=== PATIENT | male | born 1935 | race Caucasian/White ===

== ENCOUNTER 2018-08-05 03:09 | Inpatient (IN) | payer OTHER ==
--- OUTSIDE RECORDS SUMMARY | 2018-08-05 03:12 | XMS REPORT | Clinical Summary ---
:1935 Author Organization [facility] Address [address] [place] [address] Care Team Providers Name Role Phone Asked, No Pcp Primary Care Provider Unavailable Allergies Active Allergy Reactions Severity Noted Date Comments Codeine Other (See Comments) Medium 08/05/2016 Unknown reaction Iodine And Iodide Other (See Comments) Medium 08/05/2016 Unknown reaction Containing Products Hydrocodone-Acetaminophen Other (See Comments) High 08/05/2016 Unknown reaction Tramadol-Acetaminophen Other (See Comments) Medium 08/05/2016 Unknown reaction Medications Medication Sig Dispensed Refills Start Date End Date Status clopidogrel (PLAVIX) Take 75 mg by mouth 0 07/18/2015 Active 75 mg tablet daily. furosemide (LASIX) 40 Take 40 mg by mouth 0 07/18/2015 Active mg tablet 2 (two) times a day. glipiZIDE (GLUCOTROL) Take 5 mg by mouth 0 07/18/2015 Active 5 MG tablet 2 (two) times a day before meals. levothyroxine Take 50 mcg by 0 07/18/2015 Active (SYNTHROID, LEVOXYL) mouth every 50 mcg tablet morning. donepezil (ARICEPT) 5 Take 5 mg by mouth 0 10/03/2015 Active MG tablet nightly. ipratropium Take 500 mcg by 0 10/03/2015 Active (ATROVENT) 0.02 % nebulization every nebulizer solution 6 (six) hours as needed for wheezing or shortness of breath. atorvastatin Take 20 mg by mouth 0 08/01/2016 Active (LIPITOR) 20 MG nightly. tablet ergocalciferol Take 50,000 Units 0 08/01/2016 Active (VITAMIN D2) 50,000 by mouth daily. unit capsule escitalopram Take 20 mg by mouth 0 08/01/2016 Active (LEXAPRO) 20 MG daily. tablet Active Problems Problem Noted Date Carotid disease, bilateral 09/18/2016 Chest pain 09/18/2016 Stroke 08/06/2016 Social History Tobacco Use Types Packs/Day Years Used Date Former Smoker Tobacco Cessation: Counseling Given: Yes Alcohol Use Drinks/Week oz/Week Comments No Sex Assigned at Date Recorded Not on file Job Start Date Occupation Industry Not on file Not on file Not on file Travel History Travel Start Travel End No recent travel history available. 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 For more information, please contact:[place] [address]
[2018-08-05] MEDS ORDERED: NA CHLORIDE 0.9% 1,000 ML ONE (03:48)
[2018-08-05 04:09] LABS: Absolute Lymphocytes (CBC) 0.7 K/uL (0.7-4.9); Absolute Monocytes 0.6 K/uL (0.1-1.3); Absolute Neutrophil 5.9 K/uL (1.8-8.0); Basophils % 0.4 % (0-1.3); Eosinophils % 0.4 % (0-4.4); Hematocrit 40.2 % (39.6-49.0); Lymphocytes % 9.5 % (15.3-44.8); MPV 8.1 fL (7.6-11.3); Monocytes % 7.7 % (3.3-12.3); RBC Red Blood Cell Count 4.18 M/uL (4.33-5.43)
[2018-08-05 04:11] LABS: Protime INR 1.08
[2018-08-05 04:36] LABS: ALT/SGPT 31 U/L (12-78); AST/SGOT 19 U/L (15-37); Albumin 3.5 g/dL (3.4-5.0); Alkaline Phosphatase 54 U/L (45-117); BUN Blood Urea Nitrogen 61 mg/dL (7-18); Bicarbonate 28 mmol/L (21-32); Bilirubin Direct < 0.1 mg/dL (0-0.2); Bilirubin Total 0.4 mg/dL (0.2-1.0); Glucose Level 169 mg/dL (74-106); Lipase 137 U/L (73-393); Magnesium 1.8 mg/dL (1.8-2.4); NT PRO-BNP 2465 pg/mL (<450); Potassium 3.8 mmol/L (3.5-5.1); Protein, Total 7.5 g/dL (6.4-8.2); Sodium Level 140 mmol/L (136-145); Troponin (Emerg Dept Use Only) 0.36 ng/mL (0.0-0.045)
[2018-08-05 05:13] LABS: Urine Blood TRACE (NEG); Urine Glucose NEGATIVE (NEG); Urine Protein TRACE (NEG); Urine Specific Gravity >1.030 (1.005-1.030)
--- NOTE | 2018-08-05 05:25 | ER ---
Nurse's Notes [facility] Name: Angel Ford Age: 83 yrs Sex: Male : 1935 Arrival Date: 08/05/2018 Time: 03:10 Bed 8 Private MD: Diagnosis: Fall due to bumping against object;Weakness;Dementia in other diseases classified elsewhere;Unspecified kidney failure;Contusion of unspecified back wall of thorax;Low back pain;Cardiomegaly-elevated troponin Presentation: 08/05 03:15 Presenting complaint: EMS states: [facility] called to [facility] due to pt having an unwitnessed fall. Pt A \T\ O x 3, pt denies hitting head or LOC. Pt reported he slid out of bed. Pt complaining of lower back and right hip pain. Care prior to arrival: Pt placed on back board and C collar per EMS. Mechanism of Injury: Fall out of bed. 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 03:15 Acuity: JUSTICE 3 ea 03:15 Method Of Arrival: EMS: [facility] ea 03:15 Transition of care: patient was received from another setting of care ([facility]), [facility]. Onset of symptoms was August 05, 2018. Risk Assessment: Do you want to hurt yourself or someone else? Patient reports no desire to harm self or others. Initial Sepsis Screen: Does the patient meet any 2 criteria? No. Patient's initial sepsis screen is negative. Does the patient have a suspected source of infection? No. Patient's initial sepsis screen is negative. Trauma Activation: Not Applicable Physician: ED Physician; Name: ; Notified At: ; Arrived At: Physician: General Surgeon; Name: ; Notified At: ; Arrived At: Physician: Radiology; Name: ; Notified At: ; Arrived At: Physician: Respiratory; Name: ; Notified At: ; Arrived At: Physician: Lab; Name: ; Notified At: ; Arrived At: Historical: - Allergies: 03:43 Iodine; ea 03:43 [place]; ea 03:43 tramadol; ea - Home Meds: 03:43 cholecalciferol (vitamin D3) 1,000 unit Oral tab daily [Active]; donepezil 10 mg Oral ea tab once daily [Active]; clopidogrel 75 mg Oral tab 1 tab once daily [Active]; Cozaar 25 mg Oral tab 1 tab once daily [Active]; levothyroxine 50 mcg tab 1 tab once daily [Active]; metoprolol tartrate 50 mg Oral tab 1 tab 2 times per day [Active]; Lasix 20 mg oral tab [Active]; Lexapro 10 mg oral tab [Active]; Protonix 20 mg Oral TbEC 1 tab once daily [Active]; oxcarbazepine 150 mg oral tab 1 tabs 2 times per day [Active]; prednisone 2.5 mg Oral tab once daily [Active]; Namenda 10 mg oral tab 1 tab 2 times per day [Active]; melatonin 3 mg Oral tab [Active]; folic acid 1 mg Oral tab 1 tab once daily [Active]; Provera 5 mg Oral tab 1 tab BID for for high risk heterosexual behavior [Active]; tobramycin 0.3 % Opht drop 1 drop every 4 hours [Active]; acetaminophen 325 mg Oral tab 1 tab TID [Active]; nitroglycerin 0.4 mg SL subl 1 tab every 5 minutes [Active]; - PMHx: 03:43 HTN; vitamin d deficiency; CAD; constipation; Vertigo; Pneumonia; Obesity; neuropathy; ea MUSCLE WEAKNESS; ischemic heart disease; Hypothyroidism; Hypertension; Hypercholesterolemia; heart failure unspecified; HEART FAILURE; GERD; dyspnea; Depression; Dementia; Diabetes - IDDM; DIZZINESS; - Immunization history:: Adult Immunizations up to date. - Social history:: Smoking status: Patient/guardian denies using tobacco. - Immunization history: Last tetanus immunization: unknown. - Family history:: not pertinent. - Ebola Screening: : No symptoms or risks identified at this time. Screenin:19 Abuse screen: Denies threats or abuse. Nutritional screening: No deficits noted. ea Tuberculosis screening: No symptoms or risk factors identified. Fall Risk Fall in past 12 months (25 points). Primary Survey: 03:20 NO uncontrolled hemorrhage observed. Breathing/Chest: Respiratory pattern: regular, ea Respiratory effort: spontaneous, unlabored, Chest inspection: symmetrical rise and fall of the chest. Circulation: Skin color: pink, Skin temperature: warm. Disability Alert. Exposure/Environment: There is no evidence of uncontrolled external bleeding. A warming method has been applied: A warm blanket has been provided to the patient. 04:20 Reassessment Airway Airway Patent Breathing/Chest Respiratory pattern Regular ea Respiratory effort Spontaneous Unlabored Chest inspection Symmetrical. Assessment: 03:18 General: Appears in no apparent distress. Behavior is appropriate for age. Pain: ea Complains of pain in lumbar area. Neuro: Level of Consciousness is awake, alert, obeys commands, Oriented to person, place, time. EENT: No signs and/or symptoms were reported regarding the EENT system. Cardiovascular: Patient's skin is warm and dry. Respiratory: Airway is patent Respiratory effort is even, unlabored, Respiratory pattern is regular, symmetrical. Derm: Skin is pink, warm \T\ dry. Musculoskeletal: Circulation, motion, and sensation intact. 04:34 Reassessment: Patient appears in no apparent distress at this time. No changes from aa1 previously documented assessment. Patient and/or family updated on plan of care and expected duration. Pain level reassessed. Awaiting lab and CT results. 04:46 Reassessment: Patient and/or family updated on plan of care and expected duration. Pain ea level reassessed. Patient is alert, oriented x 3, equal unlabored respirations, skin warm/dry/pink. Dr. Churchill at bedside updating plan of care. 05:40 Reassessment: Patient and/or family updated on plan of care and expected duration. Pain ea level reassessed. Pt resting with eyes closed, respirations even and unlabored. Chest expansions even and symmetrical. No s/s of pain or discomfort noted at this time. 06:25 Reassessment: Patient appears in no apparent distress at this time. Resting quietly, aa1 eyes closed, respirations even \T\ unlabored. Attempted to call report to floor however charge nurse states that she was unaware pt would be coming up before shift change and pt had not been assigned to a nurse. 07:15 Reassessment: Patient appears in no apparent distress at this time. Patient is alert, ca1 oriented x 3, equal unlabored respirations, skin warm/dry/pink. Vital Signs: 03:15 BP 123 / 66; Pulse 75; Resp 19; Temp 97.9; Pulse Ox 97% on R/A; Weight 131.54 kg; ea Height 5 ft. 9 in. (175.26 cm); 03:48 BP 110 / 48; Pulse 71; Resp 16; Pulse Ox 98% on R/A; mt 04:51 BP 142 / 64; Pulse 66; Resp 16; Pulse Ox 98% on R/A; aa1 05:58 BP 111 / 73; Pulse 63; Resp 17; Pulse Ox 97% on R/A; ea 06:25 BP 116 / 63; Pulse 71; Resp 18; Pulse Ox 96% on R/A; Pain 0/10; aa1 07:15 BP 118 / 71; Pulse 71; Resp 18; Pulse Ox 95% on R/A; ca1 03:15 Body Mass Index 42.83 (131.54 kg, 175.26 cm) ea Temitope Coma Score: 03:15 Eye Response: spontaneous(4). Verbal Response: oriented(5). Motor Response: obeys ea commands(6). Total: 15. Trauma Score (Adult): 03:15 Eye Response: spontaneous(1); Verbal Response: oriented(1); Motor Response: obeys ea commands(2); Systolic BP: > 89 mm Hg(4); Respiratory Rate: 10 to 29 per min(4); Temitope Score: 15; Trauma Score: 12 ED Course: 03:10 Patient arrived in ED. am2 03:15 Patient has correct armband on for positive identification. Placed in gown. Bed in low ea position. Call light in reach. Side rails up X2. 03:15 Arm band placed on right wrist. Patient placed in an exam room, on a stretcher, on ea pulse oximetry. 03:18 Triage completed. ea 03:22 Patient maintains SpO2 saturation greater than 95% on room air. Thermoregulation: warm ea blanket given to patient. 03:26 Elier Osborn MD is Attending Physician. [facility] 03:50 Initial lab(s) drawn, by nm, sent to lab. Inserted saline lock: 20 gauge in right aa1 antecubital area, using aseptic technique. Blood collected. 03:52 XRAY Chest (1 view) In Process Unspecified. EDMS 04:11 Clair Neff, MARY is Primary Nurse. aa1 04:17 CT completed. Patient tolerated procedure well. Patient moved to CT via stretcher. Patient moved back from CT. 04:30 CT Traumagram (Head C Spine CAP wo con) In Process Unspecified. EDMS 04:40 Urine collected: straight cath specimen, clear. Straight cath inserted, using sterile aa1 technique, 16 Fr. Specimen obtained. Returned clear yellow urine. Patient tolerated well. 05:21 Dedrick Triplett MD is Hospitalizing Provider. kam 05:53 No provider procedures requiring assistance completed. Patient admitted, IV remains in ea place. 06:26 Hospitalizing Provider role handed off by Dedrick Triplett MD kam 06:26 Theo Rayo DO is Hospitalizing Provider. kam 06:28 Dedrick Triplett MD is Hospitalizing Provider. kam Administered Medications: 03:50 Drug: NS 0.9% 1000 ml Route: IV; Rate: 125 ml/hr; Site: right antecubital; aa1 06:05 Follow up: Response: No adverse reaction; IV Status: Infusion continued upon admission ea 05:19 CANCELLED (Duplicate Order): NS 0.9% 1000 ml IV at 125 ml/hr continuous kam 05:30 Drug: NS 0.9% 500 ml Route: IV; Rate: bolus; Site: right antecubital; ea 06:04 Follow up: Response: No adverse reaction; IV Status: Completed infusion; IV Intake: ea 500ml 05:37 Drug: Aspirin 162 mg Route: PO; ea 06:04 Follow up: Response: No adverse reaction ea 05:37 Drug: Lovenox 40 mg Route: Sub-Q; Site: right lower abdomen; ea 06:06 Follow up: Response: No adverse reaction ea Intake: 06:04 IV: 500ml; Total: 500ml. ea Outcome: 05:24 Decision to Hospitalize by Provider. kam 05:54 Instructed on the need for admit. ea 05:57 Patient's length of stay in the Emergency Department was greater than 2 hours. Pt being ea admittedPatient's length of stay extended due to 07:45 Admitted to Med/surg accompanied by tech, via stretcher, room 213, with chart, Report ca1 called to Cathy Treadwell RN 07:45 Condition: stable ca1 07:57 Patient left the ED. ca1 Signatures: Dispatcher [employer] EDMS Clair Neff, RN RN aa1 Elier Osborn MD MD cha Hagler, Khalida Sherman Moriah mt Antunez, Elena, RN RN ea Acob, Cheryl, RN RN ca1
--- NOTE | 2018-08-05 05:25 | EDPHYS ---
Physician Documentation [facility] Name: Angel Ford Age: 83 yrs Sex: Male : 1935 Arrival Date: 08/05/2018 Time: 03:10 Bed 8 Private MD: ED Physician Elier Osborn HPI: 08/05 03:36 This 83 yrs old Male presents to ER via EMS with complaints of Fall Injury. kam 03:39 The patient presents with pain and decreased range of motion, and an injury. The kam symptoms are located in the thoracic area and lumbar area. Onset: The symptoms/episode began/occurred just prior to arrival. The pain does not radiate. Associated signs and symptoms: Pertinent positives: nausea. Historical: - Allergies: 03:43 Iodine; ea 03:43 [place]; ea 03:43 tramadol; ea - Home Meds: 03:43 cholecalciferol (vitamin D3) 1,000 unit Oral tab daily [Active]; donepezil 10 mg Oral ea tab once daily [Active]; clopidogrel 75 mg Oral tab 1 tab once daily [Active]; Cozaar 25 mg Oral tab 1 tab once daily [Active]; levothyroxine 50 mcg tab 1 tab once daily [Active]; metoprolol tartrate 50 mg Oral tab 1 tab 2 times per day [Active]; Lasix 20 mg oral tab [Active]; Lexapro 10 mg oral tab [Active]; Protonix 20 mg Oral TbEC 1 tab once daily [Active]; oxcarbazepine 150 mg oral tab 1 tabs 2 times per day [Active]; prednisone 2.5 mg Oral tab once daily [Active]; Namenda 10 mg oral tab 1 tab 2 times per day [Active]; melatonin 3 mg Oral tab [Active]; folic acid 1 mg Oral tab 1 tab once daily [Active]; Provera 5 mg Oral tab 1 tab BID for for high risk heterosexual behavior [Active]; tobramycin 0.3 % Opht drop 1 drop every 4 hours [Active]; acetaminophen 325 mg Oral tab 1 tab TID [Active]; nitroglycerin 0.4 mg SL subl 1 tab every 5 minutes [Active]; - PMHx: 03:43 HTN; vitamin d deficiency; CAD; constipation; Vertigo; Pneumonia; Obesity; neuropathy; ea MUSCLE WEAKNESS; ischemic heart disease; Hypothyroidism; Hypertension; Hypercholesterolemia; heart failure unspecified; HEART FAILURE; GERD; dyspnea; Depression; Dementia; Diabetes - IDDM; DIZZINESS; - Immunization history:: Adult Immunizations up to date. - Social history:: Smoking status: Patient/guardian denies using tobacco. - Immunization history: Last tetanus immunization: unknown. - Family history:: not pertinent. - Ebola Screening: : No symptoms or risks identified at this time. ROS: 03:37 Constitutional: Negative for fever, chills, and weight loss, Eyes: Negative for injury, kam pain, redness, and discharge, ENT: Negative for injury, pain, and discharge, Neck: Negative for injury, pain, and swelling, Cardiovascular: Negative for chest pain, palpitations, and edema, Respiratory: Negative for shortness of breath, cough, wheezing, and pleuritic chest pain, Abdomen/GI: Negative for abdominal pain, nausea, vomiting, diarrhea, and constipation, : Negative for injury, bleeding, discharge, and swelling, MS/Extremity: Negative for injury and deformity, Neuro: Negative for headache, weakness, numbness, tingling, and seizure, Psych: Negative for depression, anxiety, suicide ideation, homicidal ideation, and hallucinations, Allergy/Immunology: Negative for hives, rash, and allergies, Endocrine: Negative for neck swelling, polydipsia, polyuria, polyphagia, and marked weight changes, Hematologic/Lymphatic: Negative for swollen nodes, abnormal bleeding, and unusual bruising. 03:37 Back: Positive for pain at rest, pain with movement. 03:37 Skin: Positive for pallor. Exam: 03:37 Constitutional: This is a well developed, well nourished patient who is awake, alert, kam and in no acute distress. Head/Face: Normocephalic, atraumatic. Eyes: Pupils equal round and reactive to light, extra-ocular motions intact. Lids and lashes normal. Conjunctiva and sclera are non-icteric and not injected. Cornea within normal limits. Periorbital areas with no swelling, redness, or edema. ENT: Nares patent. No nasal discharge, no septal abnormalities noted. Tympanic membranes are normal and external auditory canals are clear. Oropharynx with no redness, swelling, or masses, exudates, or evidence of obstruction, uvula midline. Mucous membranes moist. Neck: Trachea midline, no thyromegaly or masses palpated, and no cervical lymphadenopathy. Supple, full range of motion without nuchal rigidity, or vertebral point tenderness. No Meningismus. Chest/axilla: Normal chest wall appearance and motion. Nontender with no deformity. No lesions are appreciated. Cardiovascular: Regular rate and rhythm with a normal S1 and S2. No gallops, murmurs, or rubs. Normal PMI, no JVD. No pulse deficits. Respiratory: Lungs have equal breath sounds bilaterally, clear to auscultation and percussion. No rales, rhonchi or wheezes noted. No increased work of breathing, no retractions or nasal flaring. Abdomen/GI: Soft, non-tender, with normal bowel sounds. No distension or tympany. No guarding or rebound. No evidence of tenderness throughout. Male : Normal genitalia with no discharge or lesions. MS/ Extremity: Pulses equal, no cyanosis. Neurovascular intact. Full, normal range of motion. Neuro: Awake and alert, GCS 15, oriented to person, place, time, and situation. Cranial nerves II-XII grossly intact. Motor strength 5/5 in all extremities. Sensory grossly intact. Cerebellar exam normal. Normal gait. Psych: Awake, alert, with orientation to person, place and time. Behavior, mood, and affect are within normal limits. 03:37 Back: ROM is painful, normal spinal alignment noted, CVA tenderness, that is mild, muscle spasm, is not present. Vital Signs: 03:15 BP 123 / 66; Pulse 75; Resp 19; Temp 97.9; Pulse Ox 97% on R/A; Weight 131.54 kg; ea Height 5 ft. 9 in. (175.26 cm); 03:48 BP 110 / 48; Pulse 71; Resp 16; Pulse Ox 98% on R/A; mt 04:51 BP 142 / 64; Pulse 66; Resp 16; Pulse Ox 98% on R/A; aa1 05:58 BP 111 / 73; Pulse 63; Resp 17; Pulse Ox 97% on R/A; ea 06:25 BP 116 / 63; Pulse 71; Resp 18; Pulse Ox 96% on R/A; Pain 0/10; aa1 07:15 BP 118 / 71; Pulse 71; Resp 18; Pulse Ox 95% on R/A; ca1 03:15 Body Mass Index 42.83 (131.54 kg, 175.26 cm) ea [place] Coma Score: 03:15 Eye Response: spontaneous(4). Verbal Response: oriented(5). Motor Response: obeys ea commands(6). Total: 15. Trauma Score (Adult): 03:15 Eye Response: spontaneous(1); Verbal Response: oriented(1); Motor Response: obeys ea commands(2); Systolic BP: > 89 mm Hg(4); Respiratory Rate: 10 to 29 per min(4); [place] Score: 15; Trauma Score: 12 MDM: 03:26 Patient medically screened. [facility] 03:39 Data reviewed: vital signs, nurses notes, lab test result(s), EKG, radiologic studies, [facility] CT scan, plain films. 08/05 03:35 Order name: Basic Metabolic Panel; Complete Time: 05:00 [facility] 08/05 03:35 Order name: CBC with Diff; Complete Time: 04:32 [facility] 08/05 03:35 Order name: LFT's; Complete Time: 05:00 [facility] 08/05 03:35 Order name: Magnesium; Complete Time: 05:00 [facility] 08/05 03:35 Order name: NT PRO-BNP; Complete Time: 05:00 [facility] 08/05 03:35 Order name: PT-INR; Complete Time: 04:32 [facility] 08/05 03:35 Order name: Troponin (emerg Dept Use Only); Complete Time: 05:00 [facility] 08/05 03:35 Order name: Lipase; Complete Time: 05:00 [facility] 08/05 03:35 Order name: Urine Culture [facility] 08/05 03:35 Order name: TSH; Complete Time: 05:00 [facility] 08/05 04:53 Order name: Urine Dipstick--Ancillary (enter results); Complete Time: 05:25 08/05 05:23 Order name: [facility]mb 08/05 05:30 Order name: Creatine Phosphokinase EDMS 08/05 03:35 Order name: XRAY Chest (1 view) [facility] 08/05 03:35 Order name: EKG; Complete Time: 03:36 [facility] 08/05 03:35 Order name: Cardiac monitoring; Complete Time: 03:46 [facility] 08/05 03:35 Order name: EKG - Nurse/Tech; Complete Time: 03:45 [facility] 08/05 03:35 Order name: IV Saline Lock; Complete Time: 03:47 [facility] 08/05 03:35 Order name: Labs collected and sent; Complete Time: 03:47 [facility] 08/05 03:35 Order name: O2 Per Protocol; Complete Time: 03:46 [facility] 08/05 03:35 Order name: O2 Sat Monitoring; Complete Time: 03:46 [facility] 08/05 03:35 Order name: CT Traumagram (Head C Spine CAP wo con) [facility] 08/05 03:35 Order name: Urine Dipstick-Ancillary (obtain specimen); Complete Time: 04:50 kam Administered Medications: 03:50 Drug: NS 0.9% 1000 ml Route: IV; Rate: 125 ml/hr; Site: right antecubital; aa1 06:05 Follow up: Response: No adverse reaction; IV Status: Infusion continued upon admission ea 05:19 CANCELLED (Duplicate Order): NS 0.9% 1000 ml IV at 125 ml/hr continuous kam 05:30 Drug: NS 0.9% 500 ml Route: IV; Rate: bolus; Site: right antecubital; ea 06:04 Follow up: Response: No adverse reaction; IV Status: Completed infusion; IV Intake: ea 500ml 05:37 Drug: Aspirin 162 mg Route: PO; ea 06:04 Follow up: Response: No adverse reaction ea 05:37 Drug: Lovenox 40 mg Route: Sub-Q; Site: right lower abdomen; ea 06:06 Follow up: Response: No adverse reaction ea Disposition: 08/05/18 05:24 Hospitalization ordered by Dedrick Triplett for Inpatient Admission. Preliminary diagnosis are Fall due to bumping against object, Weakness, Dementia in other diseases classified elsewhere, Unspecified kidney failure, Contusion of unspecified back wall of thorax, Low back pain, Cardiomegaly - elevated troponin. - Bed requested for Telemetry/MedSurg (Inpatient). - Status is Inpatient Admission. ca1 - Condition is Fair. - Problem is new. - Symptoms have improved. UTI on Admission? No Signatures: Dispatcher [employer] EDMS Clair Neff RN RN aa1 Elier Osborn MD MD cha Garcia, Cindy, RN RN cg Antunez, Elena, RN RN ea Acob, Cheryl RN RN ca1 Corrections: (The following items were deleted from the chart) 05:19 05:19 NS 0.9% 1000 ml IV at 125 ml/hr continuous ordered. [facility] 05:29 05:24 Hospitalization Ordered by Dedrick Triplett MD for Inpatient Admission. Preliminary [facility] diagnosis is Fall due to bumping against object; Weakness; Dementia in other diseases classified elsewhere; Unspecified kidney failure; Contusion of unspecified back wall of thorax; Low back pain. Bed requested for Telemetry/MedSurg (Inpatient). Status is Inpatient Admission. Condition is Fair. Problem is new. Symptoms have improved. UTI on Admission? No. kam 05:30 05:25 CREATINE PHOSPHOKINASE+C.LAB.BRZ ordered. [facility] EDMS 05:59 05:29 08/05/2018 05:24 Hospitalization Ordered by Dedrick Triplett MD for Inpatient cg Admission. Preliminary diagnosis is Fall due to bumping against object; Weakness; Dementia in other diseases classified elsewhere; Unspecified kidney failure; Contusion of unspecified back wall of thorax; Low back pain; Cardiomegaly - elevated troponin. Bed requested for Telemetry/MedSurg (Inpatient). Status is Inpatient Admission. Condition is Fair. Problem is new. Symptoms have improved. UTI on Admission? No. kam 06:26 05:59 08/05/2018 05:24 Hospitalization Ordered by Dedrick Triplett MD for Inpatient kam Admission. Preliminary diagnosis is Fall due to bumping against object; Weakness; Dementia in other diseases classified elsewhere; Unspecified kidney failure; Contusion of unspecified back wall of thorax; Low back pain; Cardiomegaly - elevated troponin. Bed requested for Telemetry/MedSurg (Inpatient). Status is Inpatient Admission. Condition is Fair. Problem is new. Symptoms have improved. UTI on Admission? No. cg 06:28 06:26 08/05/2018 05:24 Hospitalization Ordered by Theo Rayo DO for Inpatient kam Admission. Preliminary diagnosis is Fall due to bumping against object; Weakness; Dementia in other diseases classified elsewhere; Unspecified kidney failure; Contusion of unspecified back wall of thorax; Low back pain; Cardiomegaly - elevated troponin. Bed requested for Telemetry/MedSurg (Inpatient). Status is Inpatient Admission. Condition is Fair. Problem is new. Symptoms have improved. UTI on Admission? No. kam 07:57 06:28 08/05/2018 05:24 Hospitalization Ordered by Dedrick Triplett MD for Inpatient ca1 Admission. Preliminary diagnosis is Fall due to bumping against object; Weakness; Dementia in other diseases classified elsewhere; Unspecified kidney failure; Contusion of unspecified back wall of thorax; Low back pain; Cardiomegaly - elevated troponin. Bed requested for Telemetry/MedSurg (Inpatient). Status is Inpatient Admission. Condition is Fair. Problem is new. Symptoms have improved. UTI on Admission? No. kam
[2018-08-05] MEDS ORDERED: ENOXAPARIN 40 MG/0.4 ML SQ ONE (05:32)
[2018-08-05] MEDS ORDERED: ASPIRIN 81 MG CHEWABLE TABLET ONE (05:32)
[2018-08-05] MEDS ORDERED: NA CHLORIDE 0.9% 500 ML ONE (05:32)
[2018-08-05 05:47] LABS: CKMB Creatine Kinase MB 1.7 ng/mL (0.3-3.6)
--- NOTE | 2018-08-05 05:54 | P.HP ---
Certification for Inpatient Patient admitted to: Observation With expected LOS: <2 Midnights Practitioner: I am a practitioner with admitting privileges, knowledge of patient current condition, hospital course, and medical plan of care. Services: Services provided to patient in accordance with Admission requirements found in Title 42 Section 412.3 of the Code of Federal Regulations Patient History Date of Service: 08/05/18 Reason for admission: fall, volume depletion, acute on ckd History of Present Illness: Mr Ford is an 83 years old male with multiple medical problems, including dementia, HTN, CKD, DM II, CAD, vertigo, resident of a local custodial, who sustained a fall this morning while he was trying to stand up from the bed, he said that went very close to the edge of his bed and slipped to the floor. He denied head trauma, however, complain of back pain. Lab work remarkable for worsening renal function, elevated troponin I. The patient denied any chest pain or SOB. CT head/chest/abd and pelvis showed no acute abnormalities or fractures. Allergies acetaminophen [From [place]] Allergy (Verified 05/05/17 21:39) Unknown hydrocodone [From [place]] Allergy (Verified 05/05/17 21:39) Unknown tramadol Allergy (Verified 05/05/17 21:39) Unknown Codeine Allergy (Uncoded 05/05/17 21:39) Hives Iodine Allergy (Uncoded 05/05/17 21:39) Hives Home medications list reviewed: Yes Home Medications: Clopidogrel Bisulfate [Plavix*] 75 mg PO DAILY 07/18/15 Levothyroxine [Synthroid*] 50 mcg PO [id number] 07/18/15 Losartan Potassium [Cozaar] 25 mg PO DAILY 07/18/15 Metoprolol Tartrate [Lopressor*] 50 mg PO BID 07/18/15 Donepezil HCl 10 mg PO BEDTIME 10/03/15 Ipratropium Neb [Atrovent*] 0.5 mg NEB Q6HP PRN #60 10/03/15 Atorvastatin Calcium [Lipitor] 20 mg PO BEDTIME 08/01/16 Escitalopram Oxalate [Lexapro] 20 mg PO DAILY 08/01/16 Insulin -Regular Human [Novolin -R*] See Protocol SQ BIDWM 08/01/16 Omeprazole 20 mg PO DAILY 08/01/16 Oxcarbazepine [Trileptal] 150 mg PO BID 08/01/16 Spironolactone [Aldactone] 25 mg PO DAILY 08/01/16 Acetaminophen 325 mg PO DAILY 08/30/16 Cholecalciferol (Vitamin D3) [Vitamin D3] 1,000 unit PO DAILY 08/30/16 Ergocalciferol (Vitamin D2) [Vitamin D2] 1 cap PO SEECOM 08/30/16 Furosemide [Lasix*] 1 tab PO DAILY 08/30/16 Insulin Glargine,Hum.rec.anlog [Lantus] 37 unit SQ DAILY 08/30/16 Liraglutide [Victoza 2-Gab] 3 packet SQ DAILY 08/30/16 Medroxyprogesterone Acetate [Provera] 5 mg PO BID 08/30/16 glipiZIDE [Glucotrol*] 5 mg PO BID 08/30/16 Tamsulosin [Flomax*] 0.4 mg PO DAILY cap 09/02/16 Albuterol Neb [Proventil 0.083% Neb Soln] 2.5 mg NEB Q6HR #1 amp 05/11/17 Arformoterol Tartrate [Brovana] 15 mcg NEB BIDRESP #60 vial.neb 05/11/17 Cefuroxime [Ceftin] 500 mg PO BID #28 tab 05/11/17 - Past Medical/Surgical History Diabetic: Yes -: NIDDM -: Hyperlipidemia -: HTN -: Hypothyroid -: Vertigo -: Bronchiolitis -: CAD -: arthrosclerosis -: gerd -: heart failure -: heart stent x2 -: Balloon angioplasty -: broke both arm when 4yrs old - Family History Father -: Lung disease Notes: black lung Mother -: Cancer - Social History Smoking Status: Never smoker Alcohol use: Yes CD- Drugs: No Caffeine use: Yes Place of Residence: Retirement Review of Systems 10-point ROS is otherwise unremarkable Physical Examination - Physical Exam General: Alert, In no apparent distress HEENT: Atraumatic, PERRLA, Mucous membr. moist/pink, EOMI, Sclerae nonicteric Neck: Supple, 2+ carotid pulse no bruit, No LAD, Without JVD or thyroid abnormality Respiratory: Clear to auscultation bilaterally, Normal air movement Cardiovascular: Normal S1 S2, Abnormal S3, No gallops Gastrointestinal: Normal bowel sounds, No tenderness Musculoskeletal: No tenderness Integumentary: No rashes Neurological: Normal speech, Normal strength at 5/5 x4 extr, Normal tone, Normal affect Lymphatics: No axilla or inguinal lymphadenopathy - Studies Laboratory Data (last 24 hrs) 08/05/18 03:50: PT 12.7 H, INR 1.08 08/05/18 03:50: WBC 7.2, Hgb 13.5 L, Hct 40.2, Plt Count 156 08/05/18 03:50: Sodium 140, Potassium 3.8, BUN 61 H, Creatinine 2.84 H, Glucose 169 H, Magnesium 1.8, Total Bilirubin 0.4, AST 19, ALT 31, Alkaline Phosphatase 54, Lipase 137 Assessment and Plan - Problems (Diagnosis) (1) Acute kidney injury superimposed on CKD Current Visit: Yes Status: Acute (2) Fall Current Visit: Yes Status: Acute Qualifiers: Encounter type: initial encounter Qualified Code(s): W19.XXXA - Unspecified fall, initial encounter (3) Volume depletion Current Visit: Yes Status: Acute (4) CAD (coronary artery disease) Onset Date: 08/04/16 Current Visit: No Status: Chronic Qualifiers: Coronary Disease-Associated Artery/Lesion type: [place] artery [place] vs. 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 His renal function also is worsening compared to his baseline. Will order IV fluid, PT consult. Trop I is elevated, possible due to worsening renal function, pending EKG, no chest pain. - Advance Directives Does patient have a Living Will: No Does patient have a Durable POA for Healthcare: No - Code Status/Comfort Care Code Status Assessed: Yes Code Status: Full Code
--- NOTE | 2018-08-05 06:39 | RAD REPORT ---
EXAM DESCRIPTION: RAD - Chest Single View - 08/05/2018 3:55 am CLINICAL HISTORY: Cough, fall, chest pain COMPARISON: April 2017 TECHNIQUE: AP portable chest image was obtained 0352 hours . FINDINGS: Lung volumes are low. No peripheral mass or consolidation. Heart size is accentuated by sh allow inspiration and portable technique. No vascular engorgement. Left costophrenic angle blunting i s still present but improved from comparison. Left costophrenic angle is often blunted on shallow ins piration portable exam. No acute bony abnormality seen. No acute aortic findings suspected. IMPRESSION: Limited shallow inspiration study without significant cardiopulmonary finding.
--- NOTE | 2018-08-05 09:01 | RAD REPORT ---
EXAM DESCRIPTION: CT - Head C Spine Cap Wo Con - 08/05/2018 5:53 am CLINICAL HISTORY: Fall, head, neck, chest and abdomen pain A preliminary report was provided at the time of the study and reviewed prior to final report. COMPARISON: CT head August 2016, CT abdomen and pelvis January 2014 TECHNIQUE: Axial [address] head images were obtained. Axial [address] cervical spine images were obtain ed with sagittal and coronal reconstruction images reviewed. Axial 5 mm images of the chest, abdomen and pelvis were obtained. All CT scans are performed using dose optimization technique as appropriate and may include automated exposure control or mA/KV adjustment according to patient size. FINDINGS: No intracranial hemorrhage, mass or edema. No midline shift or abnormal fluid collection. Mastoid air cells and paranasal sinuses are clear. No skull fracture. Moderate severity atrophy and chronic ischemic changes are present. Ventricles are in proportion to volume loss. Old right parietal CVA changes are noted. Arterial calcifications are present. Intracranial findings are similar to the comparison. Cervical bodies are normal in height. There is straightening of the usual cervical lordosis. There is a very slight retrolisthesis of C3 relative to C2 and C4. Moderate C3-4 and prominent C4-5 and C5-6 disc space narrowing. There is degenerative change at the dens C1 level. Significant bony foraminal s tenosis on the right at C2-3 from uncovertebral joint hypertrophy and facet hypertrophy. Similar adva nced degenerative change with bilateral foraminal stenosis at C3-4. Posterior endplate spurring cause s spinal stenosis down to 6- 7 mm. Facet degenerative change causes bilateral foraminal stenosis at C 4-5 and advanced foraminal stenosis at C6-7 and C5-6. Spinal stenosis down to 5-6 mm noted at C6-7. C entral canal detail is inherently limited. No fracture or acute bone finding. No prevertebral soft ti ssue thickening or paraspinal mass. Dense carotid calcifications are present. 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 This is a normal developmental variant. CT chest shows no pneumothorax, pulmonary contusion or pleural fluid collection. No mediastinal hem atoma and the aorta and pulmonary arteries are unremarkable for noncontrast imaging. No chest will ma ss or abnormal axillary finding. No displaced rib fracture or other significant bony finding. CT abdomen and pelvis show no injury to solid abdominal viscera. Gallbladder and biliary tree are unr emarkable. No traumatic bowel injury identified. There is a large amount of retained fluid within the lumen of the stomach. Gastric outlet is not suspected. Multiple fluid-filled small bowel loops are p resent. No small bowel obstruction or dilatation. No small bowel mass. Fluid-filled colon is also cheryle ntified without acute mass or wall thickening. No free air, free fluid or abnormal stranding. No jose de jesus ia, mass or bulky lymphadenopathy. No urinary bladder abnormality. Patient has significant vertebral degenerative change. No compression fracture or acute finding seen. No fracture of the bony pelvis. Bilateral hip joint degenerative changes are present without acute f racture. Arterial tree calcifications are present. IMPRESSION: Moderate atrophy and chronic ischemic changes are present with no hemorrhage or acute in tracranial finding. Prominent cervical spine degenerative change with multilevel spinal stenosis and multilevel significa nt foraminal stenosis. No fracture or acute finding seen. Central canal detail is inherently limited. Chronic chest findings with no pulmonary contusion, pneumothorax or acute finding. No acute traumatic CT abdomen or pelvis finding. Patient has fluid filled bowel that is nonspecific b ut could indicate an enteritis if there are matching symptoms.
[2018-08-05] MEDS ORDERED: ONDANSETRON 4 MG/2 ML VIAL IV PRN (09:29)
[2018-08-05] MEDS: NA CHLORIDE 0.9% 1,000 ML IV SCH ×2 (09:29→18:14)
[2018-08-05] MEDS: INSULIN -REGULAR HUMAN 50 UNIT/0.5 ML ML SQ SCH ×4 (09:29→21:00)
--- NOTE | 2018-08-05 10:44 | EKG ---
Test Date: 2018-08-05 Test Time: 03:39:10 Hospitality Services Manager: RAJ MEASUREMENT RESULTS: Intervals: Rate: 73 VT: 152 QRSD: 98 QT: 406 QTc: 447 [place]: P: 47 VT: 152 QRS: 28 T: 51 INTERPRETIVE STATEMENTS: Sinus rhythm with premature supraventricular complexes Possible Inferior infarct, age undetermined Possible Anterior infarct, age undetermined Abnormal ECG Compared to ECG 05/07/2017 16:42:52 Atrial premature complex(es) now present Ventricular premature complex(es) no longer present Myocardial infarct finding still present Electronically Signed On 08-05-18 10:42:44 TECHNICAL SUPPORT ASSISTANT by Héctor Hatfield
--- NOTE | 2018-08-05 15:41 | PN ---
Date of Progress Note: 08/05/2018 Patient seen and examined. Chart reviewed and case discussed with RN. The patient is largely nonresponsive, is able to wake up, but not participating in history taking. Medications: List reviewed. Code Status: Full code. Physical Examination: Vital Signs: Temperature 98.6, heart rate 89, blood pressure 126/56, respirations 18, O2 92% on room air. General: Asleep but arousable. Not oriented, confused. CV: S1, S2. Peripheral pulses present. Regular rate and rhythm. Respiratory: Moving air well bilaterally. No wheezing or stridor. Gastrointestinal: Abdomen is soft, nontender, nondistended. Positive bowel sounds. Extremities: No clubbing, cyanosis. The patient does have some pedal edema. Neuro: Does move all 4 extremities. Nonfocal. Laboratory Data: Sodium 140, potassium 3.8, chloride 105, CO2 28, BUN 51. Creatinine 2.84, baseline is about 1.4. Glucose 169, calcium 8.7, magnesium 1.8. Troponin 0.36. Repeat troponin 0.29. BNP 2465. WBC 7.2, H and H 13.5 and 40.2, platelets 156. UA is negative. CT abdomen, pelvis, chest, and head shows moderate atrophy and chronic ischemic changes of the brain, no hemorrhage. The patient does have prominent cervical spine degenerative changes. Chronic chest findings with no pulmonary contusion. Has some fluid- filled bowel, but that is nonspecific. Chest x-ray, limited shallow inspiration study without significant cardiopulmonary finding. Assessment And Plan: An 83-year-old male with. 1. Acute metabolic encephalopathy, unclear etiology. 2. Acute on chronic kidney injury, stage 3. We will continue with IV fluids. Monitor creatinine and avoid nephrotoxins. 3. Status post fall. CT did not show any fractures or bleed. 4. Volume depletion. 5. Elevated troponin level, trending down. We will follow up with EKG. We will consult Cardiology. No chest pain apparently when the patient arrived. 6. Coronary artery disease, lower [place] artery and [place] heart without angina, status post stent. 7. Dementia without behavioral disturbance, Alzheimer's type, early onset. 8. Diabetes mellitus type 2 without long-term use of insulin with hyperglycemia. 9. Morbid obesity. 10. Hyperlipidemia. Continue statin. 11. Essential hypertension. Resume home medications as appropriate. 12. Hypothyroidism. Continue Synthroid. 13. Gastroesophageal reflux disease. We will resume home medication. The patient is on omeprazole. 14. Gastrointestinal and deep venous thrombosis prophylaxis with PPI and Lovenox, renally dosed. 15. Overall, guarded prognosis. Addendum: Patient much more awake and alert this afternoon. Tolerating diet. Ambulating w assist w PT. /KARMA Voice ID: [id number] Report ID: [id number] MTDD
[2018-08-05] MEDS: glipiZIDE 5 MG TAB PO SCH (18:13)
[2018-08-05] MEDS: ALBUTEROL 2.5 MG/3 ML NEB SOL NEB SCH (20:12)
[2018-08-05] MEDS: ARFORMOTEROL TARTRATE 15 MCG/2 ML VIAL.NEB NEB SCH (20:12)
[2018-08-05] MEDS: ATORVASTATIN 20 MG TAB PO SCH (20:54)
[2018-08-05] MEDS: METOPROLOL TAR 50 MG TAB PO SCH (20:54)
[2018-08-05] MEDS: TAMSULOSIN 0.4 MG SR CAP PO SCH (20:54)
[2018-08-05] MEDS: OXcarbazepine 150 MG TAB PO SCH (20:56)
[2018-08-05] MEDS: DONEPEZIL HCL 5 MG TAB PO SCH (20:57)
[2018-08-05] MEDS ORDERED: HOME MED 1 EA UNK (Donepezil Hcl [Donepezil Hcl] 10 MG) PO SCH (21:00)
[2018-08-06] MEDS: ALBUTEROL 2.5 MG/3 ML NEB SOL NEB SCH ×4 (01:50→20:05)
[2018-08-06] MEDS: NA CHLORIDE 0.9% 1,000 ML IV SCH (04:47)
[2018-08-06 04:56] LABS: Absolute Lymphocytes (CBC) 0.9 K/uL (0.7-4.9); Absolute Monocytes 0.5 K/uL (0.1-1.3); Absolute Neutrophil 4.7 K/uL (1.8-8.0); Basophils % 0.3 % (0-1.3); Eosinophils % 0.3 % (0-4.4); Hematocrit 32.8 % (39.6-49.0); Lymphocytes % 14.1 % (15.3-44.8); Monocytes % 8.3 % (3.3-12.3)
[2018-08-06 05:01] LABS: Potassium 3.5 mmol/L (3.5-5.1)
[2018-08-06] MEDS: ENOXAPARIN 30 MG/0.3 ML SQ SCH (05:34)
[2018-08-06] MEDS: LEVOTHYROXINE SOD 0.05 MG TABLET PO SCH (05:34)
[2018-08-06] MEDS ORDERED: KCL 20 MEQ/100 mL IVPB 20 MEQ/100 ML BAG IV SCH (07:00)
--- NOTE | 2018-08-06 07:00 | CON ---
Date of Consultation: 08/05/[address] Newton's service on 08/05/2018. I saw the patient on 08/05/2018. Reason For Consultation: Status post fall, elevated troponin, acute on chronic renal failure. History Of Present Illness: Mr. Ford is an 83-year-old male without any history of coronary artery d isease in the past. He has a history of COPD, diabetes, depression, dyslipidemia, benign prostatic h ypertrophy, dementia, hypothyroidism, hypertension, chronic renal disease. Came in with worsening re nal failure with a creatinine of 2.84, status post fall. He had some altered mental status. No ches t pain was reported. No nausea, vomiting, diaphoresis, PND, orthopnea, pedal edema, palpitation, or syncope. Past Medical History: As stated above. Allergies: HE IS ALLERGIC TO TYLENOL, TRAMADOL, IODINE, AND CODEINE. Review of Systems: Negative. Social History: Negative. Family History: Negative. Medications: At home include multiple inhalers, Lexapro, insulin, Lasix, Victoza, Flomax, Lipitor, S ynthroid, Lopressor, Plavix, glipizide, benazepril, Aldactone, and Trileptal. Physical Examination: Vital Signs: Stable. He was afebrile. General: He was in no acute distress. HEENT: Negative. Neck: Supple without any bruit, lymphadenopathy, or JVD. Chest: Clear to auscultation and percussion. Cardiac: Revealed a regular rhythm and rate with a tricuspid regurgitation murmur and S4 gallops. Abdomen: Benign. Extremities: Revealed no clubbing, cyanosis, or edema. Diagnostic Data: Troponin was 0.29. BNP was 2465. Creatinine was 2.84. Chest x-ray was negative. EKG showed possible old anterior ME. Impression And Plan: 1.Elevated troponin in the view of renal insufficiency, not clinically significant. BNP elevation i s probably secondary to renal insufficiency. He is not in clinical congestive heart failure. Denied any cardiac symptoms. Denied any syncope. He needs to be hydrated, have his Lasix held. Continue the rest of his medication. Get an echocardiogram on him today to rule out any wall motion abnormali ties. I do not recommend a stress test at this point. 2.Pulmonary hypertension. 3.Chronic obstructive pulmonary disease. 4.Diabetes. 5.Depression. 6.Dementia. 7.Dyslipidemia. 8.Hypothyroidism. 9.Hypertension, well controlled. 10.Benign prostatic hypertrophy. SLADE/KARMA Voice ID: [id number] Report ID: [id number]
--- NOTE | 2018-08-06 07:12 | ECHO ---
HEIGHT: 5 ft 9 in WEIGHT: 219 lb 0 oz DATE OF STUDY: 08/05/[address]: Héctor Hatfield MD 2-DIMENSIONAL: YES M.MODE: YES DOPPLER: YES COLOR FLOW: YES TDS: YES PORTABLE: DEFINITY: BUBBLE STUDY: DIAGNOSIS: HIGH TROPONIN CARDIAC HISTORY: CATHERIZATION: YES SURGERY: NO PROSTHETIC VALVE: NO PACEMAKER: NO MEASUREMENTS (cm) DIASTOLIC (NORMALS) SYSTOLIC (NORMALS) IVSd 1.0 (0.6-1.2) LA Diam 4.3 (1.9-4.0) LVEF 62% LVIDd 5.3 (3.5-5.7) LVIDs 3.5 (2.0-3.5) %FS 34% LVPWd 1.3 (0.6-1.2) Ao Diam 3.3 (2.0-3.7) 2 DIMENSIONAL ASSESSMENT: RIGHT ATRIUM: NORMAL LEFT ATRIUM: DILATED RIGHT VENTRICLE: NORMAL LEFT VENTRICLE: NORMAL SIZE TRICUSPID VALVE: NORMAL MITRAL VALVE: MITRAL ANNULAR CALCIFICATION PULMONIC VALVE: NORMAL AORTIC VALVE: SCLEROSIS PERICARDIAL EFFUSION: NONE AORTIC ROOT: NORMAL LEFT VENTRICULAR WALL MOTION: DECREASED LEFT VENTRICULAR COMPLIANCE DOPPLER/COLOR FLOW: TRACE MITRAL AND AORTIC REGURGITATION. MILD TRICUPSID REGURGITATION. COMMENTS: MILD TRICUPSID REGURGITATION. TRACE AORTIC AND MITRAL REGURGITATION. MITRAL ANNULAR CALCIFICATION. AORTIC SCLEROSIS. NORMAL LEFT VENTRICULAR SIZE. DECREASED LEFT VENTRICULAR COMPLIANCE. TECHNOLOGIST: MACY HENNESSY
[2018-08-06] MEDS: INSULIN -REGULAR HUMAN 50 UNIT/0.5 ML ML SQ SCH ×4 (07:30→21:00)
[2018-08-06] MEDS: ARFORMOTEROL TARTRATE 15 MCG/2 ML VIAL.NEB NEB SCH ×2 (08:16→20:05)
[2018-08-06] MEDS: glipiZIDE 5 MG TAB PO SCH ×2 (08:52→16:30)
[2018-08-06] MEDS: SPIRONOLACTONE 25 MG TABLET PO SCH (08:53)
[2018-08-06] MEDS: ESCITALOPRAM 20 MG TAB PO SCH (08:53)
[2018-08-06] MEDS: PANTOPRAZOLE 40MG TABLET PO SCH (08:53)
[2018-08-06] MEDS: CLOPIDOGREL 75 MG TABLET PO SCH (08:54)
[2018-08-06] MEDS: METOPROLOL TAR 50 MG TAB PO SCH ×2 (08:54→22:22)
[2018-08-06] MEDS: INSULIN GLARGINE 100 UNITS/ML SQ SCH (08:54)
[2018-08-06] MEDS ORDERED: HOME MED 1 EA UNK (Losartan Potassium [Cozaar] 25 MG) PO SCH (09:00)
[2018-08-06] MEDS ORDERED: LOSARTAN POTASSIUM 50 MG TABLET PO SCH (09:00)
[2018-08-06] MEDS ORDERED: HOME MED 1 EA UNK (Omeprazole [Omeprazole] 20 MG) PO SCH (09:00)
[2018-08-06] MEDS: OXcarbazepine 150 MG TAB PO SCH ×2 (12:27→22:31)
--- NOTE | 2018-08-06 14:43 | RAD REPORT ---
EXAM DESCRIPTION: US - Renal Ultrasound-Complete - 08/06/2018 2:30 pm CLINICAL HISTORY: ELA COMPARISON: No comparisons FINDINGS: Both kidneys are normal in size, shape and echotexture. The right kidney measures 9.2 x 6.2 x 5.4 cm. No hydronephrosis, focal mass or perinephric fluid. The left kidney measures 11.6 x 5.6 x 5.0 cm. No hydronephrosis, focal mass or perinephric fluid. The urinary bladder is incompletely distended without gross abnormality seen. IMPRESSION: Unremarkable renal sonogram.
[2018-08-06] MEDS ORDERED: GLUCAGON 1 MG/VIAL IM PRN (17:20)
[2018-08-06] MEDS ORDERED: D50W 25 GM/50 ML SYRINGE IV PRN (17:20)
--- NOTE | 2018-08-06 17:59 | RAD REPORT ---
EXAM DESCRIPTION: Rebecca Single View08/06/2018 5:29 pm CLINICAL HISTORY: Shortness of breath COMPARISON: August 05 FINDINGS: The lungs appear clear of acute infiltrate. The heart is mildly enlarged IMPRESSION: No acute abnormalities displayed
--- NOTE | 2018-08-06 19:02 | PN ---
Date of Progress Note: 08/06/2018 Subjective: The patient is seen and examined. Chart reviewed, and case discussed with RN and Dr. Stevens. The patient denies any specific complaints. No acute events overnight. Medications: List reviewed. Physical Examination: Vital Signs: Temperature 99.1, heart rate 73, blood pressure 159/68, respirations 20, O2 of 96% on r oom air. General: Awake, alert, oriented x3. An elderly male, obese, ill-appearing. CV: S1, S2. Peripheral pulses present. Regular rate and rhythm. Respiratory: Somewhat diminished breath sounds. The patient is tachypneic. Use of accessory muscle s. Gastrointestinal: Abdomen is soft, nontender, nondistended. Positive bowel sounds. Extremities: No clubbing, cyanosis, or edema. Neuro: Nonfocal. Laboratory Data: Sodium 141, potassium 3.5, chloride 113, CO2 of 19, BUN 75, creatinine 2.73, glucos e is 85, calcium is 7. WBC 6.1, H and H 11.1 and 32.8, platelets 132, neutrophils 77%. UA is negati ve. Urine culture showing 1+ tnt-awwj-lhirdmpcg strep, likely contaminant. Echocardiogram shows EF 62%, mild tricuspid regurgitation, trace aortic and mitral regurgitation, aortic sclerosis, decreased left ventricular compliance. Assessment And Plan: An 83-year-old male with: 1.Acute metabolic encephalopathy, resolved, likely related to worsening kidney function. 2.Imxkz-al-unubiqw kidney injury stage 3, not improved with IV fluids. Creatinine slightly improved to 2.7. Renal ultrasound does not show any abnormalities. We will avoid nephrotoxins. Discontinue losartan. Appreciate Dr. Walton's input. 3.Status post fall. The patient is wheelchair bound. PT evaluation is complete. The patient will need assist with transfers. 4.Volume depletion. Continue IV fluids. 5.Elevated troponin level. No qwc-KM-qdixpmfit myocardial infarction. Appreciate Dr. Hatfield's infort [facility]. Echocardiogram shows normal EF, likely secondary to demand mismatch. 6.Coronary artery disease, [place] artery and [place] heart, without angina, status post stent. 7.Dementia without behavioral disturbance, alzheimer's type, early onset. 8.Diabetes mellitus type 2 without long-term use of insulin with hyperglycemia. Monitor Accu-Cheks. Continue sliding scale insulin. 9.Obesity due to excessive calories. BMI is 32. 10.Mixed hyperlipidemia. Continue statin. 11.Essential hypertension, stable. 12.Hypothyroidism. Continue Synthroid. 13.Gastroesophageal reflux disease without esophagitis. Continue PPI. 14.Gastrointestinal and deep venous thrombosis prophylaxis with PPI and Lovenox, renally dosed. Plan: Continue to monitor. Continue IV fluids. We will obtain chest x-ray. The patient has some t achypnea and some decreased breath sounds. Rule out pulmonary congestion. We will continue with PT. Discharge in the next 24 to 48 hours depending on clinical response. /MODL Voice ID: [id number] Report ID: [id number]
--- NOTE | 2018-08-06 20:29 | P.CNS ---
Date of Consult: 08/06/18 Reason for Consult: ELA Chief Complaint: fall, volume depletion, acute on ckd History of Present Illness: Pt is a poor historian, Hx obtained from chart An 83-year-old male with PMhx history of COPD, DM II, depression, dyslipidemia, benign prostatic hypertrophy, dementia, hypothyroidism, hypertension, and CKD [place] was sent from [place] for fall pt denied any head trauma in ER Cr 2.8, trop 0.36, BNP 2400, CK 75 renal US: no hydro, pt started on IVF with no significant improvement in cr currently pt is tachypneic , denied chest pain, palpitation, nausea and vomiting Allergies acetaminophen [From [place]] Allergy (Verified 05/05/17 21:39) Unknown hydrocodone [From [place]] Allergy (Verified 05/05/17 21:39) Unknown tramadol Allergy (Verified 05/05/17 21:39) Unknown Codeine Allergy (Uncoded 05/05/17 21:39) Hives Iodine Allergy (Uncoded 05/05/17 21:39) Hives Home Medications: Acetaminophen 325 mg PO DAILY 08/05/18 Albuterol Neb [Proventil 0.083% Neb Soln] 2.5 mg NEB Q6H 08/05/18 Arformoterol Tartrate [Brovana] 15 mcg NEB BIDRESP 08/05/18 Atorvastatin Calcium [Lipitor] 20 mg PO BEDTIME 08/05/18 Cholecalciferol (Vitamin D3) [Vitamin D3] 1,000 unit PO DAILY 08/05/18 Clopidogrel Bisulfate [Plavix] 75 mg PO DAILY 08/05/18 Donepezil HCl 10 mg PO BEDTIME 08/05/18 Ergocalciferol (Vitamin D2) [Vitamin D2] 1 cap PO DAILY 08/05/18 Escitalopram [Lexapro] 20 mg PO DAILY 08/05/18 Insulin -Regular Human [Novolin -R*] See Protocol SQ BID 08/05/18 Insulin Glargine,Hum.rec.anlog [Lantus] 37 unit SQ DAILY 08/05/18 Ipratropium Neb [Atrovent Neb] 0.5 mg IH Q6H PRN 08/05/18 Levothyroxine [Synthroid] 50 mcg PO [id number] 08/05/18 Liraglutide [Victoza 2-Gab] 0.6 mg SQ DAILY 08/05/18 Losartan Potassium [Cozaar] 25 mg PO DAILY 08/05/18 Medroxyprogester [Provera] 5 mg PO BID 08/05/18 Metoprolol Tartrate [Lopressor] 50 mg PO BID 08/05/18 OXcarbazepine [Trileptal] 150 mg PO BID 08/05/18 Omeprazole 20 mg PO DAILY 08/05/18 Spironolactone [Aldactone] 25 mg PO DAILY 08/05/18 Tamsulosin [Flomax] 0.4 mg PO BEDTIME 08/05/18 glipiZIDE [Glucotrol] 5 mg PO BID 08/05/18 - Past Medical/Surgical History Diabetic: Yes -: NIDDM -: Hyperlipidemia -: HTN -: Hypothyroid -: Vertigo -: Bronchiolitis -: CAD -: arthrosclerosis -: gerd -: heart failure -: heart stent x2 -: Balloon angioplasty -: broke both arm when 4yrs old - Family History Father Medical History: Lung disease Notes: black lung Mother Medical History: Cancer - Social History Smoking Status: Former smoker Alcohol use: Yes CD- Drugs: No Caffeine use: Yes Place of Residence: [facility] Physical Examination Temp Pulse Resp BP Pulse Ox 98.9 F 87 20 135/56 L 95 08/06/18 16:00 08/06/18 16:00 08/06/18 16:00 08/06/18 16:00 08/06/18 16:00 General: Alert, Mild distress HEENT: Atraumatic Neck: Supple, Without JVD or thyroid abnormality Respiratory: Clear to auscultation bilaterally, Normal air movement Cardiovascular: No edema, Regular rate/rhythm, Normal S1 S2 Gastrointestinal: Normal bowel sounds, Soft and benign, Non-distended - Problems (1) Acute kidney injury superimposed on CKD Onset Date: 08/06/18 Current Visit: Yes Status: Acute (2) Fall Onset Date: 08/06/18 Current Visit: Yes Status: Acute Qualifiers: Encounter type: initial encounter Qualified Code(s): W19.XXXA - Unspecified fall, initial encounter Conclusions/Impression: ELA on CKD Cr in 2017 1.4, latest result from [place] Cr 1.2 in 02/2018 Ua; trace bld, and trace protein US no hydro will dc lisniopril gentle hydration will send for serology w/u Ck wnl HTN dc lisinopril DM as per primary COPD cont inhalers
[2018-08-06] MEDS ORDERED: NA CHLORIDE 0.9% 1,000 ML IV SCH (21:00)
[2018-08-06] MEDS: DONEPEZIL HCL 5 MG TAB PO SCH (22:22)
[2018-08-06] MEDS: ATORVASTATIN 20 MG TAB PO SCH (22:22)
[2018-08-06] MEDS: TAMSULOSIN 0.4 MG SR CAP PO SCH (22:22)
[2018-08-06] MEDS: ACETAMINOPHEN 500 MG TAB PO PRN (22:55)
[2018-08-06] MEDS ORDERED: CEFTRIAXONE 1 GM/NS 50 ML 1 GM/50 ML BAG IV SCH (22:57)
[2018-08-06 23:36] LABS: Arterial Blood Carboxyhemoglob 1.6 % (0-1.5); Blood Gas Oxyhemoglobin 91.8 % (94-97)
[2018-08-06] MEDS ORDERED: AZITHROMYCIN 500 MG/250 ML BAG ONE (23:44)
[2018-08-06] MEDS: AZITHROMYCIN IV 500 MG in NA CHLORIDE 0.9% 250 ML IVPB SCH (23:58)
[2018-08-07] MEDS ORDERED: NA CHLORIDE 0.9% 50 ML ONE (00:12)
[2018-08-07] MEDS ORDERED: CEFTRIAXONE 1000 MG/VIAL ONE (00:13)
[2018-08-07] MEDS: ALBUTEROL 2.5 MG/3 ML NEB SOL NEB SCH ×4 (01:40→19:40)
[2018-08-07 02:37] LABS: Urine Protein/Creatinine Ratio 0.47 ratio (<0.15)
[2018-08-07 02:54] LABS: Urine Appearance CLOUDY; Urine Bilirubin NEGATIVE (NEG); Urine Blood 1+ (NEG); Urine Color YELLOW; Urine Glucose NEGATIVE (NEG); Urine Protein 1+ (NEG); Urine Urobilinogen 0.2 mg/dL (0.2-1.0)
[2018-08-07 03:25] LABS: Urine Microscopic Reflex ORDER UMIC
[2018-08-07 03:36] LABS: Urine Culture Reflex Order NOT NEEDED
[2018-08-07 03:37] LABS: Urine Bacteria 20-50 /HPF (NONE SEEN)
[2018-08-07 03:38] LABS: Urine RBC <5 /HPF (NONE SEEN)
[2018-08-07 05:12] LABS: Potassium 4.6 mmol/L (3.5-5.1)
--- NOTE | 2018-08-07 05:23 | P.PN ---
Date of Service: 08/06/18 I was called because the patient become dyspneic. At my encounter he had mottled knees, he was tachypneic, tachycardic, O2 sat 95% on 4 L by NC. He was febrile 100.8, CXR done at noon today, showed no acute abnormalities. ABG PH 7.25, CO2 36.2, O2 74.8. He has had diarrhea, C.Diff screening is pending. Will order blood and urine culture. Start empiric antibiotic treatment.
[2018-08-07 05:36] LABS: Ferritin 182.5 ng/mL (26-388); Folic Acid, (Folate) > 20.0 ng/mL (3.1-17.5); Transferrin 214 mg/dL (200-360); Uric Acid 11.5 mg/dL (3.5-7.2)
[2018-08-07] MEDS: LEVOTHYROXINE SOD 0.05 MG TABLET PO SCH (05:43)
[2018-08-07] MEDS: ENOXAPARIN 30 MG/0.3 ML SQ SCH (05:43)
[2018-08-07] MEDS: INSULIN -REGULAR HUMAN 50 UNIT/0.5 ML ML SQ SCH ×4 (07:30→21:00)
[2018-08-07] MEDS: ARFORMOTEROL TARTRATE 15 MCG/2 ML VIAL.NEB NEB SCH ×2 (07:45→19:40)
[2018-08-07] MEDS: glipiZIDE 5 MG TAB PO SCH (08:17)
[2018-08-07] MEDS: PANTOPRAZOLE 40MG TABLET PO SCH (08:17)
[2018-08-07] MEDS: INSULIN GLARGINE 100 UNITS/ML SQ SCH (09:00)
[2018-08-07] MEDS: METOPROLOL TAR 50 MG TAB PO SCH ×2 (11:32→22:00)
[2018-08-07] MEDS: ESCITALOPRAM 20 MG TAB PO SCH (11:32)
[2018-08-07] MEDS: OXcarbazepine 150 MG TAB PO SCH ×2 (11:32→22:03)
[2018-08-07] MEDS: CLOPIDOGREL 75 MG TABLET PO SCH (11:33)
[2018-08-07] MEDS: SPIRONOLACTONE 25 MG TABLET PO SCH (11:33)
--- NOTE | 2018-08-07 13:26 | P.PN ---
Subjective Date of Service: 08/07/18 Chief Complaint: fall, volume depletion, acute on ckd Pt was hypoxic and tachhypneic last night CXR no acute pathology Started on Abx Cr up to 3.0 Will dc aldactone for now monitor BS and consider reducing insulin dose if Cr cont to trend up Consider Pul evaluation iif cont to be hypoxic uric acid 11, PTh 150 F/U serology W/U poor oral intake , will increase NS rate to 70ml/hr Physical Examination - Vital Signs Temperature: 99.2 F Blood Pressure: 110/53 Pulse: 85 Respirations: 24 Pulse Ox (%): 98 - Physical Exam General: Alert, Mild distress HEENT: Atraumatic Neck: Supple, Without JVD or thyroid abnormality Respiratory: Clear to auscultation bilaterally, Normal air movement Cardiovascular: No edema, Regular rate/rhythm - Studies Laboratory Data (last 24 hrs) 08/07/18 04:37: Uric Acid 11.5 H 08/07/18 04:37: Sodium 140, Potassium 4.6, BUN 71 H, Creatinine 3.01 H, Glucose 80 Assessment And Plan - Current Problems (Diagnosis) (1) Acute kidney injury superimposed on CKD Onset Date: 08/06/18 Current Visit: Yes Status: Acute (2) Fall Onset Date: 08/06/18 Current Visit: Yes Status: Acute Qualifiers: Encounter type: initial encounter Qualified Code(s): W19.XXXA - Unspecified fall, initial encounter - Plan ELA on CKD Cr in 2017 1.4, latest result from [place] Cr 1.2 in 02/2018 ELA reason is unclear at this point, possibly prerenal CKD 2/2 to DM and HTN Ua; trace bld, and trace protein US no hydro off lisniopril gentle hydration will send for serology w/u Ck wnl , uric acid 11 I discussed with Pt that he might need to start on dialysis if Cr cont to trend up, pt refused to hear "bad news" , will f/u RFT Pt might require HD if Cr cont to worse HTN dc lisinopril DM as per primary reduce insulin dose if Cr cont to trend up COPD cont inhalers fever F/U cultures started on Abx Hypothrodism TSh ok Anemia will start IV iron will start on b12 supplement
[2018-08-07] MEDS: NA CHLORIDE 0.9% 1,000 ML IV SCH (13:59)
--- NOTE | 2018-08-07 15:01 | PN ---
Date of Progress Note: 08/07/2018 Subjective: Patient seen and examined. Chart reviewed and case discussed with RN. The patient did have shortness of breath and had to be placed on supplemental oxygen. Did spike temperature last nig ht 100.9. The patient working with PT, however, is max assist as wheelchair bound, very weak. Medications: List reviewed. Physical Examination: Vital Signs: Temperature 99.2, T-max 100.9, heart rate 87, blood pressure 110/53, respirations 24, O 2 98% on room air. General: Awake, alert, oriented x3. Mild respiratory distress. Ill-appearing obese male. BMI 32. CV: S1 and S2. Regular rate and rhythm. Peripheral pulses present. Respiratory: Diminished breath sounds. No wheezing or stridor. Gastrointestinal: Abdomen is soft, nontender, nondistended. Positive bowel sounds. Extremities: No clubbing, cyanosis, edema. Neurologic: Nonfocal. The patient does have some generalized weakness. Laboratory Data: Sodium 140, potassium 4.6, chloride 112, CO2 20, BUN 71, creatinine 3.01, glucose 8 0, lactate 0.9, uric acid 11.5, calcium 7.3. Iron 17, TIBC 300, transferrin 214, ferritin 182.5, vit wang B12 315, folate greater than 20. Parathyroid hormone 156. Hepatitis panel pending. ABG; pH 7. 25, pCO2 36, PO2 74, bicarb 15. UA, 1+ blood, positive nitrites, trace leukocyte esterase, 5-10 WBC. 20-50 bacteria. Repeat urine culture is pending. Initial blood and urine culture only show beta-hem olytic Streptococcus, which is likely contaminant. Assessment/plan: An 83-year-old male with: 1.Status post fall. No acute fractures. Continue PT. 2.Acute metabolic encephalopathy, resolved. 3.Acute on chronic kidney injury, stage 3. Creatinine worsening. We will continue to monitor. Adj ust IV fluids. Avoid NSAIDs. Appreciate Nephrology input. 4.Hypoxemia. The patient now on supplemental oxygen. Chest x-ray is clear. ABG did show some low pH acidosis, likely secondary to chronic obstructive pulmonary disease. The patient is not retaining any CO2. 5.Elevated troponin level. No SC. Dr. Hatfield does not recommend any further testing at this time. Echocardiogram shows normal EF. 6.Coronary artery disease. [place] artery and [place] heart without angina, status post stent. 7.Acute respiratory distress, on supplemental oxygen, likely due to chronic obstructive pulmonary di sease. 8.Diabetes mellitus type 2 with long-term use of insulin with hyperglycemia. We will continue to mo nitor blood glucose levels. The patient's glucose levels have been in the 80s to 60s. He has had de creased appetite, does not wish to eat. 9.Obesity, BMI 32. 10.Mixed hyperlipidemia. Continue statin. 11.Essential hypertension, stable. 12.Hypothyroidism. Synthroid. 13.Gastroesophageal reflux disease without esophagitis. Continue PPI. 14.Gastrointestinal and deep venous thrombosis prophylaxis with PPI and Lovenox, renally dosed. 15.Plan: Adjust IV fluids. Continue PT. The patient has been started on IV antibiotics. Did have fever, unclear source. We will continue to monitor. Follow up on blood cultures. MARSHALL Voice ID: [id number] Report ID: [id number]
[2018-08-07] MEDS: CEFTRIAXONE/SWI 1gm 1 GM/10 ML SYR IV SCH (21:59)
[2018-08-07] MEDS: DONEPEZIL HCL 5 MG TAB PO SCH (22:00)
[2018-08-07] MEDS: ATORVASTATIN 20 MG TAB PO SCH (22:00)
[2018-08-07] MEDS: TAMSULOSIN 0.4 MG SR CAP PO SCH (22:01)
[2018-08-07] MEDS: AZITHROMYCIN IV 500 MG in NA CHLORIDE 0.9% 250 ML IVPB SCH (22:04)
[2018-08-08] MEDS: ALBUTEROL 2.5 MG/3 ML NEB SOL NEB SCH ×4 (01:50→19:40)
[2018-08-08] MEDS: NA CHLORIDE 0.9% 1,000 ML IV SCH (05:27)
[2018-08-08] MEDS: ENOXAPARIN 30 MG/0.3 ML SQ SCH ×2 (05:27→16:45)
[2018-08-08] MEDS: LEVOTHYROXINE SOD 0.05 MG TABLET PO SCH (05:32)
[2018-08-08 05:39] LABS: Absolute Lymphocytes (CBC) 1.1 K/uL (0.7-4.9); Absolute Monocytes 0.5 K/uL (0.1-1.3); Absolute Neutrophil 10.3 K/uL (1.8-8.0); Basophils % 0.1 % (0-1.3); Eosinophils % 0.4 % (0-4.4); Hematocrit 32.8 % (39.6-49.0); Lymphocytes % 8.9 % (15.3-44.8); MPV 8.2 fL (7.6-11.3); Monocytes % 4.6 % (3.3-12.3); RBC Red Blood Cell Count 3.36 M/uL (4.33-5.43)
[2018-08-08 05:50] LABS: Albumin 2.8 g/dL (3.4-5.0); Bilirubin Total 0.2 mg/dL (0.2-1.0); Magnesium 1.8 mg/dL (1.8-2.4); Potassium 5.2 mmol/L (3.5-5.1); Protein, Total 6.2 g/dL (6.4-8.2)
[2018-08-08 06:27] LABS: Arterial Blood Carboxyhemoglob 1.3 % (0-1.5); Blood Gas Oxyhemoglobin 94.8 % (94-97); Blood O2 Saturation 96.5 % (92-98.5)
[2018-08-08] MEDS: INSULIN -REGULAR HUMAN 50 UNIT/0.5 ML ML SQ SCH ×4 (07:30→20:06)
[2018-08-08] MEDS: ARFORMOTEROL TARTRATE 15 MCG/2 ML VIAL.NEB NEB SCH ×2 (07:34→19:40)
[2018-08-08] MEDS: PANTOPRAZOLE 40MG TABLET PO SCH (08:48)
[2018-08-08 08:52] LABS: Blood Morphology Comment NOT SEEN (NOT SEEN); Platelet Estimate ADEQ; Urine White Blood Cell Casts OK
[2018-08-08] MEDS: INSULIN GLARGINE 100 UNITS/ML SQ SCH (09:00)
[2018-08-08] MEDS: ESCITALOPRAM 20 MG TAB PO SCH (09:00)
[2018-08-08] MEDS: OXcarbazepine 150 MG TAB PO SCH ×2 (09:00→20:07)
[2018-08-08] MEDS: METOPROLOL TAR 50 MG TAB PO SCH ×2 (09:00→20:07)
[2018-08-08] MEDS: CYANOCOBALAMIN 1,000 MCG TAB PO SCH (09:00)
[2018-08-08] MEDS: CLOPIDOGREL 75 MG TABLET PO SCH (09:00)
[2018-08-08] MEDS ORDERED: MAGNESIUM SULFATE 1 gm IVPB 1 GM/100 ML BAG IV ONE (09:00)
[2018-08-08] MEDS: SOD FERRIC GLUC COMPLX/SUCROSE 125 MG in NA CHLORIDE 0.9% 100 ML IV SCH (09:10)
[2018-08-08] MEDS: FUROSEMIDE 40 MG/4 ML VIAL IV ONE ×2 (09:43→09:45)
[2018-08-08] MEDS ORDERED: FUROSEMIDE 40 MG/4 ML VIAL ONE (09:51)
[2018-08-08 09:58] LABS: Arterial Blood Carboxyhemoglob 1.5 % (0-1.5); Blood Gas Oxyhemoglobin 92.6 % (94-97); Blood O2 Saturation 94.5 % (92-98.5)
[2018-08-08 10:09] LABS: Rheumatoid Factor NEG (NEG)
[2018-08-08] MEDS ORDERED: ENOXAPARIN 100 MG/ML SYR SQ SCH (10:29)
--- NOTE | 2018-08-08 11:15 | RAD REPORT ---
EXAM DESCRIPTION: CT - Thorax Wo Con - 08/08/2018 10:57 am CLINICAL HISTORY: sob COMPARISON: August 05 TECHNIQUE: Computed axial tomography of the chest was obtained. Contrast was not requested. All CT scans are performed using dose optimization technique as appropriate and may include automated exposure control or mA/KV adjustment according to patient size. FINDINGS: The evaluation of mediastinum, oscar and vessels is limited secondary to lack of IV contras t administration. A mild left lower lobe opacity. The right lung is clear. No mediastinal or hilar lymphadenopathy is seen. A pleural effusion is not present. A pericardial effusion is not noted. Coronary arterial calcificati ons seen IMPRESSION: Mild left lower lobe opacity probably representing atelectasis
--- NOTE | 2018-08-08 11:16 | RAD REPORT ---
EXAM DESCRIPTION: Rebecca Single View08/08/2018 12:27 am CLINICAL HISTORY: sob COMPARISON: August 06, 2017 FINDINGS: Mild left basilar opacity is present. Right lung appears clear. The heart is mildly enlar ged IMPRESSION: Mild left lower lobe opacity probably representing atelectasis
[2018-08-08] MEDS ORDERED: SOD POLYSTYREN SUL 15 GM/60 ML UCUP PO ONE ×2 (12:18→13:00)
[2018-08-08] MEDS: D5W 1,000 ML with NA BICARB 8.4% 150 MEQ IV SCH ×2 (14:53)
--- NOTE | 2018-08-08 15:25 | RAD REPORT ---
EXAM DESCRIPTION: RAD - Chest Single View - 08/08/2018 3:18 pm CLINICAL HISTORY: Device placement PICC line placement COMPARISON: 08/08/2018 FINDINGS: A PICC line has been inserted with its tip in the mid superior vena cava. Mild left basilar atelectasis. The heart is normal size. IMPRESSION: PICC line with its tip in the superior vena cava
--- NOTE | 2018-08-08 15:44 | PN ---
Date of Progress Note: 08/08/2018 Subjective: The patient seen and examined. Chart reviewed and case discussed with RN and Dr. Kadi santos. The patient had a code yellow this morning due to unresponsiveness and the patient's ABG last n ight was abnormal showing low pH 7.1. The patient was able to be woken up, was drowsy, somewhat conf used. His O2 saturations were 97% on room air. Repeat ABG also again showed a pH of 7.19; was trans ferred to ICU. Medications: List reviewed. Physical Examination: Vital Signs: Temperature 98, heart rate 72, blood pressure 106/51, respirations 18, O2 100% on room air. General: Asleep, difficult to arouse, ill-appearing, elderly, obese male. HEENT: Normocephalic, atraumatic. PERRLA. EOMI. Dry mucous membranes. Oropharynx is clear. Poor dentition. CV: S1, S2. Regular rate and rhythm. Peripheral pulses present. Respiratory: The patient is tachypneic. Diminished breath sounds. Some crackles heard. Gastrointestinal: Abdomen soft, nontender, nondistended. Positive bowel sounds. Extremities: No clubbing, cyanosis, or edema. Neurologic: Nonfocal. Laboratory Data: ABG; pH 7.19, pCO2 33, pO2 78, bicarb 12.3. WBC 11.9, H and H 10.8/32.8, platelets 135, neutrophils 86%. Rheumatoid factor is negative. Hepatitis panel is pending. Immunology scree lori pending. C. diff assay is pending. Blood cultures, no growth to date. Urine culture shows 3+ gram-negative rods. CT scan of the chest shows mild left lower lobe opacity, probably representing atelectasis. Pleural effusion not present. No pericardial effusion. Assessment And Plan: An 83-year-old male with: 1.Status post fall. No acute fractures. Continue PT. The patient is wheelchair bound. 2.Acute metabolic encephalopathy, resolved. 3.Acute respiratory distress. 4.Metabolic and respiratory acidosis. We will give the patient bicarb, pulmonology consultation. 5.Uienc-zj-izmhqvi kidney injury stage 3. Creatinine worsening. May need to be on dialysis. We wi ll discontinue IV fluids for now due to possible fluid overload. Avoid NSAIDs. Continue to monitor creatinine. 6.Hyperkalemia. Aldactone was discontinued yesterday. We will give Kayexalate. 7.Hypoxemia. 8.Elevated troponin level. No myocardial infarction. Repeat EKG shows no change from previous. Ap preciate Dr. Hatfield's input. Echocardiogram, normal EF, no wall motion abnormality. 9.Coronary artery disease, [place] artery and [place] heart without angina, status post stent. 10.Diabetes mellitus type 2 with long-term use of insulin with hypoglycemia. We will adjust insulin dose. Continue sliding scale insulin. The patient has decreased appetite. 11.Obesity, BMI 32. 12.Mixed hyperlipidemia. Continue statin. 13.Essential hypertension. The patient is currently hypotensive. We will hold blood pressure medic ations for now. 14.Hypothyroidism. Continue Synthroid. 15.Gastroesophageal reflux disease without esophagitis. 16.Gastrointestinal and deep venous thrombosis prophylaxis with PPI and Lovenox renally dosed. Plan: Transfer to ICU. Rest of the plan as above. /KARMA Voice ID: [id number] Report ID: [id number]
--- NOTE | 2018-08-08 17:31 | P.PN ---
Subjective Date of Service: 08/08/18 Chief Complaint: fall, volume depletion, acute on ckd Subjective: Worsening yellow code called this morning, pt was lethargic but arousable to verbal stimuli ABG met and Resp acidosis CXR: atelactasis Start bicarb drip will order chest CT F/U serology including Anti-GBM and ANCA Pulmonary F/U pt is not fully oriented, no family members, might require HD if Cr cont to increase Physical Examination - Vital Signs Temperature: 98.0 F Blood Pressure: 107/49 Pulse: 83 Respirations: 23 Pulse Ox (%): 96 - Physical Exam General: Other (Lethargic ) Neck: Supple, Without JVD or thyroid abnormality Respiratory: Clear to auscultation bilaterally Cardiovascular: No edema, Regular rate/rhythm, Normal S1 S2 Gastrointestinal: Normal bowel sounds - Studies Microbiology Data (last 24 hrs): 08/05/18 04:45 Clean Catch Urine [place] Count - Final BETWEEN 10,000 & 100,000 CFU/ML 08/05/18 04:45 Clean Catch Urine - Final Streptococcus Agalactiae H Assessment And Plan - Current Problems (Diagnosis) (1) Acute kidney injury superimposed on CKD Onset Date: 08/06/18 Current Visit: Yes Status: Acute (2) Fall Onset Date: 08/06/18 Current Visit: Yes Status: Acute Qualifiers: Encounter type: initial encounter Qualified Code(s): W19.XXXA - Unspecified fall, initial encounter - Plan ELA on CKD Cr in 2017 1.4, latest result from [place] Cr 1.2 in 02/2018 ELA reason is unclear at this point, possibly prerenal CKD 2/2 to DM and HTN Ua; trace bld, and trace protein US no hydro off lisniopril and aldactone F/U serology w/u Ck wnl , uric acid 11 Pt might require HD if Cr cont to worse HAGMA and resp acidosis bicarb drip HTN dc lisinopril DM as per primary reduce insulin dose if Cr cont to trend up COPD cont inhalers Pulmonary F/U fever F/U cultures started on Abx Hypothrodism TSh ok Anemia will start IV iron will start on b12 supplement
[2018-08-08] MEDS: AZITHROMYCIN IV 500 MG in NA CHLORIDE 0.9% 250 ML IVPB SCH (20:06)
[2018-08-08] MEDS: CEFTRIAXONE/SWI 1gm 1 GM/10 ML SYR IV SCH (20:06)
[2018-08-08] MEDS: ATORVASTATIN 20 MG TAB PO SCH (20:07)
[2018-08-08] MEDS: DONEPEZIL HCL 5 MG TAB PO SCH (20:07)
[2018-08-08] MEDS: TAMSULOSIN 0.4 MG SR CAP PO SCH (20:07)
[2018-08-08] MEDS: IPRATROPIUM BROM 0.5MG/2.5ML NEB PRN (23:26)
[2018-08-09] MEDS: ALBUTEROL 2.5 MG/3 ML NEB SOL NEB SCH ×2 (01:39→08:00)
[2018-08-09 05:49] LABS: Absolute Monocytes 0.4 K/uL (0.1-1.3); Absolute Neutrophil 5.8 K/uL (1.8-8.0); Basophils % 0.3 % (0-1.3); Eosinophils % 2.5 % (0-4.4); Hematocrit 29.3 % (39.6-49.0); Lymphocytes % 13.3 % (15.3-44.8); MPV 8.5 fL (7.6-11.3); Monocytes % 4.8 % (3.3-12.3); RBC Red Blood Cell Count 3.13 M/uL (4.33-5.43)
[2018-08-09 05:59] LABS: Albumin 2.5 g/dL (3.4-5.0); Bilirubin Total 0.2 mg/dL (0.2-1.0); Potassium 3.2 mmol/L (3.5-5.1); Protein, Total 5.8 g/dL (6.4-8.2)
[2018-08-09] MEDS: LEVOTHYROXINE SOD 0.05 MG TABLET PO SCH (06:30)
[2018-08-09] MEDS: INSULIN -REGULAR HUMAN 50 UNIT/0.5 ML ML SQ SCH ×4 (07:30→21:00)
--- NOTE | 2018-08-09 07:58 | EKG ---
Test Date: 2018-08-08 Test Time: 10:16:17 Store Group Manager: KAILEY MEASUREMENT RESULTS: Intervals: Rate: 80 [place]: 158 QRSD: 98 QT: 418 QTc: 482 [place]: P: 80 [place]: 158 QRS: 31 T: 130 INTERPRETIVE STATEMENTS: Sinus rhythm with marked sinus arrhythmia with occasional premature ventricular complexes ST elevation, consider inferior injury or acute infarct Prolonged QT Consider right ventricular involvement in acute inferior infarct Abnormal ECG Compared to ECG 08/05/2018 03:39:10 Ventricular premature complex(es) now present ST (T wave) deviation now present Prolonged QT interval now present Atrial premature complex(es) no longer present Myocardial infarct finding still present Electronically Signed On 08-09-18 07:54:31 RADIO STATION ENGINEER by Héctor Hatfield
[2018-08-09] MEDS: ARFORMOTEROL TARTRATE 15 MCG/2 ML VIAL.NEB NEB SCH (08:00)
--- NOTE | 2018-08-09 08:10 | P.CNS ---
Date of Consult: 08/09/18 Chief Complaint: Anabolic acidosis History of Present Illness: Patient is 83 years of age was on the floor a cord yellow was called yesterday and patient was transferred to the floor due to metabolic acidosis was given 2 amps of bicarbonate is very alert responsive cooperative now quit smoking 50 years ago history of coronary artery disease diabetes hypertension and renal failure he is hemodynamically stable Allergies acetaminophen [From [place]] Allergy (Verified 05/05/17 21:39) Unknown hydrocodone [From [place]] Allergy (Verified 05/05/17 21:39) Unknown tramadol Allergy (Verified 05/05/17 21:39) Unknown Codeine Allergy (Uncoded 05/05/17 21:39) Hives Iodine Allergy (Uncoded 05/05/17 21:39) Hives Home Medications: Acetaminophen 325 mg PO DAILY 08/05/18 Albuterol Neb [Proventil 0.083% Neb Soln] 2.5 mg NEB Q6H 08/05/18 Arformoterol Tartrate [Brovana] 15 mcg NEB BIDRESP 08/05/18 Atorvastatin Calcium [Lipitor] 20 mg PO BEDTIME 08/05/18 Cholecalciferol (Vitamin D3) [Vitamin D3] 1,000 unit PO DAILY 08/05/18 Clopidogrel Bisulfate [Plavix] 75 mg PO DAILY 08/05/18 Donepezil HCl 10 mg PO BEDTIME 08/05/18 Ergocalciferol (Vitamin D2) [Vitamin D2] 1 cap PO DAILY 08/05/18 Escitalopram [Lexapro] 20 mg PO DAILY 08/05/18 Insulin -Regular Human [Novolin -R*] See Protocol SQ BID 08/05/18 Insulin Glargine,Hum.rec.anlog [Lantus] 37 unit SQ DAILY 08/05/18 Ipratropium Neb [Atrovent Neb] 0.5 mg IH Q6H PRN 08/05/18 Levothyroxine [Synthroid] 50 mcg PO [id number] 08/05/18 Liraglutide [Victoza 2-Gab] 0.6 mg SQ DAILY 08/05/18 Losartan Potassium [Cozaar] 25 mg PO DAILY 08/05/18 Medroxyprogester [Provera] 5 mg PO BID 08/05/18 Metoprolol Tartrate [Lopressor] 50 mg PO BID 08/05/18 OXcarbazepine [Trileptal] 150 mg PO BID 08/05/18 Omeprazole 20 mg PO DAILY 08/05/18 Spironolactone [Aldactone] 25 mg PO DAILY 08/05/18 Tamsulosin [Flomax] 0.4 mg PO BEDTIME 08/05/18 glipiZIDE [Glucotrol] 5 mg PO BID 08/05/18 - Past Medical/Surgical History Diabetic: Yes -: NIDDM -: Hyperlipidemia -: HTN -: Hypothyroid -: Vertigo -: Bronchiolitis -: CAD -: arthrosclerosis -: gerd -: heart failure -: heart stent x2 -: Balloon angioplasty -: broke both arm when 4yrs old - Family History Father Medical History: Lung disease Notes: black lung Mother Medical History: Cancer - Social History Smoking Status: Former smoker Alcohol use: Yes CD- Drugs: No Caffeine use: Yes Place of Residence: [place] Review of Systems 10-point ROS is otherwise unremarkable Physical Examination Temp Pulse Resp BP Pulse Ox 97.9 F 66 21 H 93/53 L 96 08/09/18 04:00 08/09/18 06:00 08/09/18 06:00 08/09/18 06:00 08/09/18 06:00 General: Alert, Oriented x3 HEENT: Atraumatic Neck: Supple Respiratory: Clear to auscultation bilaterally Cardiovascular: No edema, Regular rate/rhythm, Normal S1 S2 Gastrointestinal: Normal bowel sounds, Soft and benign - Problems (1) Metabolic acidosis Current Visit: Yes Status: Acute Plan: Patient is 83 years of age transfer to the floor due to metabolic acidosis is currently doing well hemodynamically stable oxygenation satisfactory 2 probably yeast has underlying slight metabolic acidosis this serum bicarbonate is 21 today patient has Klebsiella isolated in the urine is chest x-rays clear continue with Rocephin labs AL appears to be pansensitive transfer to the floor patient does not appear to be septic is chest x-rays clear Dc Zithromax probably price changer to p.o. antibiotics (2) Sleep apnea Current Visit: Yes Status: Acute Plan: I strongly suspect he has sleep apnea complains of loud snoring excessive daytime somnolence and will need a sleep study as an outpatient Qualifiers: Sleep apnea type: unspecified type Qualified Code(s): G47.30 - Sleep apnea , unspecified
[2018-08-09] MEDS ORDERED: ALBUTEROL 2.5 MG/3 ML NEB SOL NEB PRN (08:11)
[2018-08-09] MEDS: INSULIN GLARGINE 100 UNITS/ML SQ SCH (08:16)
[2018-08-09] MEDS ORDERED: POTASSIUM CL SA 10 MEQ TAB PO ONE (08:57)
[2018-08-09] MEDS: METOPROLOL TAR 50 MG TAB PO SCH ×2 (09:00→20:34)
[2018-08-09] MEDS: PANTOPRAZOLE 40MG TABLET PO SCH (09:52)
[2018-08-09] MEDS: ESCITALOPRAM 20 MG TAB PO SCH (09:52)
[2018-08-09] MEDS: CALCITROL 0.25 MCG CAP PO SCH (09:52)
[2018-08-09] MEDS: CLOPIDOGREL 75 MG TABLET PO SCH (09:52)
[2018-08-09] MEDS: OXcarbazepine 150 MG TAB PO SCH ×2 (09:53→21:00)
[2018-08-09] MEDS: CYANOCOBALAMIN 1,000 MCG TAB PO SCH (09:53)
[2018-08-09] MEDS: SOD FERRIC GLUC COMPLX/SUCROSE 125 MG in NA CHLORIDE 0.9% 100 ML IV SCH (09:53)
[2018-08-09] MEDS: IPRATROPIUM BROM 0.5MG/2.5ML NEB PRN ×2 (11:30→16:32)
[2018-08-09] MEDS: D5W 1,000 ML with NA BICARB 8.4% 150 MEQ IV SCH ×2 (11:36)
[2018-08-09 12:14] LABS: Arterial Blood Carboxyhemoglob 1.9 % (0-1.5); Blood Gas Oxyhemoglobin 91.6 % (94-97); Blood O2 Saturation 93.9 % (92-98.5)
--- NOTE | 2018-08-09 13:43 | RAD REPORT ---
EXAM DESCRIPTION: RAD - Chest Single View - 08/09/2018 1:19 pm CLINICAL HISTORY: Wheezing COMPARISON: August 08 TECHNIQUE: AP portable chest image was obtained 1317 hours . FINDINGS: Lung volumes are low. Left costophrenic angle blunting is present and stable. No significa nt failure or volume overload. Heart size normal range. Vasculature is accentuated by shallow inspira tion. Left upper extremity PICC line remains in place. No pneumothorax or enlarging pleural effusion. No acute bony abnormality seen. No acute aortic findings suspected. IMPRESSION: Shallow inspiration portable chest exam is similar to comparison.
--- NOTE | 2018-08-09 14:38 | PN ---
Date of Progress Note: 08/09/2018 Subjective: The patient is seen and examined. Chart reviewed and case discussed with RN and Dr. Josue gutierrez. The patient is more alert and awake today. Blood pressure on the low side with MAPs in the 5 0s. However, once he wakes up, blood pressure and MAP improved to the high 60s and 70s. Medications: List reviewed. Physical Examination: Vital Signs: Temperature 97.9, heart rate 65, blood pressure 114/48, respirations 18, and O2 of 96% on room air. General: Asleep, arousable. No acute distress. Elderly male, ill appearing, obese. CV: S1 and S2. Regular rate and rhythm. Peripheral pulses weak. Respiratory: Moving air well. No wheezing or stridor. Gastrointestinal: Abdomen is soft, nontender, and nondistended. Positive bowel sounds. Extremities: No clubbing, cyanosis, or edema. Neurologic: Nonfocal. Laboratory Data: Sodium 142, potassium 3.2, chloride 110, CO2 of 21, BUN 72, creatinine 2.73, glucos e 166, calcium 6.6, magnesium 2, and albumin 2.5. WBC 7.3, H and H of 10.1 and 29.3, platelets 131, and neutrophils 79%. Repeat urine culture growing Klebsiella pneumoniae, essentially pansensitive. Blood cultures, no growth. Initial urine culture growing Strep agalactiae. Assessment And Plan: An 83-year-old male with, 1.Acute respiratory distress. 2.Metabolic and respiratory acidosis. Continue bicarb drip. I appreciate pulmonology consultation. We will repeat ABG. 3.Acute metabolic encephalopathy, resolved. 4.Status post fall. No acute fractures. The patient is wheelchair bound. 5.Pcygn-mn-clynkap kidney injury, stage 3. Creatinine is improving. Avoid NSAIDs. Monitor creatin ine. 6.Hypokalemia. We will replace gently due to elevated kidney function. 7.Hypoxemia. 8.Elevated troponin level. No myocardial infarction. Echocardiograms, normal ejection fraction, no wall motion abnormality. Cardiology on board. 9.Coronary artery disease, pilot station artery and pilot station heart without angina, status post stent, on Plav ix. 10.Diabetes mellitus type 2 with long-term use of insulin with hypoglycemia. We will hold long-term insulin for now. Continue sliding scale insulin. The patient is not eating much. 11.Obesity, BMI 32. 12.Mixed hyperlipidemia. Continue statin. 13.Hypotension. The patient did receive some Lasix yesterday. Hold blood pressure medications for now. 14.Hypothyroidism. We will continue Synthroid. 15.Gastroesophageal reflux disease without esophagitis. 16.Gastrointestinal and deep venous thrombosis prophylaxis with PPI and Lovenox, renally dosed. Plan: 1.We will step down from ICU. Blood pressure has improved. Monitor ABG. 2.Acute cystitis without hematuria secondary to Strep and Klebsiella. The patient is on Rocephin, d iscontinue azithromycin. Plan, once acidosis is improved, transfer back to skilled nursing. The patien t is wheelchair bound. Continue PT. /KARMA Voice ID: [id number] Report ID: [id number]
--- NOTE | 2018-08-09 15:59 | PN ---
Date of Progress Note: 08/06/2018 The patient was seen initially for elevated troponin in view of renal insufficiency. His BNP was wei vated as well, probably secondary to his renal failure. He was not in any clinical congestive heart failure. He denied any cardiac symptoms or syncope. Has recommended his Lasix to be held and for hi m to be hydrated. An echocardiogram that was done yesterday showed a normal ejection fraction of 62% with decreased left ventricular compliance. His last creatinine is 3.01. Slightly worsened, it was the day before. He is being followed by Nephrology. No change in cardiac therapy at this point. N o further cardiac workup is recommended. We will follow him as needed. SLADE/KARMA Voice ID: [id number] Report ID: [id number]
[2018-08-09] MEDS: ENOXAPARIN 30 MG/0.3 ML SQ SCH (18:20)
[2018-08-09] MEDS ORDERED: DIGOXIN 0.25 MG/ML AMP IV ONE (20:24)
[2018-08-09] MEDS: ATORVASTATIN 20 MG TAB PO SCH (20:34)
[2018-08-09] MEDS: TAMSULOSIN 0.4 MG SR CAP PO SCH (20:34)
[2018-08-09] MEDS: CEFTRIAXONE/SWI 1gm 1 GM/10 ML SYR IV SCH (20:35)
[2018-08-09] MEDS ORDERED: FUROSEMIDE 40 MG/4 ML VIAL IV ONE (20:44)
--- NOTE | 2018-08-09 20:47 | EKG ---
Test Date: 2018-08-09 Test Time: 20:03:57 Imaging Specialist: RT Villar MEASUREMENT RESULTS: Intervals: Rate: 143 AR: QRSD: 112 QT: 332 QTc: 512 [place]: P: AR: QRS: 22 T: 213 INTERPRETIVE STATEMENTS: Atrial fibrillation with rapid ventricular response with premature ventricular or aberrantly conducted complexes Inferior infarct, possibly acute Consider right ventricular involvement in acute inferior infarct Abnormal ECG Compared to ECG 08/08/2018 10:28:33 Ventricular premature complex(es) now present Sinus rhythm no longer present Atrial premature complex(es) no longer present Myocardial infarct finding still present Electronically Signed On 08-09-18 20:47:30 JUNIOR ACCOUNT EXECUTIVE by Héctor Hatfield
--- NOTE | 2018-08-09 20:53 | EKG ---
Test Date: 2018-08-08 Test Time: 10:28:33 Hydrostatic Tester: KAILEY MEASUREMENT RESULTS: Intervals: Rate: 80 [place]: 148 QRSD: 106 QT: 428 QTc: 493 [place]: P: 37 [place]: 148 QRS: 50 T: -1 INTERPRETIVE STATEMENTS: Sinus rhythm with premature atrial complexes Possible Inferior infarct, age undetermined Abnormal ECG Compared to ECG 08/08/2018 10:16:17 Atrial premature complex(es) now present Sinus arrhythmia no longer present Ventricular premature complex(es) no longer present ST (T wave) deviation no longer present Prolonged QT interval no longer present Myocardial infarct finding still present Electronically Signed On 08-09-18 20:48:23 [place] by Héctor Hatfield
--- NOTE | 2018-08-09 20:53 | EKG ---
Test Date: 2018-08-07 Test Time: 23:59:42 Data Operations Director: OC MEASUREMENT RESULTS: Intervals: Rate: 78 [place]: 156 QRSD: 110 QT: 418 QTc: 476 [place]: P: 37 [place]: 156 QRS: 27 T: 37 INTERPRETIVE STATEMENTS: Sinus rhythm with occasional premature ventricular complexes Inferior infarct, age undetermined Possible Anterior infarct, age undetermined Abnormal ECG Compared to ECG 08/05/2018 03:39:10 Ventricular premature complex(es) now present Atrial premature complex(es) no longer present Myocardial infarct finding still present Electronically Signed On 08-09-18 20:48:25 [employer] [place] by Héctor Hatfield
[2018-08-09] MEDS: DONEPEZIL HCL 5 MG TAB PO SCH (21:00)
[2018-08-09] MEDS: ENOXAPARIN 100 MG/ML SYR SQ SCH (22:35)
[2018-08-09 23:27] LABS: Absolute Lymphocytes (CBC) 0.9 K/uL (0.7-4.9); Absolute Monocytes 0.4 K/uL (0.1-1.3); Basophils % 0.3 % (0-1.3); Eosinophils % 3.4 % (0-4.4); Hematocrit 31.1 % (39.6-49.0); Lymphocytes % 13.2 % (15.3-44.8); MPV 8.3 fL (7.6-11.3); Monocytes % 5.4 % (3.3-12.3); RBC Red Blood Cell Count 3.34 M/uL (4.33-5.43)
[2018-08-09] MEDS: NA CHLORIDE 0.9% 1,000 ML IV SCH (23:45)
[2018-08-09 23:58] LABS: Albumin 2.6 g/dL (3.4-5.0); Bilirubin Total 0.1 mg/dL (0.2-1.0); Potassium 3.1 mmol/L (3.5-5.1)
[2018-08-10] MEDS ORDERED: LOPERAMIDE HCL 2 MG CAPSULE PO STA (01:16)
--- NOTE | 2018-08-10 03:52 | PN ---
I initially saw Mr. Ford on 08/05/2018. He is a patient who has an extensive past medical history bu t he had come in with the elevated troponin with severe renal insufficiency. His BNP was elevated as well. He denied any cardiac symptoms when he came in. He seemed to have been dehydrated if anythin g. He also has a history of pulmonary hypertension, COPD, diabetes, depression, dementia, dyslipidem ia, hypothyroidism, hypertension, and benign prostatic hypertrophy. Since admission, he has slowly i mproved. He was seen by Dr. Khalil on 08/09/2018 because of a metabolic acidosis. He was given Ro cephin for Klebsiella. His chest x-ray was clear. He did not appear to be septic. He was moved to the regular telemetry unit. Today, I was consulted because he went into atrial fibrillation. His pr esent medical regimen includes inhalers, Lipitor Plavix, Aricept, Lovenox, Lantus insulin, Synthroid, Lopressor 50 mg b.i.d., Protonix. I recommended we give Mr. Ford IV digoxin for now and give him an extra metoprolol dose and see how h e does. If he stays in atrial fibrillation, we will put him on Betapace 80 mg 1 p.o. b.i.d. Echocar diogram that was done on 08/06/2018 showed no wall motion abnormalities with an ejection fraction of 62%. We will continue to follow. SLADE/KARMA Voice ID: [id number] Report ID: [id number]
--- NOTE | 2018-08-10 04:04 | PN ---
Date of Progress Note: 08/09/2018 Acute kidney injury, nonoliguric associated with renal hypoperfusion with superimposed chronic kidney stage 2 secondary to diabetes mellitus and hypertension. Urine evaluation showed trace of protein. Ultrasound did not show hydronephrosis. Due to acute kidney injury, ROSALIA inhibitor and Aldactone wer e stopped. The patient was found to have hyperuricemia not associated with gout. Hyperuricemia like ly secondary to renal hypoperfusion. Review of Systems: The patient denies fever, chills. Physical Examination: Lungs: Clear to auscultation bilaterally. Heart:S1, S2. Abdomen: Soft, benign. Not tender. Extremities: Minimal edema. Laboratory Data: Blood work: Sodium 142, potassium 3.2, chloride 110, CO2 of 21, BUN 72, creatinine 2.7, glucose 166, calcium 6.6, magnesium 2.0. CK level 75. Impression And Plan: 1.Acute kidney injury, nonoliguric. Renal function has not improved significantly over last 24 hour s. There is no evidence of obstructive uropathy. Continue mild hydration. CK level is in normal ra nges and the patient sustained fall although there is no evidence of rhabdomyolysis. 2.Hyperuricemia secondary to renal hypoperfusion and acute kidney injury. No evidence of gout flare . 3.Diabetes mellitus. Continue insulin, adjust dose according to blood glucose. 4.Monitor fluid balance and urine output. The patient does not have obstructive uropathy. 5.Avoid ROSALIA inhibitor and Aldactone due to acute kidney injury. 6.Acute kidney injury. Likely secondary to prerenal azotemia and renal hypoperfusion. Continue mil d hydration, IV fluids. Bicarbonate drip was started to control metabolic acidosis. Currently, the bicarbonate is improving and the plan is to adjust IV fluids. EB/MODL Voice ID: [id number] Report ID: [id number]
[2018-08-10] MEDS: LEVOTHYROXINE SOD 0.05 MG TABLET PO SCH (05:55)
[2018-08-10 06:01] LABS: Albumin 2.5 g/dL (3.4-5.0); Bilirubin Total 0.2 mg/dL (0.2-1.0); Magnesium 1.7 mg/dL (1.8-2.4); Phosphorus 2.3 mg/dL (2.5-4.9); Potassium 3.3 mmol/L (3.5-5.1); Protein, Total 5.6 g/dL (6.4-8.2)
[2018-08-10 06:04] LABS: Absolute Monocytes 0.4 K/uL (0.1-1.3); Absolute Neutrophil 4.4 K/uL (1.8-8.0); Basophils % 0.5 % (0-1.3); Eosinophils % 3.2 % (0-4.4); Hematocrit 28.2 % (39.6-49.0); Lymphocytes % 16.7 % (15.3-44.8); MPV 8.6 fL (7.6-11.3); Monocytes % 6.9 % (3.3-12.3); RBC Red Blood Cell Count 3.03 M/uL (4.33-5.43)
[2018-08-10] MEDS ORDERED: MAGNESIUM SULFATE 1 gm IVPB 1 GM/100 ML BAG IV ONE ×2 (06:05→12:23)
[2018-08-10] MEDS ORDERED: POTASSIUM 25 MEQ EFFERV TAB PO ONE (06:07)
[2018-08-10] MEDS: INSULIN -REGULAR HUMAN 50 UNIT/0.5 ML ML SQ SCH ×4 (07:30→21:00)
[2018-08-10] MEDS ORDERED: CALCIUM CARBONATE 500 MG TAB PO SCH (09:00)
[2018-08-10] MEDS: OXcarbazepine 150 MG TAB PO SCH ×2 (09:00→22:04)
[2018-08-10] MEDS: INSULIN GLARGINE 100 UNITS/ML SQ SCH (09:05)
[2018-08-10] MEDS: ESCITALOPRAM 20 MG TAB PO SCH (09:22)
[2018-08-10] MEDS: CALCITROL 0.25 MCG CAP PO SCH (09:22)
[2018-08-10] MEDS: METOPROLOL TAR 50 MG TAB PO SCH ×2 (09:22→22:03)
[2018-08-10] MEDS: PANTOPRAZOLE 40MG TABLET PO SCH (09:22)
[2018-08-10] MEDS: CYANOCOBALAMIN 1,000 MCG TAB PO SCH (09:22)
[2018-08-10] MEDS: CLOPIDOGREL 75 MG TABLET PO SCH (09:23)
[2018-08-10] MEDS: ACETAMINOPHEN 500 MG TAB PO PRN (11:34)
[2018-08-10] MEDS: GUAIFENESIN/DM 5 ML UCUP PO PRN ×2 (11:35→22:02)
[2018-08-10] MEDS: SOD FERRIC GLUC COMPLX/SUCROSE 125 MG in NA CHLORIDE 0.9% 100 ML IV SCH (11:40)
[2018-08-10] MEDS ORDERED: CALCITROL 0.25 MCG CAP PO ONE (13:00)
[2018-08-10] MEDS: FLUTICASONE 50MCG NASAL SPRAY NAS SCH (13:58)
[2018-08-10] MEDS: CALCIUM CARBONATE 500 MG TAB PO SCH ×2 (15:43→21:00)
--- NOTE | 2018-08-10 17:10 | EKG ---
Test Date: 2018-08-10 Test Time: 00:20:58 Rug Cutter Helper: RT Villar MEASUREMENT RESULTS: Intervals: Rate: 73 [place]: 152 QRSD: 106 QT: 390 QTc: 429 [place]: P: [place]: 152 QRS: 4 T: -7 INTERPRETIVE STATEMENTS: Sinus rhythm with occasional premature ventricular complexes Inferior infarct, age undetermined Abnormal ECG Compared to ECG 08/10/2018 00:19:47 Ventricular premature complex(es) now present Myocardial infarct finding still present Electronically Signed On 08-10-18 17:07:07 VP PUBLISHER DEVELOPMENT by Héctor Hatfield
[2018-08-10] MEDS: NA CHLORIDE 0.9% 1,000 ML IV SCH (17:11)
--- NOTE | 2018-08-10 18:20 | P.PN ---
Subjective Date of Service: 08/10/18 Chief Complaint: Anabolic acidosis Subjective: No C/O voiced, Improving Patient seen and examined at bedside. No family at bedside. Chart reviewed and case discussed with nursing staff. Overnight, patient went into AFib. He received 1 time digoxin. Patient converted back to normal sinus rhythm prior to my exam Review of Systems 10-point ROS is otherwise unremarkable Physical Examination - Vital Signs Temperature: 97.3 F Blood Pressure: 122/56 Pulse: 68 Respirations: 16 Pulse Ox (%): 97 - Physical Exam General: Alert, In no apparent distress, Oriented x3 HEENT: Atraumatic, PERRLA, EOMI Neck: Supple, JVD not distended Respiratory: Clear to auscultation bilaterally, Normal air movement Cardiovascular: Regular rate/rhythm, Normal S1 S2 Gastrointestinal: Normal bowel sounds, No tenderness Musculoskeletal: No tenderness Integumentary: No rashes Neurological: Normal speech, Normal tone, Normal affect Assessment And Plan - Plan This is a 3-year-old male with: Acute respiratory distress Improving Metabolic and respiratory acidosis Continue bicarb drip Pulmonary consulted, recommendations appreciated. Acute cystitis without hematuria, secondary to Strep and Klebsiella Continue Rocephin Acute metabolic encephalopathy. Resolved Acute on chronic kidney injury, stage III Creatinine is improving Avoid nephrotoxic drugs were excellent continue to monitor creatinine. Nephrology on board, recommendations appreciated. Status post fall No acute fractures, patient is wheelchair-bound. Elevated troponin level Normal echocardiogram Cardiology on board, recommendations appreciated. Acute atrial fibrillation No prior history of atrial fibrillation. Cardiology consulted. Received IV digoxin x1 plus extra metoprolol dose. Patient converted back to normal sinus rhythm by the morning. Continues to remain in normal sinus rhythm at this time. Hypotension Blood pressure improved Will continue to monitor. Hold blood pressure medications for now Hypothyroidism Stable. Continue home medication Diabetes mellitus, type 2 with long-term use of insulin Hyperglycemia improved, now patient slowly in to hyperglycemia Continue Accu-Cheks and sliding scale insulin. Will continue to adjust as needed Coronary artery disease, without angina On Plavix Obesity, BMI of 32 Mixed hyperlipidemia Continue statin Gastroesophageal reflux disease without esophagitis Continue Protonix DVT prophylaxis: Lovenox GI prophylaxis: Protonix Diet: Heart healthy/diabetic Disposition: Pending symptomatic improvement. Patient will be discharged back to alf likely in the next 24-48 hr. Time Spent Managing PTS Care (In Minutes): 40
--- NOTE | 2018-08-10 21:01 | PN ---
Date of Progress Note: 08/09/2018 Mr. Ford was seen in followup on 08/09/2018 because of new-onset atrial fibrillation. He received dig oxin and metoprolol. Overnight, he converted back to sinus rhythm. I would continue his present reg imen right now with the aspirin, beta blockade and digoxin as needed. We should consider anticoagula tion on him for the long run. If he goes back into atrial fibrillation, I think, we need to switch h im to Betapace. SLADE/KARMA Voice ID: [id number] Report ID: [id number]
[2018-08-10] MEDS: DONEPEZIL HCL 5 MG TAB PO SCH (22:03)
[2018-08-10] MEDS: ATORVASTATIN 20 MG TAB PO SCH (22:03)
[2018-08-10] MEDS: TAMSULOSIN 0.4 MG SR CAP PO SCH (22:03)
[2018-08-10] MEDS: CEFTRIAXONE/SWI 1gm 1 GM/10 ML SYR IV SCH (22:04)
[2018-08-10] MEDS: ENOXAPARIN 100 MG/ML SYR SQ SCH (22:04)
--- NOTE | 2018-08-11 03:05 | PN ---
Date of Progress Note: 08/10/2018 Subjective: The patient was admitted with acute kidney injury, electrolyte imbalance, and symptomatic hypocalcemia. The patient is on supplement. Primary workup shows hypomagnesemia, elevated PTH. Physical Examination: Vital Signs: When I saw the patient, blood pressure 132/75, pulse of 68, afebrile. Chest: Clear to auscultation. Heart: S1, S2. Systolic murmur. Abdomen: Soft, nontender. Extremities: Trace edema. Medications: Reviewed. 1. Calcitriol 0.25. 2. Calcium carbonate. Laboratory Data: WBC 6.1, H and H 9.9/28. Sodium 145, potassium 3.3, bicarb 27 , BUN 58, and creatinine 1.9. Assessment And Plan: 1. Acute kidney injury, normal-sized kidney, secondary to poor perfusion, ATN , and prerenal on the recovery phase. We will continue hydration. 2. Hypokalemia. We will supplement. 3. Hypomagnesemia. We will supplement. 4. Secondary hyperpara with some severe hypocalcemia. I going to increase calcitriol and we will increase calcium carbonate to 1 g 3 times a day and we will follow up vitamin D. with good level, I do not see any need for vitamin D supplement. 5. Hypomagnesemia. We will supplement. MARVIN Voice ID: [id number] Report ID: [id number]
[2018-08-11 03:55] LABS: HBsAG Nonreactive (Nonreactive)
[2018-08-11 05:18] LABS: Albumin 2.5 g/dL (3.4-5.0); Magnesium 2.2 mg/dL (1.8-2.4); Phosphorus 2.1 mg/dL (2.5-4.9); Potassium 3.9 mmol/L (3.5-5.1)
[2018-08-11] MEDS: LEVOTHYROXINE SOD 0.05 MG TABLET PO SCH (06:04)
[2018-08-11] MEDS: INSULIN -REGULAR HUMAN 50 UNIT/0.5 ML ML SQ SCH ×2 (07:30→11:30)
[2018-08-11] MEDS: FLUTICASONE 50MCG NASAL SPRAY NAS SCH (09:00)
[2018-08-11] MEDS ORDERED: POTASSIUM 25 MEQ EFFERV TAB PO ONE (09:00)
[2018-08-11] MEDS: METOPROLOL TAR 50 MG TAB PO SCH (10:38)
[2018-08-11] MEDS: CALCIUM CARBONATE 500 MG TAB PO SCH ×2 (10:38→12:56)
[2018-08-11] MEDS: CYANOCOBALAMIN 1,000 MCG TAB PO SCH (10:39)
[2018-08-11] MEDS: ESCITALOPRAM 20 MG TAB PO SCH (10:39)
[2018-08-11] MEDS: PANTOPRAZOLE 40MG TABLET PO SCH (10:39)
[2018-08-11] MEDS: CLOPIDOGREL 75 MG TABLET PO SCH (10:39)
[2018-08-11] MEDS: OXcarbazepine 150 MG TAB PO SCH (10:40)
[2018-08-11] MEDS: INSULIN GLARGINE 100 UNITS/ML SQ SCH (10:40)
[2018-08-11] MEDS: SOD FERRIC GLUC COMPLX/SUCROSE 125 MG in NA CHLORIDE 0.9% 100 ML IV SCH (10:41)
--- NOTE | 2018-08-11 16:47 | PN ---
Date of Progress Note: 08/11/2018 Subjective: The patient was admitted with acute kidney injury, symptomatic hypocalcemia, hypomagnese candie and hypokalemia. Yesterday, we replaced potassium, increase calcitriol and calcium. The patient is feeling better. Objective: Vital Signs: When I saw the patient, blood pressure 117/58, pulse of 60, afebrile. The patient had good urine output of 2100, negative of 300. Chest: clear to auscultation. Heart: S1, S2. Regular. Systolic murmur. Abdomen: Soft, nontender. Extremities: Trace edema. Laboratory Data: WBC 6.1, H and H 9.9/28.2, platelet 139. Sodium 146, potassium 3.9, bicarb 30, BUN 41, creatinine 1.4, continue to trend down, GFR up to 47, calcium up to 7 with albumin 2.5, correcte d calcium is 8.2, phos 2.1, magnesium 2.2. Current Medications: The patient on include, 1.Albuterol. 2.Aranesp. 3.Flomax. 4.IV iron. 5.Plavix. 6.Lovenox. 7.Atorvastatin. 8.Metoprolol 50 b.i.d. 9.Flonase. 10.Pantoprazole. 11.Levothyroxine. 12.Insulin. 13.IV fluid at 50 per hour of normal saline. 14.Calcitriol 0.5 every 48 hours. 15.Tums 1 g 3 times a day. Assessment And Plan: 1.Acute kidney injury secondary to prerenal, recovered. I am going to discontinue IV fluid. We grabiel l monitor the patient. 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 I am going to continue current supplement. His senthil cium started trending up. 3.Hypomagnesemia, resolved. 4.Hypokalemia, resolved. 5.Deconditioning. Continue PT/OT. 6.Urinary tract infection, continue current antibiotic. We will follow up. MARVIN Voice ID: [id number] Report ID: [id number]
[2018-08-11 16:50] LABS: HIV 1/2 Antibody Diff Not indicated.; HIV AG/AB 4TH GEN Non-reactive (Non-reactive)
--- NOTE | 2018-08-11 19:29 | PN ---
Subjective: Mr. Ford had been followed for CHF, atrial fibrillation. Today, he is in sinus rhythm. No chest pain. Denied PND, orthopnea, pedal edema. He denied palpitations. He is afebrile. Chest is clear. He is still have about 1 to 2+ edema in the lower extremities. I would continue his prese nt regimen as is. He can certainly go home whenever it is okay with the admitting physician. We grabiel porter see him in the office in 2 weeks. SLADE/KARMA Voice ID: [id number] Report ID: [id number]
[2018-08-11 22:01] LABS: Albumin, (SPE) 3.2 g/dL (3.8-4.8); Alpha-1-Globulins 0.4 g/dL (0.2-0.3); Alpha-2-Globulins 0.9 g/dL (0.5-0.9); Gamma Globulins 0.8 g/dL (0.8-1.7); INTERPRETATION REPORT
[2018-08-12] MEDS ORDERED: CALCITROL 0.25 MCG CAP PO SCH (09:00)
[2018-08-14 11:00] LABS: P-ANCA Anti-Myeloperoxidase Ab <1.0 AI (<1.0)
== END 2018-08-11 15:54 | DRG 682 ==
LOC: ER 03:09 → ERHOLD 05:45 → 2ND 07:44 → OBSVTOIN 08-07 10:16 → 3RD-ICU 08-08 11:12 → 4TH 08-09 14:55
PROVIDERS: ADMIT Internal Medicine; ATTEND Family Medicine
PROC: 02HV33Z Insertion of Infusion Device into Superior Vena Cava, Percutaneous Approach (ICD-10-PCS; principal; 2018-08-08)
DX: N17.9 Acute kidney failure, unspecified (principal); G93.41 Metabolic encephalopathy; N30.00 Acute cystitis without hematuria; I13.0 Hypertensive heart and chronic kidney disease with heart failure and stage 1 through stage 4 chronic kidney disease, or unspecified chronic kidney disease; E87.4 Mixed disorder of acid-base balance; N25.81 Secondary hyperparathyroidism of renal origin; E03.9 Hypothyroidism, unspecified; K21.9 Gastro-esophageal reflux disease without esophagitis; I25.10 Atherosclerotic heart disease of native coronary artery without angina pectoris; Z95.5 Presence of coronary angioplasty implant and graft; E86.9 Volume depletion, unspecified; E66.01 Morbid (severe) obesity due to excess calories; G30.0 Alzheimer's disease with early onset; F02.80 Dementia in other diseases classified elsewhere, unspecified severity, without behavioral disturbance, psychotic disturbance, mood disturbance, and anxiety; E11.22 Type 2 diabetes mellitus with diabetic chronic kidney disease; E11.65 Type 2 diabetes mellitus with hyperglycemia; N18.3 Chronic kidney disease, stage 3 (moderate); I50.9 Heart failure, unspecified; Z79.4 Long term (current) use of insulin; F32.9 Major depressive disorder, single episode, unspecified; N40.0 Benign prostatic hyperplasia without lower urinary tract symptoms; I27.20 Pulmonary hypertension, unspecified; J44.9 Chronic obstructive pulmonary disease, unspecified; W18.00XA Striking against unspecified object with subsequent fall, initial encounter; Y93.89 Activity, other specified; Y92.122 Bedroom in nursing home as the place of occurrence of the external cause; R79.89 Other specified abnormal findings of blood chemistry; E78.2 Mixed hyperlipidemia; R06.82 Tachypnea, not elsewhere classified; Z88.5 Allergy status to narcotic agent; Z88.8 Allergy status to other drugs, medicaments and biological substances; Z87.891 Personal history of nicotine dependence; R06.03 Acute respiratory distress; E87.5 Hyperkalemia; R50.9 Fever, unspecified; D64.9 Anemia, unspecified; G47.30 Sleep apnea, unspecified; I95.9 Hypotension, unspecified; B96.1 Klebsiella pneumoniae [K. pneumoniae] as the cause of diseases classified elsewhere; B95.5 Unspecified streptococcus as the cause of diseases classified elsewhere; I48.91 Unspecified atrial fibrillation; E79.0 Hyperuricemia without signs of inflammatory arthritis and tophaceous disease; E83.51 Hypocalcemia; E83.42 Hypomagnesemia; Z66 Do not resuscitate; Z68.32 Body mass index [BMI] 32.0-32.9, adult
CPT/HCPCS: 36415; 51702; 70450; 71045; 71250; 72125; 76770; 80048; 80053; 80069; 80076; 81003; 81015; 82306; 82550; 82553; 82570; 82607; 82728; 82746; 82805; 82962; 83520; 83540; 83605; 83690; 83735; 83880; 83970; 84100; 84156; 84165; 84443; 84466; 84484; 84550; 85025; 85610; 86021; 86038; 86160; 86334; 86430; 86803; 87040; 87045; 87046; 87077; 87086; 87088; 87186; 87340; 87389; 87493; 92610; 93005; 93306; 94640; 96360; 96361; 96372; 97116; 97161; 97164; 97530; 99285; J0456; J0696; J1160; J1650; J1940; J2405; J2916; J3475; J7030; J7605

== ENCOUNTER 2018-12-06 18:35 | Inpatient (IN) | payer OTHER ==
--- OUTSIDE RECORDS SUMMARY | 2018-12-06 18:38 | XMS REPORT | Clinical Summary ---
:1935 Author Organization [facility] Address [address] [place] [address] Care Team Providers Name Role Phone Asked, [...] Due Date Last Done Comments SHINGLES VACCINES (#1) 1984 65+ PNEUMOCOCCAL VACCINE (1 of 2 - PCV13) 1999 PNEUMOCOCCAL POLYSACCHARIDE VACCINE AGE 65 AND OVER 1999 INFLUENZA VACCINE 02/10/2019 Implants Implanted Type Area Jewelry Mold Maker Device Shelf Model / Identifier Expiration Serial / Date Lot Stent Crtd Xact Slf-Xpndbl Tprd Koby 6-8m 30mm - [id number] Peripheral or CORDOVA VASCULAR [id number] / Implanted: Qty: 1 on 08/06/2016 by Alec Cadet MD Biliary Stents DEVICES / Results Not on fileafter 12/05/2017 Insurance Payer Benefit Plan / Subscriber ID Effective Dates Phone Address Type Group MEDICARE MEDICARE PART A xxxxxxxxxx 1999-Present [place] Medicare [place] B MEDICAID MEDICAID xxxxxxxxx 2016-Present Medicaid Advance Directives Patient has advance care planning documents on file. For more information, please contact:[place] [address]
[2018-12-06 19:12] LABS: Absolute Lymphocytes (CBC) 0.2 K/uL (0.7-4.9); Absolute Neutrophil 5.9 K/uL (1.8-8.0); Basophils % 0.2 % (0-1.3); Eosinophils % 0.2 % (0-4.4); Hematocrit 34.2 % (39.6-49.0); Lymphocytes % 3.9 % (15.3-44.8); MPV 7.7 fL (7.6-11.3); Monocytes % 0.7 % (3.3-12.3); RBC Red Blood Cell Count 3.41 M/uL (4.33-5.43)
[2018-12-06 19:13] LABS: Protime INR 1.05
[2018-12-06] MEDS ORDERED: NA CHLORIDE 0.9% 3,000 ML ONE (19:22)
[2018-12-06] MEDS ORDERED: CEFTRIAXONE/SWI 1gm 1 GM/10 ML SYR ONE (19:22)
[2018-12-06] MEDS ORDERED: ACETAMINOPHEN 500 MG TAB ONE (19:22)
[2018-12-06 19:29] LABS: Urine Amorphous Sediment 3+ /HPF (NONE SEEN); Urine Bacteria 20-50 /HPF (NONE SEEN); Urine Culture Reflex Order REFLEXED; Urine Mucus 2+ /HPF (NONE SEEN)
[2018-12-06 19:30] LABS: Urine Blood 3+ (NEG); Urine Glucose NEGATIVE (NEG); Urine Protein 1+ (NEG)
[2018-12-06 19:37] LABS: ALT/SGPT 18 U/L (12-78); AST/SGOT 13 U/L (15-37); Albumin 3.1 g/dL (3.4-5.0); Alkaline Phosphatase 53 U/L (45-117); BUN Blood Urea Nitrogen 54 mg/dL (7-18); Bicarbonate 22 mmol/L (21-32); Bilirubin Direct 0.1 mg/dL (0-0.2); Bilirubin Total 0.3 mg/dL (0.2-1.0); CKMB Creatine Kinase MB 1.5 ng/mL (0.3-3.6); Creatine Phosphokinase 63 U/L (39-308); Glucose Level 145 mg/dL (74-106); Lipase 167 U/L (73-393); Protein, Total 6.8 g/dL (6.4-8.2); Sodium Level 141 mmol/L (136-145); Troponin (Emerg Dept Use Only) < 0.02 ng/mL (0.0-0.045)
[2018-12-06 19:39] LABS: Potassium 6.2 mmol/L (3.5-5.1)
[2018-12-06 19:44] LABS: Blood Morphology Comment NOT SEEN (NOT SEEN); Platelet Estimate ADEQ
--- NOTE | 2018-12-06 19:48 | EDPHYS ---
Physician Documentation [facility] Name: Angel Ford Age: 83 yrs Sex: Male : 1935 Arrival Date: 12/06/2018 Time: 18:36 Bed 2 Private MD: ED Physician Trent Banegas HPI: 12/06 19:30 This 83 yrs old Male presents to ER via EMS with complaints of Altered Mental ma2 Status, Fever. 19:30 The patient presents with confusion. Onset: The symptoms/episode began/occurred ma2 gradually, 1 day(s) ago. Possible causes: sepsis, unknown. Associated signs and symptoms: Pertinent negatives: ataxia, chest pain, confusion. Current symptoms: In the emergency department the patient's symptoms are unchanged from the initial presentation. Patient's baseline: Neuro: alert but confused. Unable to obtain HPI due to altered mental status. Historical: - Allergies: 18:44 Iodine; bp 18:44 [place]; bp 18:44 tramadol; bp - PMHx: 18:44 CAD; constipation; Dementia; Depression; Diabetes - IDDM; DIZZINESS; dyspnea; GERD; bp HEART FAILURE; heart failure unspecified; HTN; Hypercholesterolemia; Hypertension; Hypothyroidism; ischemic heart disease; MUSCLE WEAKNESS; neuropathy; Obesity; Pneumonia; Vertigo; vitamin d deficiency; - Immunization history:: Adult Immunizations up to date. - Social history:: Smoking status: Patient/guardian denies using tobacco, Patient/guardian denies using alcohol, street drugs, The patient lives with family. - Ebola Screening: : No symptoms or risks identified at this time. - Family history:: not pertinent. ROS: 19:30 Constitutional: Negative for fever, chills, and weight loss. ma2 19:30 All other systems are negative. Exam: 19:30 Head/Face: Normocephalic, atraumatic. Eyes: Pupils equal round and reactive to light, ma2 extra-ocular motions intact. Lids and lashes normal. Conjunctiva and sclera are non-icteric and not injected. Cornea within normal limits. Periorbital areas with no swelling, redness, or edema. ENT: Nares patent. No nasal discharge, no septal abnormalities noted. Tympanic membranes are normal and external auditory canals are clear. Oropharynx with no redness, swelling, or masses, exudates, or evidence of obstruction, uvula midline. Mucous membranes moist. 19:30 Respiratory: Lungs have equal breath sounds bilaterally, clear to auscultation and percussion. No rales, rhonchi or wheezes noted. No increased work of breathing, no retractions or nasal flaring. Abdomen/GI: Soft, non-tender, with normal bowel sounds. No distension or tympany. No guarding or rebound. No evidence of tenderness throughout. Back: No spinal tenderness. No costovertebral tenderness. Full range of motion. 19:30 Constitutional: The patient appears comfortable, non-toxic, lethargic, listless, smells of urine, unkempt. 19:30 Neuro: unable to perform as patient not following command s. Vital Signs: 18:38 BP 122 / 50; Pulse 78; Resp 24; Temp 103; Pulse Ox 100% on 2 lpm NC; Weight 81.65 kg; bp 19:16 BP 91 / 46; Pulse 68; Resp 20; Temp 103.3; Pulse Ox 97% on 3 lpm NC; ea 20:07 BP 88 / 46; Pulse 73; Resp 21; Temp 102.8; Pulse Ox 97% on 3 lpm NC; ea 20:45 BP 94 / 39; Pulse 71; Resp 18; Pulse Ox 95% on 3 lpm NC; ea 21:00 BP 81 / 43; Pulse 72; Resp 21; Temp 101.2; Pulse Ox 96% on 3 lpm NC; ea 21:12 BP 90 / 39; Pulse 72; Resp 18; Temp 101.1(C); Pulse Ox 96% on 3 lpm NC; ea 22:35 BP 96 / 48; Pulse 70; Resp 20; Temp 100.1; Pulse Ox 97% on 3 lpm NC; Pain 0/10; ea MDM: 18:37 Patient medically screened. ma2 19:30 Differential Diagnosis: hypoglycemia, overdose, sepsis, TIA, UTI, volume depletion. ma2 Data reviewed: vital signs, nurses notes. 19:44 Counseling: I had a detailed discussion with the patient and/or guardian regarding: the ma2 historical points, exam findings, and any diagnostic results supporting the discharge/admit diagnosis, the presence of at least one elevated blood pressure reading (>120/80) during this emergency department visit, the need for further work-up and treatment in the hospital. Response to treatment: the patient's symptoms have markedly improved after treatment. 19:46 ED course: discussed with dr. anguiano . [facility] 12/06 18:39 Order name: Basic Metabolic Panel [facility] 12/06 18:39 Order name: Blood Culture Adult (2) [facility] 12/06 18:39 Order name: CBC with Diff; Complete Time: 19:45 [facility] 12/06 18:39 Order name: Ckmb; Complete Time: 19:41 [facility] 12/06 18:39 Order name: CPK; Complete Time: 19:41 [facility] 12/06 18:39 Order name: Lactate; Complete Time: 19:41 [facility] 12/06 18:39 Order name: LFT's; Complete Time: 19:41 [facility] 12/06 18:39 Order name: Lipase; Complete Time: 19:41 [facility] 12/06 18:39 Order name: Procalcitonin; Complete Time: 19:45 [facility] 12/06 18:39 Order name: Protime (+inr); Complete Time: 19:31 [facility] 12/06 18:39 Order name: Ptt, Activated; Complete Time: 19:31 [facility] 12/06 18:39 Order name: Troponin (emerg Dept Use Only); Complete Time: 19:41 [facility] 12/06 18:39 Order name: Urine Microscopic Only; Complete Time: 19:41 [facility] 12/06 18:39 Order name: Influenza Screen (a \T\ B); Complete Time: 19:45 [facility] 12/06 18:39 Order name: Chest Single View XRAY [facility] 12/06 18:39 Order name: CT Head Brain wo Cont [facility] 12/06 18:40 Order name: Basic Metabolic Panel; Complete Time: 19:41 [facility] 12/06 18:40 Order name: Blood Culture [facility] 12/06 19:21 Order name: Urine Dipstick--Ancillary (enter results); Complete Time: 19:41 [facility] 12/06 19:31 Order name: Urine Culture [facility] 12/06 19:40 Order name: Manual Differential; Complete Time: 19:45 [facility] 12/06 20:20 Order name: CDIFF 12/06 20:31 Order name: Abdomen [facility] 12/06 21:15 Order name: Glucose, Ancillary Testing [facility] 12/06 21:35 Order name: Potassium [facility] 12/06 22:29 Order name: Lactate Sepsis 2 HR Follow-up [facility] 12/06 18:39 Order name: Accucheck; Complete Time: 18:49 ma2 12/06 18:39 Order name: Cardiac monitoring; Complete Time: 18:49 ma2 12/06 18:39 Order name: EKG - Nurse/Tech; Complete Time: 18:49 ma2 12/06 18:39 Order name: IV Saline Lock - Large Bore; Complete Time: 19:05 ca2 12/06 18:39 Order name: Labs collected and sent; Complete Time: 19:05 ca2 12/06 18:39 Order name: O2 Per Protocol; Complete Time: 18:49 ma2 12/06 18:39 Order name: O2 Sat Monitoring; Complete Time: 18:49 ca2 12/06 18:39 Order name: Urine Dipstick-Ancillary (obtain specimen); Complete Time: 19:06 ma2 12/06 18:50 Order name: De [place] O; Complete Time: 19:05 ma2 Administered Medications: 19:10 Drug: Acetaminophen 1000 mg Route: PO; ea 20:00 Follow up: Response: No adverse reaction; Temperature is decreased ea 19:10 Drug: NS 0.9% (30 ml/kg) 30 ml/kg Route: IV; Rate: bolus; Site: right wrist; ea 21:24 Follow up: Response: No adverse reaction; IV Status: Infusion continued upon admission; ea IV Intake: 2000ml 19:10 Drug: Rocephin 1 grams Route: IV; Rate: calculated rate; Site: left antecubital; ea 19:15 Follow up: Response: No adverse reaction; IV Status: Completed infusion; IV Intake: 10mlea 20:15 Drug: Albuterol - atroVENT (3:1) (2.5 mg - 0.5 mg) 3 ml Route: Nebulizer; ea 21:25 Follow up: Response: No adverse reaction ea 20:15 Drug: Kayexalate 30 grams Route: PO; ea 21:25 Follow up: Response: No adverse reaction ea 20:15 Drug: Insulin Regular Human 8 units {Co-Signature: [email or web address] (George Ernst RN).} Route: IVP; ea Site: right hand; 21:25 Follow up: Response: No adverse reaction ea 20:15 Drug: D50W 50 ml Route: IVP; Site: right hand; ea 21:24 Follow up: Response: No adverse reaction ea Disposition: 19:46 Critical Care:. ma2 Disposition: 12/06/18 19:47 Hospitalization ordered by Dedrick Triplett for Inpatient Admission. Preliminary diagnosis are Cystitis, unspecified without hematuria, Hyperkalemia, Sepsis due to Escherichia coli [E. coli]. - Bed requested for Intensive Care Unit. - Status is Inpatient Admission. ea - Condition is Guarded. - Problem is new. - Symptoms are unchanged. UTI on Admission? Yes Critical care time excluding procedures: 19:46 Critical care time: Bedside Care: 30 minutes, Consultation: 10 minutes. Total time: 40 ma2 minutes Signatures: Dispatcher [employer] EDVA Dorothy Stanley RN RN mw Antunez, Elena RN Ar Dee ea RN Trent Gallagher MD MD ca2 George Ernst RN [email or web address] Corrections: (The following items were deleted from the chart) 19:40 19:16 CBC Smear Scan ordered. EDVA EDVA 20:28 19:47 Hospitalization Ordered by Dedrick Triplett MD for Inpatient Admission. Preliminary diagnosis is Cystitis, unspecified without hematuria; Hyperkalemia; Sepsis due to Escherichia coli [E. coli]. Bed requested for Telemetry/MedSurg (Inpatient). Status is Inpatient Admission. Condition is Guarded. Problem is new. Symptoms are unchanged. UTI on Admission? Yes. ma2 22:43 20:28 12/06/2018 19:47 Hospitalization Ordered by Dedrick Triplett MD for Inpatient ea Admission. Preliminary diagnosis is Cystitis, unspecified without hematuria; Hyperkalemia; Sepsis due to Escherichia coli [E. coli]. Bed requested for Intensive Care Unit. Status is Inpatient Admission. Condition is Guarded. Problem is new. Symptoms are unchanged. UTI on Admission? Yes. mw
--- NOTE | 2018-12-06 19:48 | ER ---
Nurse's Notes [facility] Name: Angel Ford Age: 83 yrs Sex: Male : 1935 Arrival Date: 12/06/2018 Time: 18:36 Bed 2 Private MD: Diagnosis: Cystitis, unspecified without hematuria;Hyperkalemia;Sepsis due to Escherichia coli [E. coli] Presentation: 12/06 18:38 Presenting complaint: EMS states: SENT FROM [facility] FOR AMS AND FEVER, UNKNOWN bp LAST KNOWN NORMAL. Transition of care: patient was received from another setting of care (long-term care facility), [facility]. Onset of symptoms is unknown. Risk Assessment: Do you want to hurt yourself or someone else? Patient reports no desire to harm self or others. Initial Sepsis Screen: Does the patient meet any 2 criteria? RR > 20 per min. Temp <36.0*C (96.8*F)) or > 38.3*C (100.9*F). Altered Mental Status. Yes Does the patient have a suspected source of infection? Yes: Dysuria/Frequency/Urgency/UTI If YES to both, name of provider notified: Trent Banegas MD Care prior to arrival: IV initiated. 20 GA, in the right antecubital area, Glucose check: 140 Oxygen administered. via nasal cannula. 18:38 Method Of Arrival: EMS: [facility] bp 18:38 Acuity: JUSTICE 2 bp Triage Assessment: 18:44 General: Appears distressed, comfortable, obese, unkempt, Behavior is cooperative, bp agitated, anxious. Pain: Unable to use pain scale. Does not appear to understand pain scale. EENT: No deficits noted. Neuro: Level of Consciousness is awake, confused, Oriented to person. Cardiovascular: Rhythm is sinus rhythm. Respiratory: Airway is patent Respiratory effort is even, unlabored, Respiratory pattern is regular, symmetrical. GI: No signs and/or symptoms were reported involving the gastrointestinal system. : Urine is cloudy. Derm: No deficits noted. Musculoskeletal: Circulation, motion, and sensation intact. Range of motion: intact in all extremities. Historical: - Allergies: 18:44 Iodine; bp 18:44 [place]; bp 18:44 tramadol; bp - PMHx: 18:44 CAD; constipation; Dementia; Depression; Diabetes - IDDM; DIZZINESS; dyspnea; GERD; bp HEART FAILURE; heart failure unspecified; HTN; Hypercholesterolemia; Hypertension; Hypothyroidism; ischemic heart disease; MUSCLE WEAKNESS; neuropathy; Obesity; Pneumonia; Vertigo; vitamin d deficiency; - Immunization history:: Adult Immunizations up to date. - Social history:: Smoking status: Patient/guardian denies using tobacco, Patient/guardian denies using alcohol, street drugs, The patient lives with family. - Ebola Screening: : No symptoms or risks identified at this time. - Family history:: not pertinent. Screenin:48 Abuse screen: Denies threats or abuse. Denies injuries from another. Nutritional bp screening: No deficits noted. Tuberculosis screening: No symptoms or risk factors identified. Fall Risk None identified. Assessment: 18:47 General: SEE TRIAGE NOTE. bp 19:05 General: Appears uncomfortable, Behavior is cooperative. Pain: Denies pain. Neuro: ea Level of Consciousness is confused, lethargic, Oriented to person. Cardiovascular: Patient's skin is warm and dry. Respiratory: Airway is patent Respiratory effort is even, unlabored, Respiratory pattern is regular, symmetrical, Breath sounds are coarse bilaterally. GI: Abdomen is round Bowel sounds present X 4 quads. : Lawson in place to gravity drainage. Derm: Skin is dry, Skin is normal, Skin temperature is warm. Musculoskeletal: Circulation, motion, and sensation intact. 20:18 Reassessment: Patient and/or family updated on plan of care and expected duration. Pain ea level reassessed. Returned from CT. Pt resting with eyes closed, respirations even and unlabored. Pt remains on O2 at 3 L per n/c. 20:20 Reassessment: Dr. Churchill at bedside, verbal orders obtained to obtain stool sample ea for C-Diff. Pt hypotensive, provider ordered third liter of NS, order obtained, medication administered, pt tolerating well. 21:33 Reassessment: Patient and/or family updated on plan of care and expected duration. Pain ea level reassessed. Pt resting with eyes closed, respirations even and unlabored, chest expansions even and symmetrical. Pt remains on O2 at 3 L per n/c. Fever has decreased. 22:39 Reassessment: Patient and/or family updated on plan of care and expected duration. Pain ea level reassessed. Pt alert and oriented to self. Respirations even and unlabored pt on 3 L per n/c tolerating well. Pt left ED via stretcher, per nurse and tech. Pt tolerating well. Bedside report given to ICU nurse. Vital Signs: 18:38 BP 122 / 50; Pulse 78; Resp 24; Temp 103; Pulse Ox 100% on 2 lpm NC; Weight 81.65 kg; bp 19:16 BP 91 / 46; Pulse 68; Resp 20; Temp 103.3; Pulse Ox 97% on 3 lpm NC; ea 20:07 BP 88 / 46; Pulse 73; Resp 21; Temp 102.8; Pulse Ox 97% on 3 lpm NC; ea 20:45 BP 94 / 39; Pulse 71; Resp 18; Pulse Ox 95% on 3 lpm NC; ea 21:00 BP 81 / 43; Pulse 72; Resp 21; Temp 101.2; Pulse Ox 96% on 3 lpm NC; ea 21:12 BP 90 / 39; Pulse 72; Resp 18; Temp 101.1(C); Pulse Ox 96% on 3 lpm NC; ea 22:35 BP 96 / 48; Pulse 70; Resp 20; Temp 100.1; Pulse Ox 97% on 3 lpm NC; Pain 0/10; ea ED Course: 18:36 Patient arrived in ED. bp 18:37 Trent Banegas MD is Attending Physician. ma2 18:40 Triage completed. bp 18:47 Arm band placed on. bp 18:48 Patient has correct armband on for positive identification. Bed in low position. Call bp light in reach. Side rails up X2. 18:48 Maintain EMS IV. Dressing intact. Good blood return noted. Site clean \T\ dry. Gauge \T\ bp site: 20 GAUGE R AC. 19:00 Lawson cath inserted, using sterile technique, 18 Fr., by lye machine operator, balloon inflated, to bp gravity drainage, urine specimen collected. returned cloudy urine. Patient tolerated well. Inserted saline lock: 20 gauge in left antecubital area, using aseptic technique. Blood collected. 19:01 Radiology exam delayed due to PT GETTING LAWSON AND BED CHANGED AT THIS TIME. vm2 19:03 Ar Fatima, RN is Primary Nurse. bp 19:42 CT completed. Patient tolerated procedure well. Patient moved to CT. Patient moved back ia from CT. 19:43 CT Head Brain wo Cont In Process Unspecified. EDMS 19:46 Dedrick Triplett MD is Hospitalizing Provider. ma2 19:52 Chest Single View XRAY In Process Unspecified. EDMS 21:22 No provider procedures requiring assistance completed. Patient admitted, IV remains in ea place. Administered Medications: 19:10 Drug: Acetaminophen 1000 mg Route: PO; ea 20:00 Follow up: Response: No adverse reaction; Temperature is decreased ea 19:10 Drug: NS 0.9% (30 ml/kg) 30 ml/kg Route: IV; Rate: bolus; Site: right wrist; ea 21:24 Follow up: Response: No adverse reaction; IV Status: Infusion continued upon admission; ea IV Intake: 2000ml 19:10 Drug: Rocephin 1 grams Route: IV; Rate: calculated rate; Site: left antecubital; ea 19:15 Follow up: Response: No adverse reaction; IV Status: Completed infusion; IV Intake: 10mlea 20:15 Drug: Albuterol - atroVENT (3:1) (2.5 mg - 0.5 mg) 3 ml Route: Nebulizer; ea 21:25 Follow up: Response: No adverse reaction ea 20:15 Drug: Kayexalate 30 grams Route: PO; ea 21:25 Follow up: Response: No adverse reaction ea 20:15 Drug: Insulin Regular Human 8 units {Co-Signature: rr5 (George Ernst RN).} Route: IVP; ea Site: right hand; 21:25 Follow up: Response: No adverse reaction ea 20:15 Drug: D50W 50 ml Route: IVP; Site: right hand; ea 21:24 Follow up: Response: No adverse reaction ea Intake: 19:15 IV: 10ml; Total: 10ml. ea 21:24 IV: 2000ml; Total: 2010ml. ea Outcome: 19:47 Decision to Hospitalize by Provider. ma2 21:22 Instructed on the need for admit. ea 22:37 Admitted to ICU accompanied by nurse, accompanied by tech, via stretcher, room 1, with ea oxygen, on monitor, with chart, Report called to Bedside report given to receiving nurse 22:37 Condition: stable 22:43 Patient left the ED. ea Signatures: Dispatcher [employer] EDEliecer Wu Victoria vm2 Ami Vieira RN RN Ar Fox RN RN Adriana Dover kw1 Trent Banegas MD MD ma2 George Ernst RN [email or web address] Corrections: (The following items were deleted from the chart) 19:01 18:[address] via stretcher. kw1 vm2 19:42 19:10 NS 0.9% (30 ml/kg) 30 ml/kg IV at bolus in right antecubital ea ea 21:33 20:20 Reassessment: Dr. Churchill at bedside, verbal orders obtained to obtain stool ea sample for C-Diff. ea
--- NOTE | 2018-12-06 19:59 | RAD REPORT ---
EXAM DESCRIPTION: CT - Head Brain Wo Cont - 12/06/2018 7:42 pm CLINICAL HISTORY: Transient alteration of awareness COMPARISON: August 2016 TECHNIQUE: Axial 5 mm thick images of the head were obtained without IV contrast. All CT scans are performed using dose optimization technique as appropriate and may include automated exposure control or mA/KV adjustment according to patient size. FINDINGS: No intracranial hemorrhage, mass, edema or shift of mid-line structures. No acute cortical based infarction. Underlying mild to moderate atrophy and chronic ischemic changes are present. 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 Ventricles are in proportion to the volume loss. Arterial a nd physiologic calcifications are present. Mastoid air cells and visualized portions of the paranasal sinuses are clear. No acute bony findings. IMPRESSION: Negative non-contrast CT head examination for acute finding Atrophy, chronic ischemic change and old infarction changes are present not substantially different 2016.
--- NOTE | 2018-12-06 20:07 | RAD REPORT ---
EXAM DESCRIPTION: RAD - Chest Single View - 12/06/2018 7:52 pm CLINICAL HISTORY: Fever, transient alteration of awareness COMPARISON: July 2018 TECHNIQUE: AP portable chest image was obtained 1951 hours . FINDINGS: Lung volumes are low. No focal consolidation of the right lung field or upper left lung fi eld. Left base hazy opacification is present. This is in part due to shallow inspiration and portable technique. However, left base pleural effusion is suspected. No significant failure or volume overlo ad. Heart and vasculature are normal. No measurable pleural effusion and no pneumothorax. No acute luz [place] abnormality seen. No acute aortic findings suspected. IMPRESSION: Left base pleural effusion is suspected with atelectasis. No significant failure or volume overload.
--- NOTE | 2018-12-06 20:31 | P.HP ---
Certification for Inpatient Patient admitted to: Inpatient With expected LOS: >2 Midnights Practitioner: I am a practitioner with admitting privileges, knowledge of patient current condition, hospital course, and medical plan of care. Services: Services provided to patient in accordance with Admission requirements found in Title 42 Section 412.3 of the Code of Federal Regulations Patient History Date of Service: 12/06/18 Allergies acetaminophen [From [place]] Allergy (Verified 05/05/17 21:39) Unknown hydrocodone [From [place]] Allergy (Verified 05/05/17 21:39) Unknown tramadol Allergy (Verified 05/05/17 21:39) Unknown Codeine Allergy (Uncoded 05/05/17 21:39) Hives Iodine Allergy (Uncoded 05/05/17 21:39) Hives Home Medications: Acetaminophen 325 mg PO DAILY 08/05/18 Albuterol Neb [Proventil 0.083% Neb Soln] 2.5 mg NEB Q6H 08/05/18 Arformoterol Tartrate [Brovana] 15 mcg NEB BIDRESP 08/05/18 Atorvastatin Calcium [Lipitor*] 20 mg PO BEDTIME 08/05/18 Cholecalciferol (Vitamin D3) [Vitamin D3] 1,000 unit PO DAILY 08/05/18 Clopidogrel Bisulfate [Plavix*] 75 mg PO DAILY 08/05/18 Donepezil HCl 10 mg PO BEDTIME 08/05/18 Ergocalciferol (Vitamin D2) [Vitamin D2] 1 cap PO DAILY 08/05/18 Escitalopram [Lexapro*] 20 mg PO DAILY 08/05/18 Insulin -Regular Human [Novolin -R*] See Protocol SQ BID 08/05/18 Insulin Glargine,Hum.rec.anlog [Lantus] 37 unit SQ DAILY 08/05/18 Ipratropium Neb [Atrovent*] 0.5 mg IH Q6H PRN 08/05/18 Levothyroxine [Synthroid*] 50 mcg PO [id number] 08/05/18 Liraglutide [Victoza 2-Gab] 0.6 mg SQ DAILY 08/05/18 Losartan Potassium [Cozaar] 25 mg PO DAILY 08/05/18 Medroxyprogester [Provera*] 5 mg PO BID 08/05/18 Metoprolol Tartrate [Lopressor*] 50 mg PO BID 08/05/18 OXcarbazepine [Trileptal*] 150 mg PO BID 08/05/18 Omeprazole 20 mg PO DAILY 08/05/18 Spironolactone [Aldactone*] 25 mg PO DAILY 08/05/18 Tamsulosin [Flomax*] 0.4 mg PO BEDTIME 08/05/18 glipiZIDE [Glucotrol*] 5 mg PO BID 08/05/18 Amox/Clavulanate [Augmentin 500-125 mg Tab] 500 mg PO BID #14 tab 08/11/18 Calcium Carbonate [Oscal*] 1,000 mg PO TID tab 08/11/18 Cyanocobalamin [Vitamin B-12*] 1,000 mcg PO DAILY tab 08/11/18 - Past Medical/Surgical History Diabetic: Yes -: NIDDM -: Hyperlipidemia -: HTN -: Hypothyroid -: Vertigo -: Bronchiolitis -: CAD -: arthrosclerosis -: gerd -: heart failure -: heart stent x2 -: Balloon angioplasty -: broke both arm when 4yrs old - Family History Father -: Lung disease Notes: black lung Mother -: Cancer - Social History Alcohol use: Yes CD- Drugs: No Caffeine use: Yes Physical Examination - Studies Laboratory Data (last 24 hrs) 12/06/18 18:53: PT 12.4, INR 1.05, APTT 25.2 12/06/18 18:53: WBC 6.2, Hgb 11.3 L, Hct 34.2 L, Plt Count 139 L 12/06/18 18:53: Sodium 141, Potassium 6.2 H*, BUN 54 H, Creatinine 2.44 H, Glucose 145 H, Total Bilirubin 0.3, AST 13 L, ALT 18, Alkaline Phosphatase 53, Lipase 167 Microbiology Data (last 24 hrs): 12/06/18 19:16 Nasopharnyx Influenza Type A Antigen Screen - Final 12/06/18 19:16 Nasopharnyx Influenza Type B Antigen Screen - Final Assessment and Plan - Advance Directives Does patient have a Living Will: No Does patient have a Durable POA for Healthcare: No
--- NOTE | 2018-12-06 20:37 | P.HP ---
Certification for Inpatient Patient admitted to: Inpatient With expected LOS: >2 Midnights Practitioner: I am a practitioner with admitting privileges, knowledge of patient current condition, hospital course, and medical plan of care. Services: Services provided to patient in accordance with Admission requirements found in Title 42 Section 412.3 of the Code of Federal Regulations Patient History Date of Service: 12/06/18 Reason for admission: severe sepsis History of Present Illness: Mr Ford is an 83 years old male with history of DM II, CAD, HTN, dyslipidemia, CKD, resident of a [place] [facility] who was found with decreased level of conscious and fever today. No known exactly when his symptoms started. In ED he has been coughing, UA abnormal, Lab work shows normal WBC with 7% bands, elevated lactate , worsening kdney function, hyperkalemia. He has also diarrhea noted in ER. Abdomen is tender to palpation, diffuse, no distented though. BP at arrival was 122/50, however, it gradually decreased, to SBP 80's. The patient is obtunded but arousable to voice stimulus, he is confused, oriented x 0. Allergies acetaminophen [From Umbarger] Allergy (Verified 05/05/17 21:39) Unknown hydrocodone [From Umbarger] Allergy (Verified 05/05/17 21:39) Unknown tramadol Allergy (Verified 05/05/17 21:39) Unknown Codeine Allergy (Uncoded 05/05/17 21:39) Hives Iodine Allergy (Uncoded 05/05/17 21:39) Hives Home Medications: Acetaminophen 325 mg PO DAILY 08/05/18 Albuterol Neb [Proventil 0.083% Neb Soln] 2.5 mg NEB Q6H 08/05/18 Arformoterol Tartrate [Brovana] 15 mcg NEB BIDRESP 08/05/18 Atorvastatin Calcium [Lipitor*] 20 mg PO BEDTIME 08/05/18 Cholecalciferol (Vitamin D3) [Vitamin D3] 1,000 unit PO DAILY 08/05/18 Clopidogrel Bisulfate [Plavix*] 75 mg PO DAILY 08/05/18 Donepezil HCl 10 mg PO BEDTIME 08/05/18 Ergocalciferol (Vitamin D2) [Vitamin D2] 1 cap PO DAILY 08/05/18 Escitalopram [Lexapro*] 20 mg PO DAILY 08/05/18 Insulin -Regular Human [Novolin -R*] See Protocol SQ BID 08/05/18 Insulin Glargine,Hum.rec.anlog [Lantus] 37 unit SQ DAILY 08/05/18 Ipratropium Neb [Atrovent*] 0.5 mg IH Q6H PRN 08/05/18 Levothyroxine [Synthroid*] 50 mcg PO [id number] 08/05/18 Liraglutide [Victoza 2-Gab] 0.6 mg SQ DAILY 08/05/18 Losartan Potassium [Cozaar] 25 mg PO DAILY 08/05/18 Medroxyprogester [Provera*] 5 mg PO BID 08/05/18 Metoprolol Tartrate [Lopressor*] 50 mg PO BID 08/05/18 OXcarbazepine [Trileptal*] 150 mg PO BID 08/05/18 Omeprazole 20 mg PO DAILY 08/05/18 Spironolactone [Aldactone*] 25 mg PO DAILY 08/05/18 Tamsulosin [Flomax*] 0.4 mg PO BEDTIME 08/05/18 glipiZIDE [Glucotrol*] 5 mg PO BID 08/05/18 Amox/Clavulanate [Augmentin 500-125 mg Tab] 500 mg PO BID #14 tab 08/11/18 Calcium Carbonate [Oscal*] 1,000 mg PO TID tab 08/11/18 Cyanocobalamin [Vitamin B-12*] 1,000 mcg PO DAILY tab 08/11/18 - Past Medical/Surgical History Diabetic: Yes -: NIDDM -: Hyperlipidemia -: HTN -: Hypothyroid -: Vertigo -: Bronchiolitis -: CAD -: arthrosclerosis -: gerd -: heart failure -: heart stent x2 -: Balloon angioplasty -: broke both arm when 4yrs old - Family History Father -: Lung disease Notes: black lung Mother -: Cancer - Social History Smoking Status: Never smoker Alcohol use: No CD- Drugs: No Caffeine use: Yes Place of Residence: [place] Review of Systems 10-point ROS is otherwise unremarkable Physical Examination - Physical Exam General: In no apparent distress, Confused, Other (obtunded) HEENT: Atraumatic, PERRLA, Mucous membr. moist/pink, Sclerae nonicteric Neck: Supple, 2+ carotid pulse no bruit, No LAD, Without JVD or thyroid abnormality Respiratory: Normal air movement, Other (coarse bilateral) Cardiovascular: Regular rate/rhythm, Normal S1 S2 Gastrointestinal: Hypoactive, Tenderness Musculoskeletal: No tenderness Integumentary: No rashes Neurological: Normal strength at 5/5 x4 extr, Normal tone, Normal affect, Abnormal speech (slurred) Lymphatics: No axilla or inguinal lymphadenopathy - Studies Laboratory Data (last 24 hrs) 12/06/18 18:53: PT 12.4, INR 1.05, APTT 25.2 12/06/18 18:53: WBC 6.2, Hgb 11.3 L, Hct 34.2 L, Plt Count 139 L 12/06/18 18:53: Sodium 141, Potassium 6.2 H*, BUN 54 H, Creatinine 2.44 H, Glucose 145 H, Total Bilirubin 0.3, AST 13 L, ALT 18, Alkaline Phosphatase 53, Lipase 167 Microbiology Data (last 24 hrs): 12/06/18 19:16 Nasopharnyx Influenza Type A Antigen Screen - Final 12/06/18 19:16 Nasopharnyx Influenza Type B Antigen Screen - Final Assessment and Plan - Problems (Diagnosis) (1) Severe sepsis Current Visit: Yes Status: Acute (2) Hyperkalemia Current Visit: Yes Status: Acute (3) UTI (urinary tract infection) Onset Date: 09/01/16 Current Visit: No Status: Acute Qualifiers: Urinary tract infection type: acute cystitis Hematuria presence: without hematuria Qualified Code(s): N30.00 - Acute cystitis without hematuria (4) CAD (coronary artery disease) Onset Date: 08/04/16 Current Visit: No Status: Chronic Qualifiers: Coronary Disease-Associated Artery/Lesion type: [place] artery [place] vs. transplanted heart: [place] heart Associated angina: without angina Qualified Code(s): I25.10 - Atherosclerotic heart disease of [place] coronary artery without angina pectoris (5) Diabetes type 2, controlled Onset Date: 09/01/16 Current Visit: No Status: Chronic Qualifiers: Diabetes mellitus correction insulin use: with moth exterminator use Diabetes mellitus complication status: without complication Qualified Code(s): E11.9 - Type 2 diabetes mellitus without complications; Z79.4 - shelter (current) use of insulin; Z79.4 - buttermaker (current) use of insulin; Z79.4 - buttermaker ( current) use of insulin; Z79.4 - buttermaker (current) use of insulin (6) Hyperlipidemia Onset Date: 09/01/16 Current Visit: No Status: Chronic Qualifiers: Hyperlipidemia type: unspecified Qualified Code(s): E78.5 - Hyperlipidemia , unspecified (7) Acute encephalopathy Current Visit: Yes Status: Acute (8) Acute on chronic renal failure Current Visit: Yes Status: Acute Qualifiers: Acute renal failure type: unspecified Chronic kidney disease stage: stage 3 (moderate) Qualified Code(s): N17.9 - Acute kidney failure, unspecified; N18.3 - Chronic kidney disease, stage 3 (moderate) - Plan The patient will be admitted to the hospital due to severe sepsis, only obvious source so far is UTI, however he has diarrhea and abdominal pain. Will order Abd /pelvis CT, and C.Diff screening. Will check potassium level again to confirm hyperkalmia. Continue IV fluids, and broad spectrum IV antibiotics. - Advance Directives Does patient have a Living Will: No Does patient have a Durable POA for Healthcare: No - Code Status/Comfort Care Code Status Assessed: Yes Code Status: Do Not Resuscitate
[2018-12-06] MEDS ORDERED: INSULIN -REGULAR HUMAN 50 UNIT/0.5 ML ML ONE (20:40)
[2018-12-06] MEDS ORDERED: SOD POLYSTYREN SUL 15 GM/60 ML UCUP ONE (20:41)
[2018-12-06] MEDS ORDERED: D50W 25 GM/50 ML SYRINGE IV ONE (20:41)
[2018-12-06] MEDS ORDERED: ALBUTEROL 2.5 MG/3 ML NEB SOL ONE (20:41)
[2018-12-06] MEDS: NA CHLORIDE 0.9% 1,000 ML IV SCH (21:57)
[2018-12-06] MEDS ORDERED: D50W 25 GM/50 ML SYRINGE IV PRN (21:57)
[2018-12-06] MEDS ORDERED: ONDANSETRON 4 MG/2 ML VIAL IV PRN (21:57)
[2018-12-06] MEDS ORDERED: GLUCAGON 1 MG/VIAL IM PRN (21:57)
[2018-12-06] MEDS ORDERED: NOREPINEPHRINE 4mg/D5W 250mL 4 MG/250 ML BAG IV ONE (23:52)
[2018-12-07] MEDS: HEPARIN 5000 UNIT/ML 1 ML VIAL SQ SCH ×3 (00:01→20:12)
[2018-12-07] MEDS ORDERED: PIPER/TAZO/NS 2.25gm 2.25 GM/50 ML BAG IVPB SCH (01:00)
[2018-12-07] MEDS ORDERED: PIPERACIL/TAZO 2.25 GM VIAL IV ONE (01:01)
[2018-12-07] MEDS ORDERED: NA CHLORIDE 0.9% 50 ML ONE (01:02)
[2018-12-07] MEDS: NOREPINEPHRINE 4 MG in D5W 250 ML IV PRN ×3 (04:31→15:37)
[2018-12-07] MEDS ORDERED: NOREPINEPHRINE 4mg/D5W 250mL 4 MG/250 ML BAG IV ONE (04:45)
[2018-12-07 05:32] LABS: Absolute Lymphocytes (CBC) 1.1 K/uL (0.7-4.9); Absolute Monocytes 0.8 K/uL (0.1-1.3); Absolute Neutrophil 19.6 K/uL (1.8-8.0); Basophils % 0.5 % (0-1.3); Hematocrit 30.4 % (39.6-49.0); Lymphocytes % 5.1 % (15.3-44.8); MPV 8.2 fL (7.6-11.3); Monocytes % 3.9 % (3.3-12.3); RBC Red Blood Cell Count 3.01 M/uL (4.33-5.43)
[2018-12-07 05:54] LABS: Potassium 5.3 mmol/L (3.5-5.1)
[2018-12-07] MEDS: INSULIN -REGULAR HUMAN 50 UNIT/0.5 ML ML SQ SCH ×4 (06:00→18:00)
[2018-12-07] MEDS: NA CHLORIDE 0.9% 1,000 ML IV SCH ×3 (06:15→20:14)
[2018-12-07 06:41] LABS: Blood Morphology Comment NOT SEEN (NOT SEEN); Platelet Estimate ADEQ; Toxic Granulation 1+
--- NOTE | 2018-12-07 07:58 | EKG ---
Test Date: 2018-12-06 Test Time: 18:43:23 Yarn Mercerizer Operator Helper: ILDA MEASUREMENT RESULTS: Intervals: Rate: 73 ND: 150 QRSD: 102 QT: 378 QTc: 416 [place]: P: -57 ND: 150 QRS: 41 T: 16 INTERPRETIVE STATEMENTS: Unusual P axis, possible ectopic atrial rhythm with undetermined rhythm irregularity Possible Inferior infarct, age undetermined Abnormal ECG Compared to ECG 08/10/2018 00:20:58 Sinus rhythm no longer present Ventricular premature complex(es) no longer present Myocardial infarct finding still present Electronically Signed On 12-07-18 07:57:01 CDT by Héctor Hatfield
[2018-12-07] MEDS ORDERED: VANCOMYCIN 2.5 GM in NA CHLORIDE 0.9% 500 ML IV ONE (08:00)
[2018-12-07] MEDS: CYANOCOBALAMIN 1,000 MCG TAB PO SCH (09:00)
[2018-12-07] MEDS: MEMANTINE HCL 10 MG TABLET PO SCH (09:00)
[2018-12-07] MEDS ORDERED: CEFEPIME 1 GM/VIAL IV SCH (09:00)
[2018-12-07] MEDS ORDERED: VANCOMYCIN 1 GM in NA CHLORIDE 0.9% 500 ML IVPB SCH (09:00)
[2018-12-07] MEDS: CLOPIDOGREL 75 MG TABLET PO SCH (09:00)
[2018-12-07] MEDS: VITAMIN D 1000 UNIT TAB PO SCH (09:00)
[2018-12-07] MEDS: OXcarbazepine 150 MG TAB PO SCH ×2 (09:00→20:12)
[2018-12-07] MEDS: ESCITALOPRAM 20 MG TAB PO SCH (09:00)
[2018-12-07] MEDS: MAGNESIUM OXIDE 400 MG TAB PO SCH (09:00)
[2018-12-07] MEDS ORDERED: CEFEPIME/SWI 1gm 10 ML IV SCH (09:00)
--- NOTE | 2018-12-07 09:02 | P.PN ---
Subjective Date of Service: 12/07/18 Primary Care Provider: Juwan Leal NM Chief Complaint: severe sepsis Subjective: Other (Alert and oriented. Patient with diarrhea this morning. Patient on IV Levophed and IV fluids.) Physical Examination - Vital Signs Temperature: 98.3 F Blood Pressure: 106/47 Pulse: 62 Respirations: 21 Pulse Ox (%): 95 - Physical Exam General: Alert, In no apparent distress, Oriented x2, Cooperative, Demented ( Mild) HEENT: Atraumatic Neck: Supple Respiratory: Clear to auscultation bilaterally, Normal air movement Cardiovascular: Normal pulses, Regular rate/rhythm Gastrointestinal: Normal bowel sounds, Soft and benign, Non-distended, No tenderness, No masses, No rebound, No guarding Musculoskeletal: No tenderness, No warmth Integumentary: No tenderness/swelling, No erythema, No warmth, No cyanosis Neurological: Dementia - Studies Laboratory Data (last 24 hrs) 12/06/18 18:53: PT 12.4, INR 1.05, APTT 25.2 12/06/18 18:53: WBC 6.2, Hgb 11.3 L, Hct 34.2 L, Plt Count 139 L 12/06/18 18:53: Sodium 141, Potassium 6.2 H*, BUN 54 H, Creatinine 2.44 H, Glucose 145 H, Total Bilirubin 0.3, AST 13 L, ALT 18, Alkaline Phosphatase 53, Lipase 167 Microbiology Data (last 24 hrs): 12/06/18 19:16 Nasopharnyx Influenza Type A Antigen Screen - Final 12/06/18 19:16 Nasopharnyx Influenza Type B Antigen Screen - Final Medications List Reviewed: Yes Assessment & Plan Discharge Plan: Custodial Plan to discharge in: Greater than 2 days Physician Review Additional Text: Impression: Septic shock secondary to UTI with possible underlying colitis Diarrhea with possible c. diff. colitis Acute on chronic renal failure stage 4 with hyperkalemia Possible dysphagia Diabetes mellitus type 2, insulin-dependent Hypertension Anemia of chronic disease with iron and B12 deficiency Dementia Depression with anxiety CAD Chronic seizure disorder Hyperlipidemia Hypothyroidism BPH Obesity, BMI 35.6 Plan: Septic shock secondary to UTI with possible underlying colitis: Patient remains in ICU. Patient is alert and appropriate. Patient with underlying dementia. UTI identified. Will adjust medication-antibiotics accordingly for septic shock. Will wean off Levophed. Continue aggressive IV fluids. Continue with vancomycin and cefepime. Previous cultures reviewed. Patient with diarrhea at this time. Will need to evaluate for C diff colitis. Patient also with possible underlying dysphagia. Patient to have speech and modified barium swallow evaluation. Will consult nephrology due to acute on chronic renal disease. Hyperkalemia resolved. Continue monitor lab closely. Blood, urine cultures obtained and pending at this time. Advanced directives address. Patient is DNR. Patient comes for in a senior care. Will continue to monitor and assess closely. Diarrhea with possible c. diff. colitis: Will need to evaluate for C diff colitis. Patient may require medication. Continue as above. Acute on chronic renal failure stage 4 with hyperkalemia: Continue with IV fluids and antibiotic therapy. Nephrology consulted. Await recommendation. Possible dysphagia: intermediate reported possible dysphagia. Will have speech evaluation done to evaluate further. Diabetes mellitus type 2, insulin-dependent: Continue with insulin sliding scale. Will monitor closely. Hypertension: Blood pressure medication currently on hold due to septic shock. Anemia of chronic disease with iron and B12 deficiency: Will monitor hemoglobin closely. Will need to restart iron and B12 deficiency once able to tolerate diet. Dementia: Restart senior care medication. Depression with anxiety: Restart senior care medication. CAD: Patient on DVT prophylaxis. Chronic seizure disorder: Continue with senior care medication Hyperlipidemia: Continue with senior care medication Hypothyroidism: Will check tsh and free T4. Restart senior care medication BPH: Restart senior care medication Obesity, BMI 35.6: Will address lifestyle modification education Time Spent Managing Pts Care (In Minutes): 55
[2018-12-07 09:33] LABS: Thyroid Stimulating Hormone 1.8 uIU/mL (0.360-3.740)
[2018-12-07] MEDS: ARFORMOTEROL TARTRATE 15 MCG/2 ML VIAL.NEB NEB SCH ×2 (10:00→20:10)
--- NOTE | 2018-12-07 10:09 | RAD REPORT ---
EXAM DESCRIPTION: RAD - Chest Single View - 12/07/2018 12:02 am CLINICAL HISTORY: PICC placement COMPARISON: None FINDINGS/IMPRESSION: Interval placement of right upper extremity PICC terminating in the proximal SV C. Considering advancing device as clinically indicated. No focal lung consolidation. No pleural effusion. No pneumothorax. Cardiomegaly and interstitial edema. Calcified aortic knob. No acute osseous abnormality. Electronically signed by: Ernesto Fregoso DO 12/07/2018 12:13 AM CDT Due to temporary technical issues with the PACS/Fluency reporting system, reports are being signed by the in house radiologist as a courtesy to ensure prompt reporting. The interpreting radiologist is f ully responsible for the content of the report.
--- NOTE | 2018-12-07 10:20 | RAD REPORT ---
EXAM DESCRIPTION: CT - Abdomen Pelvis Wo Contrast - 12/06/2018 8:52 pm CLINICAL HISTORY: Fever, transient alteration of awareness COMPARISON: CT study July 2015 TECHNIQUE: Axial 5 millimeter thick images the abdomen and pelvis were obtained without IV contrast. Limited oral contrast administered. FINDINGS: Small left pleural effusion is present. No pericardial thickening or effusion. There is le ft lung base atelectasis. The liver, spleen and pancreas show no suspicious findings on noncontrast imaging. No gallbladder or biliary tree abnormality seen. Gallstones can be occult on CT imaging. No hydronephrosis or suspicious renal mass. Nonobstructing calculi are present in the left kidney. Va scular calcifications are present. There is nonspecific perinephric stranding. Isodense masses and py elonephritis are not excluded on noncontrast imaging. No suspicious adrenal finding. Urinary bladder is fully contracted around a De La O catheter. No prostate or seminal vesicle abnormality seen. Minimal amount of contrast is present layering in the dependent portion of the stomach. No gastric wa ll thickening or mass. No dilated large or small bowel loops. Mild sigmoid diverticulosis without div erticulitis. No acute colon process seen. Disc and bony degenerative changes are present. Prominent vascular calcifications are seen. IMPRESSION: No obstruction, free air or surgically emergent finding. Diverticulosis is present without diverticulitis. No acute GI process seen. No hydronephrosis or obstructing calculus in either kidney. Nonobstructing calculi present on the lef t. There is nonspecific stranding in the perinephric fat. Isodense masses and pyelonephritis are not excluded on stone protocol imaging. Small left pleural effusion with left base atelectasis.
[2018-12-07 10:53] LABS: Uric Acid 6.6 mg/dL (3.5-7.2)
[2018-12-07] MEDS: ATORVASTATIN 20 MG TAB PO SCH (20:13)
[2018-12-07] MEDS: DONEPEZIL HCL 5 MG TAB PO SCH (20:13)
[2018-12-07] MEDS ORDERED: TAMSULOSIN 0.4 MG SR CAP PO SCH (21:00)
--- NOTE | 2018-12-07 23:57 | CON ---
Date of Consultation: 12/07/2018 Consulting Physician: Theo Rayo DO Reason For Consultation: Elevated BUN and creatinine, fluid management. History Of Present Illness: This is a pleasant 83-year-old gentleman with significant past medical h istory of hypertension, hyperlipidemia, chronic kidney disease, baseline creatinine around 1.4 throug h 1.5, dementia. The patient was in his regular state of health until few days ago when the patient started feeling weak and altered mental status. For that reason, the patient was brought to the hosp ital. Primary workup in the hospital showed elevation in BUN and creatinine. For that reason, we peck ve been consulted. The patient also had hyperkalemia. The patient also have UTI with urosepsis and septic shock. The patient was admitted to the ICU. IV fluid started and Levophed was started. Bloo d pressure has been stabilized. The patient today is more awake, back to his baseline from the menta l status. The patient had good urine output around 400 over the last 12 hours. Reviewing the record, the patient being on Lasix, the patient being on ROSALIA inhibitor and spironolacto ne. Past Medical History: 1.Hypertension. 2.Hyperlipidemia. 3.Dementia. 4.Hypothyroidism. 5.Diabetes complicated with neuropathy. 6.Vertigo. 7.Coronary artery disease complicated with congestive heart failure, diastolic dysfunction, status p ost PTCA. Family History: Positive for lung cancer. Home Medications: Includes Tylenol, albuterol breathing treatment, atorvastatin, vitamin D, donepezi l, citalopram, insulin, levothyroxine, losartan, metoprolol, spironolactone, omeprazole, Augmentin. Social History: Lives in senior living. Denies smoking. Denies drinking. Denies drug abuse. Review of Systems: Not obtainable. Physical Examination: Vital Signs: When I saw the patient, blood pressure 110/53, pulse of 88. Chest: Faint crackles on the left base. Heart: S1, S2. Systolic murmur. Abdomen: Soft, nontender. Extremities: No edema. Neurologic: Alert, not oriented, nonfocal. Laboratory Data: WBC 21.7, H and H 10.4/30.4, platelets 155. Sodium 143, potassium 5.3, bicarb 20, BUN 53, creatinine 2.4, calcium 7.1, magnesium of 2. TSH 1.8. Urinalysis with specific gravity of 1 .020, WBC of 20. Current Medications: The patient on include cefepime, vancomycin, donepezil, Flomax, citalopram, Nam enda, IV fluid at 125 per hour, Levophed. Assessment And Plan: 1.Acute kidney injury on chronic kidney disease, mostly secondary to poor perfusion, acute tubular n ecrosis. 2.Toxic acute tubular necrosis secondary to urosepsis, superimposed with overdiuresis and ROSALIA inhibi tor. 3.Nonoliguric and hyperkalemia. No significant acidosis. I am going to go ahead and send for PTH t o evaluate the chronicity of the disease. We will send for renal panel , protein, and creatinine, an d we will send for renal ultrasound, and we will follow up the patient. 4.Urinary tract infection with urosepsis. We will go ahead and get ultrasound of the kidney. 5.Hypertension, currently hypotension. Discontinue all blood pressure medications, especially diure sis and spironolactone. 6.Urinary retention, benign prostate hypertrophy. Given the acute kidney injury, discontinue Flomax , especially with the low blood pressure. 7.Urosepsis. The patient was started on antibiotic. We will follow up culture. 8.Diabetes as by primary. 9.Hyperkalemia secondary to renal failure, superimposed with ROSALIA inhibitor, resolved. Thank you, Dr. Rayo, for allowing us to participate in the care of your patient. MARVIN Voice ID: [id number] Report ID: [id number]
[2018-12-08] MEDS: LEVOTHYROXINE SOD 0.05 MG TABLET PO SCH (05:05)
[2018-12-08 05:44] LABS: Absolute Lymphocytes (CBC) 1.1 K/uL (0.7-4.9); Absolute Monocytes 0.3 K/uL (0.1-1.3); Absolute Neutrophil 8.9 K/uL (1.8-8.0); Basophils % 0.2 % (0-1.3); Eosinophils % 0.7 % (0-4.4); Hematocrit 27.9 % (39.6-49.0); Lymphocytes % 10.4 % (15.3-44.8); MPV 7.8 fL (7.6-11.3); Monocytes % 3.3 % (3.3-12.3); RBC Red Blood Cell Count 2.73 M/uL (4.33-5.43)
[2018-12-08 05:57] LABS: Albumin 2.3 g/dL (3.4-5.0); Magnesium 2.1 mg/dL (1.8-2.4); Phosphorus 3.1 mg/dL (2.5-4.9); Potassium 4.9 mmol/L (3.5-5.1)
[2018-12-08] MEDS: INSULIN -REGULAR HUMAN 50 UNIT/0.5 ML ML SQ SCH ×5 (05:57→21:00)
[2018-12-08 07:59] LABS: Blood Morphology Comment NOT SEEN (NOT SEEN); Platelet Estimate DECR; Urine White Blood Cell Casts OK
--- NOTE | 2018-12-08 08:14 | RAD REPORT ---
EXAM DESCRIPTION: US - Renal Ultrasound-Complete - 12/07/2018 10:32 pm CLINICAL HISTORY: elevated creatinine Flank pain COMPARISON: Renal Ultrasound-Complete dated 08/06/2018; Abdomen Pelvis Wo Contrast dated 12/06/2018 FINDINGS: Both kidneys are normal in size, shape and echotexture. The right kidney measures 8.8 x 6.1 x 4.5 cm. No hydronephrosis, focal mass or perinephric fluid. The left kidney measures 9.8 x 5.3 x 5.1 cm. No hydronephrosis, focal mass or perinephric fluid. Nono bstructing small left renal calculus. The urinary bladder is incompletely distended without gross abnormality seen. IMPRESSION: No hydronephrosis or abnormal renal echogenicity. Small nonobstructing left renal calculus.
[2018-12-08] MEDS: ARFORMOTEROL TARTRATE 15 MCG/2 ML VIAL.NEB NEB SCH ×2 (08:29→21:00)
--- NOTE | 2018-12-08 08:51 | P.PN ---
Subjective Date of Service: 12/08/18 Primary Care Provider: [facility] Chief Complaint: severe sepsis Subjective: Improving, Doing well, Other (Patient doing well this time. No complaints noted. Patient [facility] Physical Examination - Vital Signs Temperature: 99.7 F Blood Pressure: 116/37 Pulse: 80 Respirations: 19 Pulse Ox (%): 97 - Physical Exam General: Alert, In no apparent distress, Demented HEENT: Atraumatic Neck: Supple Respiratory: Clear to auscultation bilaterally, Normal air movement Cardiovascular: Normal pulses, Regular rate/rhythm Gastrointestinal: Normal bowel sounds, Soft and benign, Non-distended, No masses , No rebound, No guarding Musculoskeletal: No erythema, No tenderness, No warmth Neurological: Normal speech, Normal strength at 5/5 x4 extr, Normal tone, Dementia - Studies Microbiology Data (last 24 hrs): 12/06/18 19:16 Clean Catch Urine Jackson Count - Final BETWEEN 10,000 & 100,000 CFU/ML 12/06/18 19:16 Clean Catch Urine - Final Escherichia Coli Medications List Reviewed: Yes Assessment & Plan Discharge Plan: Detention Plan to discharge in: 24 Hours Physician Review Additional Text: Impression: Septic shock secondary to UTI with possible underlying colitis Diarrhea with possible c. diff. colitis Acute on chronic renal failure stage 4 with hyperkalemia Possible dysphagia Diabetes mellitus type 2, insulin-dependent Hypertension Anemia of chronic disease with iron and B12 deficiency Dementia Depression with anxiety CAD Chronic seizure disorder Hyperlipidemia Hypothyroidism BPH Obesity, BMI 35.6 Plan: Septic shock secondary to UTI, urine culture positive for E coli with bacteremia : Patient has done well. Blood pressures remain stable. Discontinue Levophed. Continue with IV fluids. Antibiotics adjusted to oral-Ceftin 250 mg 1 pill twice daily. Await final blood culture results. Patient likely will require antibiotic treatment for 2 weeks. Urine culture pansensitive. Patient non ambulatory at [facility]. Will discontinue De La O catheter. If cultures from blood come back today and patient doing well, will consider discharge back to the [facility] as early as today. Will discuss with nephrology if they agree. Patient is DNR and comes from the [facility]. Diarrhea: This appears improved. Will monitor closely. Acute on chronic renal failure stage 3 with hyperkalemia: This has improved with IV fluids. Will discuss with nephrology about possible discharge soon. Possible dysphagia: No significant dysphagia noted. Speech recommends mechanical soft with thin liquids. Meds to be given 1 at a time. This will need to be continued at the [facility]. Diabetes mellitus type 2, insulin-dependent: Continue with insulin sliding scale. Will monitor closely. Hypertension: Discontinue Levophed. Monitor closely. Patient may not require blood pressure medication at discharge Anemia of chronic disease with iron and B12 deficiency: Continue with iron and B12 supplementation. Dementia: Continue with [facility] medication. Depression with anxiety: Continue with [facility] medication. CAD: Patient on DVT prophylaxis. Chronic seizure disorder: Continue with [facility] medication Hyperlipidemia: Continue with [facility] medication Hypothyroidism: Continue a [facility] medication BPH: Continue [facility] medication Obesity, BMI 35.6: Will continue to address lifestyle modification education Time Spent Managing Pts Care (In Minutes): 55
[2018-12-08] MEDS ORDERED: CEFUROXIME 250 MG TAB PO SCH (09:00)
[2018-12-08] MEDS: MEMANTINE HCL 10 MG TABLET PO SCH (10:25)
[2018-12-08] MEDS: CLOPIDOGREL 75 MG TABLET PO SCH (10:25)
[2018-12-08] MEDS: ESCITALOPRAM 20 MG TAB PO SCH (10:25)
[2018-12-08] MEDS: CYANOCOBALAMIN 1,000 MCG TAB PO SCH (10:26)
[2018-12-08] MEDS: VITAMIN D 1000 UNIT TAB PO SCH (10:26)
[2018-12-08] MEDS: HEPARIN 5000 UNIT/ML 1 ML VIAL SQ SCH ×2 (10:26→21:50)
[2018-12-08] MEDS: OXcarbazepine 150 MG TAB PO SCH ×2 (10:26→22:07)
[2018-12-08] MEDS: MAGNESIUM OXIDE 400 MG TAB PO SCH (10:26)
[2018-12-08] MEDS: FERROUS SULFATE 325 MG TAB PO SCH (10:33)
[2018-12-08] MEDS: AMOX/K CLAV 500 MG TAB PO SCH ×2 (10:34→21:49)
[2018-12-08] MEDS: NA CHLORIDE 0.9% 1,000 ML IV SCH ×2 (15:30→21:51)
[2018-12-08] MEDS ORDERED: VANCOMYCIN 1.75 GM in NA CHLORIDE 0.9% 500 ML IV SCH (20:00)
[2018-12-08] MEDS: DONEPEZIL HCL 5 MG TAB PO SCH (21:49)
[2018-12-08] MEDS: ATORVASTATIN 20 MG TAB PO SCH (21:50)
[2018-12-09] MEDS: ACETAMINOPHEN 500 MG TAB PO PRN ×3 (03:33→20:10)
[2018-12-09 05:36] LABS: Absolute Lymphocytes (CBC) 0.6 K/uL (0.7-4.9); Absolute Monocytes 0.3 K/uL (0.1-1.3); Absolute Neutrophil 7.5 K/uL (1.8-8.0); Basophils % 0.3 % (0-1.3); Eosinophils % 0.8 % (0-4.4); Hematocrit 27.7 % (39.6-49.0); Lymphocytes % 7.4 % (15.3-44.8); Monocytes % 3.5 % (3.3-12.3); RBC Red Blood Cell Count 2.76 M/uL (4.33-5.43)
[2018-12-09 05:45] LABS: Albumin 2.3 g/dL (3.4-5.0); Magnesium 2.1 mg/dL (1.8-2.4); Phosphorus 2.5 mg/dL (2.5-4.9); Potassium 5.2 mmol/L (3.5-5.1)
[2018-12-09] MEDS: LEVOTHYROXINE SOD 0.05 MG TABLET PO SCH (06:07)
[2018-12-09] MEDS: INSULIN -REGULAR HUMAN 50 UNIT/0.5 ML ML SQ SCH ×4 (07:30→20:11)
[2018-12-09] MEDS ORDERED: ALBUTEROL 2.5 MG/3 ML NEB SOL NEB ONE (07:35)
[2018-12-09] MEDS: ARFORMOTEROL TARTRATE 15 MCG/2 ML VIAL.NEB NEB SCH ×2 (07:55→21:00)
[2018-12-09] MEDS ORDERED: FUROSEMIDE 40 MG/4 ML VIAL ONE (08:11)
[2018-12-09] MEDS ORDERED: SOD POLYSTYREN SUL 15 GM/60 ML UCUP PO ONE (08:15)
--- NOTE | 2018-12-09 08:23 | P.PN ---
Subjective Date of Service: 12/09/18 Primary Care Provider: Juwan Leal [place] Chief Complaint: severe sepsis Subjective: Other (Patient has improved. Some wheezing and mild shortness of breath noted this morning) Physical Examination - Vital Signs Temperature: 98.2 F Blood Pressure: 179/71 Pulse: 96 Respirations: 18 Pulse Ox (%): 98 - Physical Exam General: Alert, In no apparent distress, Cooperative HEENT: Atraumatic Neck: Supple Respiratory: Diminished (Slightly diminished to the bases), Expiratory wheezes ( Bilateral) Cardiovascular: Normal pulses, Regular rate/rhythm Gastrointestinal: Normal bowel sounds, Soft and benign, Non-distended, No tenderness, No masses, No rebound, No guarding Musculoskeletal: No erythema, No tenderness, No warmth Integumentary: No erythema, No warmth, No cyanosis Neurological: Normal speech, Normal strength at 5/5 x4 extr, Normal tone, Normal affect - Studies Microbiology Data (last 24 hrs): 12/06/18 19:16 Clean Catch Urine [place] Count - Final BETWEEN 10,000 & 100,000 CFU/ML 12/06/18 19:16 Clean Catch Urine - Final Escherichia Coli Medications List Reviewed: Yes Assessment & Plan Discharge Plan: Long-Term Plan to discharge in: 24 Hours Physician Review Additional Text: Impression: Septic shock secondary to UTI and bacteremia with urine and blood culture positive for E coli Diarrhea with possible c. diff. colitis Acute on chronic renal failure stage 4 with hyperkalemia Acute on chronic diastolic CHF Diabetes mellitus type 2, insulin-dependent Hypertension Anemia of chronic disease with iron and B12 deficiency Dementia Depression with anxiety CAD Chronic seizure disorder Hyperlipidemia Hypothyroidism BPH Obesity, BMI 35.6 Plan: Septic shock secondary to UTI and bacteremia with urine and blood culture positive for E coli: Overall patient has improved. Patient has transitioned to the floor. Antibiotics adjusted yesterday. Patient now on Augmentin. Blood and urine cultures reviewed. Culture positive for E coli. Sewell sensitivity noted. Patient had some mild shortness of breath this morning. Will provide albuterol, Dc IV fluids, and provide IV Lasix 40 mg now. Will continue to monitor closely. Will restart his Lasix at a higher dose-40 mg 1 pill twice daily. Patient off Aldactone at this time due to hyperkalemia. Kayexalate also given today. Will discuss further with nephrology. Blood pressure medication restarted. Recheck chest x-ray and lab at noontime. If significantly improved today then possible discharge to snf as early as today if not tomorrow. Diarrhea: This appears improved. Will monitor closely. Acute on chronic renal failure stage 3 with hyperkalemia: Discontinue IV fluids related to above. Medication adjusted. Will provide Kayexalate. Recheck BMP at noontime. Acute on chronic diastolic CHF: Dc IV fluids. IV Lasix 40 mg given now all. Will adjust Lasix to 40 mg 1 pill twice daily. Continue to hold Aldactone due to hyperkalemia. Recheck chest x-ray and lab at time. Continue to monitor and assess. Place on fluid restriction. Possible dysphagia: No significant dysphagia noted. Speech recommends mechanical soft with thin liquids. Meds to be given 1 at a time. This will need to be continued at the snf. Diabetes mellitus type 2, insulin-dependent: Continue with insulin sliding scale. Will monitor closely. Hypertension: Blood pressure has significantly improved. Will restart metoprolol 50 mg 1 pill twice daily. Anemia of chronic disease with iron and B12 deficiency: Continue with iron and B12 supplementation. Dementia: Continue with snf medication. Depression with anxiety: Continue with snf medication. CAD: Patient on DVT prophylaxis. Chronic seizure disorder: Continue with snf medication Hyperlipidemia: Continue with snf medication Hypothyroidism: Continue a snf medication BPH: Continue snf medication Obesity, BMI 35.6: Will continue to address lifestyle modification education Time Spent Managing Pts Care (In Minutes): 55
[2018-12-09] MEDS ORDERED: METOPROLOL TARTRATE 5 MG/5 ML INJ IV STA (08:55)
[2018-12-09] MEDS: METOPROLOL TAR 50 MG TAB PO SCH ×3 (09:00→20:10)
[2018-12-09] MEDS: HEPARIN 5000 UNIT/ML 1 ML VIAL SQ SCH (09:00)
[2018-12-09] MEDS: FUROSEMIDE 40 MG TABLET PO SCH ×2 (09:00→17:01)
[2018-12-09] MEDS: FUROSEMIDE 40 MG/4 ML VIAL IV ONE (09:02)
[2018-12-09] MEDS: VITAMIN D 1000 UNIT TAB PO SCH (09:13)
[2018-12-09] MEDS: CYANOCOBALAMIN 1,000 MCG TAB PO SCH (09:13)
[2018-12-09] MEDS: ESCITALOPRAM 20 MG TAB PO SCH (09:13)
[2018-12-09] MEDS: FERROUS SULFATE 325 MG TAB PO SCH (09:14)
[2018-12-09] MEDS: MAGNESIUM OXIDE 400 MG TAB PO SCH (09:14)
[2018-12-09] MEDS: MEMANTINE HCL 10 MG TABLET PO SCH (09:14)
[2018-12-09] MEDS: CLOPIDOGREL 75 MG TABLET PO SCH (09:14)
[2018-12-09] MEDS ORDERED: DIGOXIN 0.25 MG/ML AMP IV ONE (09:20)
[2018-12-09] MEDS: OXcarbazepine 150 MG TAB PO SCH ×2 (09:58→20:11)
[2018-12-09] MEDS: AMOX/K CLAV 500 MG TAB PO SCH ×2 (09:58→20:10)
[2018-12-09] MEDS: ENOXAPARIN 100 MG/ML SYR SQ SCH ×2 (12:08→20:11)
[2018-12-09 12:20] LABS: Arterial Blood Carboxyhemoglob 1.6 % (0-1.5); Blood Gas Oxyhemoglobin 94.4 % (94-97); Blood O2 Saturation 96.4 % (92-98.5)
--- NOTE | 2018-12-09 12:36 | RAD REPORT ---
EXAM DESCRIPTION: RAD - Chest Single View - 12/09/2018 12:29 pm CLINICAL HISTORY: Follow up CHF Chest pain. COMPARISON: Chest Single View dated 12/06/2018; Chest Single View dated 12/06/2018; Chest Single View dated 08/09/2018; Chest Single View dated 08/08/2018 FINDINGS: Portable technique limits examination quality. Since 12/06/2018, little overall change is seen in the appearance of the chest. The heart is moderate ly enlarged in size. Aortic atherosclerosis. Right-sided PICC line is unchanged. IMPRESSION: Essentially stable chest since 12/06/2018.
[2018-12-09 12:46] LABS: Potassium 5.3 mmol/L (3.5-5.1)
--- NOTE | 2018-12-09 14:05 | P.PN ---
Subjective Date of Service: 12/09/18 Primary Care Provider: [facility] Chief Complaint: severe sepsis Pt with TWIN, Cr 2.4 and improved to 1.4 on IVF today was dyspneic , received IV lasix CXR ; no significant changes from last CXR mild basal rales b/l Agree to hold IVF at this time Physical Examination - Vital Signs Temperature: 98.1 F Blood Pressure: 154/72 Pulse: 128 Respirations: 24 Pulse Ox (%): 98 - Physical Exam General: Oriented x3, Mild distress HEENT: Atraumatic Neck: Supple, Without JVD or thyroid abnormality Respiratory: Crackles/rales Cardiovascular: No edema, Regular rate/rhythm, Normal S1 S2, No gallops, No rubs , No murmurs Gastrointestinal: Normal bowel sounds, Soft and benign Musculoskeletal: No clubbing, No swelling Integumentary: No rashes - Studies Medications List Reviewed: Yes Assessment And Plan - Current Problems (Diagnosis) (1) Acute on chronic renal failure Current Visit: Yes Status: Acute Qualifiers: Acute renal failure type: unspecified Chronic kidney disease stage: stage 3 (moderate) Qualified Code(s): N17.9 - Acute kidney failure, unspecified; N18.3 - Chronic kidney disease, stage 3 (moderate) - Plan Twin on CKD improved on IVF Cr improved , off IVF US ; no hydro , UA +3 bld and protein renal dose meds urosepsis bandemia improved on Abx HTN BP uncontrolled started on metoprolol DM as per primary hyperkalemia resolved due to TWIN and aldactone
--- NOTE | 2018-12-09 14:30 | EKG ---
Test Date: 2018-12-09 Test Time: 09:18:47 Certified Drug Counselor: RAFAEL MEASUREMENT RESULTS: Intervals: Rate: 137 AK: QRSD: 110 QT: 290 QTc: 437 [place]: P: AK: QRS: 1 T: 160 INTERPRETIVE STATEMENTS: Atrial fibrillation with rapid ventricular response Low voltage QRS Marked ST abnormality, possible inferior subendocardial injury Abnormal ECG Compared to ECG 12/08/2018 18:03:00 Low QRS voltage now present Sinus rhythm no longer present Sinus arrhythmia no longer present Fusion complex(es) no longer present Possible ischemia no longer present ST (T wave) deviation still present Electronically Signed On 12-09-18 14:28:53 CDT by Héctor Hatfield
--- NOTE | 2018-12-09 14:32 | EKG ---
Test Date: 2018-12-08 Test Time: 18:03:00 Outside Sales: AB MEASUREMENT RESULTS: Intervals: Rate: 88 IA: 134 QRSD: 104 QT: 378 QTc: 457 [place]: P: 54 IA: 134 QRS: 65 T: -23 INTERPRETIVE STATEMENTS: Sinus rhythm with sinus arrhythmia with fusion complexes ST & T wave abnormality, consider inferior ischemia Abnormal ECG Compared to ECG 12/06/2018 18:43:23 Fusion complex(es) now present ST (T wave) deviation now present Possible ischemia now present Myocardial infarct finding no longer present Electronically Signed On 12-09-18 14:29:09 CDT by Héctor Hatfield
--- NOTE | 2018-12-09 20:05 | CON ---
Date of Consultation: 12/09/2018 Reason For Consultation: Atrial fibrillation. History Of Present Illness: Mr. Ford is an 83-year-old white male, known to me from previous office visits and admissions. He had come in on the 06 of December with sepsis, was treated appropriately and has improved. He was on the fourth floor recuperating today; however, he went into atrial fibrillati on from sinus rhythm at a rate of about 150 to 170. I noticed that he had gained 3 pounds since he h as been in the hospital, probably from hydration which was at least necessary at the time. The patie nt complained of shortness of breath, but no nausea, vomiting, diaphoresis. He does not even feel th e palpitation. He does not have any syncope. No further fever or chills at this point. Past Medical History: Complicated and it includes chronic diastolic congestive heart failure, COPD, dyslipidemia, coronary artery disease, diabetes, hypertension, hypothyroidism, and benign prostatic h ypertrophy. Review of Systems: Negative. Social History: Negative. Family History: Noncontributory. Medications: At home include Lipitor, Brovana, Lasix, Plavix, Lexapro, insulin, losartan, Victoza, A ldactone, Flomax, glipizide, metoprolol 50 mg b.i.d. Physical Examination: General: He appears to be in mild respiratory distress. Vital Signs: Stable. He was in atrial fibrillation at a rate of 160. HEENT: Negative. Neck: Supple with no bruit, lymphadenopathy, JVD, or thyromegaly. Chest: Reveals some crackles both bases. Cardiac: Revealed atrial fibrillation. Abdomen: Benign. Extremities: Revealed no clubbing, cyanosis. He had trace edema. Skin: Dry and intact. Pulses were present bilaterally and symmetrically. Neurological: He was nonfocal. Impression And Plan: 1.Atrial fibrillation, rate of 160. I think we need to resume his beta-blockers at 50 b.i.d. I thi nk we need to give him 1 dose of digoxin. We need to diurese him. He should be on Lovenox. Another echocardiogram is pending. If he does not convert, we will consider shocking him or switching him t o Betapace. 2.Sepsis that has resolved. 3.History of congestive heart failure. We will repeat the echo. 4.Anemia. 5.Moderate renal insufficiency, stage III. 6.Dyslipidemia. 7.Coronary artery disease, status post stents in the past. 8.Severe chronic obstructive pulmonary disease. 9.Depression. 10.Diabetes. 11.Hypertension, well controlled. 12.Benign prostatic hypertrophy. SLADE/KARMA Voice ID: [id number] Report ID: [id number]
[2018-12-09] MEDS: DONEPEZIL HCL 5 MG TAB PO SCH (20:10)
[2018-12-09] MEDS: ATORVASTATIN 20 MG TAB PO SCH (20:10)
--- NOTE | 2018-12-10 00:38 | PN ---
Date of Progress Note: 12/08/2018 Subjective: The patient was admitted with acute kidney injury secondary to prerenal. The patient wa s started on hydration. Kidney function started being improved. Physical Examination: Vital Signs: When I saw the patient, blood pressure of 132/38, pulse of 72. Chest: Clear to auscultation. Heart: S1, S2. Regular. Systolic murmur. Abdomen: Soft, nontender. Extremities: No edema. Laboratory Data: Lab data for the patient, WBC 10.4, H and H 9.2/27.9, platelets of 94. Sodium of 1 43, potassium 4.9, bicarb 20, BUN 43, creatinine 1.8, trending down; GFR of 35; calcium of 7; phospho wagner 3.1; magnesium 2.1; PC ratio of 0.8. Assessment And Plan: 1.Acute kidney injury secondary to prerenal, poor perfusion, ATN. Continued to recover. Looked to me close to normal volume. I am going to go ahead and discontinue IV fluid and we will monitor the p atient. 2.Hypertension, controlled, optimal. Continue current medication. 3.Urosepsis with benign prostatic hypertrophy. Continue current antibiotic. We will follow up. 4.Diabetes as by primary. 5.Hyperkalemia has been resolved. ALICIA/KARMA Voice ID: [id number] Report ID: [id number]
[2018-12-10] MEDS: LEVOTHYROXINE SOD 0.05 MG TABLET PO SCH (05:10)
[2018-12-10 05:14] LABS: Absolute Lymphocytes (CBC) 1.1 K/uL (0.7-4.9); Absolute Monocytes 0.4 K/uL (0.1-1.3); Absolute Neutrophil 7.2 K/uL (1.8-8.0); Basophils % 0.6 % (0-1.3); Eosinophils % 1.2 % (0-4.4); Hematocrit 29.1 % (39.6-49.0); Lymphocytes % 12.8 % (15.3-44.8); MPV 8.3 fL (7.6-11.3); Monocytes % 4.7 % (3.3-12.3); RBC Red Blood Cell Count 2.94 M/uL (4.33-5.43)
[2018-12-10 05:24] LABS: Albumin 2.3 g/dL (3.4-5.0); Magnesium 1.9 mg/dL (1.8-2.4); Potassium 5.2 mmol/L (3.5-5.1)
[2018-12-10] MEDS: INSULIN -REGULAR HUMAN 50 UNIT/0.5 ML ML SQ SCH ×4 (07:30→20:35)
[2018-12-10] MEDS: ARFORMOTEROL TARTRATE 15 MCG/2 ML VIAL.NEB NEB SCH ×2 (07:54→21:00)
[2018-12-10] MEDS: FUROSEMIDE 40 MG TABLET PO SCH ×2 (08:17→17:02)
[2018-12-10] MEDS: ENOXAPARIN 100 MG/ML SYR SQ SCH ×2 (08:17→21:14)
[2018-12-10] MEDS: ESCITALOPRAM 20 MG TAB PO SCH (08:17)
[2018-12-10] MEDS: MEMANTINE HCL 10 MG TABLET PO SCH (08:18)
[2018-12-10] MEDS: FERROUS SULFATE 325 MG TAB PO SCH (08:18)
[2018-12-10] MEDS: AMOX/K CLAV 500 MG TAB PO SCH ×2 (08:18→21:14)
[2018-12-10] MEDS: OXcarbazepine 150 MG TAB PO SCH ×2 (08:18→21:15)
[2018-12-10] MEDS: CYANOCOBALAMIN 1,000 MCG TAB PO SCH (08:18)
[2018-12-10] MEDS: METOPROLOL TAR 50 MG TAB PO SCH (08:18)
[2018-12-10] MEDS: VITAMIN D 1000 UNIT TAB PO SCH (08:20)
[2018-12-10] MEDS ORDERED: SOTALOL HCL 80 MG TAB PO ONE (08:27)
--- NOTE | 2018-12-10 09:32 | RAD REPORT ---
EXAM DESCRIPTION: RAD - Chest Single View - 12/10/2018 9:26 am CLINICAL HISTORY: follow up CHF Chest pain. COMPARISON: Chest Single View dated 12/09/2018; Chest Single View dated 12/06/2018; Chest Single View dated 12/06/2018; Chest Single View dated 08/09/2018 FINDINGS: Portable technique limits examination quality. Mild improvement is suspected in the medial right lung base pulmonary opacity since prior study. Left pleural effusion appears unchanged. The heart is prominent in size. Right-sided PICC line has tip in the SVC. IMPRESSION: Mild improvement in medial right lung base aeration since comparative examination.
[2018-12-10] MEDS ORDERED: SOD POLYSTYREN SUL 15 GM/60 ML UCUP PO ONE (12:12)
--- NOTE | 2018-12-10 13:27 | PN ---
Subjective: Mr. Ford seems to be in atrial flutter, 2:1 block. Ventricular rate 138. We will stop metoprolol, give Betapace and oral dose now, the second one at 6 p.m. today and then 6 a.m. and 6 p.m . every day. We will see if we can change it to sinus rhythm. If not, we can consider a cardioversi on later in the week. SAGRARIO/KARMA Voice ID: [id number] Report ID: [id number]
--- NOTE | 2018-12-10 13:43 | P.PN ---
Subjective Date of Service: 12/10/18 Primary Care Provider: [facility] Chief Complaint: severe sepsis Subjective: Other (Patient has improved. Patient still in AFib with rate elevated) Physical Examination - Vital Signs Temperature: 97.5 F Blood Pressure: 143/63 Pulse: 64 Respirations: 28 Pulse Ox (%): 95 - Physical Exam General: Alert, In no apparent distress, Oriented x3, Cooperative HEENT: Atraumatic Neck: Supple Respiratory: Clear to auscultation bilaterally, Normal air movement Cardiovascular: Irregular heart rate/rhythm (Atrial fibrillation, rate elevated) Gastrointestinal: Normal bowel sounds, No tenderness, No masses, No rebound, No guarding Musculoskeletal: No erythema, No tenderness, No warmth Integumentary: No tenderness/swelling, No erythema, No warmth, No cyanosis Neurological: Normal speech, Normal strength at 5/5 x4 extr, Normal tone, Normal affect - Studies Medications List Reviewed: Yes Assessment & Plan Discharge Plan: Group Home Plan to discharge in: 48 Hours Physician Review Additional Text: Impression: Septic shock secondary to UTI and bacteremia with urine and blood culture positive for E coli Acute on chronic atrial fibrillation with RVR Diarrhea with possible c. diff. colitis Acute on chronic renal failure stage 4 with hyperkalemia Acute on chronic diastolic CHF Diabetes mellitus type 2, insulin-dependent Hypertension Anemia of chronic disease with iron and B12 deficiency Dementia Depression with anxiety CAD Chronic seizure disorder Hyperlipidemia Hypothyroidism BPH Obesity, BMI 35.6 Plan: Septic shock secondary to UTI and bacteremia with urine and blood culture positive for E coli: Patient overall improved. Patient had episode of increased shortness of breath leading to acute CHF with AFib-RVR. Patient has improved with diuresis. Rate still elevated. Nephrology was consulted yesterday. Medication has been adjusted. Metoprolol discontinued. Patient now on Betapace. Will continue to monitor closely. Continue current antibiotic therapy. Patient with hyperkalemia. Kayexalate to be given. Case discussed with nephrology. Continue to hold discharge to longterm until clinically improved and AFib better controlled. Likely discharge to longterm when in 48 hr. Acute on chronic atrial fibrillation with RVR: Patient still in AFib with changes yesterday. Cardiology has discontinue metoprolol and change to Betapace. Continue Lovenox. Await for improvement. If no improvement cardiology plans for cardioversion. Diarrhea: This appears improved. Will monitor closely. Acute on chronic renal failure stage 3 with hyperkalemia: Patient off IV fluids. Patient given Kayexalate for improvement. Case discussed with nephrology. Acute on chronic diastolic CHF: IV fluids discontinued yesterday. Patient will continue with Lasix. Continue to monitor closely. Will recheck chest x- ray. Overall improved. Possible dysphagia: No significant dysphagia noted. Speech recommends mechanical soft with thin liquids. Meds to be given 1 at a time. This will need to be continued at the longterm. Diabetes mellitus type 2, insulin-dependent: Continue with insulin sliding scale. Will monitor closely. Hypertension: Blood pressure has significantly improved. Will restart metoprolol 50 mg 1 pill twice daily. Anemia of chronic disease with iron and B12 deficiency: Continue with iron and B12 supplementation. Dementia: Continue with longterm medication. Depression with anxiety: Continue with longterm medication. CAD: Patient on DVT prophylaxis. Chronic seizure disorder: Continue with longterm medication Hyperlipidemia: Continue with longterm medication Hypothyroidism: Continue a longterm medication BPH: Continue longterm medication Obesity, BMI 35.6: Will continue to address lifestyle modification education Time Spent Managing Pts Care (In Minutes): 55
--- NOTE | 2018-12-10 13:49 | EKG ---
Test Date: 2018-12-10 Test Time: 11:59:09 Tomb Maker Helper: AB MEASUREMENT RESULTS: Intervals: Rate: 66 TN: 154 QRSD: 102 QT: 454 QTc: 475 [place]: P: 269 TN: 154 QRS: 14 T: 90 INTERPRETIVE STATEMENTS: Unusual P axis, possible ectopic atrial rhythm with frequent premature ventricular complexes Prolonged QT Abnormal ECG Compared to ECG 12/10/2018 08:42:39 Prolonged QT interval now present Left bundle-branch block no longer present ST (T wave) deviation no longer present Possible ischemia no longer present Electronically Signed On 12-10-18 13:49:21 CDT by Gerhard Cooper
--- NOTE | 2018-12-10 13:52 | EKG ---
Test Date: 2018-12-10 Test Time: 08:42:39 Foot Orthopedist: AB MEASUREMENT RESULTS: Intervals: Rate: 138 DE: 150 QRSD: 110 QT: 274 QTc: 415 [place]: P: -53 DE: 150 QRS: -3 T: 204 INTERPRETIVE STATEMENTS: Atrial flutter with 2 to 1 conduction Intraventricular conduction delay ST & T wave abnormality, consider lateral ischemia Abnormal ECG Compared to ECG 12/09/2018 09:18:47 Atrial fibrillation no longer present ST (T wave) deviation still present Electronically Signed On 12-10-18 13:51:21 CDT by Gerhard Cooper
--- NOTE | 2018-12-10 14:47 | ECHO ---
HEIGHT: 5 ft 7 in WEIGHT: 231 lb 14.4 oz DATE OF STUDY: 12/10/[address]: Theo Rayo DO 2-DIMENSIONAL: YES M.MODE: YES DOPPLER: YES COLOR FLOW: YES TDS: NO PORTABLE: NO DEFINITY: NO BUBBLE STUDY: NO DIAGNOSIS: CHEST PAIN CARDIAC HISTORY: CATHERIZATION: SURGERY: PROSTHETIC VALVE: PACEMAKER: MEASUREMENTS (cm) DIASTOLIC (NORMALS) SYSTOLIC (NORMALS) IVSd 1.2 (0.6-1.2) LA Diam 3.9 (1.9-4.0) LVEF 60% LVIDd 4.8 (3.5-5.7) LVIDs 3.3 (2.0-3.5) %FS 32% LVPWd 1.1 (0.6-1.2) Ao Diam 3.0 (2.0-3.7) 2 DIMENSIONAL ASSESSMENT: RIGHT ATRIUM: NORMAL LEFT ATRIUM: NORMAL RIGHT VENTRICLE: NORMAL LEFT VENTRICLE: NORMAL TRICUSPID VALVE: NORMAL MITRAL VALVE: NORMAL PULMONIC VALVE: NORMAL AORTIC VALVE: SCLEROSIS PERICARDIAL EFFUSION: NONE AORTIC ROOT: NORMAL LEFT VENTRICULAR WALL MOTION: NORMAL. DOPPLER/COLOR FLOW: NO AORTIC STENOSIS. MILD AORTIC, MITRAL AND TRICUSPID REGURGITATION. NORMAL RIGHT VENTRICULAR SYSTOLIC PRESSURE. COMMENTS: NORMAL LEFT VENTRICULAR EJECTION FRACTION. AORTIC SCLEROSIS WITH NO AORTIC STENOSIS. MILD AORTIC, MITRAL AND TRICUSPID REGURGITAITON. TECHNOLOGIST: MACY MILLAN
--- NOTE | 2018-12-10 15:05 | P.PN ---
Subjective Date of Service: 12/10/18 Primary Care Provider: [facility] Chief Complaint: severe sepsis Subjective: Improving Pt with TWIN, Cr 2.4 and improved to 1.4 on IVF Pt had dyspnea with rales on exam, restarted on Lasix Cr stable K 5.3, will give kaeyxalate, Mg and aldactone on hold Afib , on BB Physical Examination - Vital Signs Temperature: 97.5 F Blood Pressure: 143/63 Pulse: 64 Respirations: 28 Pulse Ox (%): 95 - Physical Exam General: Alert, In no apparent distress HEENT: Atraumatic Neck: Supple, Without JVD or thyroid abnormality Respiratory: Clear to auscultation bilaterally, Normal air movement Cardiovascular: No edema, Normal pulses, Regular rate/rhythm, Normal S1 S2, No rubs, No murmurs Gastrointestinal: Normal bowel sounds - Studies Medications List Reviewed: Yes Assessment And Plan - Current Problems (Diagnosis) (1) Acute on chronic renal failure Current Visit: Yes Status: Acute Qualifiers: Acute renal failure type: unspecified Chronic kidney disease stage: stage 3 (moderate) Qualified Code(s): N17.9 - Acute kidney failure, unspecified; N18.3 - Chronic kidney disease, stage 3 (moderate) - Plan Twin on CKD TWIN initially due to dehydration , pt became overloaded and now started on lasix Cr improved , off IVF US ; no hydro , UA +3 bld and protein renal dose meds urosepsis bandemia improved on Abx HTN controlled now started on metoprolol DM as per primary hyperkalemia resolved due to TWIN and aldactone Afib rate controlled now on BB cardiology on Board
[2018-12-10] MEDS: SOTALOL HCL 80 MG TAB PO SCH (17:02)
[2018-12-10] MEDS: DONEPEZIL HCL 5 MG TAB PO SCH (21:14)
[2018-12-10] MEDS: ATORVASTATIN 20 MG TAB PO SCH (21:14)
[2018-12-10] MEDS: ACETAMINOPHEN 500 MG TAB PO PRN (21:19)
[2018-12-11 04:01] LABS: Absolute Monocytes 0.5 K/uL (0.1-1.3); Absolute Neutrophil 6.5 K/uL (1.8-8.0); Basophils % 0.6 % (0-1.3); Eosinophils % 2.2 % (0-4.4); Hematocrit 29.5 % (39.6-49.0); Monocytes % 6.5 % (3.3-12.3); RBC Red Blood Cell Count 2.96 M/uL (4.33-5.43)
[2018-12-11 04:26] LABS: Albumin 2.4 g/dL (3.4-5.0); Phosphorus 3.6 mg/dL (2.5-4.9); Potassium 4.8 mmol/L (3.5-5.1)
[2018-12-11] MEDS: LEVOTHYROXINE SOD 0.05 MG TABLET PO SCH (05:10)
[2018-12-11] MEDS: SOTALOL HCL 80 MG TAB PO SCH ×2 (05:10→17:41)
[2018-12-11] MEDS: INSULIN -REGULAR HUMAN 50 UNIT/0.5 ML ML SQ SCH ×4 (07:30→20:30)
[2018-12-11] MEDS ORDERED: FUROSEMIDE 40 MG TABLET PO SCH (09:00)
[2018-12-11] MEDS: ENOXAPARIN 100 MG/ML SYR SQ SCH (09:19)
[2018-12-11] MEDS: OXcarbazepine 150 MG TAB PO SCH ×2 (09:20→20:46)
[2018-12-11] MEDS: MEMANTINE HCL 10 MG TABLET PO SCH (09:20)
[2018-12-11] MEDS: AMOX/K CLAV 500 MG TAB PO SCH ×2 (09:20→20:46)
[2018-12-11] MEDS: FERROUS SULFATE 325 MG TAB PO SCH (09:20)
[2018-12-11] MEDS: CYANOCOBALAMIN 1,000 MCG TAB PO SCH (09:20)
[2018-12-11] MEDS: VITAMIN D 1000 UNIT TAB PO SCH (09:20)
[2018-12-11] MEDS: ESCITALOPRAM 20 MG TAB PO SCH (09:20)
[2018-12-11] MEDS: ARFORMOTEROL TARTRATE 15 MCG/2 ML VIAL.NEB NEB SCH ×2 (10:58→19:20)
--- NOTE | 2018-12-11 12:36 | P.PN ---
Subjective Date of Service: 12/11/18 Primary Care Provider: [facility] Chief Complaint: severe sepsis Subjective: Improving (Patient improving. No shortness of breath noted.) Physical Examination - Vital Signs Temperature: 97.0 F Blood Pressure: 157/72 Pulse: 56 Respirations: 18 Pulse Ox (%): 98 - Physical Exam General: Alert, In no apparent distress, Oriented x3, Cooperative HEENT: Atraumatic Neck: Supple Respiratory: Other (Better air movement bilateral) Cardiovascular: Regular rate/rhythm Gastrointestinal: Normal bowel sounds, Soft and benign, Non-distended Neurological: Normal speech, Normal strength at 5/5 x4 extr, Normal tone, Normal affect - Studies Microbiology Data (last 24 hrs): 12/06/18 18:53 Blood - Blood Aerobic Blood Culture - Final Escherichia Coli 12/06/18 18:53 Blood - Blood Anaerobic Blood Culture - Final Escherichia Coli 12/06/18 18:53 Blood - Blood Gram Stain - Final 12/06/18 18:36 Blood - Blood Aerobic Blood Culture - Final 12/06/18 18:36 Blood - Blood Gram Stain - Final 12/06/18 18:36 Blood - Blood Anaerobic Blood Culture - Final No growth in 5 days. Medications List Reviewed: Yes Assessment & Plan Discharge Plan: Snf Plan to discharge in: 24 Hours Physician Review Additional Text: Impression: Septic shock secondary to UTI and bacteremia with urine and blood culture positive for E coli Acute on chronic atrial fibrillation with RVR Diarrhea with possible c. diff. colitis Acute on chronic renal failure stage 4 with hyperkalemia Acute on chronic diastolic CHF Diabetes mellitus type 2, insulin-dependent Hypertension Anemia of chronic disease with iron and B12 deficiency Dementia Depression with anxiety CAD Chronic seizure disorder Hyperlipidemia Hypothyroidism BPH Obesity, BMI 35.6 Plan: Septic shock secondary to UTI and bacteremia with urine and blood culture positive for E coli: Patient overall improved. Medication was adjusted by Cardiology yesterday. Patient placed on Betapace yesterday. Now in normal sinus rhythm. Will recheck chest x-ray to monitor his CHF but this has improved. Will adjust Lasix accordingly. Will continue to monitor the patient closely. Will discuss with cardiology and nephrology. [facility]. Patient may require oxygen at discharge. Acute on chronic atrial fibrillation with RVR: Patient now in our sinus rhythm. Patient work continues on Betapace and anti coalition therapy. Will discuss with cardiology about chronic anti coagulation therapy at discharge. Diarrhea: This appears improved. Will monitor closely. Acute on chronic renal failure stage 3 with hyperkalemia: Patient off IV fluids. Patient without hyperkalemia today. Renal function slightly compromise likely with recent Lasix. Lasix adjusted. Acute on chronic diastolic CHF: Overall improved. We will decrease Lasix. Will recheck chest x-ray. Will try to wean off oxygen. Patient may require oxygen at discharge. Possible dysphagia: No significant dysphagia noted. Speech recommends mechanical soft with thin liquids. Meds to be given 1 at a time. This will [facility] to [facility] the jail. Diabetes mellitus type 2, insulin-dependent: Continue with insulin sliding scale. Will monitor closely. Hypertension: Blood pressure stable. Patient now off metoprolol since patient is taking Betapace. Anemia of chronic disease with iron and B12 deficiency: Continue with iron and B12 supplementation. Dementia: Continue with jail medication. Depression with anxiety: Continue with jail medication. CAD: Patient on DVT prophylaxis. Chronic seizure disorder: Continue with jail medication Hyperlipidemia: Continue with jail medication Hypothyroidism: Continue a jail medication BPH: Continue jail medication Obesity, BMI 35.6: Will continue to address lifestyle modification education Time Spent Managing Pts Care (In Minutes): 55
--- NOTE | 2018-12-11 12:46 | PN ---
Mr. Ford is in sinus rhythm today. It is actually sinus bradycardia. I think we need to reduce the dose of his Betapace to 40 b.i.d. Hopefully that will help him maintain sinus rhythm. SAGRARIO/KARMA Voice ID: [id number] Report ID: [id number]
--- NOTE | 2018-12-11 15:38 | PN ---
Date of Progress Note: 12/11/2018 Subjective: Patient was admitted with pneumonia, septic shock, acute kidney injury, poor perfusion, ATN, cardiorenal; recovered. Then yesterday, he bounce back. The patient was started on diuresis. Physical Examination: Vital Signs: Blood pressure 157/72, pulse of 56. The patient had good urine output voiding. Chest: Crackles bilateral. Heart: S1, S2. Regular. Systolic murmur. Abdomen: Soft. Dullness on the suprapubic area up to the umbilicus. Extremities: Plus edema. Laboratory Data: WBC 8.3, H and H 9.9/29.5, platelets 134. Sodium 144, potassium 4.8, bicarb 27, BU N 45, creatinine 1.9, GFR of 33, calcium 8.2, phosphorus 3.6. Current Medications: The patient on its include; 1.Augmentin. 2.Ferrous sulfate. 3.Lovenox. 4.Sotalol. 5.Tylenol. 6.Namenda. 7.Lasix has been decreased to 40 mg daily. 8.Levothyroxine. Assessment And Plan: 1.Acute kidney injury, before it was cardiorenal, currently possible to be close to normal volume. I am going to go ahead and get repeated chest x-ray for better evaluation for fluid status and I am g oing to go ahead and get a bladder scan to rule out any obstruction. 2.Hypertension, controlled optimal. Continue current medication. 3.Pneumonia/urinary tract infection. Continue current antibiotic, as it is sensitive. We will foll ow up. 4.Congestive heart failure. We will try to establish better volume control for the patient. 5.Deconditioning. Continue PT/OT. ALICIA/KARMA Voice ID: [id number] Report ID: [id number]
--- NOTE | 2018-12-11 16:57 | RAD REPORT ---
EXAM DESCRIPTION: RAD - Chest Single View - 12/11/2018 4:47 pm CLINICAL HISTORY: Follow up CHF Chest pain. COMPARISON: Chest Single View dated 12/10/2018; Chest Single View dated 12/09/2018; Chest Single View dated 12/06/2018; Chest Single View dated 12/06/2018 FINDINGS: Portable technique limits examination quality. Little overall change is seen in the aeration of the lung since the comparative study from the . Mild interstitial pulmonary edema persists. Heart is moderately enlarged. No displaced fract ures. IMPRESSION: Stable chest since 12/10/2018.
[2018-12-11] MEDS: DONEPEZIL HCL 5 MG TAB PO SCH (20:46)
[2018-12-11] MEDS: ATORVASTATIN 20 MG TAB PO SCH (20:47)
[2018-12-11] MEDS: ACETAMINOPHEN 500 MG TAB PO PRN (20:47)
[2018-12-12 04:41] LABS: Absolute Monocytes 0.6 K/uL (0.1-1.3); Absolute Neutrophil 4.7 K/uL (1.8-8.0); Basophils % 0.7 % (0-1.3); Eosinophils % 2.4 % (0-4.4); Hematocrit 29.5 % (39.6-49.0); Lymphocytes % 16.2 % (15.3-44.8); MPV 8.5 fL (7.6-11.3); Monocytes % 8.6 % (3.3-12.3); RBC Red Blood Cell Count 2.95 M/uL (4.33-5.43)
[2018-12-12 04:47] LABS: Albumin 2.3 g/dL (3.4-5.0); Phosphorus 3.6 mg/dL (2.5-4.9); Potassium 4.9 mmol/L (3.5-5.1)
[2018-12-12] MEDS: LEVOTHYROXINE SOD 0.05 MG TABLET PO SCH (05:18)
[2018-12-12] MEDS: SOTALOL HCL 80 MG TAB PO SCH ×2 (05:20→17:30)
[2018-12-12] MEDS: INSULIN -REGULAR HUMAN 50 UNIT/0.5 ML ML SQ SCH ×4 (07:30→21:00)
[2018-12-12] MEDS: ARFORMOTEROL TARTRATE 15 MCG/2 ML VIAL.NEB NEB SCH ×2 (07:55→19:25)
[2018-12-12] MEDS: VITAMIN D 1000 UNIT TAB PO SCH (09:15)
[2018-12-12] MEDS: CYANOCOBALAMIN 1,000 MCG TAB PO SCH (09:16)
[2018-12-12] MEDS: FERROUS SULFATE 325 MG TAB PO SCH (09:16)
[2018-12-12] MEDS: ESCITALOPRAM 20 MG TAB PO SCH (09:16)
[2018-12-12] MEDS: ENOXAPARIN 100 MG/ML SYR SQ SCH (09:16)
[2018-12-12] MEDS: OXcarbazepine 150 MG TAB PO SCH ×2 (09:16→21:38)
[2018-12-12] MEDS: MEMANTINE HCL 10 MG TABLET PO SCH (09:16)
[2018-12-12] MEDS: AMOX/K CLAV 500 MG TAB PO SCH ×2 (09:16→21:39)
--- NOTE | 2018-12-12 09:22 | P.PN ---
Subjective Date of Service: 12/12/18 Primary Care Provider: [facility] Chief Complaint: severe sepsis Subjective: Other (Patient is slowly improving. Still feels thirsty) Physical Examination - Vital Signs Temperature: 97.3 F Blood Pressure: 179/84 Pulse: 51 Respirations: 16 Pulse Ox (%): 97 - Physical Exam General: Alert, In no apparent distress, Oriented x3, Cooperative HEENT: Atraumatic, Other (Dry mucous membranes) Neck: Supple Respiratory: Clear to auscultation bilaterally, Normal air movement Cardiovascular: Abnormal pulses (Sinus bradycardia rate around 50-60) Gastrointestinal: Normal bowel sounds, Soft and benign, Non-distended Integumentary: No tenderness/swelling Neurological: Normal speech, Normal strength at 5/5 x4 extr, Normal tone, Normal affect - Studies Microbiology Data (last 24 hrs): 12/06/18 18:53 Blood - Blood Aerobic Blood Culture - Final Escherichia Coli 12/06/18 18:53 Blood - Blood Anaerobic Blood Culture - Final Escherichia Coli 12/06/18 18:53 Blood - Blood Gram Stain - Final 12/06/18 18:36 Blood - Blood Aerobic Blood Culture - Final 12/06/18 18:36 Blood - Blood Gram Stain - Final 12/06/18 18:36 Blood - Blood Anaerobic Blood Culture - Final No growth in 5 days. Medications List Reviewed: Yes Assessment & Plan Discharge Plan: Halfway Plan to discharge in: 24 Hours Physician Review Additional Text: Impression: Septic shock secondary to UTI and bacteremia with urine and blood culture positive for E coli Acute on chronic atrial fibrillation with RVR Diarrhea Acute on chronic renal failure stage 3 with hyperkalemia Acute on chronic diastolic CHF Diabetes mellitus type 2, insulin-dependent Hypertension Anemia of chronic disease with iron and B12 deficiency Dementia Depression with anxiety CAD Chronic seizure disorder Hyperlipidemia Hypothyroidism BPH Obesity, BMI 35.6 Plan: Septic shock secondary to UTI and bacteremia with urine and blood culture positive for E coli: Patient is slowly improving. Antibiotics adjusted with the help of pharmacy. Patient will need a course of 2 week therapy. Betapace decrease by Cardiology yesterday due to bradycardia. Will discontinue Lasix as patient appears dry. Continue physical therapy and occupational therapy. Continue to wean off oxygen. Likely discharge in the next 24-48 hr back to alf if clinically improved. Patient may require oxygen at discharge. Will discuss with cardiology and nephrology. Will discuss with cardiology if patient should continue with chronic anti coagulation therapy at discharge. If so will transition to oral Eliquis. I will turn the service over to Dr. Blanchard tomorrow. I will go over the plan of care with her. Acute on chronic atrial fibrillation with RVR: Medication-Betapace adjusted by Cardiology yesterday due to bradycardia. Rate around 50-60. Patient no longer in atrial fibrillation. Continue anti coagulation therapy. Will need to determine if patient will require chronic anti coagulation therapy at discharge. Will discuss with cardiology. Diarrhea: This appears improved. Will monitor closely. Acute on chronic renal failure stage 3 with hyperkalemia: Patient off IV fluids. Will discontinue Lasix as patient still appears dry. Patient had been overcorrected with fluids due to septic shock-fluids. Acute on chronic diastolic CHF: Overall improved. Will discontinue Lasix at this time. Continue to monitor closely. Wean off oxygen. Patient may require oxygen at discharge. Possible dysphagia: No significant dysphagia noted. Speech recommends mechanical soft with thin liquids. Meds to be given 1 at a time. This will need to be continued at the alf. Diabetes mellitus type 2, insulin-dependent: Continue with insulin sliding scale. Will monitor closely. Hypertension: Blood pressure stable. Patient now off metoprolol since patient is taking Betapace. Medication adjusted by Cardiology. Anemia of chronic disease with iron and B12 deficiency: Continue with iron and B12 supplementation. Dementia: Continue with alf medication. Depression with anxiety: Continue with alf medication. CAD: Patient on DVT prophylaxis. Chronic seizure disorder: Continue with alf medication Hyperlipidemia: Continue with alf medication Hypothyroidism: Continue a alf medication BPH: Continue alf medication Obesity, BMI 35.6: Will continue to address lifestyle modification education Time Spent Managing Pts Care (In Minutes): 55
[2018-12-12] MEDS ORDERED: Levofloxacin500mg IV 500 MG/100 ML BAG IV ONE (12:00)
[2018-12-12 15:39] LABS: Urine Protein/Creatinine Ratio 0.36 ratio (<0.15)
--- NOTE | 2018-12-12 18:53 | PN ---
Date of Progress Note: 12/12/2018 Subjective: The patient is admitted with acute kidney injury secondary to cardiorenal recover. The patient had bounce back in his kidney function yesterday. Bladder scan is showing around 200 postvoi d. The patient refused De La O catheter. The patient's kidney function started deteriorating around M ay 29th. At that time, he was given Lasix and also I switched to Augmentin. Physical Examination: Vital Signs: When I saw the patient, blood pressure 138/48, pulse of 54. Chest: Crackles in the base. Heart: S1, S2 regular. Abdomen: Soft, nontender. Dullness on the suprapubic. Extremities: No edema. Laboratory Data: WBC 6.4, H and H 9.9/29.5, platelets 157. Sodium 141, potassium 4.9, bicarb 28, BU N 54, creatinine 2.2, calcium 8.3, phosphorus 3.6, magnesium of 2. Current Medications: Include donepezil, Lovenox, Augmentin, sotalol, Tylenol, citalopram, Namenda. Assessment And Plan: 1.Acute kidney injury, possible obstructive uropathy/given the timing of worsening kidney function w ith adding those medication I agree with holding the Lasix and we will hold Augmentin and switch it to Levaquin and we will send for urine eosinophil. We will place a De La O. 2.Hypertension, controlled, optimal. Continue to monitor. Hold Lasix. 3.Congestive heart failure. Normal volume. Given the acute kidney injury, hold diuresis. 4.Urinary tract infection. Continue current antibiotic switching to Levaquin. We will load with 50 0 and 250. ALICIA/KARMA Voice ID: [id number] Report ID: [id number]
[2018-12-12] MEDS: DONEPEZIL HCL 5 MG TAB PO SCH (21:39)
[2018-12-12] MEDS: ATORVASTATIN 20 MG TAB PO SCH (21:39)
--- NOTE | 2018-12-12 22:37 | EKG ---
Test Date: 2018-12-12 Test Time: 12:49:55 Plant Operator: CROW MEASUREMENT RESULTS: Intervals: Rate: 54 ND: 160 QRSD: 104 QT: 490 QTc: 464 [place]: P: ND: 160 QRS: 35 T: 14 INTERPRETIVE STATEMENTS: Sinus bradycardia Otherwise normal ECG Compared to ECG 12/10/2018 11:59:09 Prolonged QT interval no longer present Electronically Signed On 12-12-18 22:37:09 CDT by Gerhard Cooper
[2018-12-13] MEDS: SOTALOL HCL 80 MG TAB PO SCH ×2 (06:14→17:21)
[2018-12-13] MEDS: LEVOTHYROXINE SOD 0.05 MG TABLET PO SCH (06:14)
[2018-12-13] MEDS: INSULIN -REGULAR HUMAN 50 UNIT/0.5 ML ML SQ SCH ×3 (07:30→16:24)
--- NOTE | 2018-12-13 07:57 | EKG ---
Test Date: 2018-12-12 Test Time: 12:48:56 Cell Room Operator: CROW MEASUREMENT RESULTS: Intervals: Rate: 55 W[place]: 156 QRSD: 106 QT: 488 QTc: 466 [place]: P: [place]: 156 QRS: 36 T: 255 INTERPRETIVE STATEMENTS: Sinus bradycardia Incomplete left bundle branch block ST & T wave abnormality, consider inferior ischemia Prolonged QT Abnormal ECG Compared to ECG 12/10/2018 11:59:09 Left bundle-branch block now present ST (T wave) deviation now present Possible ischemia now present Electronically Signed On 12-13-18 07:57:11 CDT by Gerhard Cooper
[2018-12-13] MEDS: AMOX/K CLAV 500 MG TAB PO SCH ×2 (08:54→20:29)
[2018-12-13] MEDS: FERROUS SULFATE 325 MG TAB PO SCH (08:54)
[2018-12-13] MEDS: VITAMIN D 1000 UNIT TAB PO SCH (08:54)
[2018-12-13] MEDS: ENOXAPARIN 100 MG/ML SYR SQ SCH (08:55)
[2018-12-13] MEDS: CYANOCOBALAMIN 1,000 MCG TAB PO SCH (08:55)
[2018-12-13] MEDS: ESCITALOPRAM 20 MG TAB PO SCH (08:55)
[2018-12-13] MEDS: OXcarbazepine 150 MG TAB PO SCH ×2 (08:55→20:30)
[2018-12-13] MEDS: MEMANTINE HCL 10 MG TABLET PO SCH (08:58)
[2018-12-13] MEDS: ARFORMOTEROL TARTRATE 15 MCG/2 ML VIAL.NEB NEB SCH (09:05)
--- NOTE | 2018-12-13 10:24 | RAD REPORT ---
EXAM DESCRIPTION: Rebecca Single View12/13/2018 9:44 am CLINICAL HISTORY: Shortness of breath COMPARISON: December 11, 2018 FINDINGS: No significant change in mild bilateral pulmonary opacities. Heart remains enlarged. PICC line this present. IMPRESSION: No change in mild CHF
[2018-12-13] MEDS ORDERED: FUROSEMIDE 20 MG/ 2ML VIAL IV ONE (10:25)
[2018-12-13] MEDS ORDERED: Levofloxacin 250mg IV 250 MG/50 ML BAG IV SCH (12:00)
[2018-12-13 13:16] LABS: Potassium 5.3 mmol/L (3.5-5.1)
--- NOTE | 2018-12-13 16:35 | P.PN ---
Subjective Date of Service: 12/13/18 Primary Care Provider: Juwan [place] Chief Complaint: severe sepsis Review of Systems 10-point ROS is otherwise unremarkable Physical Examination - Vital Signs Temperature: 97.6 F Blood Pressure: 156/48 Pulse: 53 Respirations: 20 Pulse Ox (%): 100 - Physical Exam General: Alert, In no apparent distress Respiratory: Normal air movement, Expiratory wheezes, Inspiratory wheezes Cardiovascular: Regular rate/rhythm, Normal S1 S2 Gastrointestinal: Normal bowel sounds, No tenderness Musculoskeletal: No tenderness Integumentary: No rashes Neurological: Normal speech, Normal tone, Normal affect Lymphatics: No axilla or inguinal lymphadenopathy - Studies Medications List Reviewed: Yes Assessment And Plan - Plan Assessment/Plan: 1. Septic shock secondary to UTI and bacteremia -urine and blood culture positive for E coli -patient switched to p.o. Augmentin today. -hemodynamically stable -doing well overall. Will monitor closely 2. Acute on chronic atrial fibrillation with RVR -patient currently on Betapace. Adjusted by Cardiology yesterday due to bradycardia. Rate around 50-60. -Patient no longer in atrial fibrillation. -on p.o. Eliquis for anticoagulation 3. Diarrhea -This appears improved. -Will monitor closely. 4. Acute on chronic renal failure stage 3 with hyperkalemia -nephrology consulted. Appreciated recommendations at this time -patient BUN and creatinine elevated and patient with shortness of breath -Lasix x1 at this time. 5. Acute on chronic diastolic CHF -Lasix held yesterday due to possibility of over-diuresis -this morning patient which shortness of breath -1 time Lasix ordered at this time -will monitor closely. -currently using oxygen. Will arrange for home oxygen at this time as well. 6. Diabetes mellitus type 2, insulin-dependent: Continue with insulin sliding scale. Will monitor closely. 7. Hypertension: Blood pressure stable. Patient now off metoprolol since patient is taking Betapace. Medication adjusted by Cardiology. 8. Anemia of chronic disease with iron and B12 deficiency: Continue with iron and B12 supplementation. 9. Dementia: Continue with longterm medication. 10. Depression with anxiety: Continue with longterm medication. 11. CAD: Patient on DVT prophylaxis. 12. Chronic seizure disorder: Continue with longterm medication 13. Hyperlipidemia: Continue with longterm medication 14. Hypothyroidism: Continue a longterm medication 15. BPH: Continue longterm medication 16. Obesity, BMI 35.6: Will continue to address lifestyle modification education Discharge Plan: Group Home Plan to discharge in: 24 Hours - Code Status/Comfort Care Code Status Assessed: Yes Critical Care: No
--- NOTE | 2018-12-13 17:50 | P.DS ---
Admission Date: 12/06/18 Discharge Date: 12/13/18 Primary Care Provider: Juwan [facility] Disposition: TRANSFER TO [facility] Discharge Condition: FAIR Reason for Admission: severe sepsis Consultations: Nephrology Cardiology Brief History of Present Illness: Mr Ford is an 83 years old male with history of DM II, CAD, HTN, dyslipidemia, CKD, resident of a group home who was found with decreased level of conscious and fever today. No known exactly when his symptoms started. In ED he has been coughing, UA abnormal, Lab work shows normal WBC with 7% bands, elevated lactate , worsening kdney function, hyperkalemia. He has also diarrhea noted in ER. Abdomen is tender to palpation, diffuse, no distented though. BP at arrival was 122/50, however, it gradually decreased, to SBP 80's. The patient is obtunded but arousable to voice stimulus, he is confused, oriented x 0. Hospital Course: Discharge diagnosis 1. Septic shock secondary to UTI and bacteremia 2. Acute on chronic atrial fibrillation with RVR 3. Diarrhea 4. Acute on chronic renal failure stage 3 with hyperkalemia 5. Acute on chronic diastolic CHF 6. Diabetes mellitus type 2, insulin-dependent 7. Hypertension 8. Anemia of chronic disease with iron and B12 deficiency 9. Dementia 10. Depression with anxiety 11. CAD 12. Chronic seizure disorder 13. Hyperlipidemia 14. Hypothyroidism 15. BPH 16. Obesity, BMI 35.6 Hospital Course During the course of the hospital stay patient remained stable Patient was initially admitted to the hospital for septic shock most likely secondary to UTI and bacteremia. Patient was initially started on broad- spectrum antibiotics. Urine culture blood culture were collected here in the hospital. Urine and blood culture both were positive for E. coli. The antibiotics were the escalated to p.o. Augmentin as E. coli was sensitive to Augmentin. Patient had marked improvement in his symptoms. Remained hemodynamically stable while here in the hospital. For patient's acute on chronic atrial fibrillation with RVR. Cardiology was consulted who recommended that patient's metoprolol at home be discontinued and patient be started on Betapace. Patient was started here on Betapace and dose was adjusted here in the hospital as patient was getting bradycardic. Patient' s reduced dose of Betapace will be continued in the group home as patient will be discharged home today. Patient was also initially kept on Lovenox for anti coagulation was switched over to Eliquis While here in the hospital patient also had acute on chronic renal failure most likely secondary to UTI and bacteremia. Patient IV fluids well overall. IV fluids were discontinued due to acute on chronic diastolic heart failure. Patient received 1 time dose of Lasix here in the hospital which she tolerated well. Patient was on oxygen here in the hospital which was ranged for on discharge to the group home. Patient was on 0.5 L on discharge. Patient's home medication of losartan and spironolactone were resumed upon discharge. While here in the hospital patient also had diarrhea which resolved here in the hospital. C. diff and stool cultures were negative while here in the hospital. All other chronic conditions remained stable while the patient was here in the hospital. Vital Signs/Physical Exam: Temp Pulse Resp BP Pulse Ox 97.6 F 53 20 156/48 H 100 12/13/18 16:35 12/13/18 16:35 12/13/18 16:35 12/13/18 16:35 12/13/18 16:35 General: Alert, In no apparent distress HEENT: Atraumatic, PERRLA, EOMI Neck: Supple, JVD not distended Respiratory: Clear to auscultation bilaterally, Normal air movement Cardiovascular: Regular rate/rhythm, Normal S1 S2 Gastrointestinal: Normal bowel sounds, No tenderness Musculoskeletal: No tenderness Integumentary: No rashes Neurological: Normal speech, Normal tone, Normal affect Lymphatics: No axilla or inguinal lymphadenopathy Laboratory Data at Discharge: WBC 6.4 K/uL (4.3-10.9) D 12/12/18 04:05 Hgb 9.9 g/dL (13.6-17.9) L 12/12/18 04:05 Hct 29.5 % (39.6-49.0) L 12/12/18 04:05 Plt Count 157 K/uL (152-406) 12/12/18 04:05 PT 12.4 SECONDS (9.5-12.5) 12/06/18 18:53 INR 1.05 12/06/18 18:53 APTT 25.2 SECONDS (24.3-36.9) 12/06/18 18:53 Sodium 141 mmol/L (136-145) 12/13/18 12:50 Potassium 5.3 mmol/L (3.5-5.1) H 12/13/18 12:50 BUN 59 mg/dL (7-18) H 12/13/18 12:50 Creatinine 2.25 mg/dL (0.55-1.3) H 12/13/18 12:50 Glucose 121 mg/dL (74-106) H 12/13/18 12:50 Uric Acid 6.6 mg/dL (3.5-7.2) D 12/07/18 05:23 Phosphorus 3.6 mg/dL (2.5-4.9) 12/12/18 04:05 Magnesium 2.0 mg/dL (1.8-2.4) 12/12/18 04:05 Total Bilirubin 0.3 mg/dL (0.2-1.0) 12/06/18 18:53 AST 13 U/L (15-37) L 12/06/18 18:53 ALT 18 U/L (12-78) 12/06/18 18:53 Alkaline Phosphatase 53 U/L (45-117) 12/06/18 18:53 Troponin I 0.11 ng/mL (0.0-0.045) H 12/09/18 09:14 Lipase 167 U/L (73-393) 12/06/18 18:53 Home Medications: Arformoterol Tartrate [Brovana] 1 vial NEB BID 12/07/18 Atorvastatin Calcium [Lipitor*] 20 mg PO BEDTIME 12/07/18 Calcium Carbonate [Tums Regular*] 1 tab PO TID 12/07/18 Cholecalciferol (Vitamin D3) [Vitamin D3] 1,000 unit PO DAILY 12/07/18 Cyanocobalamin (Vitamin B-12) [Vitamin B-12] 1,000 mcg PO DAILY 12/07/18 Donepezil HCl 10 mg PO BEDTIME 12/07/18 Escitalopram Oxalate [Lexapro] 20 mg PO DAILY 12/07/18 Furosemide 1 tab PO DAILY 12/07/18 Insulin -Regular Human [Novolin -R*] See Protocol SQ ACHS 12/07/18 Insulin Glargine Human [Lantus*] 32 unit SQ BEDTIME 12/07/18 Levothyroxine [Synthroid*] 50 mcg PO [id number] 12/07/18 Liraglutide [Victoza 2-Gab] 0.6 mg SQ DAILY 12/07/18 Losartan Potassium 1 tab PO DAILY 12/07/18 Magnesium Oxide [Mag 0X*] 400 mg PO DAILY 12/07/18 Memantine HCl 10 mg PO DAILY 12/07/18 OXcarbazepine [Oxcarbazepine] 1 tab PO BID 12/07/18 Spironolactone 25 mg PO DAILY 12/07/18 Tamsulosin HCl 0.4 mg PO BEDTIME 12/07/18 Terbinafine HCl 250 mg PO DAILY 12/07/18 Trazodone [Desyrel*] 25 mg PO BEDTIME 12/07/18 glipiZIDE [Glucotrol*] 1 tab PO BID 12/07/18 Amox/Clavulanate [Augmentin 500-125 mg Tab*] 500 mg PO BID #28 tab 12/13/18 Apixaban [Eliquis *] 2.5 mg PO BID #60 tablet 12/13/18 New Medications: Amox/Clavulanate [Augmentin 500-125 mg Tab*] 500 mg PO BID #28 tab Apixaban [Eliquis *] 2.5 mg PO BID #60 tablet Diet: Regular Activity: Ad adriana Followup: Sharmila Donis MD [ACTIVE - CAN ADMIT] - 1 Week
[2018-12-13] MEDS: DONEPEZIL HCL 5 MG TAB PO SCH (20:29)
[2018-12-13] MEDS: ATORVASTATIN 20 MG TAB PO SCH (20:29)
--- NOTE | 2018-12-14 03:49 | PN ---
Date of Progress Note: 12/13/2018 Chief Complaint: Acute kidney injury secondary to cardiorenal syndrome associated with fluid overloa d. The patient was treated with Lasix. The patient refused De La O catheter. Bladder scan showed bor derline increased postvoid residual volume. The patient was started on antibiotics for urinary tract infection. Augmentin was used for urinary tract infection. Review of Systems: Denies fever, chills. Physical Examination: Lungs: Few crackles at bases. Heart: S1, S2. Abdomen: Soft, benign. Extremities: No edema. Laboratory Data: BUN 54, creatinine 2.2, calcium 8.3, phosphorus 3.6, magnesium 2. Impression And Plan: 1.Acute on chronic kidney injury, possible bladder outlet obstruction, possible obstructive uropathy . Renal function has worsened due to renal hypoperfusion and bladder outlet obstruction. Continue A ugmentin for urinary tract infection. Consider De La O catheter. 2.Hypertension. Blood pressure controlled. Continue low-sodium diet and Lasix currently is on hold . 3.Congestive heart failure, monitor fluid balance. Adjust diuretic accordingly. 4.Urinary tract infection. Continue antibiotic. DAPHNEY/KARMA Voice ID: [id number] Report ID: [id number]
[2018-12-14] MEDS ORDERED: APIXABAN 2.5 MG TABLET PO SCH (09:00)
== END 2018-12-13 21:18 | DRG 871 ==
LOC: ER 18:35 → ERHOLD 20:21 → 3RD-ICU 21:44 → 4TH 12-08 11:55
PROVIDERS: ADMIT Internal Medicine; ATTEND Family Medicine
PROC: 02HV33Z Insertion of Infusion Device into Superior Vena Cava, Percutaneous Approach (ICD-10-PCS; principal; 2018-12-06)
DX: A41.51 Sepsis due to Escherichia coli [E. coli] (principal); I50.33 Acute on chronic diastolic (congestive) heart failure; N30.00 Acute cystitis without hematuria; G93.40 Encephalopathy, unspecified; I13.0 Hypertensive heart and chronic kidney disease with heart failure and stage 1 through stage 4 chronic kidney disease, or unspecified chronic kidney disease; N17.9 Acute kidney failure, unspecified; R65.20 Severe sepsis without septic shock; I48.2 Chronic atrial fibrillation; E87.5 Hyperkalemia; I25.10 Atherosclerotic heart disease of native coronary artery without angina pectoris; E78.5 Hyperlipidemia, unspecified; E11.22 Type 2 diabetes mellitus with diabetic chronic kidney disease; E11.40 Type 2 diabetes mellitus with diabetic neuropathy, unspecified; N18.3 Chronic kidney disease, stage 3 (moderate); E03.9 Hypothyroidism, unspecified; E66.9 Obesity, unspecified; Z66 Do not resuscitate; F03.90 Unspecified dementia, unspecified severity, without behavioral disturbance, psychotic disturbance, mood disturbance, and anxiety; D63.8 Anemia in other chronic diseases classified elsewhere; D50.9 Iron deficiency anemia, unspecified; D51.9 Vitamin B12 deficiency anemia, unspecified; F41.8 Other specified anxiety disorders; G40.909 Epilepsy, unspecified, not intractable, without status epilepticus; R19.7 Diarrhea, unspecified; R00.1 Bradycardia, unspecified; T44.7X5A Adverse effect of beta-adrenoreceptor antagonists, initial encounter; N40.1 Benign prostatic hyperplasia with lower urinary tract symptoms; R33.8 Other retention of urine; Z68.34 Body mass index [BMI] 34.0-34.9, adult; Z79.4 Long term (current) use of insulin; Z79.51 Long term (current) use of inhaled steroids; Z95.5 Presence of coronary angioplasty implant and graft; Z88.5 Allergy status to narcotic agent
CPT/HCPCS: 36415; 51702; 70450; 71045; 74176; 76770; 80048; 80069; 80076; 81003; 81015; 82550; 82553; 82570; 82805; 82962; 83605; 83690; 83735; 83970; 84132; 84145; 84156; 84439; 84443; 84484; 84550; 85025; 85610; 85730; 87040; 87077; 87086; 87088; 87186; 87205; 87804; 88108; 92610; 93005; 93306; 94640; 94760; 97161; 97165; 97530; 99285; J0692; J0696; J1160; J1644; J1650; J1940; J2543; J7030; J7060; J7605

== ENCOUNTER 2018-12-15 23:02 | Inpatient (IN) | payer OTHER ==
--- OUTSIDE RECORDS SUMMARY | 2018-12-15 23:06 | XMS REPORT | Clinical Summary ---
:1935 Author Organization [facility] Address [address] [place] [address] Care Team Providers Name Role Phone Asked, [...] INFLUENZA VACCINE 02/10/2019 Implants Implanted Type Area Workgroup Leader Device Shelf Model / Identifier Expiration Serial / Date Lot Stent Crtd Xact Slf-Xpndbl Tprd Koby 6-8m 30mm - [id number] Peripheral or [employer] VASCULAR [id number] / Implanted: Qty: 1 on 08/06/2016 by Alec Cadet MD Biliary Stents DEVICES / Results Not on fileafter 12/14/2017 Insurance Payer Benefit Plan / Subscriber ID Effective Dates Phone Address Type Group MEDICARE MEDICARE PART A xxxxxxxxxx 1999-Present [place], [place] Medicare AND B MEDICAID MEDICAID xxxxxxxxx 2016-Present Medicaid Advance Directives Patient has advance care planning documents on file. For more information, please contact:[place] [address]
[2018-12-16 00:09] LABS: Absolute Lymphocytes (CBC) 0.9 K/uL (0.7-4.9); Absolute Monocytes 0.2 K/uL (0.1-1.3); Absolute Neutrophil 4.3 K/uL (1.8-8.0); Basophils % 0.4 % (0-1.3); Eosinophils % 2.8 % (0-4.4); Hematocrit 25.8 % (39.6-49.0); Lymphocytes % 15.9 % (15.3-44.8); MPV 8.3 fL (7.6-11.3); Monocytes % 4.2 % (3.3-12.3); RBC Red Blood Cell Count 2.59 M/uL (4.33-5.43)
[2018-12-16 00:13] LABS: Protime INR 1.13
[2018-12-16] MEDS ORDERED: NA CHLORIDE 0.9% 1,000 ML ONE (00:23)
[2018-12-16 00:24] LABS: ALT/SGPT 11 U/L (12-78); AST/SGOT 10 U/L (15-37); Albumin 2.2 g/dL (3.4-5.0); Alkaline Phosphatase 46 U/L (45-117); BUN Blood Urea Nitrogen 66 mg/dL (7-18); Bicarbonate 28 mmol/L (21-32); Bilirubin Direct < 0.1 mg/dL (0-0.2); Bilirubin Total 0.2 mg/dL (0.2-1.0); CKMB Creatine Kinase MB 1.4 ng/mL (0.3-3.6); Creatine Phosphokinase 33 U/L (39-308); Glucose Level 79 mg/dL (74-106); Lipase 318 U/L (73-393); Potassium 4.7 mmol/L (3.5-5.1); Protein, Total 5.8 g/dL (6.4-8.2); Sodium Level 143 mmol/L (136-145); Troponin (Emerg Dept Use Only) 0.08 ng/mL (0.0-0.045)
--- NOTE | 2018-12-16 00:38 | ER ---
Nurse's Notes [facility] Name: Angel Ford Age: 83 yrs Sex: Male : 1935 Arrival Date: 12/15/2018 Time: 23:05 Bed 3 Private MD: Diagnosis: Sepsis, unspecified organism;Bradycardia, unspecified Presentation: 12/15 23:00 Presenting complaint: EMS states: that they were called out for cardiac arrest, but fc upon arrival pt was alert to pain, had resp effort and radial pulses present. Pt's sats 82% on roomair. Pt was recently in hospital for urosepsis. Transition of care: patient was received from another setting of care (long-term care facility), [facility]. Onset of symptoms was December 15, 2018. Risk Assessment: Do you want to hurt yourself or someone else? Patient reports no desire to harm self or others. Initial Sepsis Screen: Does the patient meet any 2 criteria? Mean Arterial Pressure (MAP) < 65. Altered Mental Status. Yes Does the patient have a suspected source of infection? Yes: Productive cough/pneumonia Dysuria/Frequency/Urgency/UTI If YES to both, name of provider notified: Raffaele Waite MD Care prior to arrival: IV initiated. 18 GA, in the left antecubital area, Glucose check: 88. 23:00 Method Of Arrival: EMS: [facility] 23:00 Acuity: JUSTICE 2 fc Triage Assessment: 23:00 General: Appears in no apparent distress. ill, Behavior is drowsy, responds minimally cc3 to pain. Pain: Unable to use pain scale. Patient is disoriented. Historical: - Allergies: 23:30 Iodine; fc 23:30 [place]; fc 23:30 tramadol; fc - Home Meds: 23:30 acetaminophen 325 mg Oral tab 2 tabs as needed [Active]; Atrovent Inhl 1 puff q6hr prn fc [Active]; Betapace 80 mg oral tab 0.5 tab 2 times per day [Active]; Brovana 15 mcg/2 mL inhalation nebu 2 mL 2 times per day [Active]; Cozaar 25 mg Oral tab 1 tab once daily [Active]; cyanocobalamin (vitamin B-12) 1,000 mcg Oral tab daily [Active]; donepezil 10 mg Oral tab 1 tab nightly [Active]; Eliquis 2.5 mg oral tab 1 tab 2 times per day [Active]; Flomax 0.4 mg Oral cp24 1 cap nightly [Active]; glipizide 5 mg Oral tab 1 tab 2 times per day [Active]; Ipratropium - Albuterol 0.5 mg - 3 mg/3ML, 1 vial q 6hrs prn [Active]; Lantus 100 unit/mL Sub-Q soln 32 units daily [Active]; Lasix 20 mg Oral tab 1 tab once daily [Active]; levothyroxine 50 mcg tab 1 tab once daily [Active]; Lexapro 20 mg oral tab 1 tab once daily [Active]; Lipitor 20 mg Oral tab 1 tab nightly [Active]; magnesium oxide 400 mg oral tab daily [Active]; memantine 10 mg oral tab 1 tab daily [Active]; nitroglycerin 0.4 mg SL subl 1 tab every 5 minutes [Active]; Novolin R sliding scale Sub-Q [Active]; oxcarbazepine 150 mg Oral tab 1 tabs 2 times per day [Active]; Provera 10 mg oral tab 1 tab once daily [Active]; spironolactone 25 mg Oral tab 1 tab once daily [Active]; terbinafine HCl 250 mg oral tab 1 tab once daily [Active]; trazodone 50 mg Oral tab 0.5 tab nightly [Active]; Tums 200 mg calcium (500 mg) Oral chew 2 tab three times a day [Active]; Victoza 2-Gab 0.6 mg/0.1 mL (18 mg/3 mL) subcutaneous pnij 0.1 mL once daily [Active]; cholecalciferol (vitamin D3) 1,000 unit Oral tab daily [Active]; - PMHx: 23:30 CVA; UTI; Anemia; HEART FAILURE; toxic liver disease; Diabetes - IDDM; neuropathy; fc MUSCLE WEAKNESS; Back pain; Depression; COPD; dyspnea; dysphagia; insomnia; Pneumonia; HTN; BPH; CAD; GERD; vitamin d deficiency; Hypercholesterolemia; Obesity; DIZZINESS; Vertigo; Hypothyroidism; Dementia; ischemic heart disease; constipation; - Immunization history:: Last tetanus immunization: unknown. - Social history:: Smoking status: unknown. - Ebola Screening: : Patient negative for fever greater than or equal to 101.5 degrees Fahrenheit, and additional compatible Ebola Virus Disease symptoms Patient denies exposure to infectious person Patient denies travel to an Ebola-affected area in the 21 days before illness onset. Screenin:00 Abuse screen: Denies threats or abuse. Nutritional screening: No deficits noted. fc Tuberculosis screening: No symptoms or risk factors identified. Fall Risk Fall in past 12 months (25 points). Secondary diagnosis (15 points) impaired mobility, CVA, IV access (20 points). Ambulatory Aid- Crutches/Cane/Walker (15 pts). Gait- Weak (10 pts.). Mental Status- Overestimates/Forgets Limitations (15 pts.). Total Dinero Fall Scale indicates High Risk Score (45 or more points). Fall prevention measures have been instituted. Side Rails Up X 2 Placed Close to Nursing Station Frequent Obs/Assessments Occuring As available patient and family educated on Fall Prevention Program and Strategies. Assessment: 23:00 General: Appears in no apparent distress. ill, Behavior is drowsy, responds to pain. cc3 Pain: Unable to use pain scale. Patient is disoriented. patient responds only to pain. Neuro: Level of Consciousness is stuporous, Oriented to none [place] are weak bilaterally Weakness in bilateral hand(s) leg(s) Pupils are pinpoint, responds to painful stimuli. Cardiovascular: Rhythm is sinus bradycardia. Respiratory: Airway is patent Respiratory effort is even, unlabored, Respiratory pattern is regular, symmetrical. GI: Abdomen is round obese. : No signs and/or symptoms were reported regarding the genitourinary system. EENT: Ear canal clear on bilateral Sclera/Cornea are clear in bilateral Nares are clear bilaterally Oral mucosa is dry. Derm: Bruising that is dark purple, on bilateral hands \T\ forearms. Musculoskeletal: Range of motion: limited in all extremities Swelling present in bilateral hands. 12/16 00:20 Reassessment: Patient appears in no apparent distress at this time. Patient and/or cc3 family updated on plan of care and expected duration. Pain level reassessed. 01:18 Reassessment: Patient appears in no apparent distress at this time. Patient and/or cc3 family updated on plan of care and expected duration. Pain level reassessed. 02:15 Reassessment: Patient appears in no apparent distress at this time. Patient and/or cc3 family updated on plan of care and expected duration. Pain level reassessed. Room available in ICU bed 6, report called and handed over to MARY Goldberg for continuity of care and management. 02:35 Reassessment: ER clerk Romeo said she tried to call the patient's daughter named Kim milan3 on mobile number [phone] to inform regarding the patient's condition but no answer. Patient left ER for ICU admission via stretcher on oxygen therapy via venturi mask 40%, on continuous cardiac monitoring escorted by mn and industrial maintenance tech Cinthya. Vital Signs: 12/15 23:00 BP 92 / 40; Pulse 50; Resp 16; Temp 95.9(R); Pulse Ox 96% on R/A; Weight 122.47 kg (R); fc Height 6 ft. 0 in. (182.88 cm) (R); Pain 0/10; 23:30 BP 100 / 43; Pulse 58; Resp 17; Pulse Ox 92% on 40% Venturi mask; lp1 12/16 00:00 BP 87 / 38; Pulse 43; Resp 15; Pulse Ox 96% on 40% Venturi mask; lp1 01:15 BP 105 / 48; Pulse 47; Resp 21 S; Temp 96.1(A); Pulse Ox 98% on 40% Venturi mask; cc3 01:30 BP 114 / 35; Pulse 46; Resp 16 S; Pulse Ox 97% on 40% Venturi mask; cc3 02:00 BP 91 / 34; Pulse 48; Resp 16 S; Temp 96.2(A); Pulse Ox 97% on 40% Venturi mask; cc3 02:15 BP 105 / 51; Pulse 48; Resp 21 S; Temp 96.2(A); Pulse Ox 97% on 40% Venturi mask; cc3 12/15 23:00 Body Mass Index 36.62 (122.47 kg, 182.88 cm) fc Temitope Coma Score: 12/15 23:00 Eye Response: none(1). Verbal Response: incomprehensible(2). Motor Response: localizes cc3 pain(5). Total: 8. ED Course: 23:00 Arm band placed on Patient placed in an exam room, on a stretcher. fc 23:00 Patient has correct armband on for positive identification. Bed in low position. Call fc light in reach. Side rails up X2. quality assurance monitor final on. Pulse ox on. NIBP on. 23:00 Maintain EMS IV. Dressing intact. Good blood return noted. Site clean \T\ dry. Gauge \T\ fc site: 18 gauge to left a/c. 23:05 Patient arrived in ED. fc 23:11 Raffaele Waite MD is Attending Physician. tw4 23:11 Triage completed. fc 23:30 Thermoregulation: [place] blanket applied. lp1 23:47 X-ray completed. Portable x-ray completed in exam room. Patient tolerated procedure kw well. 23:49 Chest Single View XRAY In Process Unspecified. EDMS 06 00:04 Yudi Reagan is Primary Nurse. cc3 00:36 Trent Patel MD is Hospitalizing Provider. tw4 02:15 No provider procedures requiring assistance completed. Patient admitted, IV remains in cc3 place. Administered Medications: 00:03 CANCELLED (Physician Discretion): NS 0.9% (30 ml/kg) 30 ml/kg IV at bolus once; Sepsis lp1 Protocol 00:15 Drug: NS 0.9% 1000 ml Route: IV; Rate: 1000 ml; Site: left antecubital; lp1 01:30 Follow up: Response: No adverse reaction; IV Status: Completed infusion; IV Intake: cc3 1000ml 01:00 Drug: Zosyn 2.25 grams Route: IVPB; Infused Over: 60 mins; Site: left antecubital; cc3 02:00 Follow up: Response: No adverse reaction; IV Status: Completed infusion; IV Intake: cc3 100ml 02:05 Drug: vancoMYCIN 1 grams Route: IVPB; Infused Over: 2 hrs; Site: left antecubital; cc3 02:15 Follow up: Response: No adverse reaction; IV Status: Infusion continued upon admission cc3 Intake: 01:30 IV: 1000ml; Total: 1000ml. cc3 02:00 IV: 100ml; Total: 1100ml. cc3 Outcome: 00:37 Decision to Hospitalize by Provider. tw4 02:30 Admitted to ICU accompanied by nurse, accompanied by jaclyn, via stretcher, room 6, with cc3 oxygen, on monitor, with chart, Report called to MARY Goldberg 02:30 Condition: stable 02:30 Instructed on the need for admit. 02:54 Patient left the ED. cc3 Signatures: Dispatcher [employer] EDAna Rice RN RN fc Savanah Clemente Laura, RN RN lp1 Raffaele Waite MD MD tw4 Yudi Reagan cc3 Corrections: (The following items were deleted from the chart) 12/15 23:31 23:00 BP 92 / 40; Pulse 50bpm; Resp 16bpm; Pulse Ox 96% RA; 122.47 kg Reported; Height fc 6 ft. 0 in. Reported; BMI: 36.6; Pain 0/10; fc
--- NOTE | 2018-12-16 00:38 | EDPHYS ---
Physician Documentation [facility] Name: Angel Ford Age: 83 yrs Sex: Male : 1935 Arrival Date: 12/15/2018 Time: 23:05 Bed 3 Private MD: ED Physician Raffaele Waite HPI: 12/16 01:00 This 83 yrs old Male presents to ER via EMS with complaints of Bradycardia, tw4 Hypotension. 01:00 This 83 yrs old Male presents to ER via EMS with complaints of Bradycardia, tw4 Hypotension. 01:00 The patient presents with a history of bradycardia. Context: The symptoms occur at tw4 rest. Onset: The symptoms/episode began/occurred today. Duration: The patient or guardian reports a single episode, that is now resolved. The patient has not experienced similar symptoms in the past. EMS responded to call by care home staff that found pt bradycardic. Pt has a DNR order. Pt himself had no specific complaints. Historical: - Allergies: 12/15 23:30 Iodine; fc 23:30 [place]; fc 23:30 tramadol; fc - Home Meds: 23:30 acetaminophen 325 mg Oral tab 2 tabs as needed [Active]; Atrovent Inhl 1 puff q6hr prn fc [Active]; Betapace 80 mg oral tab 0.5 tab 2 times per day [Active]; Brovana 15 mcg/2 mL inhalation nebu 2 mL 2 times per day [Active]; Cozaar 25 mg Oral tab 1 tab once daily [Active]; cyanocobalamin (vitamin B-12) 1,000 mcg Oral tab daily [Active]; donepezil 10 mg Oral tab 1 tab nightly [Active]; Eliquis 2.5 mg oral tab 1 tab 2 times per day [Active]; Flomax 0.4 mg Oral cp24 1 cap nightly [Active]; glipizide 5 mg Oral tab 1 tab 2 times per day [Active]; Ipratropium - Albuterol 0.5 mg - 3 mg/3ML, 1 vial q 6hrs prn [Active]; Lantus 100 unit/mL Sub-Q soln 32 units daily [Active]; Lasix 20 mg Oral tab 1 tab once daily [Active]; levothyroxine 50 mcg tab 1 tab once daily [Active]; Lexapro 20 mg oral tab 1 tab once daily [Active]; Lipitor 20 mg Oral tab 1 tab nightly [Active]; magnesium oxide 400 mg oral tab daily [Active]; memantine 10 mg oral tab 1 tab daily [Active]; nitroglycerin 0.4 mg SL subl 1 tab every 5 minutes [Active]; Novolin R sliding scale Sub-Q [Active]; oxcarbazepine 150 mg Oral tab 1 tabs 2 times per day [Active]; Provera 10 mg oral tab 1 tab once daily [Active]; spironolactone 25 mg Oral tab 1 tab once daily [Active]; terbinafine HCl 250 mg oral tab 1 tab once daily [Active]; trazodone 50 mg Oral tab 0.5 tab nightly [Active]; Tums 200 mg calcium (500 mg) Oral chew 2 tab three times a day [Active]; Victoza 2-Gab 0.6 mg/0.1 mL (18 mg/3 mL) subcutaneous pnij 0.1 mL once daily [Active]; cholecalciferol (vitamin D3) 1,000 unit Oral tab daily [Active]; - PMHx: 23:30 CVA; UTI; Anemia; HEART FAILURE; toxic liver disease; Diabetes - IDDM; neuropathy; fc MUSCLE WEAKNESS; Back pain; Depression; COPD; dyspnea; dysphagia; insomnia; Pneumonia; HTN; BPH; CAD; GERD; vitamin d deficiency; Hypercholesterolemia; Obesity; DIZZINESS; Vertigo; Hypothyroidism; Dementia; ischemic heart disease; constipation; - Immunization history:: Last tetanus immunization: unknown. - Social history:: Smoking status: unknown. - Ebola Screening: : Patient negative for fever greater than or equal to 101.5 degrees Fahrenheit, and additional compatible Ebola Virus Disease symptoms Patient denies exposure to infectious person Patient denies travel to an Ebola-affected area in the 21 days before illness onset. ROS: 12/16 01:00 Constitutional: Negative for fever, chills, and weight loss, Eyes: Negative for injury, tw4 pain, redness, and discharge, Respiratory: Negative for shortness of breath, cough, wheezing, and pleuritic chest pain, Abdomen/GI: Negative for abdominal pain, nausea, vomiting, diarrhea, and constipation, Back: Negative for injury and pain, Skin: Negative for injury, rash, and discoloration, Neuro: Negative for headache, weakness, numbness, tingling, and seizure. All other systems are negative. Exam: 01:00 Head/Face: Normocephalic, atraumatic. Chest/axilla: Normal chest wall appearance and tw4 motion. Nontender with no deformity. No lesions are appreciated. Cardiovascular: Regular rate and rhythm with a normal S1 and S2. No gallops, murmurs, or rubs. Normal PMI, no JVD. No pulse deficits. Respiratory: Lungs have equal breath sounds bilaterally, clear to auscultation and percussion. No rales, rhonchi or wheezes noted. No increased work of breathing, no retractions or nasal flaring. Abdomen/GI: Soft, non-tender, with normal bowel sounds. No distension or tympany. No guarding or rebound. No evidence of tenderness throughout. Back: No spinal tenderness. No costovertebral tenderness. Full range of motion. MS/ Extremity: Pulses equal, no cyanosis. Neurovascular intact. Full, normal range of motion. Neuro: Awake and alert, GCS 15, oriented to person, place, time, and situation. Cranial nerves II-XII grossly intact. Motor strength 5/5 in all extremities. Sensory grossly intact. Cerebellar exam normal. Normal gait. 01:00 Constitutional: The patient appears somnolent Vital Signs: 12/15 23:00 BP 92 / 40; Pulse 50; Resp 16; Temp 95.9(R); Pulse Ox 96% on R/A; Weight 122.47 kg (R); Height 6 ft. 0 in. (182.88 cm) (R); Pain 0/10; 23:30 BP 100 / 43; Pulse 58; Resp 17; Pulse Ox 92% on 40% Venturi mask; lp1 12/16 00:00 BP 87 / 38; Pulse 43; Resp 15; Pulse Ox 96% on 40% Venturi mask; lp1 01:15 BP 105 / 48; Pulse 47; Resp 21 S; Temp 96.1(A); Pulse Ox 98% on 40% Venturi mask; cc3 01:30 BP 114 / 35; Pulse 46; Resp 16 S; Pulse Ox 97% on 40% Venturi mask; cc3 02:00 BP 91 / 34; Pulse 48; Resp 16 S; Temp 96.2(A); Pulse Ox 97% on 40% Venturi mask; cc3 02:15 BP 105 / 51; Pulse 48; Resp 21 S; Temp 96.2(A); Pulse Ox 97% on 40% Venturi mask; cc3 12/15 23:00 Body Mass Index 36.62 (122.47 kg, 182.88 cm) fc [place] Coma Score: 12/15 23:00 Eye Response: none(1). Verbal Response: incomprehensible(2). Motor Response: localizes cc3 pain(5). Total: 8. MDM: 23:11 Patient medically screened. 12/16 01:00 Differential diagnosis: arrythmia, dehydration. Data reviewed: vital signs, nurses tw4 notes. Data interpreted: site monitor:. Test interpretation: by ED physician or midlevel provider: ECG. Counseling: I had a detailed discussion with the patient and/or guardian regarding: the historical points, exam findings, and any diagnostic results supporting the discharge/admit diagnosis. Physician consultation: Trent Patel MD regarding admission, and will see patient in ED. 12/15 23:52 Order name: Basic Metabolic Panel; Complete Time: 00:30 lp1 12/16 00:30 Interpretation: Normal except: CL 108; BUN 66; CRE 2.44; GFR 25. 12/15 23:52 Order name: CBC with Diff; Complete Time: 00:31 lp12/16 00:31 Interpretation: Normal except: RBC 2.59; HGB 8.6; HCT 25.8. 12/15 23:52 Order name: Ckmb; Complete Time: 00:31 lp12/16 00:31 Interpretation: Within normal limits: CKMB 1.4. 12/15 23:52 Order name: CPK; Complete Time: 00:30 lp12/16 00:30 Interpretation: Normal except: CPK 33. 12/15 23:52 Order name: LFT's; Complete Time: 00:30 lp12/16 00:30 Interpretation: Normal except: AST 10; ALT 11; TP 5.8; ALB 2.2; GLOB 3.6; A/G 0.6. 12/15 23:52 Order name: Lipase; Complete Time: 00:31 lp12/16 00:31 Interpretation: Within normal limits: LIP 318. 4 12/15 23:52 Order name: Protime (+inr); Complete Time: 00:31 12/16 00:31 Interpretation: Normal except: PT 13.3. 12/15 23:52 Order name: Ptt, Activated; Complete Time: 00:31 lp12/16 00:31 Interpretation: Within normal limits: PTT 31.9. [facility] 12/15 23:52 Order name: Troponin (emerg Dept Use Only); Complete Time: 00:31 lp12/16 00:31 Interpretation: Normal except: TROPED 0.08. tw4 12/15 23:52 Order name: Urine Microscopic Only [facility] 12/16 00:34 Order name: Lactate [facility] 12/15 23:33 Order name: Chest Single View XRAY 12/15 23:52 Order name: Cardiac monitoring; Complete Time: 00:01 12/15 23:52 Order name: EKG - Nurse/Tech; Complete Time: 00:01 [facility] 12/15 23:52 Order name: IV Saline Lock - Large Bore; Complete Time: 00:01 12/15 23:52 Order name: Labs collected and sent; Complete Time: 00:01 12/15 23:52 Order name: O2 Per Protocol; Complete Time: 00:01 12/15 23:52 Order name: O2 Sat Monitoring; Complete Time: 00:01 12/15 23:52 Order name: Urine Dipstick-Ancillary (obtain specimen); Complete Time: 00:56 [facility] 12/16 00:38 Order name: Blood Culture Adult (2) [facility] 12/16 01:10 Order name: Urine Dipstick--Ancillary (enter results) 2 12/16 01:37 Order name: Heart Healthy EDMS EC:00 Rate is 50 beats/min. Rhythm is regular. QRS [place] is Normal. CO interval is normal. QRS tw4 interval is normal. QT interval is normal. No Q waves. T waves are Flattened in leads III, aVF. No ST changes noted. Clinical impression: Abnormal EKG without significant change and Sinus bradycardia. Interpreted by me. Reviewed by me. Administered Medications: 00:03 CANCELLED (Physician Discretion): NS 0.9% (30 ml/kg) 30 ml/kg IV at bolus once; Sepsis lp1 Protocol 00:15 Drug: NS 0.9% 1000 ml Route: IV; Rate: 1000 ml; Site: left antecubital; lp1 01:30 Follow up: Response: No adverse reaction; IV Status: Completed infusion; IV Intake: cc3 1000ml 01:00 Drug: Zosyn 2.25 grams Route: IVPB; Infused Over: 60 mins; Site: left antecubital; cc3 02:00 Follow up: Response: No adverse reaction; IV Status: Completed infusion; IV Intake: cc3 100ml 02:05 Drug: vancoMYCIN 1 grams Route: IVPB; Infused Over: 2 hrs; Site: left antecubital; cc3 02:15 Follow up: Response: No adverse reaction; IV Status: Infusion continued upon admission cc3 Disposition: 12/16/18 00:37 Hospitalization ordered by Trent Patel for Inpatient Admission. Preliminary diagnosis are Sepsis, unspecified organism, Bradycardia, unspecified. - Bed requested for Intensive Care Unit. - Status is Inpatient Admission. cc3 - Condition is Fair. - Problem is an ongoing problem. - Symptoms are unchanged. UTI on Admission? No Signatures: Dispatcher [employer] [facility] Dorothy Stanley RN RN Ana Zuleta RN RN fc Pena, Laura, RN RN 1 Raffaele Waite MD MD tw4 Yudi Reagan cc3 Corrections: (The following items were deleted from the chart) 00:00 12/15 23:52 Accucheck ordered. 1 [facility] 12/16 00:03 12/15 23:52 NS 0.9% (30 ml/kg) 30 ml/kg IV at bolus once; Sepsis Protocol ordered. [place] [id number] 12/16 00:14 12/15 23:55 Procalcitonin+C.LAB.BRZ ordered. [facility] 12/16 00:19 12/15 23:55 BLOOD CULTURE*+BA.LAB.BRZ ordered. [facility] 12/16 00:19 12/15 23:55 LACTATE+C.LAB.BRZ ordered. [facility] 12/16 00:49 00:37 Hospitalization Ordered by Trent Patel MD for Inpatient Admission. Preliminary mw diagnosis is Sepsis, unspecified organism; Bradycardia, unspecified. Bed requested for Intensive Care Unit. Status is Inpatient Admission. Condition is Fair. Problem is an ongoing problem. Symptoms are unchanged. UTI on Admission? No. tw4 02:54 00:49 12/16/2018 00:37 Hospitalization Ordered by Trent Patel MD for Inpatient cc3 Admission. Preliminary diagnosis is Sepsis, unspecified organism; Bradycardia, unspecified. Bed requested for Intensive Care Unit. Status is Inpatient Admission. Condition is Fair. Problem is an ongoing problem. Symptoms are unchanged. UTI on Admission? No. mw
[2018-12-16 01:01] LABS: Urine Amorphous Sediment 1+ /HPF (NONE SEEN); Urine Bacteria <20 /HPF (NONE SEEN); Urine Culture Reflex Order NOT NEEDED; Urine RBC <5 /HPF (NONE SEEN)
[2018-12-16] MEDS ORDERED: PIPER/TAZO/NS 2.25gm 2.25 GM/50 ML BAG ONE (01:14)
[2018-12-16] MEDS ORDERED: NA CHLORIDE 0.9% 250 ML ONE (01:14)
[2018-12-16] MEDS ORDERED: VANCOMYCIN 1 GM/VIAL ONE (01:14)
[2018-12-16] MEDS ORDERED: ONDANSETRON 4 MG/2 ML VIAL IV PRN (01:30)
[2018-12-16 01:40] LABS: Urine Blood 2+ (NEG); Urine Glucose NEGATIVE (NEG); Urine Protein NEGATIVE (NEG); Urine Specific Gravity 1.015 (1.005-1.030)
[2018-12-16] MEDS: ALBUTEROL 2.5 MG/3 ML NEB SOL NEB SCH ×4 (02:00→20:00)
[2018-12-16] MEDS ORDERED: NA CHLORIDE 0.9% 1,000 ML IV SCH (02:00)
[2018-12-16] MEDS: IPRATROPIUM BROM 0.5MG/2.5ML NEB SCH ×4 (02:00→20:00)
--- NOTE | 2018-12-16 08:23 | RAD REPORT ---
EXAM DESCRIPTION: Rebecca Single View12/15/2018 11:48 pm CLINICAL HISTORY: Congestion COMPARISON: December 13, 2018 FINDINGS: Mild left basilar opacity. Right lung appears clear. The heart is mildly enlarged IMPRESSION: Mild left basilar opacity may represent atelectasis
--- NOTE | 2018-12-16 09:50 | P.HP ---
Certification for Inpatient Patient admitted to: Inpatient With expected LOS: >2 Midnights Patient will require the following post-hospital care: None Practitioner: I am a practitioner with admitting privileges, knowledge of patient current condition, hospital course, and medical plan of care. Services: Services provided to patient in accordance with Admission requirements found in Title 42 Section 412.3 of the Code of Federal Regulations Patient History Date of Service: 12/16/18 Reason for admission: Michele arrhythmia with hypotension History of Present Illness: Patient is an 83-year-old gentleman who was recently discharged from the hospital. At that time, he was treated for septic shock with E coli. This was from his urinary tract. Patient also had atrial fibrillation which was treated with sotalol. Patient was also developing some renal insufficiency and this slowly worsened during his hospital stay. The patient's medication for atrial fibrillation were adjusted. He was discharged home. His home is the [facility]. He had been there for about 24 hr when the hospital was notified the patient was having to come back to the hospital for his low blood pressure and heart rate. Patient was lethargic on arriving to the hospital. patient's heart rate was in the 40s with a systolic blood pressure in the 80s to 90s. Patient does have a do not resuscitate him; however, in light of his heart rate and blood pressure possibly being low because of new medications we decided to admit him to the ICU for closer monitoring. Patient was on Augmentin at discharge which was continued. The patient also appears to have some pleural effusions which we will review as well as a Doppler of the lower extremities. The patient appears to have a pneumonic process. Will need further workup at this time. The patient will be monitored in the ICU until blood pressure and heart rate are more stable. Then we can transfer to the floor for continued hemodynamic monitoring. Allergies acetaminophen [From [place]] Allergy (Verified 12/16/18 03:06) Rash hydrocodone [From [place]] Allergy (Verified 12/16/18 03:06) Rash iodine Allergy (Verified 12/16/18 03:09) Hives tramadol Allergy (Verified 12/06/18 23:20) Unknown Home Medications: Acetaminophen 32 mg PO Q6HP PRN 12/16/18 Amox/Clavulanate [Augmentin 500-125 mg Tab] 500 mg PO BID 12/16/18 Apixaban [Eliquis] 2.5 mg PO BID 12/16/18 Arformoterol Tartrate [Brovana] 1 vial IH BID 12/16/18 Atorvastatin Calcium [Lipitor*] 1 tab PO BEDTIME 12/16/18 Calcium Carbonate [Tums Ultra] 400 mg PO TID 12/16/18 Cholecalciferol (Vitamin D3) [Vitamin D3] 1,000 unit PO DAILY 12/16/18 Cyanocobalamin (Vitamin B-12) [B-12] 1,000 mcg PO DAILY 12/16/18 Donepezil HCl 10 mg PO BEDTIME 12/16/18 Escitalopram [Lexapro] 20 mg PO DAILY 12/16/18 Furosemide [Lasix] 20 mg PO DAILY 12/16/18 Glipizide [Glipizide ER] 5 mg PO BID 12/16/18 Insulin -Regular Human [Novolin -R*] See Protocol SQ AC 12/16/18 Insulin Glargine Human [Lantus] 32 unit SQ DAILY 12/16/18 Ipratropium Mdi [Atrovent Hf] 1 puff IH Q6HP PRN 12/16/18 Ipratropium/Albuterol Sulfate [Iprat-Albut 0.5-3(2.5) mg/3 ml] 1 vial IH Q6HP PRN 12/16/18 Levothyroxine [Synthroid] 50 mcg PO [id number] 12/16/18 Liraglutide [Victoza 2-Gab] 0.6 mg SQ DAILY 12/16/18 Losartan Potassium [Cozaar] 25 mg PO DAILY 12/16/18 Magnesium Oxide [Mag 0X Tab] 400 mg PO DAILY 12/16/18 Medroxyprogesterone Acet [Provera] 10 mg PO DAILY 12/16/18 Memantine HCl [Namenda] 10 mg PO DAILY 12/16/18 Nitroglycerin 0.4 mg SL SEECOM 12/16/18 OXcarbazepine [Trileptal] 150 mg PO BID 12/16/18 Sotalol HCl [Betapace] 40 mg PO BID 12/16/18 Spironolactone [Aldactone] 25 mg PO DAILY 12/16/18 Tamsulosin [Flomax] 0.4 mg PO BEDTIME 12/16/18 Terbinafine HCl [Lamisil] 250 mg PO DAILY 12/16/18 Trazodone [Desyrel] 25 mg PO BEDTIME 12/16/18 - Past Medical/Surgical History Has patient received pneumonia vaccine in the past: Yes Diabetic: Yes -: IDDM -: Hyperlipidemia -: HTN -: Hypothyroid -: CVA -: Bronchiolitis -: CAD -: COPD -: gerd -: heart failure -: BPH -: heart stent x2 -: Balloon angioplasty -: broke both arm when 4yrs old - Family History Father Medical History: Lung disease Notes: black lung Mother Medical History: Cancer - Social History Smoking Status: Former smoker Alcohol use: No CD- Drugs: No Caffeine use: Yes Place of Residence: Home Review of Systems 10-point ROS is otherwise unremarkable (a for her her for apoint review of systems negative the cord there a 3 by the clock for the) Physical Examination - Vital Signs Temperature: 99 F Blood Pressure: 99/50 Pulse: 54 Respirations: 18 Pulse Ox (%): 100 - Physical Exam General: Alert, Oriented x1, Moderate distress, Confused HEENT: Atraumatic, PERRLA, Mucous membr. moist/pink, EOMI, Sclerae nonicteric Neck: Supple, 2+ carotid pulse no bruit, No LAD, Without JVD or thyroid abnormality Respiratory: Crackles/rales, Expiratory wheezes Cardiovascular: Regular rate/rhythm, Normal S1 S2, Systolic murmur Gastrointestinal: Normal bowel sounds, Soft and benign, Non-distended, No tenderness Musculoskeletal: No tenderness Integumentary: No rashes Neurological: Normal speech, Normal tone, Sensation intact, Cranial nerves 3-12 intact, Normal affect, Abnormal gait, Abnormal tone Lymphatics: No axilla or inguinal lymphadenopathy - Studies Laboratory Data (last 24 hrs) 12/15/18 23:05: PT 13.3 H, INR 1.13, APTT 31.9 12/15/18 23:05: WBC 5.6, Hgb 8.6 L, Hct 25.8 L, Plt Count 164 12/15/18 23:05: Sodium 143, Potassium 4.7, BUN 66 H, Creatinine 2.44 H, Glucose 79, Total Bilirubin 0.2, AST 10 L, ALT 11 L, Alkaline Phosphatase 46, Lipase 318 Assessment & Plan - Problems (Diagnosis) (1) Bradycardia by electrocardiogram Current Visit: Yes Status: Acute (2) Hypotension Current Visit: Yes Status: Acute (3) Current use of beta benita Current Visit: Yes Status: Acute (4) Dehydration Onset Date: 08/20/16 Current Visit: No Status: Acute (5) Diastolic CHF, acute Onset Date: 05/06/17 Current Visit: No Status: Acute (6) Dyspnea Onset Date: 08/18/16 Current Visit: No Status: Acute (7) Hyperkalemia Current Visit: No Status: Acute (8) Hypertension Onset Date: 09/01/16 Current Visit: No Status: Acute (9) Hypoglycemia Current Visit: No Status: Acute (10) Pneumonia Current Visit: No Status: Acute Qualifiers: Pneumonia type: due to unspecified organism Laterality: left Lung location: lower lobe of lung Qualified Code(s): J18.1 - Lobar pneumonia, unspecified organism (11) Diabetes mellitus Onset Date: 10/03/15 Current Visit: No Status: Chronic Qualifiers: Diabetes mellitus type: type 2 Diabetes mellitus long term acute care registered nurse insulin use: with long term acute care registered nurse use Diabetes mellitus complication status: without complication Qualified Code(s): E11.9 - Type 2 diabetes mellitus without complications; 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 We will hold sotalol 2. We will hold diuretics for worsening renal insufficiency 3. Cardiology consultation 4. Continue anticoagulation 5. We will monitor electrolytes as well 6. Wwe also need to continue the antibiotics that the patient was taken. 7. Anticipate discharge home in 72 hr. 8. GI and DVT prophylaxis Discharge Plan: Home Plan to discharge in: Greater than 2 days - Advance Directives Does patient have a Living Will: No Does patient have a Durable POA for Healthcare: No - Code Status/Comfort Care Code Status Assessed: Yes Code Status: Do Not Resuscitate Critical Care: No Time Spent Managing PTS Care (In Minutes): 40
--- NOTE | 2018-12-16 11:11 | EKG ---
Test Date: 2018-12-15 Test Time: 23:04:23 Product Analyst: MEASUREMENT RESULTS: Intervals: Rate: 50 AK: 164 QRSD: 112 QT: 512 QTc: 466 [place]: P: 31 AK: 164 QRS: 16 T: 32 INTERPRETIVE STATEMENTS: Sinus bradycardia Anterior infarct, age undetermined Abnormal ECG Compared to ECG 12/12/2018 12:49:55 Myocardial infarct finding now present Electronically Signed On 12-16-18 11:09:41 CDT by Héctor Hatfield
[2018-12-16] MEDS: CALCIUM CARBONATE 400 MG PO SCH ×2 (13:31→21:00)
--- NOTE | 2018-12-16 15:33 | CON ---
Date of Consultation: 12/16/2018 Reason For Consultation: Bradycardia and hypotension. History Of Present Illness: Mr. Ford is an 83-year-old white male, known to us from previous office visits and hospital admissions. He has a very extensive past medical history. He came in with weakn ess, presyncope, noted to have bradycardia and hypotension. Denied fever or chills or cough. Denied PND, orthopnea, pedal edema. Denied palpitation. He was noted to have a heart rate of 50 and blood pressure in the 90s and was admitted for further evaluation and treatment. Past Medical History: Include cerebrovascular disease, anemia of chronic renal insufficiency, chroni c diastolic congestive heart failure, liver toxicity, diabetes, neuropathy, COPD, depression, hyperte nsion, gastroesophageal reflux disease as well as coronary artery disease. He also has a history of dyslipidemia and dementia. Allergies: HE IS ALLERGIC TO CODEINE, TYLENOL, TRAMADOL, AND IODINE. Review of Systems: Negative. Social History: Negative. Family History: Noncontributory. Medications: At home include Eliquis, Namenda, insulin, Brovana, Lipitor, Synthroid, Lasix, Cozaar, sotalol 40 b.i.d., glipizide, Flomax, and Aldactone. Physical Examination: General: Mr. Ford was somnolent. Vital signs: Stable. He was in a sinus bradycardia rate of 50. He was afebrile. Blood pressure to day was 110/60. HEENT Exam: Negative. Neck: Supple without any bruit, lymphadenopathy, JVD, or thyromegaly. Chest: Clear to auscultation and percussion. Cardiac Exam: Revealed bradycardia with S4 gallops. No murmurs or rubs. Abdomen: Benign. Extremities: Revealed no clubbing, cyanosis, or edema. Diagnostic Data: That were available to me including echocardiogram just last month showing normal e jection fraction. His creatinine is 2.59, hemoglobin is 8.6. His troponin is 0.08. EKG shows sinus bradycardia. Chest x-ray is negative. Impression And Plan: 1.Bradycardia and hypotension secondary to polypharmacy. I will for now stop his sotalol and see ho w he does. I will continue the Eliquis, hydrate him, and he can move to telemetry. No need for furt her cardiac workup. 2.Dementia. 3.Chronic obstructive pulmonary disease. 4.Diabetes, controlled. 5.Hypothyroidism, on Synthroid. 6.Dyslipidemia, on Lipitor. 7.Hypertension that is certainly very stable, right now on Cozaar. 8.Atrial fibrillation. We will continue Eliquis. This has resolved. We will discontinue sotalol. 9.Benign prostatic hypertrophy. 10.Chronic renal insufficiency, stage 4. 11.Anemia. 12.Elevated troponin of 0.08 secondary to hypotension. 13.We will see how Mr. Ford does off sotalol. I will discuss the case with Dr. Patel. The patient c an go home tomorrow if his blood pressure and rhythm are stable. SLADE/MODL Voice ID: [id number] Report ID: [id number]
[2018-12-16] MEDS: ARFORMOTEROL TARTRATE 15 MCG/2 ML VIAL.NEB IH SCH (20:00)
[2018-12-16] MEDS ORDERED: ARFORMOTEROL TARTRATE 15 MCG/2 ML VIAL.NEB IH SCH (21:00)
[2018-12-16] MEDS: OXcarbazepine 150 MG TAB PO SCH (21:00)
[2018-12-16] MEDS: DONEPEZIL HCL 5 MG TAB PO SCH (21:34)
[2018-12-16] MEDS: TRAZODONE 50 MG TABLET PO SCH (21:34)
[2018-12-16] MEDS: ATORVASTATIN 20 MG TAB PO SCH (21:35)
[2018-12-16] MEDS: APIXABAN 2.5 MG TABLET PO SCH (21:35)
[2018-12-17] MEDS: IPRATROPIUM BROM 0.5MG/2.5ML NEB SCH ×4 (02:00→19:30)
[2018-12-17] MEDS: ALBUTEROL 2.5 MG/3 ML NEB SOL NEB SCH ×4 (02:00→19:30)
[2018-12-17] MEDS: LEVOTHYROXINE SOD 0.05 MG TABLET PO SCH (05:07)
[2018-12-17] MEDS: ARFORMOTEROL TARTRATE 15 MCG/2 ML VIAL.NEB IH SCH ×2 (08:12→19:30)
[2018-12-17] MEDS: MEDROXYPROGESTERONE 5 MG TAB PO SCH (09:00)
[2018-12-17] MEDS: CALCIUM CARBONATE 400 MG PO SCH ×3 (09:00→19:35)
[2018-12-17] MEDS: OXcarbazepine 150 MG TAB PO SCH ×2 (09:00→21:59)
[2018-12-17] MEDS: ESCITALOPRAM 20 MG TAB PO SCH (09:08)
[2018-12-17] MEDS: MEMANTINE HCL 10 MG TABLET PO SCH (09:08)
[2018-12-17] MEDS: MAGNESIUM OXIDE 400 MG TAB PO SCH (09:08)
[2018-12-17] MEDS: LOSARTAN POTASSIUM 50 MG TABLET PO SCH (09:09)
[2018-12-17] MEDS: VITAMIN D 1000 UNIT TAB PO SCH (09:09)
[2018-12-17] MEDS: APIXABAN 2.5 MG TABLET PO SCH ×2 (09:09→22:00)
[2018-12-17] MEDS: CYANOCOBALAMIN 1,000 MCG TAB PO SCH (09:09)
[2018-12-17 09:55] LABS: Arterial Blood Carboxyhemoglob 1.7 % (0-1.5); Blood Gas Oxyhemoglobin 94.6 % (94-97)
--- NOTE | 2018-12-17 10:03 | RAD REPORT ---
EXAM DESCRIPTION: RAD - Chest Single View - 12/17/2018 9:45 am CLINICAL HISTORY: SOB Chest pain. COMPARISON: Chest Single View dated 12/15/2018; Chest Single View dated 12/13/2018; Chest Single View da nancy 12/11/2018; Chest Single View dated 12/10/2018 FINDINGS: Portable technique limits examination quality. The lungs are grossly clear. The heart is prominent in size. No displaced fractures.Examination is li mited by patient positioning and portable technique.
--- NOTE | 2018-12-17 12:07 | P.PN ---
Subjective Date of Service: 12/17/18 Chief Complaint: Michele arrhythmia with hypotension Patient seen and examined at bedside with RN. Chart reviewed. Case discussed with cardiology. This morning patient did appear to be more somnolent and lethargic. No fever chills nausea vomiting or chest pain noted overnight. ABGs has been ordered at this time now. Review of Systems 10-point ROS is otherwise unremarkable Physical Examination - Vital Signs Temperature: 97.1 F Blood Pressure: 153/57 Pulse: 53 Respirations: 16 Pulse Ox (%): 97 - Physical Exam General: In no apparent distress, Other (Somnolent and lethargic) Neck: JVD distended Respiratory: Normal air movement, Crackles/rales Cardiovascular: Regular rate/rhythm, Normal S1 S2 Gastrointestinal: Normal bowel sounds, No tenderness Musculoskeletal: No tenderness Integumentary: No rashes Neurological: Normal speech, Normal tone, Normal affect Lymphatics: No axilla or inguinal lymphadenopathy - Studies Medications List Reviewed: Yes Assessment And Plan - Current Problems (Diagnosis) (1) Respiratory failure with hypoxia and hypercapnia Onset Date: 05/06/17 Current Visit: No Status: Chronic Plan: Acute on chronic respiratory failure most likely secondary to hypercapnia. Patient currently does have LA[place]IS[place] however not using his BiPAP -ABGs this morning concerning with hypercapnia -patient placed on BiPAP at this time -will wean as tolerated Qualifiers: Chronicity: acute on chronic Qualified Code(s): J96.21 - Acute and chronic respiratory failure with hypoxia; J96.22 - Acute and chronic respiratory failure with hypercapnia; J96.22 - Acute and chronic respiratory failure with hypercapnia; J96.22 - Acute and chronic respiratory failure with hypercapnia (2) Bradycardia by electrocardiogram Current Visit: Yes Status: Acute Plan: Patient with bradycardia on electrocardiogram along with hypertension most likely secondary to the use of Betapace -currently Betapace on hold. -cardiology consulted. Appreciated recommendations at this time -will monitor patient closely here in the hospital for any further episode of bradycardia. (3) Acute encephalopathy Current Visit: No Status: Acute Plan: Acute metabolic encephalopathy most likely secondary to hypercapnia -patient now on BiPAP -initial lab work negative for any other etiology (4) Hypothyroidism Onset Date: 09/01/16 Current Visit: No Status: Chronic Plan: Restarted on levothyroxine Qualifiers: Hypothyroidism type: acquired Qualified Code(s): E03.9 - Hypothyroidism, unspecified (5) CAD (coronary artery disease) Onset Date: 08/04/16 Current Visit: No Status: Chronic Plan: Restarted on home medication Qualifiers: Coronary Disease-Associated Artery/Lesion type: [place] artery [place] vs. transplanted heart: [place] heart Associated angina: without angina Qualified Code(s): I25.10 - Atherosclerotic heart disease of [place] coronary artery without angina pectoris (6) CHF (congestive heart failure) Onset Date: 10/03/15 Current Visit: No Status: Chronic Qualifiers: Qualified Code(s): I50.32 - Chronic diastolic (congestive) heart failure (7) COPD (chronic obstructive pulmonary disease) Onset Date: 10/03/15 Current Visit: No Status: Chronic (8) Dementia Onset Date: 08/06/18 Current Visit: No Status: Chronic Qualifiers: Dementia type: unspecified type Dementia behavioral disturbance: without behavioral disturbance Qualified Code(s): F03.90 - Unspecified dementia without behavioral disturbance (9) Essential hypertension Onset Date: 08/18/16 Current Visit: No Status: Chronic - Plan Monitor patient closely here in the hospital. Pending clinical improvement. Will continue with BiPAP and wean as tolerated. Discharge Plan: Home Plan to discharge in: Greater than 2 days - Code Status/Comfort Care Code Status Assessed: Yes Critical Care: No
--- NOTE | 2018-12-17 12:39 | PN ---
Date of Progress Note: 12/17/2018 Mr. Ford was admitted with bradycardia and hypotension thought secondary to sotalol. The sotalol was held. He remained with a heart rate in the 50s asymptomatic. Blood pressure is over 120. The rajni ent is not experiencing any CAD or CHF symptoms. As far as I am concerned, he can go home whenever i t is okay with his primary care physician and we will see him in the office in the next 2 weeks. I w ould prefer he stays without his sotalol for now. SLADE/KARMA Voice ID: [id number] Report ID: [id number]
[2018-12-17] MEDS: DONEPEZIL HCL 5 MG TAB PO SCH (21:59)
[2018-12-17] MEDS: ATORVASTATIN 20 MG TAB PO SCH (21:59)
[2018-12-17] MEDS: ACETAMINOPHEN 500 MG TAB PO PRN (22:00)
[2018-12-17] MEDS: TRAZODONE 50 MG TABLET PO SCH (22:00)
[2018-12-18] MEDS: IPRATROPIUM BROM 0.5MG/2.5ML NEB SCH ×4 (01:30→20:30)
[2018-12-18] MEDS: ALBUTEROL 2.5 MG/3 ML NEB SOL NEB SCH ×4 (01:30→20:30)
[2018-12-18] MEDS: LEVOTHYROXINE SOD 0.05 MG TABLET PO SCH (05:13)
[2018-12-18] MEDS: ARFORMOTEROL TARTRATE 15 MCG/2 ML VIAL.NEB IH SCH ×2 (07:36→20:30)
[2018-12-18] MEDS: CALCIUM CARBONATE 400 MG PO SCH ×2 (09:00→14:00)
[2018-12-18] MEDS: ESCITALOPRAM 20 MG TAB PO SCH (09:12)
[2018-12-18] MEDS: CYANOCOBALAMIN 1,000 MCG TAB PO SCH (09:13)
[2018-12-18] MEDS: VITAMIN D 1000 UNIT TAB PO SCH (09:13)
[2018-12-18] MEDS: FUROSEMIDE 20 MG TABLET PO SCH (09:14)
[2018-12-18] MEDS: MEMANTINE HCL 10 MG TABLET PO SCH (09:14)
[2018-12-18] MEDS: MAGNESIUM OXIDE 400 MG TAB PO SCH (09:14)
[2018-12-18] MEDS: APIXABAN 2.5 MG TABLET PO SCH ×2 (09:16→20:16)
[2018-12-18] MEDS: MEDROXYPROGESTERONE 5 MG TAB PO SCH (09:17)
[2018-12-18] MEDS: OXcarbazepine 150 MG TAB PO SCH ×2 (09:17→20:16)
[2018-12-18] MEDS: LOSARTAN POTASSIUM 50 MG TABLET PO SCH (09:19)
[2018-12-18] MEDS: SPIRONOLACTONE 25 MG TABLET PO SCH (09:19)
--- NOTE | 2018-12-18 10:55 | P.PN ---
Subjective Date of Service: 12/18/18 Chief Complaint: Michele arrhythmia with hypotension Patient seen and examined at bedside with RN. Chart reviewed. Case discussed with cardiology. Pt is now on BIPAP doing well. More alert than before. Continues to improve. Denies SOB, CP or any other symptoms Review of Systems 10-point ROS is otherwise unremarkable Physical Examination - Vital Signs Temperature: 97.3 F Blood Pressure: 127/47 Pulse: 60 Respirations: 18 Pulse Ox (%): 100 - Physical Exam General: Alert, Mild distress Respiratory: Normal air movement, Crackles/rales Cardiovascular: Regular rate/rhythm, Normal S1 S2 Gastrointestinal: Normal bowel sounds, No tenderness Musculoskeletal: No tenderness Integumentary: No rashes Neurological: Normal speech, Normal tone, Normal affect Lymphatics: No axilla or inguinal lymphadenopathy - Studies Medications List Reviewed: Yes Assessment And Plan - Current Problems (Diagnosis) (1) Respiratory failure with hypoxia and hypercapnia Onset Date: 05/06/17 Current Visit: No Status: Chronic Plan: Acute on chronic respiratory failure most likely secondary to hypercapnia. Patient currently does have LAKEISHA however not using his BiPAP -Improving on BIPAP at this time. ABG pending at this time. -Duonebs, wean BIPAP as tolerated Qualifiers: Chronicity: acute on chronic Qualified Code(s): J96.21 - Acute and chronic respiratory failure with hypoxia; J96.22 - Acute and chronic respiratory failure with hypercapnia; J96.22 - Acute and chronic respiratory failure with hypercapnia; J96.22 - Acute and chronic respiratory failure with hypercapnia (2) Bradycardia by electrocardiogram Current Visit: Yes Status: Acute Plan: Patient with bradycardia on electrocardiogram along with hypertension most likely secondary to the use of Betapace -currently Betapace on hold. -cardiology consulted. Appreciated recommendations at this time -will monitor patient closely here in the hospital for any further episode of bradycardia. (3) Acute encephalopathy Current Visit: No Status: Acute Plan: Acute metabolic encephalopathy most likely secondary to hypercapnia -patient now on BiPAP. -AAOx3 today. -If no improvement today will get Head CT to further evaluate. -Blood culture and Urine Culture negative (4) Hypothyroidism Onset Date: 09/01/16 Current Visit: No Status: Chronic Plan: Restarted on levothyroxine Qualifiers: Hypothyroidism type: acquired Qualified Code(s): E03.9 - Hypothyroidism, unspecified (5) CAD (coronary artery disease) Onset Date: 08/04/16 Current Visit: No Status: Chronic Plan: Restarted on home medication Qualifiers: Coronary Disease-Associated Artery/Lesion type: [place] artery [place] vs. transplanted heart: [place] heart Associated angina: without angina Qualified Code(s): I25.10 - Atherosclerotic heart disease of [place] coronary artery without angina pectoris (6) CHF (congestive heart failure) Onset Date: 10/03/15 Current Visit: No Status: Chronic Qualifiers: Qualified Code(s): I50.32 - Chronic diastolic (congestive) heart failure (7) COPD (chronic obstructive pulmonary disease) Onset Date: 10/03/15 Current Visit: No Status: Chronic Qualifiers: COPD type: chronic bronchitis Chronic bronchitis type: simple Qualified Code(s): J41.0 - Simple chronic bronchitis (8) Dementia Onset Date: 08/06/18 Current Visit: No Status: Chronic Qualifiers: Dementia type: unspecified type Dementia behavioral disturbance: without behavioral disturbance Qualified Code(s): F03.90 - Unspecified dementia without behavioral disturbance (9) Essential hypertension Onset Date: 08/18/16 Current Visit: No Status: Chronic - Plan Monitor patient closely here in the hospital. Pending clinical improvement. Will continue with BiPAP and wean as tolerated.
[2018-12-18 11:00] LABS: Arterial Blood Carboxyhemoglob 1.8 % (0-1.5); Blood O2 Saturation 92.3 % (92-98.5)
--- NOTE | 2018-12-18 11:46 | RAD REPORT ---
EXAM DESCRIPTION: Rebecca Single View12/18/2018 11:30 am CLINICAL HISTORY: Chest pain COMPARISON: December 17, 2018 FINDINGS: Small left pleural is suspected. Left basilar opacities may represent atelectasis or pneu monia. Right lung appears clear of acute infiltrate. The heart is mildly to moderately enlarged
[2018-12-18 11:56] LABS: Albumin 2.1 g/dL (3.4-5.0); Bilirubin Total 0.2 mg/dL (0.2-1.0); Protein, Total 5.9 g/dL (6.4-8.2)
[2018-12-18 12:03] LABS: Potassium 6.1 mmol/L (3.5-5.1)
[2018-12-18 12:18] LABS: Absolute Lymphocytes (CBC) 1.5 K/uL (0.7-4.9); Absolute Monocytes 0.4 K/uL (0.1-1.3); Absolute Neutrophil 6.6 K/uL (1.8-8.0); Basophils % 1.3 % (0-1.3); Eosinophils % 1.8 % (0-4.4); Hematocrit 26.3 % (39.6-49.0); Lymphocytes % 16.7 % (15.3-44.8); MPV 9.1 fL (7.6-11.3); Monocytes % 4.4 % (3.3-12.3); RBC Red Blood Cell Count 2.67 M/uL (4.33-5.43)
[2018-12-18] MEDS ORDERED: D50W 25 GM/50 ML SYRINGE IV PRN (12:57)
[2018-12-18] MEDS ORDERED: GLUCAGON 1 MG/VIAL IM PRN (12:57)
[2018-12-18] MEDS: INSULIN -REGULAR HUMAN 50 UNIT/0.5 ML ML SQ SCH ×3 (13:13→20:17)
[2018-12-18] MEDS ORDERED: CALCIUM CARBONATE 500 MG TAB PO SCH (15:00)
[2018-12-18] MEDS: CALCIUM CARBONATE CHEW 500MG TAB PO SCH ×2 (15:38→20:15)
[2018-12-18] MEDS: TRAZODONE 50 MG TABLET PO SCH (20:15)
[2018-12-18] MEDS: ATORVASTATIN 20 MG TAB PO SCH (20:16)
[2018-12-18] MEDS: DONEPEZIL HCL 5 MG TAB PO SCH (20:16)
[2018-12-19] MEDS: IPRATROPIUM BROM 0.5MG/2.5ML NEB SCH ×4 (01:55→20:00)
[2018-12-19] MEDS: ALBUTEROL 2.5 MG/3 ML NEB SOL NEB SCH ×4 (01:55→20:00)
[2018-12-19] MEDS: LEVOTHYROXINE SOD 0.05 MG TABLET PO SCH (06:11)
[2018-12-19] MEDS: INSULIN -REGULAR HUMAN 50 UNIT/0.5 ML ML SQ SCH ×4 (07:30→21:00)
[2018-12-19] MEDS: ARFORMOTEROL TARTRATE 15 MCG/2 ML VIAL.NEB IH SCH ×2 (08:00→20:00)
[2018-12-19] MEDS: OXcarbazepine 150 MG TAB PO SCH ×2 (08:28→21:30)
[2018-12-19] MEDS: MEDROXYPROGESTERONE 5 MG TAB PO SCH (08:29)
[2018-12-19] MEDS: CYANOCOBALAMIN 1,000 MCG TAB PO SCH (08:30)
[2018-12-19] MEDS: FUROSEMIDE 20 MG TABLET PO SCH (08:30)
[2018-12-19] MEDS: MAGNESIUM OXIDE 400 MG TAB PO SCH (08:30)
[2018-12-19] MEDS: SPIRONOLACTONE 25 MG TABLET PO SCH (08:32)
[2018-12-19] MEDS: LOSARTAN POTASSIUM 50 MG TABLET PO SCH (08:32)
[2018-12-19] MEDS: CALCIUM CARBONATE CHEW 500MG TAB PO SCH ×3 (08:33→21:31)
[2018-12-19] MEDS: ESCITALOPRAM 20 MG TAB PO SCH (08:33)
[2018-12-19] MEDS: APIXABAN 2.5 MG TABLET PO SCH ×2 (08:34→21:30)
[2018-12-19] MEDS: MEMANTINE HCL 10 MG TABLET PO SCH (08:36)
[2018-12-19] MEDS: VITAMIN D 1000 UNIT TAB PO SCH (08:38)
[2018-12-19 10:48] LABS: Absolute Lymphocytes (CBC) 1.4 K/uL (0.7-4.9); Absolute Monocytes 0.4 K/uL (0.1-1.3); Absolute Neutrophil 5.9 K/uL (1.8-8.0); Basophils % 0.4 % (0-1.3); Eosinophils % 1.2 % (0-4.4); Hematocrit 25.6 % (39.6-49.0); Lymphocytes % 17.7 % (15.3-44.8); MPV 7.3 fL (7.6-11.3); Monocytes % 4.8 % (3.3-12.3); RBC Red Blood Cell Count 2.59 M/uL (4.33-5.43)
[2018-12-19 11:12] LABS: Albumin 2.1 g/dL (3.4-5.0); Bilirubin Total 0.2 mg/dL (0.2-1.0); Protein, Total 5.7 g/dL (6.4-8.2)
--- NOTE | 2018-12-19 11:23 | P.PN ---
Subjective Date of Service: 12/19/18 Chief Complaint: Michele arrhythmia with hypotension Patient seen and examined at bedside with RN. Chart reviewed. Cardiology patient this morning appears to be alert than before. Patient states that he would like to go back to the [facility] as this place confused him. Patient is refusing BiPAP overnight. This morning however has been saturating well overall. CBC and CMP is pending at this time. Review of Systems 10-point ROS is otherwise unremarkable Physical Examination - Vital Signs Temperature: 98.2 F Blood Pressure: 153/69 Pulse: 69 Respirations: 18 Pulse Ox (%): 98 - Physical Exam General: In no apparent distress, Oriented x1 Respiratory: Clear to auscultation bilaterally, Normal air movement Cardiovascular: Regular rate/rhythm, Normal S1 S2 Gastrointestinal: Normal bowel sounds, No tenderness Musculoskeletal: No tenderness Integumentary: No rashes Neurological: Normal speech, Normal tone, Normal affect Lymphatics: No axilla or inguinal lymphadenopathy - Studies Medications List Reviewed: Yes Assessment And Plan - Current Problems (Diagnosis) (1) Respiratory failure with hypoxia and hypercapnia Onset Date: 05/06/17 Current Visit: No Status: Chronic Plan: Acute on chronic respiratory failure most likely secondary to hypercapnia. Patient currently does have LAKEISHA however not using his BiPAP -Improving on BIPAP at this time. Currently on nasal cannula as he is refusing to use the BiPAP. Educated extensively on use of BiPAP. States that he will use BiPAP after he is done with his breakfast -Duonebs, nasal cannula at this time. -will monitor for next 24-48 hr for any acute worsening. Qualifiers: Chronicity: acute on chronic Qualified Code(s): J96.21 - Acute and chronic respiratory failure with hypoxia; J96.22 - Acute and chronic respiratory failure with hypercapnia; J96.22 - Acute and chronic respiratory failure with hypercapnia; J96.22 - Acute and chronic respiratory failure with hypercapnia (2) Bradycardia by electrocardiogram Current Visit: Yes Status: Acute Plan: Patient with bradycardia on electrocardiogram along with hypertension most likely secondary to the use of Betapace -currently Betapace has been stopped -cardiology consulted. Appreciated recommendations at this time -will monitor patient closely here in the hospital for any further episode of bradycardia. (3) Acute encephalopathy Current Visit: No Status: Acute Plan: Acute metabolic encephalopathy most likely secondary to hypercapnia -patient currently on BiPAP. However is refusing it with states I will use it after breakfast after extensive education -AAOx3 today. However does state that being in the hospital makes him confused. There may be a component of hospital associated delirium -If no improvement in the next 24-48 [address] will get [address] to further evaluate. No neurological deficits noted at this time -Blood culture and Urine Culture negative (4) Hypothyroidism Onset Date: 09/01/16 Current Visit: No Status: Chronic Plan: Restarted on levothyroxine Qualifiers: Hypothyroidism type: acquired Qualified Code(s): E03.9 - Hypothyroidism, unspecified (5) CAD (coronary artery disease) Onset Date: 08/04/16 Current Visit: No Status: Chronic Plan: Restarted on home medication Qualifiers: Coronary Disease-Associated Artery/Lesion type: [place] artery [place] vs. transplanted heart: [place] heart Associated angina: without angina Qualified Code(s): I25.10 - Atherosclerotic heart disease of [place] coronary artery without angina pectoris (6) CHF (congestive heart failure) Onset Date: 10/03/15 Current Visit: No Status: Chronic Plan: Now has been restarted on his Lasix and spironolactone. Qualifiers: Qualified Code(s): I50.32 - Chronic diastolic (congestive) heart failure (7) COPD (chronic obstructive pulmonary disease) Onset Date: 10/03/15 Current Visit: No Status: Chronic Qualifiers: COPD type: chronic bronchitis Chronic bronchitis type: simple Qualified Code(s): J41.0 - Simple chronic bronchitis (8) Dementia Onset Date: 08/06/18 Current Visit: No Status: Chronic Qualifiers: Dementia type: unspecified type Dementia behavioral disturbance: without behavioral disturbance Qualified Code(s): F03.90 - Unspecified dementia without behavioral disturbance (9) Essential hypertension Onset Date: 08/18/16 Current Visit: No Status: Chronic - Plan Patient pending clinical improvement at this time. Will continue with BiPAP p.r.n. along with nasal cannula. Will have patient worked with physical therapy while here in the hospital. Also patient currently hypercalcemic and thrombocytopenic. Will wait for repeat lab work this morning. Will provide treatment appropriately. Discharge Plan: Custodial Plan to discharge in: 48 Hours - Code Status/Comfort Care Code Status Assessed: Yes Critical Care: No
[2018-12-19] MEDS ORDERED: SOD POLYSTYREN SUL 15 GM/60 ML UCUP PO ONE (12:00)
[2018-12-19] MEDS ORDERED: CALCIUM GLUC 10% INJ 4.65 MEQ in NA CHLORIDE 0.9% 100 ML IV ONE (13:00)
[2018-12-19] MEDS: DONEPEZIL HCL 5 MG TAB PO SCH (21:30)
[2018-12-19] MEDS: MOXIFLOXACIN HCL 0.5% 3ML OPTH OPTH SCH (21:31)
[2018-12-19] MEDS: TRAZODONE 50 MG TABLET PO SCH (21:31)
[2018-12-19] MEDS: ATORVASTATIN 20 MG TAB PO SCH (21:31)
[2018-12-20] MEDS: ALBUTEROL 2.5 MG/3 ML NEB SOL NEB SCH ×4 (02:00→20:00)
[2018-12-20] MEDS: IPRATROPIUM BROM 0.5MG/2.5ML NEB SCH ×4 (02:00→20:00)
[2018-12-20] MEDS ORDERED: SOD POLYSTYREN SUL 15 GM/60 ML UCUP PO ONE (03:12)
[2018-12-20] MEDS: LEVOTHYROXINE SOD 0.05 MG TABLET PO SCH (05:22)
[2018-12-20] MEDS: INSULIN -REGULAR HUMAN 50 UNIT/0.5 ML ML SQ SCH ×4 (07:30→21:00)
[2018-12-20 08:24] LABS: Magnesium 2.3 mg/dL (1.8-2.4); Potassium 5.5 mmol/L (3.5-5.1)
[2018-12-20 08:34] LABS: Absolute Lymphocytes (CBC) 1.2 K/uL (0.7-4.9); Absolute Monocytes 0.4 K/uL (0.1-1.3); Absolute Neutrophil 5.2 K/uL (1.8-8.0); Basophils % 0.5 % (0-1.3); Eosinophils % 1.7 % (0-4.4); Hematocrit 27.9 % (39.6-49.0); Lymphocytes % 17.4 % (15.3-44.8); MPV 7.9 fL (7.6-11.3); Monocytes % 6.1 % (3.3-12.3); RBC Red Blood Cell Count 2.85 M/uL (4.33-5.43)
[2018-12-20] MEDS: ARFORMOTEROL TARTRATE 15 MCG/2 ML VIAL.NEB IH SCH ×2 (08:37→20:00)
[2018-12-20] MEDS: VITAMIN D 1000 UNIT TAB PO SCH (08:44)
[2018-12-20] MEDS: MOXIFLOXACIN HCL 0.5% 3ML OPTH OPTH SCH ×2 (08:44→21:11)
[2018-12-20] MEDS: FUROSEMIDE 20 MG TABLET PO SCH (08:44)
[2018-12-20] MEDS: CALCIUM CARBONATE CHEW 500MG TAB PO SCH ×3 (08:45→21:11)
[2018-12-20] MEDS: LACTOBACILLUS/ACIDOPHILUS TAB PO SCH ×2 (08:45→21:09)
[2018-12-20] MEDS: ESCITALOPRAM 20 MG TAB PO SCH (08:45)
[2018-12-20] MEDS: APIXABAN 2.5 MG TABLET PO SCH ×2 (08:45→21:08)
[2018-12-20] MEDS: MEMANTINE HCL 10 MG TABLET PO SCH (08:45)
[2018-12-20] MEDS: MAGNESIUM OXIDE 400 MG TAB PO SCH (08:45)
[2018-12-20] MEDS: OXcarbazepine 150 MG TAB PO SCH ×2 (08:45→21:11)
[2018-12-20] MEDS: CYANOCOBALAMIN 1,000 MCG TAB PO SCH (08:46)
[2018-12-20] MEDS: MEDROXYPROGESTERONE 5 MG TAB PO SCH (08:46)
[2018-12-20] MEDS: ACETAMINOPHEN 500 MG TAB PO PRN (12:04)
--- NOTE | 2018-12-20 15:42 | P.PN ---
Subjective Date of Service: 12/20/18 Primary Care Provider: [facility] Chief Complaint: Michele arrhythmia with hypotension Subjective: Improving Physical Examination - Vital Signs Temperature: 98.4 F Blood Pressure: 116/61 Pulse: 81 Respirations: 18 Pulse Ox (%): 98 - Physical Exam General: Alert, In no apparent distress, Oriented x3, Cooperative HEENT: Atraumatic Neck: Supple Respiratory: Expiratory wheezes Cardiovascular: Normal pulses, Regular rate/rhythm Gastrointestinal: No tenderness, No masses, No rebound, No guarding Musculoskeletal: No tenderness, No warmth Neurological: Normal speech, Normal strength at 5/5 x4 extr, Normal tone, Normal affect, Dementia - Studies Medications List Reviewed: Yes Assessment & Plan Discharge Plan: Retirement Plan to discharge in: 24 Hours Physician Review Additional Text: Impression: Acute on chronic respiratory failure with hypercapnia and hypoxia with COPD exacerbation Bradycardia secondary to medication Atrial fibrillation on chronic anti coagulation therapy Hypothyroidism Dementia Chronic systolic CHF Hyperlipidemia Anemia of chronic disease with iron and B12 deficiency Hyperkalemia Plan: Patient continues to improve. Will try to wean off oxygen. Patient likely will require oxygen at discharge. Patient now off BiPAP. Will continue to assess. Will continue with COPD medication. Patient no longer taking Betapace due to bradycardia. Patient on chronic anti coalition therapy. Patient in normal sinus rhythm. Continue with Thyroid medication. Will continue with CHF medication along with fluid restriction. Patient with hyperkalemia. Patient given Kayexalate. Will continue to monitor closely. Will recheck potassium later today. Patient reported some diarrhea today likely from Kayexalate. Patient without any significant confusion. Continue with his dementia and depression medication. Overall stable. Anticipate discharge in the next 24 hr back to the [facility] if clinically improved. Will recheck chest x-ray and lab tomorrow.Will need to monitor closely. Time Spent Managing Pts Care (In Minutes): 55
[2018-12-20] MEDS: DONEPEZIL HCL 5 MG TAB PO SCH (21:07)
[2018-12-20] MEDS: TRAZODONE 50 MG TABLET PO SCH (21:08)
[2018-12-20] MEDS: TAMSULOSIN 0.4 MG SR CAP PO SCH (21:09)
[2018-12-20] MEDS: ATORVASTATIN 20 MG TAB PO SCH (21:10)
[2018-12-21] MEDS ORDERED: SOD POLYSTYREN SUL 15 GM/60 ML UCUP PO ONE (01:04)
[2018-12-21] MEDS: ALBUTEROL 2.5 MG/3 ML NEB SOL NEB SCH ×5 (01:14→20:00)
[2018-12-21] MEDS: IPRATROPIUM BROM 0.5MG/2.5ML NEB SCH ×5 (01:14→20:00)
[2018-12-21 05:19] LABS: Absolute Lymphocytes (CBC) 1.4 K/uL (0.7-4.9); Absolute Monocytes 0.5 K/uL (0.1-1.3); Absolute Neutrophil 4.6 K/uL (1.8-8.0); Basophils % 0.5 % (0-1.3); Hematocrit 26.5 % (39.6-49.0); MPV 7.8 fL (7.6-11.3); Monocytes % 7.2 % (3.3-12.3)
[2018-12-21 05:38] LABS: Magnesium 2.2 mg/dL (1.8-2.4)
[2018-12-21 05:39] LABS: Potassium 5.7 mmol/L (3.5-5.1)
[2018-12-21] MEDS: LEVOTHYROXINE SOD 0.05 MG TABLET PO SCH (05:42)
[2018-12-21] MEDS: INSULIN -REGULAR HUMAN 50 UNIT/0.5 ML ML SQ SCH ×4 (07:30→20:33)
[2018-12-21] MEDS: ARFORMOTEROL TARTRATE 15 MCG/2 ML VIAL.NEB IH SCH ×3 (07:50→20:00)
[2018-12-21] MEDS: APIXABAN 2.5 MG TABLET PO SCH ×2 (08:57→20:33)
[2018-12-21] MEDS: MEDROXYPROGESTERONE 5 MG TAB PO SCH (08:57)
[2018-12-21] MEDS: CALCIUM CARBONATE CHEW 500MG TAB PO SCH ×3 (08:57→20:31)
[2018-12-21] MEDS: CYANOCOBALAMIN 1,000 MCG TAB PO SCH (08:57)
[2018-12-21] MEDS: FUROSEMIDE 20 MG TABLET PO SCH (08:57)
[2018-12-21] MEDS: MEMANTINE HCL 10 MG TABLET PO SCH (08:57)
[2018-12-21] MEDS: MAGNESIUM OXIDE 400 MG TAB PO SCH (08:57)
[2018-12-21] MEDS: LACTOBACILLUS/ACIDOPHILUS TAB PO SCH ×2 (08:57→20:32)
[2018-12-21] MEDS: ESCITALOPRAM 20 MG TAB PO SCH (08:58)
[2018-12-21] MEDS: MOXIFLOXACIN HCL 0.5% 3ML OPTH OPTH SCH ×2 (08:58→20:31)
[2018-12-21] MEDS: VITAMIN D 1000 UNIT TAB PO SCH (08:58)
[2018-12-21] MEDS: OXcarbazepine 150 MG TAB PO SCH ×2 (08:58→20:32)
--- NOTE | 2018-12-21 13:24 | P.PN ---
Subjective Date of Service: 12/21/18 Primary Care Provider: [facility] term Chief Complaint: Michele arrhythmia with hypotension Subjective: Improving Physical Examination - Vital Signs Temperature: 96.9 F Blood Pressure: 129/60 Pulse: 72 Respirations: 18 Pulse Ox (%): 96 - Physical Exam General: Alert, Cooperative HEENT: Atraumatic Neck: Supple Respiratory: Clear to auscultation bilaterally, Normal air movement Cardiovascular: Normal pulses, Regular rate/rhythm Gastrointestinal: Normal bowel sounds, Soft and benign, Non-distended Neurological: Normal speech, Normal strength at 5/5 x4 extr, Normal tone - Studies Microbiology Data (last 24 hrs): 12/16/18 00:30 Blood - Blood Aerobic Blood Culture - Final No growth in 5 days. 12/16/18 00:30 Blood - Blood Anaerobic Blood Culture - Final No growth in 5 days. 12/16/18 00:45 Blood - Blood Aerobic Blood Culture - Final No growth in 5 days. 12/16/18 00:45 Blood - Blood Anaerobic Blood Culture - Final No growth in 5 days. Medications List Reviewed: Yes Assessment & Plan Discharge Plan: Other (long term) Plan to discharge in: 24 Hours Physician Review Additional Text: Impression: Acute on chronic respiratory failure with hypercapnia and hypoxia with COPD exacerbation Bradycardia secondary to medication Atrial fibrillation on chronic anti coagulation therapy Hypothyroidism Dementia Chronic systolic CHF Hyperlipidemia Anemia of chronic disease with iron and B12 deficiency Hyperkalemia with chronic renal disease, stage IV Plan: Patient continues to improve. Patient still with hyperkalemia. This may be related to his chronic renal disease. Will consult Nephrology to further evaluate. Patient has been getting Kayexalate with noted diarrhea. Medications reviewed to see if this can contribute to his hyperkalemia. Will discuss case further with nephrology for recommendation. Will continue to monitor closely. Patient continues on COPD medication. Patient now off Betapace due to bradycardia. Anticipate discharge in the next 24 hr if hyperkalemia can get resolved. Time Spent Managing Pts Care (In Minutes): 55
[2018-12-21] MEDS: TRAZODONE 50 MG TABLET PO SCH (20:31)
[2018-12-21] MEDS: ATORVASTATIN 20 MG TAB PO SCH (20:32)
[2018-12-21] MEDS: TAMSULOSIN 0.4 MG SR CAP PO SCH (20:32)
[2018-12-21] MEDS: DONEPEZIL HCL 5 MG TAB PO SCH (20:32)
[2018-12-22] MEDS: ALBUTEROL 2.5 MG/3 ML NEB SOL NEB SCH ×2 (02:10→09:06)
[2018-12-22] MEDS: IPRATROPIUM BROM 0.5MG/2.5ML NEB SCH ×2 (02:10→09:06)
--- NOTE | 2018-12-22 04:18 | CON ---
Date of Consultation: 12/21/2018 Consulting Physician: Theo Rayo DO Reason For Consultation: Elevated BUN and creatinine, fluid management, hyperkalemia. History Of Present Illness: This is an 83-year-old gentleman, well known to me from the previous admission with significant past medical history of hypertension, hyperlipidemia, dementia, hypothyroidism, diabetes complicated with neuropathy, vertigo, coronary artery disease complicated with congestive heart failure, diastolic dysfunction, status post PTCA. The patient recently admitted to the hospital with pneumonia, CHF exacerbation with acute kidney injury secondary to cardiorenal, treated, recovered. Upon discharge, his creatinine was down to 2.2. The patient apparently came back complaining of shortness of breath, on primary workup found to have persistent hyperkalemia. For that reason, we have been consulted. Reviewing the patient's medication, the patient not on any spironolactone, not on potassium supplement. Past Medical History: 1. Hypertension. 2. Hyperlipidemia. 3. Dementia. 4. Hypothyroidism. 5. Diabetes complicated with neuropathy. 6. Vertigo. 7. Coronary artery disease. Family History: Positive for lung cancer. Social History: [place]. Denies smoking. Denies drinking. Denies drug abuse. Review of Systems: Not obtainable. The patient is confused. Physical Examination: Vital Signs: When I saw the patient, blood pressure 132/70, pulse of 88. Chest: Crackles, bilateral base. Heart: S1, S2. Systolic murmur. Abdomen: Soft, nontender. Extremities: Trace edema. Neurologic: Alert. Nonfocal. Confused. Medications: Home medications include trazodone, sorbitol, spironolactone, Namenda, nitroglycerin, losartan, levothyroxine, insulin, glipizide, Lasix, donepezil, potassium, sodium bicarbonate, Eliquis, Augmentin. Current medications in the hospital include Eliquis, sodium bicarbonate, losartan, Lasix , donepezil, levothyroxine, Flomax. Laboratory Data: Sodium 140, potassium 5, bicarb 31, BUN 35, creatinine 2.4, calcium 8.2. WBC 6.7, H and H 9.1/26.5, platelets 219. Assessment And Plan: 1. Chronic kidney disease, stable, on his baseline. We will continue to monitor the patient. I am going to go ahead and start the patient resumed back on diuresis. 2. Hyperkalemia secondary to renal failure, superimposed with ARB and spironolactone. I agree with holding both medication. We will resume Lasix to establish better potassium diuresis. I am going to go ahead and decrease the Lasix to 40 mg. 3. Congestive heart failure exacerbation. We will increase diuresis. 4. Anemia of chronic kidney disease, stable. 5. Hyperkalemia secondary to renal failure, superimposed with spironolactone and losartan. We will start aggressive diuresis and we will follow outpatient. I am going to go ahead and send for TSH and fecal occult to rule out any other causes. I agree with holding losartan and spironolactone. ALICIA/KARMA Voice ID: [id number] Report ID: [id number]
[2018-12-22 04:32] LABS: Absolute Lymphocytes (CBC) 1.3 K/uL (0.7-4.9); Absolute Monocytes 0.4 K/uL (0.1-1.3); Absolute Neutrophil 4.2 K/uL (1.8-8.0); Basophils % 0.4 % (0-1.3); Eosinophils % 2.3 % (0-4.4); Lymphocytes % 21.6 % (15.3-44.8); MPV 7.8 fL (7.6-11.3); Monocytes % 6.6 % (3.3-12.3); RBC Red Blood Cell Count 2.54 M/uL (4.33-5.43)
[2018-12-22 04:55] LABS: Albumin 2.4 g/dL (3.4-5.0); Magnesium 2.3 mg/dL (1.8-2.4); Phosphorus 3.3 mg/dL (2.5-4.9); Potassium 5.4 mmol/L (3.5-5.1); Thyroid Stimulating Hormone 3.21 uIU/mL (0.360-3.740)
[2018-12-22] MEDS: LEVOTHYROXINE SOD 0.05 MG TABLET PO SCH (05:21)
[2018-12-22] MEDS: INSULIN -REGULAR HUMAN 50 UNIT/0.5 ML ML SQ SCH ×2 (07:30→11:30)
--- NOTE | 2018-12-22 08:07 | RAD REPORT ---
EXAM DESCRIPTION: Rebecca Single View12/22/2018 6:19 am CLINICAL HISTORY: Shortness of breath COMPARISON: none FINDINGS: Left basilar opacity has partially resolved. This may represent a combination of small pl eural effusion and atelectasis. Minimal right pleural effusion may be present Right lung appears clear Heart is mildly enlarged
[2018-12-22] MEDS: ESCITALOPRAM 20 MG TAB PO SCH (08:40)
[2018-12-22] MEDS: MEMANTINE HCL 10 MG TABLET PO SCH (08:40)
[2018-12-22] MEDS: APIXABAN 2.5 MG TABLET PO SCH (08:41)
[2018-12-22] MEDS: VITAMIN D 1000 UNIT TAB PO SCH (08:41)
[2018-12-22] MEDS: CYANOCOBALAMIN 1,000 MCG TAB PO SCH (08:41)
[2018-12-22] MEDS: MAGNESIUM OXIDE 400 MG TAB PO SCH (08:41)
[2018-12-22] MEDS: CALCIUM CARBONATE CHEW 500MG TAB PO SCH (08:42)
[2018-12-22] MEDS: OXcarbazepine 150 MG TAB PO SCH (08:42)
[2018-12-22] MEDS: MEDROXYPROGESTERONE 5 MG TAB PO SCH (08:43)
[2018-12-22] MEDS: LACTOBACILLUS/ACIDOPHILUS TAB PO SCH (08:46)
[2018-12-22] MEDS: MOXIFLOXACIN HCL 0.5% 3ML OPTH OPTH SCH (08:46)
[2018-12-22] MEDS ORDERED: FUROSEMIDE 20 MG TABLET PO SCH (09:00)
[2018-12-22] MEDS: ARFORMOTEROL TARTRATE 15 MCG/2 ML VIAL.NEB IH SCH (09:06)
--- NOTE | 2018-12-22 11:09 | P.DS ---
Admission Date: 12/16/18 Discharge Date: 12/22/18 Primary Care Provider: retirement Disposition: TRANSFER TO [facility] Discharge Condition: GOOD Reason for Admission: Michele arrhythmia with hypotension Consultations: Nephrology-Dr. Donis Procedures: CXR: COMPARISON: December 13, 2018 FINDINGS: Mild left basilar opacity. Right lung appears clear. The heart is mildly enlarged IMPRESSION: Mild left basilar opacity may represent atelectasis Follow up CXR: FINDINGS: Left basilar opacity has partially resolved. This may represent a combination of small pleural effusion and atelectasis. Minimal right pleural effusion may be present Right lung appears clear Heart is mildly enlarged Medical Problem List: Hypotension and bradycardia secondary to medication-Betapace Acute on chronic respiratory failure with hypercapnia and hypoxia related to acute on chronic diastolic CHF and atelectasis Atrial fibrillation on chronic anti coagulation therapy Hyperkalemia secondary to chronic renal disease, stage IV and medication- Aldactone/losartan Hypothyroidism COPD, oxygen-dependent Depression BPH Dementia Hyperlipidemia Anemia of chronic disease with iron and B12 deficiency Brief History of Present Illness: 83-year-old male recently hospitalized for septic shock related to UTI. Patient also found to have atrial fibrillationas well. Patient placed on chronic anti coagulation therapy and Betapace. Patient was brought in to [facility] emergency [facility] from the [facility] due to low blood pressure and heart rate. Patient appeared dehydrated. Patient was admitted for treatment. Hospital Course: Patient presented with hypotension and bradycardia. Patient recently hospitalized for septic shock related to UTI and atrial fibrillation. At that time patient was started on chronic anti coagulation therapy and Betapace. Upon initial evaluation Betapace was discontinued. Patient was seen by Cardiology who recommended to discontinue Betapace. Patient was hydrated. During the course of his stay patient has done well off of Betapace. Hypotension and bradycardia have resolved. At discharge she will continue off Betapace. Patient will continue with Eliquis 2.5 mg twice daily. Recommend to follow up with his cardiology in 2-4 weeks to monitor his progress. During the course of his stay patient had acute on chronic respiratory of clear related to hypercapnia and hypoxia likely related to acute on chronic diastolic CHF and atelectasis. This was likely from over hydration. Patient was diuresed during his stay. Patient continues with diuretic therapy. At discharge, CHF stable at this time. Patient requires oxygen to maintain sats above 90%. Patient will continue with incentive spirometer. At discharge patient will continue with Lasix 40 mg daily which was increased from 20 mg. Further adjustment can be done by [facility] physician. Recommend to recheck chest x-ray in 2-4 weeks to monitor his progress. Patient also found to have hyperkalemia. Patient with underlying chronic renal disease stage IV. Hyperkalemia likely related to his chronic renal disease and medication. Patient previously on losartan and Aldactone. Both medication had been discontinued. Patient was given Kayexalate during his stay. Potassium remained slightly elevated. Nephrology was consulted to further evaluate. At discharge patient will continue with Lasix 40 mg daily. New medication includes Veltassa once daily to help with his hyperkalemia. Patient will also continue with Tums, magnesium oxide, and vitamin-D. Recommend to recheck BMP in 1 week. Recommend follow up with nephrology in 1 week to follow up this hospitalization. Further adjustment in medication can be done by a nephrology. Future medications will need to be renally dosed. Recommend no further use of nonsteroidal anti-inflammatories. Due to his renal function Losartan, Aldactone has been discontinued at discharge. Recommend no further use of both medication. Patient with hypertension. Losartan has been discontinued due to hyperkalemia. At discharge patient will continue with hydralazine 25 mg 1 pill twice daily. Recommend to monitor blood pressure closely. Recommend to maintain blood pressures less 150/80. He is to hold his blood pressure medication if systolic less than 120. Further adjustment can be done by nephrology or [facility] physician. Patient with underlying COPD. Atelectasis noted on x-ray shows improvement. Patient will continue with incentive spirometer. At discharge he will continue with oxygen to maintain sats above 90%. Patient will also continue with his COPD medication including Brovana 1 unit dose twice daily and albuterol/ Atrovent 1 unit dose 3 times a day as needed for shortness of breath. This can be further monitored by [facility] physician. Patient with diabetes mellitus type 2 insulin dependent. This has remained stable during his stay. At discharge patient may continue with Lantus 32 units subcu daily. Recommend to maintain blood sugars less 140 fasting and less than 200 after meals. Further adjustment can be done by the [facility] physician. Glipizide has been discontinued due to risk of hypoglycemia in elderly patient with chronic renal disease. Patient with depression. Patient will continue with his medications of Trileptal 150 mg 1 pill twice daily, Trazadone 25 mg daily and Lexapro 20 mg daily. Patient with dementia. At discharge he will continue with his medications of Namenda 10 mg daily and Aricept 10 mg daily. Further adjustment can be done by [facility] physician. Patient with anemia of chronic disease with iron and B12 deficiency. Hemoglobin has remained stable. At discharge he will continue with B12 and iron supplementation. Recommend to recheck and monitor CBC closely. Further adjustment can be done by [facility] physician. Patient with hyperlipidemia. At discharge he will continue with Lipitor 20 mg daily. Patient with BPH. At discharge he will continue with Flomax 0.4 mg daily. Patient with hypothyroidism. At discharge she will continue with levothyroxine 50 mcg daily. Vital Signs/Physical Exam: Temp Pulse Resp BP Pulse Ox 98.1 F 84 20 153/67 H 95 12/22/18 08:00 12/22/18 08:41 12/22/18 08:00 12/22/18 08:41 12/22/18 08:00 General: Alert, In no apparent distress, Oriented x3, Cooperative HEENT: Atraumatic Neck: Supple Respiratory: Clear to auscultation bilaterally, Normal air movement Cardiovascular: Normal pulses, Regular rate/rhythm Gastrointestinal: Normal bowel sounds, Soft and benign, Non-distended, No tenderness, No masses, No rebound, No guarding Musculoskeletal: No erythema, No tenderness, No warmth Integumentary: No erythema, No warmth, No cyanosis Neurological: Normal speech, Normal strength at 5/5 x4 extr, Normal tone, Normal affect Laboratory Data at Discharge: WBC 6.1 K/uL (4.3-10.9) 12/22/18 03:40 Hgb 8.5 g/dL (13.6-17.9) L 12/22/18 03:40 Hct 25.0 % (39.6-49.0) L 12/22/18 03:40 Plt Count 196 K/uL (152-406) 12/22/18 03:40 PT 13.3 SECONDS (9.5-12.5) H 12/15/18 23:05 INR 1.13 12/15/18 23:05 APTT 31.9 SECONDS (24.3-36.9) 12/15/18 23:05 Sodium 139 mmol/L (136-145) 12/22/18 03:40 Potassium 5.4 mmol/L (3.5-5.1) H 12/22/18 03:40 BUN 37 mg/dL (7-18) H 12/22/18 03:40 Creatinine 2.42 mg/dL (0.55-1.3) H 12/22/18 03:40 Glucose 74 mg/dL (74-106) 12/22/18 03:40 Phosphorus 3.3 mg/dL (2.5-4.9) 12/22/18 03:40 Magnesium 2.3 mg/dL (1.8-2.4) 12/22/18 03:40 Total Bilirubin 0.2 mg/dL (0.2-1.0) 12/19/18 10:37 AST 13 U/L (15-37) L 12/19/18 10:37 ALT 12 U/L (12-78) 12/19/18 10:37 Alkaline Phosphatase 48 U/L (45-117) 12/19/18 10:37 Lipase 318 U/L (73-393) 12/15/18 23:05 Home Medications: Acetaminophen 32 mg PO Q6HP PRN 12/16/18 Apixaban [Eliquis *] 2.5 mg PO BID 12/16/18 Arformoterol Tartrate [Brovana] 1 vial IH BID 12/16/18 Atorvastatin Calcium [Lipitor*] 1 tab PO BEDTIME 12/16/18 Calcium Carbonate [Tums Ultra] 400 mg PO TID 12/16/18 Cholecalciferol (Vitamin D3) [Vitamin D3] 1,000 unit PO DAILY 12/16/18 Cyanocobalamin (Vitamin B-12) [B-12] 1,000 mcg PO DAILY 12/16/18 Donepezil HCl 10 mg PO BEDTIME 12/16/18 Escitalopram [Lexapro*] 20 mg PO DAILY 12/16/18 Insulin -Regular Human [Novolin -R*] See Protocol SQ AC 12/16/18 Insulin Glargine Human [Lantus*] 32 unit SQ DAILY 12/16/18 Ipratropium Mdi [Atrovent Hf Inhaler*] 1 puff IH Q6HP PRN 12/16/18 Ipratropium/Albuterol Sulfate [Iprat-Albut 0.5-3(2.5) mg/3 ml] 1 vial IH Q6HP PRN 12/16/18 Levothyroxine [Synthroid*] 50 mcg PO [id number] 12/16/18 Liraglutide [Victoza 2-Gab] 0.6 mg SQ DAILY 12/16/18 Magnesium Oxide [Mag 0X*] 400 mg PO DAILY 12/16/18 Medroxyprogesterone Acet [Provera] 10 mg PO DAILY 12/16/18 Memantine HCl [Namenda*] 10 mg PO DAILY 12/16/18 Nitroglycerin 0.4 mg SL SEECOM 12/16/18 OXcarbazepine [Trileptal*] 150 mg PO BID 12/16/18 Tamsulosin [Flomax*] 0.4 mg PO BEDTIME 12/16/18 Trazodone [Desyrel*] 25 mg PO BEDTIME 12/16/18 Furosemide [Lasix*] 40 mg PO DAILY #60 tab 12/22/18 Hydralazine [Apresoline*] 25 mg PO BID #60 tab 12/22/18 Patiromer Calcium Sorbitex [Veltassa] 8.4 gm PO DAILY #30 powd.pack 12/22/18 New Medications: Furosemide [Lasix*] 40 mg PO DAILY #60 tab Hydralazine [Apresoline*] 25 mg PO BID #60 tab Patiromer Calcium Sorbitex [Veltassa] 8.4 gm PO DAILY #30 powd.pack Patient Discharge Instructions: 1. Patient to return to retirement. 2. Patient presented with hypotension and bradycardia. Patient recently hospitalized for septic shock related to UTI and atrial fibrillation. At that time patient was started on chronic anti coagulation therapy and Betapace. Upon initial evaluation Betapace was discontinued. Patient was seen by Cardiology who recommended to discontinue Betapace. Patient was hydrated. During the course of his stay patient has done well off of Betapace. Hypotension and bradycardia have resolved. At discharge she will continue off Betapace. Patient will continue with Eliquis 2.5 mg twice daily. Recommend to follow up with his cardiology in 2-4 weeks to monitor his progress. 3. During the course of his stay patient had acute on chronic respiratory of clear related to hypercapnia and hypoxia likely related to acute on chronic diastolic CHF and atelectasis. This was likely from over hydration. Patient was diuresed during his stay. Patient continues with diuretic therapy. At discharge, CHF stable at this time. Patient requires oxygen to maintain sats above 90%. Patient will continue with incentive spirometer. At discharge patient will continue with Lasix 40 mg daily which was increased from 20 mg. Further adjustment can be done by [facility] physician. Recommend to recheck chest x-ray in 2-4 weeks to monitor his progress. 4. Patient also found to have hyperkalemia. Patient with underlying chronic renal disease stage IV. Hyperkalemia likely related to his chronic renal disease and medication. Patient previously on losartan and Aldactone. Both medication had been discontinued. Patient was given Kayexalate during his stay. Potassium remained slightly elevated. Nephrology was consulted to further evaluate. At discharge patient will continue with Lasix 40 mg daily. New medication includes Veltassa once daily to help with his hyperkalemia. Patient will also continue with Tums, magnesium oxide, and vitamin-D. Recommend to recheck BMP in 1 week. Recommend follow up with nephrology in 1 week to follow up this hospitalization. Further adjustment in medication can be done by a nephrology. Future medications will need to be renally dosed. Recommend no further use of nonsteroidal anti-inflammatories. Due to his renal function Losartan, Aldactone has been discontinued at discharge. Recommend no further use of both medication. 5. Patient with hypertension. Losartan has been discontinued due to hyperkalemia. At discharge patient will continue with hydralazine 25 mg 1 pill twice daily. Recommend to monitor blood pressure closely. Recommend to maintain blood pressures less 150/80. He is to hold his blood pressure medication if systolic less than 120. Further adjustment can be done by nephrology or [facility] physician. 6. Patient with underlying COPD. Atelectasis noted on x-ray shows improvement. Patient will continue with incentive spirometer. At discharge he will continue with oxygen to maintain sats above 90%. Patient will also continue with his COPD medication including Brovana 1 unit dose twice daily and albuterol/Atrovent 1 unit dose 3 times a day as needed for shortness of breath. This can be further monitored by [facility] physician. 7. Patient with diabetes mellitus type 2 insulin dependent. This has remained stable during his stay. At discharge patient may continue with Lantus 32 units subcu daily. Recommend to maintain blood sugars less 140 fasting and less than 200 after meals. Further adjustment can be done by the [facility] physician. Glipizide has been discontinued due to risk of hypoglycemia in elderly patient with chronic renal disease. 8. Patient with depression. Patient will continue with his medications of Trileptal 150 mg 1 pill twice daily, trazodone 25 mg one pill every bedtime, and Lexapro 20 mg daily. 9. Patient with dementia. At discharge he will continue with his medications of Namenda 10 mg daily and Aricept 10 mg daily. Further adjustment can be done by [facility] physician. 10. Patient with anemia of chronic disease with iron and B12 deficiency. Hemoglobin has remained stable. At discharge he will continue with B12 and iron supplementation. Recommend to recheck and monitor CBC closely. Further adjustment can be done by [facility] physician. 11. Patient with hyperlipidemia. At discharge he will continue with Lipitor 20 mg daily. 12. Patient with BPH. At discharge he will continue with Flomax 0.4 mg daily. 13. Patient with hypothyroidism. At discharge he will continue with levothyroxine 50 mcg daily. Diet: AHA Activity: Fall precautions Followup: Sharmila Donis MD [ACTIVE - CAN ADMIT] - Time spent managing pt's care (in minutes): 55
--- NOTE | 2018-12-22 16:54 | PN ---
Date of Progress Note: 12/22/2018 Subjective: The patient was admitted with altered mental status, slightly over volume, hyperkalemia. The patient back to his baseline. Objective: Vital Signs: Blood pressure 153/67, pulse of 83, afebrile. General: The patient had voiding with diaper 2-3 times over the night. Chest: Faint crackles, more prominent on the left base. Heart: S1, S2. Systolic murmur. Abdomen: Soft, nontender. Extremities: Trace edema. Laboratory Data: H and H 8.5/25. Sodium of 139, potassium 5.4, bicarb 33, BUN 37, creatinine 2.4, c alcium 8.1, phosphorus 3.3, magnesium 2.3. TSH within normal limits 3.2. Fecal occult is still pend ing. Current Medication: Donepezil, Flomax, Eliquis 2.5 b.i.d., calcium carbonate, atorvastatin, Namenda, Lasix 40 daily, moxifloxacin. Assessment And Plan: 1.Chronic kidney disease stage 3B/4 secondary to cardiorenal, stable on baseline, looked to me start to being euvolemic. I am going to continue current dose of Lasix. 2.Hypertension. I agree with hydralazine. Keep holding spironolactone and ARB/ROSALIA inhibitor, given the presence of hyperkalemia. 3.Hyperkalemia, possible secondary to renal tubular acidosis/to rule out any gastrointestinal loss. Fecal occult is still pending. TSH within normal limit and the patient's CK on presentation was wit hin normal limits. I am going to go ahead and repeat CK, follow up on the fecal occult, and we will go ahead and send for urine electrolytes to rule out any RTA on the patient. We will place the patie nt on the Veltassa 8.4 mg daily. Again, keep holding ARB or any spironolactone for the time being. 4.Congestive heart failure, euvolemic. Continue current dose of Lasix. ALICIA/KARMA Voice ID: [id number] Report ID: [id number]
== END 2018-12-22 14:02 | DRG 308 ==
LOC: ER 23:02 → 3RD-ICU 12-16 02:20 → 4TH 12-16 12:44
PROVIDERS: ADMIT Hospitalist; ATTEND Family Medicine
DX: R00.1 Bradycardia, unspecified (principal); I50.33 Acute on chronic diastolic (congestive) heart failure; J18.1 Lobar pneumonia, unspecified organism; J96.22 Acute and chronic respiratory failure with hypercapnia; J96.21 Acute and chronic respiratory failure with hypoxia; G93.41 Metabolic encephalopathy; I13.0 Hypertensive heart and chronic kidney disease with heart failure and stage 1 through stage 4 chronic kidney disease, or unspecified chronic kidney disease; N18.4 Chronic kidney disease, stage 4 (severe); J44.1 Chronic obstructive pulmonary disease with (acute) exacerbation; J98.11 Atelectasis; I95.9 Hypotension, unspecified; T44.7X5A Adverse effect of beta-adrenoreceptor antagonists, initial encounter; E86.0 Dehydration; E11.649 Type 2 diabetes mellitus with hypoglycemia without coma; E11.40 Type 2 diabetes mellitus with diabetic neuropathy, unspecified; E11.22 Type 2 diabetes mellitus with diabetic chronic kidney disease; Z66 Do not resuscitate; G47.33 Obstructive sleep apnea (adult) (pediatric); I48.2 Chronic atrial fibrillation; E78.5 Hyperlipidemia, unspecified; E03.9 Hypothyroidism, unspecified; I25.10 Atherosclerotic heart disease of native coronary artery without angina pectoris; F03.90 Unspecified dementia, unspecified severity, without behavioral disturbance, psychotic disturbance, mood disturbance, and anxiety; D63.1 Anemia in chronic kidney disease; D69.6 Thrombocytopenia, unspecified; E83.52 Hypercalcemia; E87.5 Hyperkalemia; K21.9 Gastro-esophageal reflux disease without esophagitis; N40.0 Benign prostatic hyperplasia without lower urinary tract symptoms; D51.9 Vitamin B12 deficiency anemia, unspecified; D50.9 Iron deficiency anemia, unspecified; Z79.4 Long term (current) use of insulin; Z79.01 Long term (current) use of anticoagulants; Z87.891 Personal history of nicotine dependence; Z95.5 Presence of coronary angioplasty implant and graft
CPT/HCPCS: 36415; 71045; 80048; 80053; 80069; 80076; 81003; 81015; 82550; 82553; 82805; 82962; 83605; 83690; 83735; 84132; 84145; 84443; 84484; 85025; 85610; 85730; 87040; 93005; 94640; 94660; 94760; 96361; 96365; 96375; 97162; 97165; 99285; J0610; J2405; J7030; J7605

== ENCOUNTER 2020-04-03 19:11 | Inpatient (IN) | payer OTHER ==
--- OUTSIDE RECORDS SUMMARY | 2020-04-03 19:17 | XMS REPORT | Clinical Summary ---
:1935 Author Organization [facility] Address [address] [place] [id number] Care Team Providers Name Role Phone Asked, Pcp Primary Care Provider Unavailable Allergies Active Allergy Reactions Severity Noted Date Comments Codeine Other (See Comments) Medium 08/05/2016 Unknown reaction Iodine And Iodide Other (See Comments) Medium 08/05/2016 Un known reaction Containing Products Hydrocodone-Acetaminophen Other (See Comments) High 017 Unknown reaction Tramadol-Acetaminophen Other (See Comments) Medium 08/05/2016 Unknown reaction Medications Medication Sig Dispensed Refills Start Date End Date Status clopidogrel (PLAVIX) Take 75 mg by mouth 0 6 Active 75 mg tablet daily. furosemide (LASIX) 40 Take 40 mg by mouth 0 07/18/19 16 Active mg tablet 2 (two) times a day. glipiZIDE (GLUCOTROL) Take 5 mg by mouth 0 6 Active 5 MG tablet 2 (two) times a day before meals. levothyroxine Take 50 mcg by 0 07/18/2015 Active (SYNTHROID, LEVOXYL) mouth every 50 mcg tablet morning. donepezil (ARICEPT) 5 Take 5 mg by mouth 0 6 Active MG tablet nightly. ipratropium Take 500 mcg by 0 10/03/2015 A ctive (ATROVENT) 0.02 % nebulization every nebulizer solution [...] Assigned at Date Recorded Not on file Last Filed Vital Signs Not on file Plan of Treatment Health Maintenance Due Date Last Done Comments SHINGLES VACCINES (#1) 1984 65+ PNEUMOCOCCAL VACCINE (1 of 1 - PPSV23) 1999 INFLUENZA VACCINE 03/13/2020 Implants Implanted Type Area Research Geologist Device Shelf Model / Identifier Expiration Serial / Date Lot Stent Crtd Xact Slf-Xpndbl Tprd Koby 6-8m 30mm - [id number] Perip eral or [employer] [id number] / Implanted: Qty: 1 on 08/06/2016 by Alec Cadet MD at [facility] Biliary Stents DEVICES / Results Not on fileafter 04/03/2019 Insurance Payer Benefit Plan / Subscriber ID Effective Dates Phone Addre ss Type Group MEDICARE MEDICARE PART A [id number] 1999-Present [place], [place] Medicare AND B MEDICAID MEDICAID [id number] 2016-Present Med icaid Guarantor Name Account Type Relation to Date of Phone Bill ing Patient Address [place] Personal/Family Self 1935 [phone] (Home) [address] [place] [address] Advance Directives For more information, please contact: [phone] Type Date Recorded Patient Service Engineer Explanati on Advance Directives, Living Will and Medical Power of Filters Assembler
[2020-04-03 19:58] LABS: Absolute Lymphocytes (CBC) 1.7 K/uL (0.7-4.9); Basophils % 0.9 % (0-1.3); Hematocrit 32.6 % (39.6-49.0); MPV 7.5 fL (7.6-11.3); RBC Red Blood Cell Count 3.56 M/uL (4.33-5.43)
[2020-04-03] MEDS ORDERED: NA CHLORIDE 0.9% 500 ML ONE (20:03)
[2020-04-03 20:04] LABS: Protime INR 1.19
--- NOTE | 2020-04-03 20:12 | RAD REPORT ---
EXAM DESCRIPTION: CT - Head Brain Wo Cont - 04/03/2020 8:06 pm CLINICAL HISTORY: MENTAL STATUS CHANGE Headache, drowsiness COMPARISON: Head Brain Wo Cont dated 12/06/2018; Head Brain Wo Cont dated 08/30/2016 TECHNIQUE: All CT scans are performed using dose optimization technique as appropriate and may inclu de automated exposure control or mA/KV adjustment according to patient size. FINDINGS: No intracranial hemorrhage, hydrocephalus or extra-axial fluid collection.Old right catalogue and special products manager ior parietal lobe CVA.No areas of brain edema or evidence of midline shift. The paranasal sinuses and mastoids are clear. The calvarium is intact. Left vertebral artery is calci fied. IMPRESSION: No acute intracranial abnormality.
[2020-04-03 20:26] LABS: ALT/SGPT 14 U/L (12-78); AST/SGOT 14 U/L (15-37); Albumin 2.9 g/dL (3.4-5.0); Alkaline Phosphatase 75 U/L (45-117); BUN Blood Urea Nitrogen 29 mg/dL (7-18); Bicarbonate 32 mmol/L (21-32); Bilirubin Direct < 0.1 mg/dL (0-0.2); Bilirubin Total 0.3 mg/dL (0.2-1.0); Creatine Phosphokinase 34 U/L (39-308); Glucose Level 83 mg/dL (74-106); Lipase 532 U/L (73-393); Potassium 4.4 mmol/L (3.5-5.1); Protein, Total 7.5 g/dL (6.4-8.2); Sodium Level 141 mmol/L (136-145); Troponin (Emerg Dept Use Only) < 0.02 ng/mL (0.0-0.045)
--- NOTE | 2020-04-03 20:28 | RAD REPORT ---
EXAM DESCRIPTION: RAD - Chest Single View - 04/03/2020 8:20 pm CLINICAL HISTORY: altered mental status Chest pain. COMPARISON: Chest Single View dated 12/22/2018; Chest Single View dated 12/18/2018; Chest Single View d ated 12/17/2018; Chest Single View dated 12/15/2018 FINDINGS: Portable technique limits examination quality. A large left pleural effusion is suspected. The right lung is grossly clear. The heart is mildly prom inent size. No displaced fractures.
[2020-04-03] MEDS ORDERED: NA CHLORIDE 0.9% 250 ML ONE (21:07)
[2020-04-03] MEDS ORDERED: VANCOMYCIN 1 GM/VIAL ONE (21:07)
--- NOTE | 2020-04-03 21:20 | RAD REPORT ---
EXAM DESCRIPTION: CT - Chest Abd Pelvis Wo Con - 04/03/2020 9:04 pm CLINICAL HISTORY: Chest and abdomen pain. left lung effusion COMPARISON: Thorax Wo Con dated 06/16/2019 TECHNIQUE: Approximately 100 mL nonionic IV contrast was administered to the patient. All CT scans are performed using dose optimization technique as appropriate and may include automated exposure control or mA/KV adjustment according to patient size. FINDINGS: Large left pleural effusion is noted with atelectasis involving the right lung. The size o f the effusion is similar to 06/16/2019 comparative study. The right lung is grossly clear.Mild cardi omediastinal shift to the left is seen.No intrathoracic adenopathy. The liver, spleen, pancreas, left adrenal gland and kidneys are within normal limits. 2 cm right adre nal lesion is present, unchanged. Cholelithiasis. No bowel obstruction, free air, free fluid or abscess. Normal appendix. Sigmoid diverticulosis coli w ithout diverticulitis. No pathologic lymphadenopathy in the abdomen or pelvis. Prominent spondylosis involving the thoracic lumbar spine. IMPRESSION: Large chronic left pleural effusion with left lung atelectasis. No acute intra-abdominal or pelvic finding. Cholelithiasis. Prominent degenerative spondylosis of the thoracic and lumbar spine.
--- NOTE | 2020-04-03 21:27 | ER ---
Nurse's Notes [facility] Name: Angel Ford Age: 84 yrs Sex: Male : 1935 Arrival Date: 04/03/2020 Time: 19:13 Bed 14 Private MD: Diagnosis: Altered mental status, unspecified;Urinary tract infection, site not specified;Pleural effusion, not elsewhere classified Presentation: 04/03 19:13 Chief complaint: EMS states: "we were told that the pt was alert and talkative this jd3 morning, but did not eat much throughout the day. he is also reported to be getting more and more altered throughout the day. he has stable vital signs, but is lethargic now and only responding to painful stimuli. we were also told he has liver cancer with liver failure and has not been taking his medications as he should.". Coronavirus screen: At this time, the client does not indicate any symptoms associated with coronavirus-19. Ebola Screen: Patient negative for fever greater than or equal to 101.5 degrees Fahrenheit, and additional compatible Ebola Virus Disease symptoms. Initial Sepsis Screen: Does the patient meet any 2 criteria? No. Patient's initial sepsis screen is negative. Does the patient have a suspected source of infection? No. Patient's initial sepsis screen is negative. Risk Assessment: Do you want to hurt yourself or someone else? Patient reports no desire to harm self or others. Onset of symptoms was April 03, 2020. Care prior to arrival: Glucose check: 95. Transition of care: patient was received from another setting of care (long-term care facility), [facility]. 19:13 Method Of Arrival: EMS: [facility] jd3 19:13 Acuity: JUSTICE 2 jd3 Historical: - Allergies: 19:23 Iodine; jd3 19:23 [place]; jd3 19:23 tramadol; jd3 - PMHx: 19:23 BPH; Obesity; toxic liver disease; Pneumonia; UTI; ischemic heart disease; jd3 Hypothyroidism; MUSCLE WEAKNESS; insomnia; Dementia; Diabetes - IDDM; DIZZINESS; dyspnea; DYSPHAGIA; HEART FAILURE; GERD; HTN; neuropathy; Depression; Hypercholesterolemia; COPD; constipation; CAD; Back pain; Vertigo; CVA; Anemia; vitamin d deficiency; - Immunization history:: Adult Immunizations unknown. - Social history:: Smoking status: unknown. Screenin:00 Abuse screen: Denies threats or abuse. Denies injuries from another. Nutritional screening: No deficits noted. Tuberculosis screening: No symptoms or risk factors identified. Fall Risk None identified. Assessment: 19:30 General: Appears in no apparent distress. Behavior is calm, quiet. Pain: Denies pain. Neuro: Level of Consciousness is awake, alert, Oriented to person. Cardiovascular: Heart tones S1 S2. Respiratory: Airway is patent Respiratory effort is even, unlabored, Respiratory pattern is regular, symmetrical, Breath sounds are clear bilaterally. GI: Abdomen is flat, non-distended. : No signs and/or symptoms were reported regarding the genitourinary system. Parent/caregiver report the patient having UTI. EENT: No signs and/or symptoms were reported regarding the EENT system. Derm: Skin is intact, Skin is pink, warm \\T\\ dry. Musculoskeletal: Circulation, motion, and sensation intact. 21:00 Reassessment: Patient appears in no apparent distress at this time. No changes from previously documented assessment. 22:30 Reassessment: Patient appears in no apparent distress at this time. No changes from previously documented assessment. Provider at bedside explaining POC need for admit. 04/04 00:15 Reassessment: Patient appears in no apparent distress at this time. No changes from previously documented assessment. Vital Signs: 04/03 19:23 BP 112 / 50; Pulse 82; Resp 17 S; Temp 97.4(A); Pulse Ox 98% on R/A; Weight 90.72 kg jd3 (R); Pain 0/10; 21:00 BP 128 / 50; Pulse 75; Resp 18; Pulse Ox 97% on R/A; 22:00 BP 117 / 65; Pulse 88; Resp 18; Pulse Ox 96% on R/A; 23:00 BP 138 / 55; Pulse 82; Resp 18; Pulse Ox 95% on R/A; 04/04 00:30 BP 129 / 66; Pulse 94; Resp 16; Pulse Ox 95% on R/A; ED Course: 04/03 19:13 Patient arrived in ED. cf2 19:14 Elier Eldridge PA is PHCP. cp 19:14 Tommy Ochoa MD is Attending Physician. cp 19:20 Triage completed. jd3 19:23 Kingston Degroot is Primary Nurse. 19:24 Arm band placed on. jd3 19:28 Patient has correct armband on for positive identification. Placed in gown. Bed in low jd3 position. Call light in reach. Side rails up X 1. derrick follower on. Pulse ox on. NIBP on. 19:40 Inserted saline lock: 20 gauge in right antecubital area, using aseptic technique. Blood collected. 20:06 CT Head Brain wo Cont In Process Unspecified. EDMS 20:21 Chest Single View XRAY In Process Unspecified. EDMS 20:40 De La O cath inserted, using sterile technique, 16 Fr., by in, balloon inflated, returned cloudy urine. Patient tolerated well. 21:04 CT Chest Abdomen Pelvis W/O Contrast In Process Unspecified. EDMS 21:25 Trent Patel MD is Hospitalizing Provider. 04/04 00:42 No provider procedures requiring assistance completed. Patient admitted, IV remains in place. Administered Medications: 04/03 19:54 Drug: NS 0.9% 500 ml Route: IV; Rate: 500 ml/hr; Site: right antecubital; 21:00 Follow up: Response: No adverse reaction; IV Status: Completed infusion 04/04 00:38 Follow up: Response: No adverse reaction; IV Status: Completed infusion 04/03 21:11 Drug: Cefepime 1 grams Route: IVPB; Rate: 200 ml/hr; Infused Over: 30 mins; Site: right antecubital; 21:49 Follow up: Response: No adverse reaction; IV Status: Completed infusion 04/04 00:38 Follow up: Response: No adverse reaction; IV Status: Completed infusion 04/03 21:46 Drug: vancoMYCIN 1 grams Route: IVPB; Infused Over: 2 hrs; Site: right antecubital; 09 00:38 Follow up: Response: No adverse reaction; IV Status: Completed infusion Outcome: 04/03 21:26 Decision to Hospitalize by Provider. 04/04 00:42 Admitted to Med/surg accompanied by tech, via stretcher, room 204, with chart, Report called to Claudine Claudio RN Condition: stable Instructed on the need for admit. 01:03 Patient left the ED. sg Signatures: Dispatcher [facility] Jones Katz, RN Elier Barone PA PA cp Habalo, Winsy wh Davies, Jonathon, RN RN j Darius Bledsoe cf2 Corrections: (The following items were deleted from the chart) 04/03 19:28 19:13 Chief complaint: EMS states: "we were told that the pt was alert and talkative j this morning, but did not eat much throughout the day. he is also reported to be getting more and more altered throughout the day. he has stable vital signs, but is lethargic now and only responding to painful stimuli." [facility] 04/04 00:42 04/03 22:30 Reassessment: Patient appears in no apparent distress at this time. No changes from previously documented assessment. 04/04 00:43 00:42 Admitted to Med/surg accompanied by jaclyn, via stretcher, room 205, with chart, Report called to Claudine Claudio RN
--- NOTE | 2020-04-03 21:27 | EDPHYS ---
Physician Documentation [facility] Name: Angel Ford Age: 84 yrs Sex: Male : 1935 Arrival Date: 04/03/2020 Time: 19:13 Bed 14 Private MD: ED Physician Tommy Ochoa HPI: 04/03 19:25 This 84 yrs old Male presents to ER via EMS with complaints of Altered Mental cp Status. 19:25 The patient presents with decreased responsiveness. Onset: The symptoms/episode cp began/occurred today, at an unknown time. Possible causes: unknown. 19:25 Associated signs and symptoms: Pertinent negatives: fever. cp Historical: - Allergies: 19:23 Iodine; jd3 19:23 Mereta; jd3 19:23 tramadol; jd3 - PMHx: 19:23 BPH; Obesity; toxic liver disease; Pneumonia; UTI; ischemic heart disease; jd3 Hypothyroidism; MUSCLE WEAKNESS; insomnia; Dementia; Diabetes - IDDM; DIZZINESS; dyspnea; DYSPHAGIA; HEART FAILURE; GERD; HTN; neuropathy; Depression; Hypercholesterolemia; COPD; constipation; CAD; Back pain; Vertigo; CVA; Anemia; vitamin d deficiency; - Immunization history:: Adult Immunizations unknown. - Social history:: Smoking status: unknown. ROS: 19:30 Constitutional: Negative for fever. cp 19:30 Unable to obtain ROS due to altered mental status. cp Exam: 19:35 Constitutional: The patient appears in no acute distress, non-diaphoretic, non-toxic, cp well developed, well nourished. 19:35 Head/Face: Normocephalic, atraumatic. cp 19:35 Eyes: Pupils: equal, round, and reactive to light and accomodation, Sclera: no appreciated abnormality, Lids and lashes: appear normal, bilaterally. 19:35 ENT: External ear(s): are unremarkable, Nose: is normal, Mouth: Lips: dry, Posterior pharynx: Airway: no evidence of obstruction, patent. 19:35 Chest/axilla: Inspection: normal. 19:35 Cardiovascular: Rate: normal, Rhythm: regular, Edema: is not appreciated, JVD: is not appreciated. 19:35 Respiratory: the patient does not display signs of respiratory distress, Respirations: labored breathing, is not present, intercostal retractions, are absent, shallow respirations, are not present, Breath sounds: decreased breath sounds, that are moderate, are heard in the left posterior lower lobe, stridor, is not appreciated. 19:35 Abdomen/GI: Inspection: abdomen appears normal. 19:35 Skin: cellulitis, is not appreciated, no rash present. 19:35 Neuro: Mentation: responsive to pain. 19:40 ECG was reviewed by the Attending Physician. Vital Signs: 19:23 BP 112 / 50; Pulse 82; Resp 17 S; Temp 97.4(A); Pulse Ox 98% on R/A; Weight 90.72 kg jd3 (R); Pain 0/10; 21:00 BP 128 / 50; Pulse 75; Resp 18; Pulse Ox 97% on R/A; wh 22:00 BP 117 / 65; Pulse 88; Resp 18; Pulse Ox 96% on R/A; wh 23:00 BP 138 / 55; Pulse 82; Resp 18; Pulse Ox 95% on R/A; 04/04 00:30 BP 129 / 66; Pulse 94; Resp 16; Pulse Ox 95% on R/A; MDM: 04/03 19:19 Patient medically screened. 19:30 Differential Diagnosis: CVA, electrolyte abnormality, pneumonia, seizure, sepsis, UTI, cp volume depletion. 21:00 Data reviewed: vital signs, nurses notes, lab test result(s), EKG, radiologic studies, cp plain films. 21:00 Test interpretation: by ED physician or midlevel provider: ECG. 21:25 Physician consultation: Josh PATEL was called at 21:25, was contacted at 21:25, regarding admission, to the telemetry unit. patient's condition. 04/03 19: Order name: Urine Culture 04/03 19: Order name: Basic Metabolic Panel; Complete Time: 20:47 04/03 20:47 Interpretation: Normal except: BUN 29; CRE 1.35; GFR 50. 04/03 19:23 Order name: Blood Culture Adult (2) 04/03 19:23 Order name: CBC with Diff; Complete Time: 20:47 04/03 20:48 Interpretation: Normal except: RBC 3.56; HGB 11.0; HCT 32.6; MCV 91.5; RDW 17.8; MPV cp 7.5; EOSINOPHIL % 5.1. 04/03 19:23 Order name: CPK; Complete Time: 20:47 cp 04/03 19:23 Order name: Lactate; Complete Time: 20:47 cp 04/03 19:23 Order name: LFT's; Complete Time: 20:47 cp 04/03 23:06 Interpretation: Normal except: AST 14; ALB 2.9; GLOB 4.6; A/G 0.6. cp 04/03 19:23 Order name: Lipase; Complete Time: 20:47 cp 04/03 19:23 Order name: Procalcitonin; Complete Time: 23:05 cp 04/03 19:23 Order name: Protime (+inr); Complete Time: 20:47 cp 04/03 19:23 Order name: Ptt, Activated; Complete Time: 20:47 cp 04/03 19:23 Order name: Troponin (emerg Dept Use Only); Complete Time: 20:47 cp 04/03 19:23 Order name: Urine Microscopic Only; Complete Time: 23:05 cp 04/03 23:06 Interpretation: Normal except: UWBC 20-50; UBACT LOADED. cp 04/03 19:27 Order name: AMMONIA; Complete Time: 20:47 jd3 04/03 19:23 Order name: CT Head Brain wo Cont; Complete Time: 20:47 cp 04/03 19:23 Order name: Cath; Complete Time: 20:45 cp 04/03 19:23 Order name: Chest Single View XRAY; Complete Time: 20:47 cp 04/03 19:23 Order name: Accucheck; Complete Time: 19:48 cp 04/03 19:23 Order name: Cardiac monitoring; Complete Time: 19:48 cp 04/03 19:23 Order name: EKG - Nurse/Tech; Complete Time: 19:48 cp 04/03 19:23 Order name: IV Saline Lock - Large Bore; Complete Time: 19:48 cp 04/03 19:23 Order name: Labs collected and sent; Complete Time: 19:48 cp 04/03 19:23 Order name: O2 Per Protocol; Complete Time: 19:48 cp 04/03 19:23 Order name: O2 Sat Monitoring; Complete Time: 19:48 cp 04/03 19:55 Order name: Glucose, Ancillary Testing; Complete Time: 20:47 EDMS 04/03 20:43 Order name: Urine Dipstick--Ancillary (enter results); Complete Time: 23:05 mw2 04/03 20:50 Order name: CT Chest Abdomen Pelvis W/O Contrast; Complete Time: 21:23 04/03 21:24 Interpretation: Report reviewed. 04/03 19:23 Order name: Urine Dipstick-Ancillary (obtain specimen); Complete Time: 20:46 EC:40 Rate is 82 beats/min. Rhythm is regular. NE interval is normal. QRS interval is normal. cp QT interval is normal. T waves are Inverted in lead aVR. Interpreted by me. Reviewed by me. Administered Medications: 19:54 Drug: NS 0.9% 500 ml Route: IV; Rate: 500 ml/hr; Site: right antecubital; 21:00 Follow up: Response: No adverse reaction; IV Status: Completed infusion 04/04 00:38 Follow up: Response: No adverse reaction; IV Status: Completed infusion 04/03 21:11 Drug: Cefepime 1 grams Route: IVPB; Rate: 200 ml/hr; Infused Over: 30 mins; Site: right antecubital; 21:49 Follow up: Response: No adverse reaction; IV Status: Completed infusion 04/04 00:38 Follow up: Response: No adverse reaction; IV Status: Completed infusion 04/03 21:46 Drug: vancoMYCIN 1 grams Route: IVPB; Infused Over: 2 hrs; Site: right antecubital; 04/04 00:38 Follow up: Response: No adverse reaction; IV Status: Completed infusion Disposition: 04/03 22:00 Chart complete. Disposition: 04/03/20 21:26 Hospitalization ordered by Trent Patel for Inpatient Admission. Preliminary diagnosis are Altered mental status, unspecified, Urinary tract infection, site not specified, Pleural effusion, not elsewhere classified. - Bed requested for Telemetry/MedSurg (Inpatient). - Status is Inpatient Admission. sg - Condition is Stable. - Problem is new. - Symptoms are unchanged. Signatures: Dispatcher [employer] EDJones Melissa RN RN sg Page, Corey, PA PA Lynn Morgan RN RN Kingston Degroot Ba Koenig RN RN jd3 Corrections: (The following items were deleted from the chart) 22:04 21:26 Hospitalization Ordered by Trent Patel MD for Inpatient Admission. Preliminary cp diagnosis is Altered mental status, unspecified. Bed requested for Telemetry/MedSurg (Inpatient). Status is Inpatient Admission. Condition is Stable. Problem is new. Symptoms are unchanged. cp 23:39 22:04 04/03/2020 21:26 Hospitalization Ordered by Trent Patel MD for Inpatient cg Admission. Preliminary diagnosis is Altered mental status, unspecified; Urinary tract infection, site not specified; Pleural effusion, not elsewhere classified. Bed requested for Telemetry/MedSurg (Inpatient). Status is Inpatient Admission. Condition is Stable. Problem is new. Symptoms are unchanged. cp 04/04 01:03 04/03 23:39 04/03/2020 21:26 Hospitalization Ordered by Trent Patel MD for Inpatient sg Admission. Preliminary diagnosis is Altered mental status, unspecified; Urinary tract infection, site not specified; Pleural effusion, not elsewhere classified. Bed requested for Telemetry/MedSurg (Inpatient). Status is Inpatient Admission. Condition is Stable. Problem is new. Symptoms are unchanged. cg 04/04 17:11 04/03 19:35 Respiratory: the patient does not display signs of respiratory distress, cp Respirations: labored breathing, is not present, intercostal retractions, are absent, shallow respirations, are not present, Breath sounds: decreased breath sounds, that are moderate, are heard in the right posterior middle lobe and right posterior lower lobe, stridor, is not appreciated, cp
[2020-04-03 21:57] LABS: Urine Bacteria LOADED /HPF (NONE SEEN); Urine Culture Reflex Order NOT NEEDED; Urine RBC <5 /HPF (NONE SEEN)
[2020-04-03 21:58] LABS: Urine Amorphous Sediment 1+ /HPF (NONE SEEN)
[2020-04-03 22:22] LABS: Urine Blood NEGATIVE (NEG); Urine Glucose NEGATIVE (NEG); Urine Protein NEGATIVE (NEG)
[2020-04-03] MEDS ORDERED: AZITHROMYCIN IV 500 MG in NA CHLORIDE 0.9% 250 ML IVPB SCH (23:00)
--- NOTE | 2020-04-03 23:29 | P.HP ---
Certification for Inpatient With expected LOS: >2 Midnights Patient will require the following post-hospital care: None Practitioner: I am a practitioner with admitting privileges, knowledge of patient current condition, hospital course, and medical plan of care. Services: Services provided to patient in accordance with Admission requirements found in Title 42 Section 412.3 of the Code of Federal Regulations <Josh Frazier - Last Filed: 04/03/20 23:57> Patient History Date of Service: 04/03/20 Reason for admission: AMS/UTI/PNA History of Present Illness: 84 year old male resident of [facility] who is sent to the emergency room with complaints of altered mental status. Patient has underlying dementia but per [facility] staff patient is functional and can usually answer questions well. Today staff at the [facility] noticed that the patient seemed more confused and not at his baseline. In the emergency room patient is disoriented. Blood work in the ER shows a UA with leukocyte esterase +1, white blood cells 50-100 and bacteria loaded. Patient also has a history of toxic liver disease. He is noted to have a lipase of 532. Which is slightly elevated from of 318 on 12/15/2018. White blood cells of 8.6, procalcitonin of 0.06, ammonia of 10 and a CK of 34. Fairly unremarkable. Chest x-ray shows left pleural effusion which is verified by the CT chest abdomen pelvis. Chronic large pleural effusion unchanged from 06/16/2019. There is falls evidence of a left lung atelectasis and cholelithiasis. No evidence of obstruction in the common bile duct. CT of the head shows no intracranial abnormality. Due to patient's dementia patient is arousable and alert. Patient will be admitted and further evaluated. Home medications list reviewed: No - Past Medical/Surgical History Diabetic: Yes -: IDDM -: Hyperlipidemia -: HTN -: Hypothyroid -: CVA -: Bronchiolitis -: CAD -: COPD -: gerd -: heart failure -: BPH -: heart stent x2 -: Balloon angioplasty -: broke both arm when 4yrs old Psychosocial/ Personal History: [facility] - Family History Father -: Lung disease Notes: black lung Mother -: Cancer - Social History Smoking Status: Never smoker Alcohol use: No CD- Drugs: No Caffeine use: Yes Place of Residence: Home <Josh Frazier - Last Filed: 04/03/20 23:57> Date of Service: 04/04/20 <Trent Patel - Last Filed: 04/09/20 04:37> Allergies acetaminophen [From Notrees] Allergy (Verified 12/16/18 03:06) Rash hydrocodone [From Notrees] Allergy (Verified 12/16/18 03:06) Rash iodine Allergy (Verified 12/16/18 03:09) Hives tramadol Allergy (Verified 12/06/18 23:20) Unknown Home Medications: Acetaminophen 650 mg PO Q6HP PRN 12/16/18 Apixaban [Eliquis *] 2.5 mg PO BID 12/16/18 Cholecalciferol (Vitamin D3) [Vitamin D3] 1,000 unit PO DAILY 12/16/18 Donepezil HCl 10 mg PO BEDTIME 12/16/18 Escitalopram [Lexapro*] 20 mg PO DAILY 12/16/18 Insulin Glargine Human [Lantus*] 8 unit SQ DAILY 12/16/18 Levothyroxine [Synthroid*] 50 mcg PO [id number] 12/16/18 Liraglutide [Victoza 2-Gab] 0.6 mg SQ DAILY 12/16/18 Magnesium Oxide [Mag 0X*] 400 mg PO DAILY 12/16/18 Medroxyprogesterone Acet [Provera] 10 mg PO DAILY 12/16/18 Memantine HCl [Namenda*] 10 mg PO DAILY 12/16/18 Nitroglycerin 0.4 mg SL SEECOM PRN 12/16/18 OXcarbazepine [Trileptal*] 150 mg PO BID 12/16/18 Tamsulosin [Flomax*] 0.4 mg PO BEDTIME 12/16/18 Furosemide [Lasix*] 40 mg PO DAILY #60 tab 12/22/18 Hydralazine [Apresoline*] 25 mg PO BID #60 tab 12/22/18 Atorvastatin Calcium [Lipitor*] 10 mg PO BEDTIME 04/04/20 Ferrous Sulfate [Ferrous Sulfate*] 325 mg PO DAILY 04/04/20 Insulin Aspart [Novolog] See Protocol SQ TID 04/04/20 Lactulose 15 ml PO BID 04/04/20 Loratadine [Claritin*] 10 mg PO DAILY 04/04/20 Metformin HCl [Glucophage*] 500 mg PO BIDWM 04/04/20 Omeprazole 20 mg PO DAILY 04/04/20 Umeclidinium [place] [Incruse Ellipta] 62.5 mcg IH DAILY 04/04/20 Vit A,C & E/Lutein/Minerals [Ocuvite Tablet] 1 tab PO BID 04/04/20 Azithromycin Tab [Zithromax*] 250 mg PO DAILY #4 tab 04/06/20 Cefdinir [Omnicef] 300 mg PO BID #10 capsule 04/06/20 Review of Systems is unable to be obtained <Josh Frazier - Last Filed: 04/03/20 23:57> Physical Examination - Vital Signs Temperature: 97.4 F Blood Pressure: 128/50 Pulse: 71 Respirations: 19 Pulse Ox (%): 99 (RA) - Physical Exam General: Alert, Demented HEENT: Atraumatic, Normocephalic, PERRLA, Mucous membr. moist/pink Neck: Supple, No Thyromegaly, Other (Trachea midline) Respiratory: Clear to auscultation bilaterally, Normal air movement Cardiovascular: No edema, Normal pulses, Regular rate/rhythm Capillary refill: <2 Seconds Gastrointestinal: Normal bowel sounds, Soft and benign, Non-distended Musculoskeletal: No clubbing, No swelling, No contractures, No erythema Integumentary: No rashes, No breakdown, No significant lesion, No tenderness/swelling Neurological: Normal strength at 5/5 x4 extr, Normal tone, Dementia - Studies Laboratory Data (last 24 hrs) 04/03/20 19:20: PT 14.0 H, INR 1.19, APTT 35.6 04/03/20 19:20: WBC 8.6, Hgb 11.0 L, Hct 32.6 L, Plt Count 203 04/03/20 19:20: Sodium 141, Potassium 4.4, BUN 29 H, Creatinine 1.35 H, Glucose 83, Total Bilirubin 0.3, AST 14 L, ALT 14, Alkaline Phosphatase 75, Lipase 532 H <Josh Frazier - Last Filed: 04/03/20 23:57> - Studies Microbiology Data (last 24 hrs): 04/03/20 20:00 Blood - Blood Anaerobic Blood Culture - Final No growth in 5 days. 04/03/20 19:20 Blood - Blood Aerobic Blood Culture - Final No growth in 5 days. 04/03/20 19:20 Blood - Blood Anaerobic Blood Culture - Final No growth in 5 days. <Trent Patel - Last Filed: 04/09/20 04:37> Assessment and Plan - Plan Impression: Altered mental status complicated by underlying dementia: Urinary tract infection: Possible developing pneumonia: History of dementia: History of toxic liver disease: Type 2 diabetes mellitus: History of CVA with dysphagia: Plan: Altered mental status complicated by underlying dementia: Likely from urinary tract infection and possible developing pneumonia. Per nursing staff patient is not at baseline. He does have underlying dementia. Urinary tract infection: UA with significant bacteria, white cells of 20-50 and +1 leukocyte esterase. Will start patient on IV Rocephin. Prior urine culture shows susceptibility to this antibiotic. Will await current urine culture results. Possible developing pneumonia: Seen on chest CT. Will start azithromycin and Rocephin as above. Patient is not requiring O2 support at this time. Monitor History of dementia: Not at baseline per [facility] staff. Will continue to monitor. History of toxic liver disease: Etiology unclear. Patient has chronic elevated lipase. Will continue to trend. Type 2 diabetes mellitus: Accu-Cheks a.c. HS. Diabetic diet. Will start sliding scale insulin. Will restart home medications once verified. History of CVA with dysphagia: Patient is able to tolerate p.o. diet per [facility] staff. Will resume diet once patient is more awake and alert. Discharge Plan: Group Home Plan to discharge in: Greater than 2 days - Advance Directives Does patient have a Living Will: No Does patient have a Durable POA for Healthcare: No - Code Status/Comfort Care Code Status Assessed: Yes Time Spent Managing Pts Care (In Minutes): 55 <Josh Frazier - Last Filed: 04/03/20 23:57> - Problems (Diagnosis) (1) Acute encephalopathy Status: Acute (2) Altered mental status Onset Date: ~04/04/20 Status: Acute (3) Dyspnea Onset Date: ~04/03/20 Status: Acute (4) Pneumonia Onset Date: ~04/04/20 Status: Acute Qualifiers: Pneumonia type: due to unspecified organism Laterality: left Lung location: lower lobe of lung Qualified Code(s): J18.9 - Pneumonia, unspecified organism (5) UTI (urinary tract infection) Onset Date: ~04/04/20 Status: Acute Qualifiers: Urinary tract infection type: acute cystitis Hematuria presence: without hematuria Qualified Code(s): N30.00 - Acute cystitis without hematuria (6) DM2 (diabetes mellitus, type 2) Status: Chronic Qualifiers: Diabetes mellitus termite control servicer insulin use: with termite control servicer use (7) HTN (hypertension) Status: Chronic (8) CAD (coronary artery disease) Status: Chronic (9) CHF (congestive heart failure) Status: Chronic (10) CVA (cerebral vascular accident) Status: Chronic (11) Hypothyroidism Onset Date: 09/01/16 Status: Chronic Qualifiers: Hypothyroidism type: acquired Qualified Code(s): E03.9 - Hypothyroidism, unspecified <Trent Patel - Last Filed: 04/09/20 04:37> Date of Service: 04/04/20 Agree with plan of care as discussed above. Discussed the case with physician retail store assistant. <Trent Patel - Last Filed: 04/09/20 04:37>
[2020-04-04] MEDS ORDERED: NA CHLORIDE 0.9% 250 ML ONE (01:06)
[2020-04-04] MEDS ORDERED: AZITHROMYCIN 500 MG INJ IVPB ONE (01:49)
[2020-04-04] MEDS: NA CHLORIDE 0.9% 1,000 ML IV SCH ×3 (01:51→16:46)
[2020-04-04] MEDS: HEPARIN 5000 UNIT/ML 1 ML VIAL SQ SCH ×2 (01:56→09:05)
[2020-04-04 02:16] VITALS: BMI 28.0
[2020-04-04] MEDS: INSULIN -REGULAR HUMAN 50 UNIT/0.5 ML ML SQ SCH ×4 (07:30→21:00)
[2020-04-04 07:41] LABS: Basophils % 0.7 % (0-1.3); Hematocrit 30.4 % (39.6-49.0); Lymphocytes % 14.7 % (15.3-44.8); MPV 7.2 fL (7.6-11.3); RBC Red Blood Cell Count 3.32 M/uL (4.33-5.43)
[2020-04-04 07:47] LABS: Potassium 4.1 mmol/L (3.5-5.1)
[2020-04-04] MEDS ORDERED: CEFTRIAXONE 1 GM/NS 50 ML 1 GM/50 ML BAG IV SCH (09:00)
[2020-04-04] MEDS: CEFTRIAXONE/SWI 1gm 1 GM/10 ML SYR IV SCH (09:04)
[2020-04-04] MEDS ORDERED: ACETAMINOPHEN 325 MG TABLET PO PRN (11:56)
[2020-04-04] MEDS ORDERED: D50W 25 GM/50 ML SYRINGE/VIAL IV PRN (11:56)
--- NOTE | 2020-04-04 12:04 | EKG ---
Test Date: 2020-04-03 Test Time: 19:31:34 Vial Gauger: MEASUREMENT RESULTS: Intervals: Rate: 82 HI: 136 QRSD: 100 QT: 386 QTc: 450 [place]: P: -67 HI: 136 QRS: 54 T: -16 INTERPRETIVE STATEMENTS: Unusual P axis and short HI, probable junctional tachycardia Nonspecific ST and T wave abnormality Abnormal ECG Compared to ECG 12/15/2018 23:04:23 ST (T wave) deviation now present Sinus bradycardia no longer present Myocardial infarct finding no longer present Electronically Signed On 04-04-20 12:01:30 CDT by Héctor Hatfield
[2020-04-04] MEDS: METFORMIN HCL 500 MG TAB PO SCH (16:31)
[2020-04-04] MEDS: ATORVASTATIN 10 MG TAB PO SCH (21:13)
[2020-04-04] MEDS: OXcarbazepine 150 MG TAB PO SCH (21:13)
[2020-04-04] MEDS: OCUVITE (VIT A,C & E/LUTEIN/MINERAL) TABLET PO SCH (21:13)
[2020-04-04] MEDS: DONEPEZIL HCL 5 MG TAB PO SCH (21:13)
[2020-04-04] MEDS: HYDRALAZINE HCL 25 MG TABLET PO SCH (21:13)
[2020-04-04] MEDS: LACTULOSE 20 GM/30 ML UCUP PO SCH ×2 (21:13→21:14)
[2020-04-04] MEDS: TAMSULOSIN 0.4 MG SR CAP PO SCH (21:14)
[2020-04-04] MEDS: APIXABAN 2.5 MG TABLET PO SCH (21:14)
[2020-04-05] MEDS: NA CHLORIDE 0.9% 1,000 ML IV SCH ×3 (00:40→17:33)
[2020-04-05] MEDS: LEVOTHYROXINE SOD 0.05 MG TABLET PO SCH (05:09)
[2020-04-05] MEDS: INSULIN -REGULAR HUMAN 50 UNIT/0.5 ML ML SQ SCH ×4 (07:30→20:16)
[2020-04-05] MEDS: METFORMIN HCL 500 MG TAB PO SCH ×2 (08:00→17:00)
[2020-04-05] MEDS: CEFTRIAXONE/SWI 1gm 1 GM/10 ML SYR IV SCH (08:19)
[2020-04-05] MEDS: APIXABAN 2.5 MG TABLET PO SCH ×2 (08:19→20:22)
[2020-04-05] MEDS: VITAMIN D 1000 UNIT TAB PO SCH (08:19)
[2020-04-05] MEDS: MAGNESIUM OXIDE 400 MG TAB PO SCH (08:19)
[2020-04-05] MEDS: OCUVITE (VIT A,C & E/LUTEIN/MINERAL) TABLET PO SCH ×2 (08:20→20:22)
[2020-04-05] MEDS: OXcarbazepine 150 MG TAB PO SCH ×2 (08:20→20:22)
[2020-04-05] MEDS: FERROUS SULFATE 325 MG TAB PO SCH (08:20)
[2020-04-05] MEDS: ESCITALOPRAM 20 MG TAB PO SCH (08:20)
[2020-04-05] MEDS: PANTOPRAZOLE 40MG TABLET PO SCH (08:20)
[2020-04-05] MEDS: LORATADINE 10 MG TAB PO SCH (08:20)
[2020-04-05] MEDS: MEMANTINE HCL 10 MG TABLET PO SCH (08:20)
[2020-04-05] MEDS: MEDROXYPROGESTERONE 5 MG TAB PO SCH (08:21)
[2020-04-05] MEDS: FUROSEMIDE 40 MG TABLET PO SCH (08:23)
[2020-04-05] MEDS: INSULIN GLARGINE 100 UNITS/ML SQ SCH (08:23)
[2020-04-05] MEDS: HYDRALAZINE HCL 25 MG TABLET PO SCH ×2 (08:23→20:22)
[2020-04-05] MEDS: LACTULOSE 20 GM/30 ML UCUP PO SCH ×2 (08:23→20:25)
[2020-04-05] MEDS: LIRAGLUTIDE 0.6 MG SQ SCH (09:00)
[2020-04-05] MEDS ORDERED: HOME MED 1 EA UNK (Omeprazole [Omeprazole] 20 MG) PO SCH (09:00)
[2020-04-05] MEDS: HOME MED 1 EA UNK (Umeclidinium Bromide [Incruse Ellipta] 62.5 MCG) IH SCH (09:00)
--- NOTE | 2020-04-05 15:07 | P.PN ---
Subjective Date of Service: 04/04/20 Subjective: No new changes Patient very lethargic and not really responding to me. Tried to open his eyes up but he would not keep them open. He is very weak and he appears to have some encephalopathy. This is most likely related to his pneumonia and his urinary tract infection. Will try to get hold of [facility] to get patient baseline status. Review of Systems is unable to be obtained Physical Examination - Vital Signs Temperature: 976 F Blood Pressure: 145/63 Pulse: 85 Respirations: 18 Pulse Ox (%): 94 - Physical Exam General: Other (obtunded ) Respiratory: Clear to auscultation bilaterally, Normal air movement Cardiovascular: Regular rate/rhythm, Normal S1 S2, No murmurs Gastrointestinal: Normal bowel sounds, Soft and benign, Non-distended, No te nderness Musculoskeletal: No clubbing, No swelling, No tenderness, Swelling Integumentary: No rashes Neurological: Sensation intact, Cranial nerves 3-12 intact - Studies Medications List Reviewed: Yes Assessment & Plan - Problems (Diagnosis) (1) Acute encephalopathy Current Visit: No Status: Acute (2) Altered mental status Onset Date: 08/20/16 Current Visit: No Status: Acute (3) Dyspnea Onset Date: 08/18/16 Current Visit: No Status: Acute (4) Pneumonia Current Visit: No Status: Acute Qualifiers: Pneumonia type: due to unspecified organism Laterality: left Lung location: lower lobe of lung Qualified Code(s): J18.9 - Pneumonia, unspecified organism (5) UTI (urinary tract infection) Onset Date: 09/01/16 Current Visit: No Status: Acute Qualifiers: Urinary tract infection type: acute cystitis Hematuria presence: without hematuria Qualified Code(s): N30.00 - Acute cystitis without hematuria - Advance Directives Does patient have a Living Will: Yes Does patient have a Durable POA for Healthcare: No
[2020-04-05] MEDS: TAMSULOSIN 0.4 MG SR CAP PO SCH (20:22)
[2020-04-05] MEDS: ATORVASTATIN 10 MG TAB PO SCH (20:22)
[2020-04-05] MEDS: DONEPEZIL HCL 5 MG TAB PO SCH (20:22)
[2020-04-06] MEDS: NA CHLORIDE 0.9% 1,000 ML IV SCH (04:14)
[2020-04-06] MEDS: LEVOTHYROXINE SOD 0.05 MG TABLET PO SCH (05:39)
--- NOTE | 2020-04-06 07:02 | P.PN ---
Subjective Date of Service: 04/05/20 Patient is more awake and alert. He is following commands. Spoke to [facility] and they state this is close to his baseline. He occasionally will transfer to a wheelchair. Plan to Dc in a.m. if he remains stable. Review of Systems 10-point ROS is otherwise unremarkable Physical Examination - Vital Signs Temperature: 97 F Blood Pressure: 145/63 Pulse: 85 Respirations: 18 Pulse Ox (%): 94 - Physical Exam General: Alert, In no apparent distress, Demented Respiratory: Diminished Cardiovascular: Regular rate/rhythm, Normal S1 S2 Gastrointestinal: Normal bowel sounds, Soft and benign, Non-distended Musculoskeletal: No clubbing, Swelling Neurological: Cranial nerves 3-12 intact, Abnormal gait, Abnormal speech, Abnormal strength - Studies Medications List Reviewed: Yes Assessment & Plan - Problems (Diagnosis) (1) Acute encephalopathy Current Visit: Yes Status: Acute (2) Altered mental status Onset Date: ~04/04/20 Current Visit: Yes Status: Acute (3) Dyspnea Onset Date: ~04/03/20 Current Visit: No Status: Acute (4) Pneumonia Onset Date: ~04/04/20 Current Visit: No Status: Acute Qualifiers: Pneumonia type: due to unspecified organism Laterality: left Lung location: lower lobe of lung Qualified Code(s): J18.9 - Pneumonia, unspecified organism (5) UTI (urinary tract infection) Onset Date: ~04/04/20 Current Visit: No Status: Acute Qualifiers: Urinary tract infection type: acute cystitis Hematuria presence: without hematuria Qualified Code(s): N30.00 - Acute cystitis without hematuria (6) DM2 (diabetes mellitus, type 2) Current Visit: Yes Status: Chronic Qualifiers: Diabetes mellitus group home insulin use: with group home use (7) HTN (hypertension) Current Visit: Yes Status: Chronic (8) CAD (coronary artery disease) Current Visit: No Status: Chronic (9) CHF (congestive heart failure) Current Visit: No Status: Chronic (10) CVA (cerebral vascular accident) Current Visit: Yes Status: Chronic (11) Hypothyroidism Onset Date: 09/01/16 Current Visit: No Status: Chronic Qualifiers: Hypothyroidism type: acquired Qualified Code(s): E03.9 - Hypothyroidism, unspecified - Plan Plan: 1. Continue with IV antibiotics 2. Feed with assistance 3. Strict blood pressure and blood sugar control 4. Monitor neurologic status 5. Monitor white blood cell count and vitals 6. Out of bed and transfer 7. GI and DVT prophylaxis Discharge Plan: Home Plan to discharge in: Greater than 2 days - Advance Directives Does patient have a Living Will: Yes Does patient have a Durable POA for Healthcare: No - Code Status/Comfort Care Code Status Assessed: Yes Code Status: Full Code Critical Care: No Time Spent Managing PTS Care (In Minutes): 35
--- NOTE | 2020-04-06 07:08 | P.DS ---
Discharge Date: 04/06/20 Disposition: ROUTINE DISCHARGE Discharge Condition: GOOD Reason for Admission: AMS/UTI/PNA - Problems (1) Acute encephalopathy Current Visit: Yes Status: Acute (2) Altered mental status Onset Date: ~04/04/20 Current Visit: Yes Status: Acute (3) Dyspnea Onset Date: ~04/03/20 Current Visit: No Status: Acute (4) Pneumonia Onset Date: ~04/04/20 Current Visit: No Status: Acute Qualifiers: Pneumonia type: due to unspecified organism Laterality: left Lung location: lower lobe of lung Qualified Code(s): J18.9 - Pneumonia, unspecified organism (5) UTI (urinary tract infection) Onset Date: ~04/04/20 Current Visit: No Status: Acute Qualifiers: Urinary tract infection type: acute cystitis Hematuria presence: without hematuria Qualified Code(s): N30.00 - Acute cystitis without hematuria (6) DM2 (diabetes mellitus, type 2) Current Visit: Yes Status: Chronic Qualifiers: 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 Patient normally interacts but he was having a hard time waking up. When he presented to the ER he was very lethargic and not really responsive. His workup revealed pneumonia and UTI. Patient was admitted to the hospital for further evaluation. Hospital Course: Patient treat with IV antibiotics and clinically doing much better. Patient also has a chronic left pleural effusion. They'll be managed conservatively. According to the nursing staff, patient is back at his baseline. At this time patient is stable for discharge home. Vital Signs/Physical Exam: Temp Pulse Resp BP Pulse Ox 97 F 85 18 145/63 H 94 04/06/20 07:02 04/06/20 07:02 04/06/20 07:02 04/06/20 07:02 04/06/20 07:02 General: Alert, In no apparent distress, Demented Respiratory: Diminished Laboratory Data at Discharge: WBC 7.1 K/uL (4.3-10.9) D 04/04/20 07:21 Hgb 10.1 g/dL (13.6-17.9) L 04/04/20 07:21 Hct 30.4 % (39.6-49.0) L 04/04/20 07:21 Plt Count 178 K/uL (152-406) 04/04/20 07:21 PT 14.0 SECONDS (9.5-12.5) H 04/03/20 19:20 INR 1.19 04/03/20 19:20 APTT 35.6 SECONDS (24.3-36.9) 04/03/20 19:20 Sodium 142 mmol/L (136-145) 04/04/20 07:21 Potassium 4.1 mmol/L (3.5-5.1) 04/04/20 07:21 BUN 27 mg/dL (7-18) H 04/04/20 07:21 Creatinine 1.12 mg/dL (0.55-1.3) 04/04/20 07:21 Glucose 67 mg/dL (74-106) L 04/04/20 07:21 Magnesium 2.0 mg/dL (1.8-2.4) 04/04/20 07:21 Total Bilirubin 0.3 mg/dL (0.2-1.0) 04/03/20 19:20 AST 14 U/L (15-37) L 04/03/20 19:20 ALT 14 U/L (12-78) 04/03/20 19:20 Alkaline Phosphatase 75 U/L (45-117) 04/03/20 19:20 Lipase 532 U/L (73-393) H 04/03/20 19:20 Home Medications: Acetaminophen 650 mg PO Q6HP PRN 12/16/18 Apixaban [Eliquis *] 2.5 mg PO BID 12/16/18 Cholecalciferol (Vitamin D3) [Vitamin D3] 1,000 unit PO DAILY 12/16/18 Donepezil HCl 10 mg PO BEDTIME 12/16/18 Escitalopram [Lexapro*] 20 mg PO DAILY 12/16/18 Insulin Glargine Human [Lantus*] 8 unit SQ DAILY 12/16/18 Levothyroxine [Synthroid*] 50 mcg PO [id number] 12/16/18 Liraglutide [Victoza 2-Gab] 0.6 mg SQ DAILY 12/16/18 Magnesium Oxide [Mag 0X*] 400 mg PO DAILY 12/16/18 Medroxyprogesterone Acet [Provera] 10 mg PO DAILY 12/16/18 Memantine HCl [Namenda*] 10 mg PO DAILY 12/16/18 Nitroglycerin 0.4 mg SL SEECOM PRN 12/16/18 OXcarbazepine [Trileptal*] 150 mg PO BID 12/16/18 Tamsulosin [Flomax*] 0.4 mg PO BEDTIME 12/16/18 Furosemide [Lasix*] 40 mg PO DAILY #60 tab 12/22/18 Hydralazine [Apresoline*] 25 mg PO BID #60 tab 12/22/18 Atorvastatin Calcium [Lipitor*] 10 mg PO BEDTIME 04/04/20 Ferrous Sulfate [Ferrous Sulfate*] 325 mg PO DAILY 04/04/20 Insulin Aspart [Novolog] See Protocol SQ TID 04/04/20 Lactulose 15 ml PO BID 04/04/20 Loratadine [Claritin*] 10 mg PO DAILY 04/04/20 Metformin HCl [Glucophage*] 500 mg PO BIDWM 04/04/20 Omeprazole 20 mg PO DAILY 04/04/20 Umeclidinium [place] [Incruse Ellipta] 62.5 mcg IH DAILY 04/04/20 Vit A,C & E/Lutein/Minerals [Ocuvite Tablet] 1 tab PO BID 04/04/20 Azithromycin Tab [Zithromax*] 250 mg PO DAILY #4 tab 04/06/20 Cefdinir [Omnicef] 300 mg PO BID #10 capsule 04/06/20 New Medications: Cefdinir [Omnicef] 300 mg PO BID #10 capsule Azithromycin Tab [Zithromax*] 250 mg PO DAILY #4 tab Patient Discharge Instructions: OK TO DC IV AND DC HOME. FOLLOW-UP WITH PRIMARY CARE PROVIDER IN 1-2 WEEKS. RETURN TO THE ER IF symptoms worsen. CALL or TEXT DR. MONTESINOS AT [phone] IF ANY QUESTIONS REGARDING HOSPITAL STAY. PLEASE CALL THE FLOOR AT [phone] IF ANY MEDICATION OR NURSING QUESTIONS. Diet: AHA Activity: Fall precautions Time spent managing pt's care (in minutes): 35
[2020-04-06] MEDS: INSULIN -REGULAR HUMAN 50 UNIT/0.5 ML ML SQ SCH ×2 (07:30→11:30)
[2020-04-06] MEDS: METFORMIN HCL 500 MG TAB PO SCH (08:00)
[2020-04-06] MEDS: ESCITALOPRAM 20 MG TAB PO SCH (08:52)
[2020-04-06] MEDS: CEFTRIAXONE/SWI 1gm 1 GM/10 ML SYR IV SCH (08:52)
[2020-04-06] MEDS: APIXABAN 2.5 MG TABLET PO SCH (08:52)
[2020-04-06] MEDS: MEMANTINE HCL 10 MG TABLET PO SCH (08:52)
[2020-04-06] MEDS: OCUVITE (VIT A,C & E/LUTEIN/MINERAL) TABLET PO SCH (08:52)
[2020-04-06] MEDS: MAGNESIUM OXIDE 400 MG TAB PO SCH (08:53)
[2020-04-06] MEDS: FUROSEMIDE 40 MG TABLET PO SCH (08:53)
[2020-04-06] MEDS: HYDRALAZINE HCL 25 MG TABLET PO SCH (08:53)
[2020-04-06] MEDS: FERROUS SULFATE 325 MG TAB PO SCH (08:53)
[2020-04-06] MEDS: PANTOPRAZOLE 40MG TABLET PO SCH (08:53)
[2020-04-06] MEDS: LORATADINE 10 MG TAB PO SCH (08:53)
[2020-04-06] MEDS: VITAMIN D 1000 UNIT TAB PO SCH (08:53)
[2020-04-06] MEDS: LACTULOSE 20 GM/30 ML UCUP PO SCH (08:54)
[2020-04-06] MEDS: INSULIN GLARGINE 100 UNITS/ML SQ SCH (08:54)
[2020-04-06] MEDS: LIRAGLUTIDE 0.6 MG SQ SCH (08:55)
[2020-04-06] MEDS: HOME MED 1 EA UNK (Umeclidinium Bromide [Incruse Ellipta] 62.5 MCG) IH SCH (09:00)
[2020-04-06] MEDS: OXcarbazepine 150 MG TAB PO SCH (09:54)
[2020-04-06] MEDS: MEDROXYPROGESTERONE 5 MG TAB PO SCH (09:55)
[2020-04-06 12:07] VITALS: BP 119/49; TEMP 98.7
[2020-04-06 14:10] VITALS: O2SAT 95
== END 2020-04-06 13:33 | DRG 193 ==
LOC: ER 19:11 → ERHOLD 22:14 → 2ND 04-04 00:38
PROVIDERS: ADMIT Hospitalist; ATTEND Hospitalist
DX: J18.9 Pneumonia, unspecified organism (principal); I50.31 Acute diastolic (congestive) heart failure; G92 Toxic encephalopathy; N30.00 Acute cystitis without hematuria; N18.4 Chronic kidney disease, stage 4 (severe); J44.0 Chronic obstructive pulmonary disease with (acute) lower respiratory infection; I13.0 Hypertensive heart and chronic kidney disease with heart failure and stage 1 through stage 4 chronic kidney disease, or unspecified chronic kidney disease; F03.90 Unspecified dementia, unspecified severity, without behavioral disturbance, psychotic disturbance, mood disturbance, and anxiety; E11.22 Type 2 diabetes mellitus with diabetic chronic kidney disease; K21.9 Gastro-esophageal reflux disease without esophagitis; I25.10 Atherosclerotic heart disease of native coronary artery without angina pectoris; E78.5 Hyperlipidemia, unspecified; E03.9 Hypothyroidism, unspecified; I69.391 Dysphagia following cerebral infarction; R06.00 Dyspnea, unspecified; R13.10 Dysphagia, unspecified; Z95.5 Presence of coronary angioplasty implant and graft; Z79.01 Long term (current) use of anticoagulants; Z79.4 Long term (current) use of insulin; Z79.899 Other long term (current) drug therapy; Z79.890 Hormone replacement therapy; Z88.5 Allergy status to narcotic agent; Z88.8 Allergy status to other drugs, medicaments and biological substances; Z20.828 Contact with and (suspected) exposure to other viral communicable diseases
CPT/HCPCS: 36415; 51702; 70450; 71045; 71250; 74176; 80048; 80076; 81003; 81015; 82140; 82550; 82947; 83605; 83690; 83735; 84145; 84484; 85025; 85610; 85730; 87040; 87077; 87086; 87088; 87186; 93005; 96361; 96365; 96366; 99285; J0456; J0696; J1644; J3370; J7030; J7040; J7050; U0002

== ENCOUNTER 2020-04-26 20:00 | Observation (INO) | payer OTHER ==
--- OUTSIDE RECORDS SUMMARY | 2020-04-26 20:02 | XMS REPORT | Clinical Summary ---
:1935 Author Organization [facility] Address [address] [place] [id number] Care Team Providers Name Role Phone Asked, [...] bilateral 09/18/2016 Chest pain 09/18/2016 Stroke 08/06/2016 Surgical History Surgery Date Site/Laterality Comments BALLOON ANGIOPLASTY, ARTERY CARDIAC CATHETERIZATION 08/06/2016 N/A Procedur e: Cv carotid artery stenting; Surge on: Alec Cadet MD; Locat ion: [facility] Pool Hand Invasive Loc ation; Service: Cardiov ascular; Laterality: N/A; Medical devices from this surgery are in t he Implants section. CARDIAC CATHETERIZATION 08/06/2016 N/A Procedur e: Cv placement occlusive closur e device; Surgeon: Alec Cadet MD; Location: [facility] Ca th Lab Invasive Location; Servi ce: Cardiovascular; Laterality: N/A; Medical devices from this surgery are in t he Implants section. Medical History Medical History Date Comments Sleep apnea Diabetes mellitus (HCC) Hypertension Hypothyroidism Coronary artery disease GERD (gastroesophageal reflux disease) Hyperlipidemia Bronchiolitis Vertigo Atherosclerosis Heart failure (HCC) H/O heart artery stent Fracture both arms at 4 yrs o ld CHF (congestive heart failure) (HCC) COPD (chronic obstructive pulmonary disease) (HCC) Social History Tobacco Use Types Packs/Day Years Used Date Former Smoker Tobacco Cessation: Counseling Given: Yes Alcohol Use Drinks/Week oz/Week Comments No Sex Assigned at Date Recorded Not on file Last Filed Vital Signs Not on file Plan of Treatment Health Maintenance Due Date Last Done Comments SHINGLES VACCINES (#1) 1984 65+ PNEUMOCOCCAL VACCINE (1 of 1 - PPSV23) 1999 INFLUENZA VACCINE 02/11/2020 Implants Implanted Type Area Parts Room Assistant Device Shelf Model / Identifier Expiration Serial / Date Lot Stent Crtd Xact Slf-Xpndbl Tprd Koby 6-8m 30mm - [id number] [facility] era or [employer] [id number] / Implanted: Qty: 1 on 08/06/2016 by Alec Cadet MD at 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
--- OUTSIDE RECORDS SUMMARY | 2020-04-26 20:03 | XMS REPORT | Continuity of Care Document ---
:1935 Author Organization [facility] t Address [address] [place] [address] Care Team Providers Name Role Phone Asked, Pcp Primary Care Physician Unavailable Brad TONY Attending Clinician Andreina TONY Attending Clinician Andreina TONY Admitting Clinician Problems Condition Condition Condition Status Onset Resolution Last Treating Co mments Source Name Details Category Date Date Treatment Clinician Date Carotid Carotid Disease Active Tony disease, disease, 09-18 Method i bilateral bilateral 00:00: st 00 Chest pain Chest pain Disease Active shira 09-18 Methodi 00:00: st 00 Stroke Stroke Disease Active Tony 08-06 Methodi 00:00: st 00 Allergies, Adverse Reactions, Alerts Allergy Allergy Status Severity Reaction(s) Onset Inactive Treating Comm ents Source Name Type Date Date Clinician Codeine Propensi Active Other (See Unknown [place] merchant ty to Comments) 1-24 reaction Metho di adverse 00:00: st reaction 00 s to drug Iodine Propensi Active Other (See Unknown Regan [place] And ty to Comments) 1-24 reaction Metho di Iodide adverse 00:00: st Containi reaction 00 ng s to Products drug Hydrocod Propensi Active Other (See Unknown [place] one-Acet ty to Comments) -24 reaction Met hodi aminophe adverse 00:00: st n reaction 00 s to drug Tramadol Propensi Active Other (See Unknown [place] -Acetami ty to Comments) 24 reaction Met hodi nophen adverse 00:00: st reaction 00 s to drug Social History Social Habit Start Date Stop Date Quantity Comments Source Sex Assigned At [facility] ethodist Alcohol intake 2016-09-18 2016-09-18 Current [facility] thodist 00:00:00 00:00:00 non-drinker of alcohol (finding) Smoking Status Start Date Stop Date Source Former smoker 2016-09-18 00:00:00 2016-09-18 00:00:00 [facility] Medications Ordered Filled Start Stop Current Ordering Indication Dosage Frequency Signature Comments Components Source Medication Medication Date Date Medication? Clinician (SIG) Name Name atorvastati Yes 20mg QD Take 20 mg Humphrey n (LIPITOR) 1-20 by mouth Meth hilda 20 MG 00:00: nightly. st tablet 00 ergocalcife Yes [id number] Take [place] 1-20 50,000 Methodi (VITAMIN 00:00: Units by st D2) 50,000 00 mouth unit daily. capsule escitalopra Yes 20mg QD Take 20 mg Humphrey m (LEXAPRO) 1-20 by mouth Meth hilda 20 MG 00:00: daily. st tablet 00 donepezil Yes 5mg QD Take 5 mg Regan ston (ARICEPT) 5 3-23 by mouth Meth hilda MG tablet 00:00: nightly. st 00 ipratropium Yes 500ug Q6H Take 500 [place] (ATROVENT) 3-23 mcg by Methodi 0.02 % 00:00: nebulizati st nebulizer 00 on every 6 solution (six) hours as needed for wheezing or shortness of breath. clopidogrel Yes 75mg QD Take 75 mg [facility] (PLAVIX) 75 1-06 by mouth Meth hilda mg tablet 00:00: daily. st 00 furosemide Yes 40mg Q.5D Take 40 mg [place] (LASIX) 40 -06 by mouth 2 Met hodi mg tablet 00:00: (two) st 00 times a day. glipiZIDE Yes 5mg Q.5D Take 5 mg Regan ston (GLUCOTROL) 1-06 by mouth 2 Me thodi 5 MG tablet 00:00: (two) st 00 times a day before meals. levothyroxi Yes 50ug QD Take 50 Regan ston ne 1-06 mcg by Methodi (SYNTHROID, 00:00: mouth st LEVOXYL) 50 00 every mcg tablet morning. Procedures This patient has no known procedures. Plan of Care Planned Activity Planned Date Details Comments Source Future Scheduled 2020-02-11 INFLUENZA VACCINE [facility] 00:00:00 [code = INFLUENZA VACCINE] Future Scheduled 1999 65+ PNEUMOCOCCAL [facility] 00:00:00 VACCINE (1 of 1 - PPSV23) [code = 65+ PNEUMOCOCCAL VACCINE (1 of 1 - PPSV23)] Future Scheduled 1984 SHINGLES VACCINES (#1) [facility] 00:00:00 [code = SHINGLES VACCINES (#1)] Encounters Start End Encounter Admission Attending Care Care Encounter Source Date/Time Date/Time Type Type Clinicians Facility Department ID 2020-04-09 2020-04-12 [facility] Edgard Salinas [facility] [id number] 11:43:00 18:06:00 Encounter Axel Hdz [id number] [place] [id number] [place] [id number] Results This patient has no known results.
--- OUTSIDE RECORDS SUMMARY | 2020-04-26 20:05 | XMS REPORT | Summary of Care ---
:1935 Author Organization [facility] Address [address] [place] [id number] Care Team Providers Name Role Phone Yunior Primary Care Provider Reason for Referral (Routine) Status Reason Specialty Diagnoses / Referred By Referred To Procedures Contact Contact New Request Diagnoses Pleural effusion Vivi Ley Caroline Procedures Discharge Follow-up: PCP SRAVANTHI MOJICA; 3-5 Days Elizabeth, [employer] [address] [facility], [place] [address] Phone: Fax: (Routine) Status Reason Specialty Diagnoses / Referred By Referred To Procedures Contact Contact New Request IM-PULMONARY Diagnoses Pleural effusion Vivi Ley DISEASE Procedures Discharge Follow-Up: Specialty Service IM-PULMONARY DISEASE; 3-5 Days Elizabeth, [employer] [address] [place] [address] (Routine) Status Reason Specialty Diagnoses / Referred By Referred To Procedures Contact Contact New Request Diagnoses Pleural effusion Vivi Ley Caroline Procedures Discharge Follow-up: PCP SRAVANTHI MOJICA; 3-5 Days Elizabeth, [employer] [address] [place] [address] Phone: Fax: (Routine) Status Reason Specialty Diagnoses / Referred By Referred To Procedures Contact Contact New Request Physical Therapy Diagnoses Pleural effusion Vivi Ley Procedures CONSULT/REFERRAL PHYSICAL THERAPY Mcintire, [address] [place] [address] (Routine) Status Reason Specialty Diagnoses / Referred By Referred To Procedures Contact Contact New Request Occupational Diagnoses Pleural effusion Vivi Ley Therapy Procedures CONSULT/REFERRAL OCCUPATIONAL THERAPY Mcintire, [address] [place] [address] Radiology Services (Routine) Status Reason Specialty Diagnoses / Referred By Referred To Procedures Contact Contact New Request Diagnostic Diagnoses Pleural effusion Jordan, Radiology Procedures XR CHEST 1 VW MD Akil [address] [place] [phone] Radiology Services (Routine) Status Reason Specialty Diagnoses / Referred By Referred To Procedures Contact Contact Closed Diagnostic Diagnoses Fall, initial encounter Pleural effusion Vivi Ley Radiology Procedures IR THORACENTESIS WITH IMAGING IR THORACENTESIS [address] [place] [address] (Routine) Status Reason Specialty Diagnoses / Referred By Referred To Procedures Contact Contact New Request Procedures Vivi Ley CAROTID DUPLEX [facility] BILATER[facility] BY [address] [place] [address] VASCULAR LAB [place], [place] [address] (Routine) Status Reason Specialty Diagnoses / Referred By Contact Refe rred To Procedures Contact New Request Cardiology Diagnoses Laceration of forehead, initial encounter Closed head injury, initial encounter Axel Hdz MD Procedures ECHO ROUTINE W/DOPPLER COLOR [address] [place] [phone] Phone: MRI/CAT Scan (STAT) Status Reason Specialty Diagnoses / Referred By Referred To Procedures Contact Contact New Request Diagnostic Diagnoses Fall, initial encounter Laceration of forehead, initial encounter LOC (loss of consciousness) Ryan Salinas, Radiology Procedures CT abdomen pelvis with contrast [address] [place] [phone] MRI/CAT Scan (STAT) Status Reason Specialty Diagnoses / Referred By Referred To Procedures Contact Contact New Request Diagnostic Diagnoses Fall, initial encounter Laceration of forehead, initial encounter LOC (loss of consciousness) Ryan Salinas, Radiology Procedures CT thorax with contrast [address] [place] [address] MRI/CAT Scan (STAT) Status Reason Specialty Diagnoses / Referred By Referred To Procedures Contact Contact New Request Diagnostic Diagnoses Fall, initial encounter Ryan Salinas, Radiology Procedures CT CERVICAL SPINE WO CONTRAST [address] [place] [phone] MRI/CAT Scan (STAT) Status Reason Specialty Diagnoses / Referred By Referred To Procedures Contact Contact New Request Diagnostic Diagnoses Fall, initial encounter Ryan Salinas, Radiology Procedures CT HEAD WO CONTRAST [address] [place] [phone] Reason for Visit Reason Comments Auth/Cert Status Reason Specialty Diagnoses / Referred By Referred To Procedures Contact Contact Emergency Medicine [facility] [address] [place] [address] Fax: Encounter Details Date Type Department Care Team Description 04/09/2020 - Hospital Encounter ADC Medicine Robb Salinas MD [address] [place] [phone] Disorientation 04/12/2020 Surgery Unit Axel Hdz MD [address] [place] [phone] [place] [address] Allergies Active Allergy Reactions Severity Noted Date Comments Codeine Other - See comments Medium 08/05/2016 Unknown reaction Hydrocodone-Acetaminophen Other - See comments High 017 Unknown reaction Iodine And Iodide Other - See comments Medium 08/05/2016 Un known reaction Containing Products Tramadol-Acetaminophen Other - See comments [facility] 08/05/2016 Unknown reaction documented as of this encounter (statuses as of 04/12/2020) Medications Medication Sig Dispensed Refills Start Date End Date Status donepeziL 10 mg tablet Take 10 mg 0 Active by mouth at bedtime. ferrous sulfate 325 mg Take 325 mg 0 Active (65 mg iron) EC tablet by mouth daily. tamsulosin (FLOMAX) 0.4 Take by 0 Active mg 24 hr capsule mouth at bedtime. hydrALAZINE 25 mg tablet Take 25 mg 0 Active by mouth 2 (two) times daily. umeclidinium (INCRUSE Inhale 62.5 0 Active ELLIPTA) 62.5 mcg daily. mcg/actuation DsDv ipratropium-albuteroL 1 Ampule 3 0 Active 0.5 mg-3 mg(2.5 mg (three) base)/3 mL nebulizer times daily. solution lactulose 10 gram/15 mL Take 15 mL 0 Active (15 mL) Soln by mouth 2 (two) times daily. insulin glargine (LANTUS inject 8 0 Active U-100 INSULIN) 100 Units under unit/mL injection the skin daily. furosemide (LASIX) 40 mg Take 40 mg 0 Active tablet by mouth daily. levothyroxine 50 mcg Take 50 mcg 0 Active tablet by mouth every morning. escitalopram oxalate Take 20 mg 0 Active (LEXAPRO) 20 mg tablet by mouth daily. atorvastatin 10 mg Take 10 mg 0 Active tablet by mouth at bedtime. loratadine 10 mg tablet Take 10 mg 0 Active by mouth daily. magnesium oxide 400 mg Take 400 mg 0 Active magnesium Tab by mouth daily. memantine 10 mg tablet Take 10 mg 0 Active by mouth daily. metFORMIN 500 mg tablet Take 500 mg 0 Active by mouth 2 (two) times daily with meals. insulin aspart (NOVOLOG inject 0 Active FLEXPEN U-100 INSULIN under the SC) skin. vit C-E-zinc Take 1 0 Active dit-xuwyox-coivet tablet by ([employer] [facility]) 50 mouth daily. mg-15 unit- 4.5 mg-2.5 mg Chew omeprazole 20 mg TbLD Take 20 mg 0 Active by mouth daily. OXcarbazepine 150 mg Take 150 mg 0 Active tablet by mouth 2 (two) times daily. medroxyPROGESTERone Take 10 mg 0 Active (PROVERA) 10 mg tablet by mouth daily. liraglutide (VICTOZA inject 0.6 0 Active 3-JOS) 0.6 mg/0.1 mL (18 mg under the mg/3 mL) injection skin daily. Cholecalciferol, Vitamin Take 1 0 Active D3, (VITAMIN D3) 25 mcg capsule by (1,000 unit) capsule mouth daily. aspirin 81 mg chewable Take 1 30 tablet 0 04/13/2020 Active tabletIndications: tablet by 20 Pleural effusion mouth daily for 30 days. cefdinir 300 mg Take 1 2 capsule 0 04/12/2020 04/13/20 Act evgeny capsuleIndications: capsule by 20 Pleural effusion mouth 2 (two) times daily for 1 day. metoprolol succinate XL Take 1 30 tablet 0 04/13/202005/13 Active 25 mg 24 hr tablet by 20 tabletIndications: mouth daily Pleural effusion for 30 days. apixaban (ELIQUIS) 2.5 Take 2.5 mg 0 04/12 Discontinued mg tablet by mouth 2 20 (two) times daily. 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 04/10/2020 NSVT (nonsustained ventricular tachycardia) 04/10/2020 LOC (loss of consciousness) 04/09/2020 Disorientation 04/09/2020 Essential hypertension 04/09/2020 Dyslipidemia 04/09/2020 Elevated brain natriuretic peptide (BNP) level 020 Carotid disease, bilateral 09/18/2016 Stroke 08/06/2016 documented as of this encounter (statuses as of 04/12/2020) Immunizations Name Administration Dates Next Due Td 04/09/2020 documented as of this encounter Social History Tobacco Use Types Packs/Day Years Used Date Unknown If Ever Smoked Smokeless Tobacco: Never Used Sex Assigned at Date Recorded Not on file COVID-19 Exposure Response Date Recorded In the last month, have you been in contact Unable to assess 04/09/2020 11:40 AM CDT with someone who was confirmed or suspected to have Coronavirus / COVID-19? documented as of this encounter Last Filed Vital Signs Vital Sign Reading Time Taken Comments Blood Pressure 116/61 04/12/2020 4:45 PM CDT Pulse 61 04/12/2020 4:45 PM CDT Temperature 36.5 C (97.7 F) 04/12/2020 4:45 PM CDT Respiratory Rate 18 04/12/2020 4:45 PM CDT Oxygen Saturation 92% 04/12/2020 4:45 PM CDT Inhaled Oxygen Concentration - - Weight 91.4 kg (201 lb 8 oz) 04/12/2020 3:50 AM CDT Height 172.7 cm (5' 8") 04/09/2020 3:24 PM CDT Body Mass Index 30.64 04/09/2020 3:24 PM CDT documented in this encounter Discharge Summaries Vivi Ley, [place] - 04/12/2020 4:47 PM CDT [facility] Hospitalist Discharge Summary ADMIT DATE: 04/09/2020 DISCHARGE DATE: 04/12/2020 ATTENDING MD: Axel Hdz MD PCP: Sravanthi Mojica REASON FOR ADMISSION Fall and syncope CONSULTING SERVICES: cardiology PROCEDURES: Thoracentesis, by IR HOSPITAL COURSE: Paola Ford is a 84 year old male with PMH as listed above, admitted to the hospital with: #Fall/syncope stable Consult Dr Julian TSH 4.56, free T4, folate 9.5, iron panel low normal, HgA1c 5.0 Carotiddoppler right 50-79 % stenosis in internal carotid LEFT: There is a moderate amount of hard and calcified plaque outside the stent wall in the area of the bulb? color flow disturbance and elevated peak velocities are noted within the stent suggestive of hemodynamically significant in-stent stenosis Patient may follow up with vascular outpatient Echofindings EF 30-35% diastolic dysfunction, systolic function is moderate to severely reduced Ct headNo acute intracranial abnormality. Remote infarct of the bilateral parietal lobes, right larger than left. trend troponinrule out WA serial orthostatic Bps HoldEliquis due to falls For head laceration with sutures in place patient will need to follow-up outpatient for suture removal in 10 days Keep wound clean and dry #Altered mental status likely acute encephalopathy to fall Patient baseline dementia, hard of hearing Admission patient back to baseline #Dysphasia likely due to confusion Consulted speech pending recommendation reg diet with nectar thick liquids caution nectar thick liquids and, sit fully upright/chair, small single sips/bites, crush pills and mix with pudding with MD approval and remain upright for 30 minutes after meals. ERP PM Therapy 1-3 x wk for 15-45 min #Left pleural effusion per CT chest Left pleural effusion by IR completed 270 mL's of red colored fluid removed Samples sent to pathology pending results, patient to follow-up with pulmonology for cytology findings Patient is a poor historian Right groundglass opacity found per CT Patient to continue ZithromaxPOfor 2 more doses, Cefdinir PO for 7more days Patient was on these medications prior to admission will complete dose Unsure why taking Patient will complete Cefdin One more day upon discharge #HTN Hydralazine 25 mg twice a day #IDDM A1c pending Lantus 8 units daily SSI, Accu-Cheks before meals and at bedtime #Dementia/ depression Namenda 10 mg daily Aricept 10 mg daily at bedtime Lexapro 20 mg daily #Seizures Trileptal 150 mg bid #BPH Flomax 0.4 mf qhs #Hypothyroidism Levothyroxine 50 g daily PHYSICAL EXAM: NAD, Forehead laceration with sutures Anicteric sclera, oral mucosa clear Good air entry b/l RRR, nl s1s2 Abd soft NT No significant LE, no calf tenderness AO, no gross deficits Skin warm and dry Bilateral knees inspected and palpated and is not red or swollen SIGNIFICANT LAB/X-RAYS: LABS - reviewed pertinent labs as below: CBC BMP PT/INR WBC (10*3/L) Date Value 04/12/2020 5.66 NA (mmol/L) Date Value 04/12/2020 136 No results found for: PT RBC (10*6/L) Date Value 04/12/2020 2.77 (L) K (mmol/L) Date Value 04/12/2020 4.3 INR (no units) Date Value 04/09/2020 1.1 PLT (10*3/L) Date Value 04/12/2020 182 CALCIUM (mg/dL) Date Value 04/12/2020 8.7 HGB (g/dL) Date Value 04/12/2020 8.5 (L) CL (mmol/L) Date Value 04/12/2020 100 aPTT HCT (%) Date Value 04/12/2020 27.4 (L) BUN (mg/dL) Date Value 04/12/2020 29 (H) APTT Patient (Seconds) Date Value 04/09/2020 32 CREATININE (mg/dL) Date Value 04/12/2020 1.36 (H) IMAGING - reviewed Hospital Encounter on 04/09/20 IR THORACENTESIS WITH IMAGING Narrative Study: Ultrasound guided left thoracentesis. Technique: Informed consent was obtained from the guardian. Patient was placed in the upright position and under sonographic evaluation an appropriate site for access to the pleural effusion was obtained. The soft tissues overlying the pleural effusion was prepped and draped in a sterile manner. Local anesthesia was administered with 1% lidocaine. Under ultrasound guidance catheter was introduced into the pleural effusion. Findings: This was rather difficult procedure because of inability of the patient to cooperate. I was able to remove 270 cc of red-colored fluid from left pleural cavity. Multiple samples obtained and sent to pathology laboratory for various tests requested by Dr. Hdz. Impression Successful ultrasound-guided thoracentesis with removal of 12 8 270 cc pleural effusion from the left chest. CT thorax with contrast Narrative Patient name: PAOLA FORD : 1935 84 years EXAMINATION: CT THORAX W CONTRAST, CT ABDOMEN PELVIS W CONTRAST Ordering Physician: RYAN SALINAS CLINICAL HISTORY: Chest and abdominal pain after trauma COMPARISON: None TECHNIQUE: Helical CT images of the chest, abdomen, and pelvis were performed from the thoracic inlet to the proximal femurs using 5 mm slice thickness after the administration of IV contrast. Initial dedicated imaging of the thoracic and lumbar spine were performed. Coronal and sagittal reconstruction was performed. Dose reduction technology was utilized. FINDINGS: CHEST: Thoracic aorta is normal in caliber without injury evident. Pulmonary arteries grossly normal. Normal cardiac chamber size without pericardial effusion. Diffuse coronary artery calcification. No mediastinal hematoma or adenopathy. Right thyroid nodule measuring 10 mm. Thoracic esophagus is normal.. There is a large left pleural effusion with increased internal density measuring approximately 20 Hounsfield units. There is adjacent consolidation in the left upper and lower lobes with scattered calcification within the collapsed parenchyma. No pneumothorax in the left lung. Peribronchial vascular groundglass attenuation in the right upper lobe with patchy groundglass nodularity in the subpleural right upper lobe. No right-sided effusion. Scattered right-sided atelectasis.. ABDOMEN/PELVIS: No discrete liver lesions or injury. No calcified gallstones. Spleen is intact. No pancreatic lesion or peripancreatic fluid. Indeterminate nodule in the right adrenal gland measures 14 mm and indeterminate nodule in the left adrenal gland measures 9 mm.. Multifocal scarring of the right kidney. No hydronephrosis in left kidney. Urinary bladder is intact. Prostate is mildly enlarged. Thickening noted of the distal stomach. Large and small bowel are normal in caliber and wall thickness. Normal appendix. No mesenteric contusion, free fluid, or free air. No abscess. The abdominal aorta is normal. No adenopathy. MUSCULOSKELETAL: No spine fracture or subluxation. Degenerative changes of the thoracic and lumbar spine. Spinal canal stenosis noted diffusely throughout the lumbar spine, worst at L4-L5 with AP canal diameter of 6 mm. No spinal lesions. No paraspinal hematoma. No sternal, rib, pelvic, or hip fractures. No dislocation. Subcutaneous soft tissues are normal. Impression 1. Large left pleural effusion with increased internal density. This could represent a large chronic pleural effusion (serous or transudative). Differential would include effusion with posttraumatic blood components, no extravasation or adjacent rib fractures noted. 2. No acute traumatic injury within the abdomen and pelvis. 3. Right perihilar and subpleural groundglass attenuation and nodularity in the right upper lobe, could represent edema, contusion from trauma, or infection. 4. Thickening of the distal stomach could be from underdistention or acute gastritis/peptic ulcer disease. RL: 7000 HEAD WO CONTRAST Narrative Patient name: PAOLA FORD : 1935 84 years EXAMINATION: CT HEAD WO CONTRAST Ordering Physician: RYAN SALINAS CLINICAL HISTORY: Head trauma, headache COMPARISON: None TECHNIQUE: Helical CT images of the brain were obtained without the administration of IV contrast. CT performed using ALARA (As Low As Reasonably Achievable). FINDINGS: No intraparenchymal or extra-axial hemorrhage identified. Remote infarct of the right greater than left parietal lobes. Chronic small vessels ischemic change. No midline shift, mass effect, or herniation. No hydrocephalus.. No osseous lesions or fractures. No tonsillar ectopia evident. Paranasal sinuses and mastoid air cell complexes are clear. Impression No acute intracranial abnormality. Remote infarct of the bilateral parietal lobes, right larger than left. RL: 7000 CERVICAL SPINE WO CONTRAST Narrative Patient name: PAOLA FORD : 1935 84 years EXAMINATION: CT CERVICAL SPINE WO CONTRAST Ordering Physician: RYAN SALINAS CLINICAL HISTORY: Neck pain after trauma COMPARISON: None TECHNIQUE: Helical CT images of the cervical spine were obtained without the administration of IV contrast. Coronal and sagittal reconstruction was performed. CT performed using ALARA (As Low As Reasonably Achievable). FINDINGS: Normal cervical curvature. No fracture or subluxation is identified. No osseous lesions identified. The prevertebral soft tissues are normal. Lateral masses are aligned. Multilevel disc height loss and osteophyte formation is present with spinal canal stenosis at C3-C4 (AP canal diameter of 8 mm), C5-C6 (AP canal there is a 2 mm), and C6-C7 (with AP canal diameter of 7 mm). Multilevel uncovertebral and facet hypertrophy is present with severe right neural foraminal narrowing at C2-C3, severe left and moderate right neural foraminal narrowing at C3-C4, severe bilateral narrowing at C4-C5, severe bilateral narrowing at C5-C6, and severe bilateral narrowing at C6-C7. The lung apices are clear. No neck mass or fluid collections. No inflammatory changes. Thyroid gland is normal. Impression No acute cervical spine abnormality. Multilevel spondylosis, as above. RL: 7000 abdomen pelvis with contrast Narrative Patient name: PAOLA FORD : 1935 84 years EXAMINATION: CT THORAX W CONTRAST, CT ABDOMEN PELVIS W CONTRAST Ordering Physician: RYAN SALINAS CLINICAL HISTORY: Chest and abdominal pain after trauma COMPARISON: None TECHNIQUE: Helical CT images of the chest, abdomen, and pelvis were performed from the thoracic inlet to the proximal femurs using 5 mm slice thickness after the administration of IV contrast. Initial dedicated imaging of the thoracic and lumbar spine were performed. Coronal and sagittal reconstruction was performed. Dose reduction technology was utilized. FINDINGS: CHEST: Thoracic aorta is normal in caliber without injury evident. Pulmonary arteries grossly normal. Normal cardiac chamber size without pericardial effusion. Diffuse coronary artery calcification. No mediastinal hematoma or adenopathy. Right thyroid nodule measuring 10 mm. Thoracic esophagus is normal.. There is a large left pleural effusion with increased internal density measuring approximately 20 Hounsfield units. There is adjacent consolidation in the left upper and lower lobes with scattered calcification within the collapsed parenchyma. No pneumothorax in the left lung. Peribronchial vascular groundglass attenuation in the right upper lobe with patchy groundglass nodularity in the subpleural right upper lobe. No right-sided effusion. Scattered right-sided atelectasis.. ABDOMEN/PELVIS: No discrete liver lesions or injury. No calcified gallstones. Spleen is intact. No pancreatic lesion or peripancreatic fluid. Indeterminate nodule in the right adrenal gland measures 14 mm and indeterminate nodule in the left adrenal gland measures 9 mm.. Multifocal scarring of the right kidney. No hydronephrosis in left kidney. Urinary bladder is intact. Prostate is mildly enlarged. Thickening noted of the distal stomach. Large and small bowel are normal in caliber and wall thickness. Normal appendix. No mesenteric contusion, free fluid, or free air. No abscess. The abdominal aorta is normal. No adenopathy. MUSCULOSKELETAL: No spine fracture or subluxation. Degenerative changes of the thoracic and lumbar spine. Spinal canal stenosis noted diffusely throughout the lumbar spine, worst at L4-L5 with AP canal diameter of 6 mm. No spinal lesions. No paraspinal hematoma. No sternal, rib, pelvic, or hip fractures. No dislocation. Subcutaneous soft tissues are normal. Impression 1. Large left pleural effusion with increased internal density. This could represent a large chronic pleural effusion (serous or transudative). Differential would include effusion with posttraumatic blood components, no extravasation or adjacent rib fractures noted. 2. No acute traumatic injury within the abdomen and pelvis. 3. Right perihilar and subpleural groundglass attenuation and nodularity in the right upper lobe, could represent edema, contusion from trauma, or infection. 4. Thickening of the distal stomach could be from underdistention or acute gastritis/peptic ulcer disease. RL: 7000 CHEST 1 VW Narrative HISTORY: S/P left thoracentesis FINDINGS: AP view of the chest large left pleural effusion. No pneumothorax. Right lung is clear. CONCLUSIONS: Large left-sided pleural effusion, essentially unchanged when compared with CT topogram image. ITEMS FOR FOLLOW UP PROVIDER: Suture removal with in 10 days of dischaarge 04/20/2020 FUNCTIONAL STATUS: as tolerated DISCHARGE CONDITION: good DIET: cardiac and diabetic ACTIVITY: as tolerated DISCHARGE MEDICATIONS: Current Discharge Medication List START taking these medications Details aspirin 81 mg Take 81 mg by mouth daily. Qty: 30 tablet, Refills: 0 Start date: 04/13/2020, End date: 05/13/2020 Associated Diagnoses: Pleural effusion cefdinir (OMNICEF) 300 mg Take 300 mg by mouth 2 (two) times daily. Qty: 2 capsule, Refills: 0 Start date: 04/12/2020, End date: 04/13/2020 Associated Diagnoses: Pleural effusion metoprolol succinate XL (TOPROL XL) 25 mg Take 25 mg by mouth daily. Qty: 30 tablet, Refills: 0 Start date: 04/13/2020, End date: 05/13/2020 Associated Diagnoses: Pleural effusion CONTINUE these medications which have NOT CHANGED Details atorvastatin (LIPITOR) 10 mg Take 10 mg by mouth at bedtime. Cholecalciferol (Vitamin D3) (VITAMIN D3) 1 capsule Take 1 capsule by mouth daily. donepeziL (ARICEPT) 10 mg Take 10 mg by mouth at bedtime. escitalopram oxalate (LEXAPRO) 20 mg Take 20 mg by mouth daily. ferrous sulfate 325 mg Take 325 mg by mouth daily. furosemide (LASIX) 40 mg Take 40 mg by mouth daily. hydrALAZINE (APRESOLINE) 25 mg Take 25 mg by mouth 2 (two) times daily. insulin aspart (NOVOLOG FLEXPEN U-100 INSULIN SC) inject under the skin. insulin glargine (LANTUS U-100) 8 Units inject 8 Units under the skin daily. ipratropium-albuteroL (DUONEB) 1 Ampule 1 Ampule 3 (three) times daily. lactulose 15 mL Take 15 mL by mouth 2 (two) times daily. levothyroxine (SYNTHROID) 50 mcg Take 50 mcg by mouth every morning. Victoza 3-Jos 0.6 mg inject 0.6 mg under the skin daily. loratadine (CLARITIN) 10 mg Take 10 mg by mouth daily. magnesium oxide 400 mg Take 400 mg by mouth daily. medroxyPROGESTERone (CYCRIN) 10 mg Take 10 mg by mouth daily. memantine (NAMENDA) 10 mg Take 10 mg by mouth daily. metFORMIN (GLUCOPHAGE) 500 mg Take 500 mg by mouth 2 (two) times daily with meals. omeprazole 20 mg Take 20 mg by mouth daily. OXcarbazepine (TRILEPTAL) 150 mg Take 150 mg by mouth 2 (two) times daily. tamsulosin (FLOMAX) 0.4 mg 24 hr capsule Take by mouth at bedtime. Incruse Ellipta 62.5 mcg Inhale 62.5 mcg daily. Ocuvite [facility] 1 tablet Take 1 tablet by mouth daily. STOP taking these medications apixaban (ELIQUIS) 2.5 mg Comments: Reason for Stopping: DISCHARGE: jail facility or care home FOLLOW-UP APPOINTMENT: Follow up with pulmonology for thoracentesis cytology findings within 1-2 weeks upon discharge Follow-up with primary care provider for continuing Eliquis, held due to fall risk and for suture removals within 10 days of discharge Please call paging services at [phone] to contact TY Piedra with any questions. T[facility] [place] SILL WORKER was viewed during this stay Hospital discharge time took longer than 35 minutes. Associated attestation - Axel Hdz MD - 04/12/2020 5:28 PM CDTI have independently seen and evaluated this patient. I agree with the note below including physicalexam and plan. In summary, patient is admitted for syncope. Found to have large L pleural effusion, family hx lung cancer. S/p IR thoracentesis 270 cc removed, fluid cx negative, cytology negative for malignant cells. Needs Pulmonary f/u. Discharge on po diuretic. Cardiac workup shows depressed EF 30-35%. Multiple comorbidities, does not have capacity. Bed-ridden at care home. Spoke with daughter Karlene who wants to do conservative measures for now and will f/u. Rest of plan per below. documented in this encounter Discharge Instructions AttachmentsThe following attachments cannot be sent through Care Everywhere. Aspirin, ASA chewable tablets (Liberian)Cefdinir capsules (Liberian)Metoprolol tablets (Liberian)documented in this encounter Progress Notes Christian Zamora MD - 04/12/2020 7:57 AM CDT [facility] Cardiology progress note Date of Service: 04/12/2020 Paola Ford is a 84 year old male hospitalized for fall and AMS. No new cardiac complaints noted. PHYSICAL EXAM Vitals: 04/11/20 1937 04/11/20 1950 04/11/20 2317 04/12/20 0350 BP: 116/48 108/45 (!) 86/37 Pulse: 80 74 73 Resp: 18 18 18 18 Temp: 36.9 C (98.5 F) 36.4 C (97.5 F) 36.7 C (98.1 F) TempSrc: Temporal Artery Temporal Artery Temporal Artery SpO2: 90% 93% 92% 91% Weight: 201 lb 8 oz (91.4 kg) Height: General: no apparent distress HEENT: normocephalic atraumatic Neck: supple, no lymphadenopathy, no bruits, no JVD Lungs: clear to auscultation bilaterally Cardio: S1, S2, regular; no murmurs, rubs or gallops Abdomen: non-distended : not examined Rectal: not examined Extremities: no clubbing, cyanosis, or edema Skin: no rashes Neuro: no focal deficits Medications: I have reviewed the patient's medications; see Medication Reconciliation. Labs: I have reviewed the patient's labs. CBC BMP PT/INR WBC (10*3/L) Date Value 04/12/2020 5.66 NA (mmol/L) Date Value 04/12/2020 136 No results found for: PT PLT (10*3/L) Date Value 04/12/2020 182 K (mmol/L) Date Value 04/12/2020 4.3 INR (no units) Date Value 04/09/2020 1.1 HGB (g/dL) Date Value 04/12/2020 8.5 (L) BUN (mg/dL) Date Value 04/12/2020 29 (H) HCT (%) Date Value 04/12/2020 27.4 (L) CREATININE (mg/dL) Date Value 04/12/2020 1.36 (H) LIPID PROFILE GLUCOSE (mg/dL) Date Value 04/12/2020 115 (H) CHOL (mg/dL) Date Value 04/09/2020 96 (L) TSH LDL CHOL (mg/dL) Date Value 04/09/2020 25 TSH (mIU/L) Date Value 04/09/2020 4.56 CARDIAC ENZYMES HDL (mg/dL) Date Value 04/09/2020 26 (L) No results found for: CK TRIG (mg/dL) Date Value 04/09/2020 224 (H) LFTs No results found for: CKMB AST(SGOT) (U/L) Date Value 04/09/2020 16 TROPONIN I (ng/mL) Date Value 04/09/2020 0.010 ALTv (U/L) Date Value 04/09/2020 9 No results found for: BNP LDL CHOL (mg/dL) Date Value 04/09/2020 25 Recent Labs 04/09/20 1817 TROPNI 0.010 Recent Labs 04/09/20 1156 TRIG 224* LDL CHOL (mg/dL) Date Value 04/09/2020 25 NT-proBNP (pg/mL) Date Value 04/09/2020 1,500 (H) Echo 03/2020 Interpretation Summary A two-dimensional transthoracic echocardiogram with M-mode and Doppler was performed. The study was technically adequate. There is no comparison study available. Ejection Fraction = 30-35%. Diastolic function is impaired relaxation. There are regional wall motion abnormalities as specified. Estimated RA pressure is 0-5 mmHg. Insufficient Tricuspid regurgitation jet to estimate RVSP. Carotid USG Interpretation Summary RIGHT: 50-79% stenosis in the internal carotid artery. LEFT: There is a moderate amount of hard and calcified plaque outside the stent wall in the area of the bulb? color flow disturbance and elevated peak velocities are noted within the stent suggestive of hemodynamically significant in-stent stenosis. ASSESSMENT AND PLAN Principal Problem: Disorientation Active Problems: LOC (loss of consciousness) Essential hypertension Dyslipidemia Elevated brain natriuretic peptide (BNP) level Stroke Carotid disease, bilateral Pleural effusion Chronic combined systolic and diastolic congestive heart failure NSVT (nonsustained ventricular tachycardia) Fall/syncope: Uncertain etiology, multifactorial--large pleural effusion, arrhythmia. Due to very poor baseline functional capacity, will manage conservatively. AMS: as per primary team. Anemia: unspecified: work up as per primary team. Recommend to keep Hb > 8. HFrEF: seems to be chronic in nature. Volume status is acceptable. Holding lasix. Consider changing Metoprolol to Toprol XL. ACEI/ARB once renal function recovers and stable. Rpt NT pro BNP added. NSVT: No recurrence noted. PVCs noted. above, consider Toprol XL as tolerated. Will treat conservatively. HTN:On Hydralazine 25 mg BiD. If needed for better BP control, then we can increased Toprol XL. T2DM: as per primary team. Dyslipidemia: on lipitor 10 mg daily. History of CVA: On ASA 81 mg daily. Carotid artery disease: moderate to severe. Medical therapy with ASA and lipitor. Justo Zamora MD 04/12/2020 7:57 AM [employer] Teacher, Division of Cardiology [facility] Vivi Ley FNP - 04/11/2020 5:33 PM CDT [facility] Hospitalist Progress Note SUBJECTIVE: Patient seen at bedside. Patient is hard of hearing, but he will answer questions somewhat appropriately. No overnight events patient did eat breakfast and tolerated well CURRENT MEDICATIONS - reviewed. Current Facility-Administered Medications Medication Dose Route Frequency Last Rate Last Dose aspirin chewable tablet 81 mg 81 mg Oral DAILY 81 mg at 04/11/20907 metoprolol tartrate (LOPRESSOR) tablet 25 mg 25 mg Oral BID 25 mg at 04/11/20 0845 [id number] IV infusion 1,000 mL 1,000 mL IV Infusion CONTINUOUS 50 mL/hr at 04/10/20 1706 1,000 mL at 04/10/20 170 dextrose 50 % in water (D50W) injection 25 mL 25 mL Slow IV Push PRN 25 mL at 04/10/20 170 glucagon (GLUCAGEN DIAGNOSTIC KIT) injection 1 mg 1 mg Intramuscular PRN acetaminophen (TYLENOL) tablet 650 mg 650 mg Oral Q6HPRN 650 mg at 04/10/20 0531 atorvastatin (LIPITOR) tablet 10 mg 10 mg Oral QHS 10 mg at 04/10/202057 cefdinir (OMNICEF) capsule 300 mg 300 mg Oral BID 300 mg at 04/11/20907 donepeziL (ARICEPT) tablet 10 mg 10 mg Oral QHS 10 mg at 04/10/202057 escitalopram oxalate (LEXAPRO) tablet 20 mg 20 mg Oral DAILY 20 mg at 04/11/20907 hydrALAZINE (APRESOLINE) tablet 25 mg 25 mg Oral BID 25 mg at 04/11/20 09 insulin glargine (LANTUS U-100) injection 8 Units 8 Units Subcutaneous DAILY Stopped at 04/10/20 09 lactulose (CEPHULAC) solution 15 mL 15 mL Oral DAILY 15 mL at 04/11/20 09 levothyroxine (SYNTHROID) tablet 50 mcg 50 mcg Oral QAM-0600 50 mcg at 04/11/20 0424 medroxyPROGESTERone (CYCRIN) tablet 10 mg 10 mg Oral DAILY 10 mg at 04/10/20 1303 memantine (NAMENDA) tablet 10 mg 10 mg Oral DAILY 10 mg at 04/11/20 0908 omeprazole (PRILOSEC) capsule 20 mg 20 mg Oral DAILY 20 mg at 04/11/20 09 OXcarbazepine (TRILEPTAL) tablet 150 mg 150 mg Oral BID 150 mg at 04/11/20 09 Sliding Scale Insulin - Aspart (NOVOLOG) + Fsbg Testing Subcutaneous TID MEALS+HS 1 Units at04/11/20 163 tamsulosin (FLOMAX) capsule 0.4 mg 0.4 mg Oral QHS 0.4 mg at 04/10/202057 PHYSICAL EXAM: BP (!) 140/94 | Pulse 90 | Temp 36.9 C (98.4 F) (Temporal Artery) | Resp 18 | Ht 1.727 m (5'8") | Wt 82.8 kg (182 lb 8 oz) | SpO2 91% | BMI 27.75 kg/m General: NAD HEENT: Anicteric sclerae, 4 head laceration Lungs: CTAB Cardio: RRR, strong symmetric pulses Abdomen: Soft, NTND Genitourinary: No lesions Musculoskeletal: Normal muscle mass, no synovitis Skin: No rash or lesions, normal turgot Neuro: AO, no focal deficits Psych: Normal affect LABS/IMAGING - reviewed, pertinent results as below: CBC BMP PT/INR WBC (10*3/L) Date Value 04/11/2020 6.69 NA (mmol/L) Date Value 04/11/2020 137 No results found for: PT RBC (10*6/L) Date Value 04/11/2020 2.96 (L) K (mmol/L) Date Value 04/11/2020 4.3 INR (no units) Date Value 04/09/2020 1.1 PLT (10*3/L) Date Value 04/11/2020 207 CALCIUM (mg/dL) Date Value 04/11/2020 8.9 HGB (g/dL) Date Value 04/11/2020 9.1 (L) CL (mmol/L) Date Value 04/11/2020 100 aPTT HCT (%) Date Value 04/11/2020 28.4 (L) BUN (mg/dL) Date Value 04/11/2020 27 (H) APTT Patient (Seconds) Date Value 04/09/2020 32 CREATININE (mg/dL) Date Value 04/11/2020 1.38 (H) IMAGING- Hospital Encounter on 04/09/20 IR THORACENTESIS WITH IMAGING Narrative Study: Ultrasound guided left thoracentesis. Technique: Informed consent was obtained from the guardian. Patient was placed in the upright position and under sonographic evaluation an appropriate site for access to the pleural effusion was obtained. The soft tissues overlying the pleural effusion was prepped and draped in a sterile manner. Local anesthesia was administered with 1% lidocaine. Under ultrasound guidance catheter was introduced into the pleural effusion. Findings: This was rather difficult procedure because of inability of the patient to cooperate. I was able to remove 270 cc of red-colored fluid from left pleural cavity. Multiple samples obtained and sent to pathology laboratory for various tests requested by Dr. Hdz. Impression Successful ultrasound-guided thoracentesis with removal of 12 8 270 cc pleural effusion from the left chest. CT thorax with contrast Narrative Patient name: PAOLA FORD : 1935 84 years EXAMINATION: CT THORAX W CONTRAST, CT ABDOMEN PELVIS W CONTRAST Ordering Physician: RYAN SALINAS CLINICAL HISTORY: Chest and abdominal pain after trauma COMPARISON: None TECHNIQUE: Helical CT images of the chest, abdomen, and pelvis were performed from the thoracic inlet to the proximal femurs using 5 mm slice thickness after the administration of IV contrast. Initial dedicated imaging of the thoracic and lumbar spine were performed. Coronal and sagittal reconstruction was performed. Dose reduction technology was utilized. FINDINGS: CHEST: Thoracic aorta is normal in caliber without injury evident. Pulmonary arteries grossly normal. Normal cardiac chamber size without pericardial effusion. Diffuse coronary artery calcification. No mediastinal hematoma or adenopathy. Right thyroid nodule measuring 10 mm. Thoracic esophagus is normal.. There is a large left pleural effusion with increased internal density measuring approximately 20 Hounsfield units. There is adjacent consolidation in the left upper and lower lobes with scattered calcification within the collapsed parenchyma. No pneumothorax in the left lung. Peribronchial vascular groundglass attenuation in the right upper lobe with patchy groundglass nodularity in the subpleural right upper lobe. No right-sided effusion. Scattered right-sided atelectasis.. ABDOMEN/PELVIS: No discrete liver lesions or injury. No calcified gallstones. Spleen is intact. No pancreatic lesion or peripancreatic fluid. Indeterminate nodule in the right adrenal gland measures 14 mm and indeterminate nodule in the left adrenal gland measures 9 mm.. Multifocal scarring of the right kidney. No hydronephrosis in left kidney. Urinary bladder is intact. Prostate is mildly enlarged. Thickening noted of the distal stomach. Large and small bowel are normal in caliber and wall thickness. Normal appendix. No mesenteric contusion, free fluid, or free air. No abscess. The abdominal aorta is normal. No adenopathy. MUSCULOSKELETAL: No spine fracture or subluxation. Degenerative changes of the thoracic and lumbar spine. Spinal canal stenosis noted diffusely throughout the lumbar spine, worst at L4-L5 with AP canal diameter of 6 mm. No spinal lesions. No paraspinal hematoma. No sternal, rib, pelvic, or hip fractures. No dislocation. Subcutaneous soft tissues are normal. Impression 1. Large left pleural effusion with increased internal density. This could represent a large chronic pleural effusion (serous or transudative). Differential would include effusion with posttraumatic blood components, no extravasation or adjacent rib fractures noted. 2. No acute traumatic injury within the abdomen and pelvis. 3. Right perihilar and subpleural groundglass attenuation and nodularity in the right upper lobe, could represent edema, contusion from trauma, or infection. 4. Thickening of the distal stomach could be from underdistention or acute gastritis/peptic ulcer disease. RL: 7000 HEAD WO CONTRAST Narrative Patient name: PAOLA FORD : 1935 84 years EXAMINATION: CT HEAD WO CONTRAST Ordering Physician: RYAN SALINAS CLINICAL HISTORY: Head trauma, headache COMPARISON: None TECHNIQUE: Helical CT images of the brain were obtained without the administration of IV contrast. CT performed using ALARA (As Low As Reasonably Achievable). FINDINGS: No intraparenchymal or extra-axial hemorrhage identified. Remote infarct of the right greater than left parietal lobes. Chronic small vessels ischemic change. No midline shift, mass effect, or herniation. No hydrocephalus.. No osseous lesions or fractures. No tonsillar ectopia evident. Paranasal sinuses and mastoid air cell complexes are clear. Impression No acute intracranial abnormality. Remote infarct of the bilateral parietal lobes, right larger than left. RL: 7000 CERVICAL SPINE WO CONTRAST Narrative Patient name: PAOLA FORD : 1935 84 years EXAMINATION: CT CERVICAL SPINE WO CONTRAST Ordering Physician: RYAN SALINAS CLINICAL HISTORY: Neck pain after trauma COMPARISON: None TECHNIQUE: Helical CT images of the cervical spine were obtained without the administration of IV contrast. Coronal and sagittal reconstruction was performed. CT performed using ALARA (As Low As Reasonably Achievable). FINDINGS: Normal cervical curvature. No fracture or subluxation is identified. No osseous lesions identified. The prevertebral soft tissues are normal. Lateral masses are aligned. Multilevel disc height loss and osteophyte formation is present with spinal canal stenosis at C3-C4 (AP canal diameter of 8 mm), C5-C6 (AP canal there is a 2 mm), and C6-C7 (with AP canal diameter of 7 mm). Multilevel uncovertebral and facet hypertrophy is present with severe right neural foraminal narrowing at C2-C3, severe left and moderate right neural foraminal narrowing at C3-C4, severe bilateral narrowing at C4-C5, severe bilateral narrowing at C5-C6, and severe bilateral narrowing at C6-C7. The lung apices are clear. No neck mass or fluid collections. No inflammatory changes. Thyroid gland is normal. Impression No acute cervical spine abnormality. Multilevel spondylosis, as above. RL: 7000 abdomen pelvis with contrast Narrative Patient name: PAOLA FORD : 1935 84 years EXAMINATION: CT THORAX W CONTRAST, CT ABDOMEN PELVIS W CONTRAST Ordering Physician: RYAN SALINAS CLINICAL HISTORY: Chest and abdominal pain after trauma COMPARISON: None TECHNIQUE: Helical CT images of the chest, abdomen, and pelvis were performed from the thoracic inlet to the proximal femurs using 5 mm slice thickness after the administration of IV contrast. Initial dedicated imaging of the thoracic and lumbar spine were performed. Coronal and sagittal reconstruction was performed. Dose reduction technology was utilized. FINDINGS: CHEST: Thoracic aorta is normal in caliber without injury evident. Pulmonary arteries grossly normal. Normal cardiac chamber size without pericardial effusion. Diffuse coronary artery calcification. No mediastinal hematoma or adenopathy. Right thyroid nodule measuring 10 mm. Thoracic esophagus is normal.. There is a large left pleural effusion with increased internal density measuring approximately 20 Hounsfield units. There is adjacent consolidation in the left upper and lower lobes with scattered calcification within the collapsed parenchyma. No pneumothorax in the left lung. Peribronchial vascular groundglass attenuation in the right upper lobe with patchy groundglass nodularity in the subpleural right upper lobe. No right-sided effusion. Scattered right-sided atelectasis.. ABDOMEN/PELVIS: No discrete liver lesions or injury. No calcified gallstones. Spleen is intact. No pancreatic lesion or peripancreatic fluid. Indeterminate nodule in the right adrenal gland measures 14 mm and indeterminate nodule in the left adrenal gland measures 9 mm.. Multifocal scarring of the right kidney. No hydronephrosis in left kidney. Urinary bladder is intact. Prostate is mildly enlarged. Thickening noted of the distal stomach. Large and small bowel are normal in caliber and wall thickness. Normal appendix. No mesenteric contusion, free fluid, or free air. No abscess. The abdominal aorta is normal. No adenopathy. MUSCULOSKELETAL: No spine fracture or subluxation. Degenerative changes of the thoracic and lumbar spine. Spinal canal stenosis noted diffusely throughout the lumbar spine, worst at L4-L5 with AP canal diameter of 6 mm. No spinal lesions. No paraspinal hematoma. No sternal, rib, pelvic, or hip fractures. No dislocation. Subcutaneous soft tissues are normal. Impression 1. Large left pleural effusion with increased internal density. This could represent a large chronic pleural effusion (serous or transudative). Differential would include effusion with posttraumatic blood components, no extravasation or adjacent rib fractures noted. 2. No acute traumatic injury within the abdomen and pelvis. 3. Right perihilar and subpleural groundglass attenuation and nodularity in the right upper lobe, could represent edema, contusion from trauma, or infection. 4. Thickening of the distal stomach could be from underdistention or acute gastritis/peptic ulcer disease. RL: 7000 CHEST 1 VW Narrative HISTORY: S/P left thoracentesis FINDINGS: AP view of the chest large left pleural effusion. No pneumothorax. Right lung is clear. CONCLUSIONS: Large left-sided pleural effusion, essentially unchanged when compared with CT topogram image. ASSESSMENT/PLAN Paola Ford is a 84 year old male with PMH as listed above, admitted to the hospital with: #Fall/syncope Consult Dr Julian TSH 4.56, free T4, folate 9.5, iron panel low normal, HgA1c 5.0 Carotiddoppler right 50-79 % stenosis in internal carotid LEFT: There is a moderate amount of hard and calcified plaque outside the stent wall in the area of the bulb? color flow disturbance and elevated peak velocities are noted within the stent suggestive of hemodynamically significant in-stent stenosis Patient may follow up with vascular outpatient Echofindings EF 30-35% diastolic dysfunction, systolic function is moderate to severely reduced Ct headNo acute intracranial abnormality. Remote infarct of the bilateral parietal lobes, right larger than left. trend troponinrule out WA serial orthostatic Bps HoldEliquis due to falls For head laceration with sutures in place patient will need to follow-up outpatient for suture removal in 10 days Keep wound clean and dry #Dysphasia likely due to confusion Consulted speech pending recommendation reg diet with nectar thick liquids caution nectar thick liquids and, sit fully upright/chair, small single sips/bites, crush pills and mix with pudding with MD approval and remain upright for 30 minutes after meals. ERP PM Therapy 1-3 x wk for 15-45 min #Left pleural effusion per CT chest Left pleural effusion by IR completed 270 mL's of red colored fluid removed Samples sent to pathology pending results Patient is a poor historian Spoke to daughter who says that her son has cancer and he has had pleural effusions Hold lasix due to ELA Right groundglass opacity found per CT Patient to continue ZithromaxPOfor 2 more doses, Cefdinir PO for 7more days Patient was on these medications prior to admission will complete dose Unsure why taking #HTN Hydralazine 25 mg twice a day #IDDM A1c pending Lantus 8 units daily SSI, Accu-Cheks before meals and at bedtime #Dementia/ depression Namenda 10 mg daily Aricept 10 mg daily at bedtime Lexapro 20 mg daily #Seizures Trileptal 150 mg bid #BPH Flomax 0.4 mf qhs #Hypothyroidism Levothyroxine 50 g daily Prophylaxis: DVT-Eliquis on hold Stress Ulcer:omeprazole Code Status: addressed: full Disposition: Back to [facility] SILL WORKER was viewed during this stay [address], [employer] Associated attestation - Axel Hdz MD - 04/11/2020 6:36 PM CDTI have independently seen and evaluated this patient. I agree with the note below including physicalexam and plan. In summary, patient is admitted for acute hypoxic respiratory failure 2/2 large L pleural effusion. Thoracentesis done 04/10, f/u fluid studies. Rest of plan per below. Michael Julian MD - 04/11/2020 11:06 AM CDT [facility] Cardiology progress note Date of Service: 04/11/2020 Paola Ford is an 84 years old male hospitalized for fall and altered mental status. Telemetry showed no further NSVT. PHYSICAL EXAM Vitals: 04/10/20 1912 04/10/20 1932 04/10/20 2335 04/11/20 0733 BP: 117/52 123/75 116/51 Pulse: 80 71 89 82 Resp: 18 18 18 Temp: 36.2 C (97.2 F) 36.6 C (97.9 F) 36.5 C (97.7 F) TempSrc: Temporal Artery Temporal Artery Temporal Artery SpO2: 95% 95% 96% 95% Weight: Height: General: no apparent distress HEENT: normocephalic atraumatic Neck: supple, no lymphadenopathy, no bruits, no JVD Lungs: clear to auscultation bilaterally Cardio: S1, S2, normal rate, regular; no murmurs, rubs or gallops Abdomen: non-distended : not examined Rectal: not examined Extremities: no clubbing, cyanosis, or edema Skin: no rashes Neuro: no focal deficits Medications: I have reviewed the patient's medications; see Medication Reconciliation. Labs: I have reviewed the patient's labs. ASSESSMENT AND PLAN Principal Problem: Disorientation Active Problems: LOC (loss of consciousness) Essential hypertension Dyslipidemia Elevated brain natriuretic peptide (BNP) level Stroke Carotid disease, bilateral Pleural effusion Chronic combined systolic and diastolic congestive heart failure NSVT (nonsustained ventricular tachycardia) Fall/syncope--Uncertain etiology, multifactorial--large pleural effusion, arrhythmia, ischemia, etc.Due to very poor baseline functional capacity, will manage conservatively. AMS: as per primary team. Anemia: unspecified: work up as per primary team. HFrEF--seems to be chronic in nature. Volume status is acceptable. Due to rising BUN and Cr, consider to hold lasix. Consider adding Toprol XL. ACEI/ARB once renal function recovers. NSVT-- above, consider Toprol XL as tolerated. Will treat conservatively. HTN: consider changing Hydralazine to Toprol XL. T2DM: as per primary team. Dyslipidemia: on lipitor 10 mg daily. History of CVA: restart ASA 81 mg daily. Carotid artery disease--moderate to severe. Medical therapy with ASA and lipitor. Michael Julian MD, FAC, [employer] Teacher, Division of Cardiology [facility] IETCnoman, MD Michael - 04/10/2020 11:12 PM CDT [facility] Cardiology progress note Date of Service: 04/10/2020 Paola Ford is an 84 years old male hospitalized for fall and altered mental status. Telemetry showed 7-beat NSVT. PHYSICAL EXAM Vitals: 04/10/20 1500 04/10/20 1604 04/10/20 1912 04/10/20 1932 BP: 110/68 109/58 117/52 Pulse: 81 80 71 Resp: 18 18 Temp: 36.9 C (98.4 F) 36.2 C (97.2 F) TempSrc: Temporal Artery SpO2: 95% 95% 95% Weight: Height: Date 04/10/20 0700 - 04/11/20 0659 Shift [id number] 24 Hour Total INTAKE Oral 118 118 Shift Total 118 118 OUTPUT Shift Total Weight (kg) 82.8 82.8 82.8 82.8 General: no apparent distress HEENT: normocephalic atraumatic Neck: supple, no lymphadenopathy, no bruits, no JVD Lungs: clear to auscultation bilaterally Cardio: S1, S2, normal rate, regular; no murmurs, rubs or gallops Abdomen: non-distended : not examined Rectal: not examined Extremities: no clubbing, cyanosis, or edema Skin: no rashes Neuro: no focal deficits Medications: I have reviewed the patient's medications; see Medication Reconciliation. Labs: I have reviewed the patient's labs. ASSESSMENT AND PLAN Principal Problem: Disorientation Active Problems: LOC (loss of consciousness) Essential hypertension Dyslipidemia Elevated brain natriuretic peptide (BNP) level Stroke Carotid disease, bilateral Pleural effusion Chronic combined systolic and diastolic congestive heart failure NSVT (nonsustained ventricular tachycardia) Fall/syncope--Uncertain etiology, multifactorial--large pleural effusion, arrhythmia, ischemia, etc. AMS: as per primary team. Anemia: unspecified: work up as per primary team. HFrEF--seems to be chronic in nature. Volume status is acceptable. Will continue PO lasix 40 mg daily. Consider adding Toprol XL once BP stabilizes. NSVT-- above, consider Toprol XL as tolerated. Will discuss with family how aggressive we should be in the workup. HTN: consider changing Hydralazine to Toprol XL. T2DM: as per primary team. Dyslipidemia: on lipitor 10 mg daily. History of CVA: restart ASA 81 mg daily. Carotid artery disease--moderate to severe. Medical therapy with ASA and lipitor. Michael Julian MD, [facility], [place] [employer] Teacher, Division of Cardiology [facility] Vivi Pham, [employer]DI[employer] - 04/10/2020 2:29 PM CDT [facility] Hospitalist Progress Note SUBJECTIVE: Patient seen post thoracentesis, patient lethargic, dressing to left back clean dry and intact CURRENT MEDICATIONS - reviewed. Current Facility-Administered Medications Medication Dose Route Frequency Last Rate Last Dose acetaminophen (TYLENOL) tablet 650 mg 650 mg Oral Q6HPRN 650 mg at 04/10/20 0531 atorvastatin (LIPITOR) tablet 10 mg 10 mg Oral QHS 10 mg at 04/09/20 2141 azithromycin (ZITHROMAX) tablet 250 mg 250 mg Oral DAILY 250 mg at 04/10/20 0856 cefdinir (OMNICEF) capsule 300 mg 300 mg Oral BID 300 mg at 04/10/20 0856 donepeziL (ARICEPT) tablet 10 mg 10 mg Oral QHS 10 mg at 04/09/202140 escitalopram oxalate (LEXAPRO) tablet 20 mg 20 mg Oral DAILY 20 mg at 04/10/20 08 furosemide (LASIX) tablet 40 mg 40 mg Oral DAILY 40 mg at 04/10/20 08 hydrALAZINE (APRESOLINE) tablet 25 mg 25 mg Oral BID 25 mg at 04/10/20 0855 insulin glargine (LANTUS U-100) injection 8 Units 8 Units Subcutaneous DAILY Stopped at 04/10/20 09 lactulose (CEPHULAC) solution 15 mL 15 mL Oral DAILY levothyroxine (SYNTHROID) tablet 50 mcg 50 mcg Oral QAM-0600 50 mcg at 04/10/20 0531 medroxyPROGESTERone (CYCRIN) tablet 10 mg 10 mg Oral DAILY 10 mg at 04/10/20 1303 memantine (NAMENDA) tablet 10 mg 10 mg Oral DAILY 10 mg at 04/10/20 0856 omeprazole (PRILOSEC) capsule 20 mg 20 mg Oral DAILY 20 mg at 04/10/20 0856 OXcarbazepine (TRILEPTAL) tablet 150 mg 150 mg Oral BID 150 mg at 04/10/20 0856 Sliding Scale Insulin - Aspart (NOVOLOG) + Fsbg Testing Subcutaneous TID MEALS+HS Stopped at04/09/20 2100 tamsulosin (FLOMAX) capsule 0.4 mg 0.4 mg Oral QHS 0.4 mg at 04/09/202140 PHYSICAL EXAM: BP 132/55 | Pulse 81 | Temp 37 C (98.6 F) | Resp 18 | Ht 1.727 m (5' 8") | Wt 82.8 kg (182 lb 8 oz) | SpO2 95% | BMI 27.75 kg/m General: s/p thoracentesis patient lethargic at this time HEENT: Anicteric sclerae, NCAT Lungs: clear to diminished breath sounds Cardio: RRR, strong symmetric pulses Abdomen: Soft, NTND Genitourinary: No lesions Musculoskeletal: Normal muscle mass, no synovitis Skin: No rash or lesions, normal turgot Neuro: A?O, FOND DU LAC, Psych: Normal affect LABS/IMAGING - reviewed, pertinent results as below: CBC BMP PT/INR WBC (10*3/L) Date Value 04/10/2020 6.21 NA (mmol/L) Date Value 04/10/2020 136 No results found for: PT RBC (10*6/L) Date Value 04/10/2020 2.80 (L) K (mmol/L) Date Value 04/10/2020 4.1 INR (no units) Date Value 04/09/2020 1.1 PLT (10*3/L) Date Value 04/10/2020 175 CALCIUM (mg/dL) Date Value 04/10/2020 8.6 HGB (g/dL) Date Value 04/10/2020 8.7 (L) CL (mmol/L) Date Value 04/10/2020 98 aPTT HCT (%) Date Value 04/10/2020 26.9 (L) BUN (mg/dL) Date Value 04/10/2020 19 APTT Patient (Seconds) Date Value 04/09/2020 32 CREATININE (mg/dL) Date Value 04/10/2020 1.17 IMAGING- Hospital Encounter on 04/09/20 IR THORACENTESIS WITH IMAGING Narrative Study: Ultrasound guided left thoracentesis. Technique: Informed consent was obtained from the guardian. Patient was placed in the upright position and under sonographic evaluation an appropriate site for access to the pleural effusion was obtained. The soft tissues overlying the pleural effusion was prepped and draped in a sterile manner. Local anesthesia was administered with 1% lidocaine. Under ultrasound guidance catheter was introduced into the pleural effusion. Findings: This was rather difficult procedure because of inability of the patient to cooperate. I was able to remove 270 cc of red-colored fluid from left pleural cavity. Multiple samples obtained and sent to pathology laboratory for various tests requested by Dr. Hdz. Impression Successful ultrasound-guided thoracentesis with removal of 12 8 270 cc pleural effusion from the left chest. CT thorax with contrast Narrative Patient name: PAOLA FORD : 1935 84 years EXAMINATION: CT THORAX W CONTRAST, CT ABDOMEN PELVIS W CONTRAST Ordering Physician: RYAN SALINAS CLINICAL HISTORY: Chest and abdominal pain after trauma COMPARISON: None TECHNIQUE: Helical CT images of the chest, abdomen, and pelvis were performed from the thoracic inlet to the proximal femurs using 5 mm slice thickness after the administration of IV contrast. Initial dedicated imaging of the thoracic and lumbar spine were performed. Coronal and sagittal reconstruction was performed. Dose reduction technology was utilized. FINDINGS: CHEST: Thoracic aorta is normal in caliber without injury evident. Pulmonary arteries grossly normal. Normal cardiac chamber size without pericardial effusion. Diffuse coronary artery calcification. No mediastinal hematoma or adenopathy. Right thyroid nodule measuring 10 mm. Thoracic esophagus is normal.. There is a large left pleural effusion with increased internal density measuring approximately 20 Hounsfield units. There is adjacent consolidation in the left upper and lower lobes with scattered calcification within the collapsed parenchyma. No pneumothorax in the left lung. Peribronchial vascular groundglass attenuation in the right upper lobe with patchy groundglass nodularity in the subpleural right upper lobe. No right-sided effusion. Scattered right-sided atelectasis.. ABDOMEN/PELVIS: No discrete liver lesions or injury. No calcified gallstones. Spleen is intact. No pancreatic lesion or peripancreatic fluid. Indeterminate nodule in the right adrenal gland measures 14 mm and indeterminate nodule in the left adrenal gland measures 9 mm.. Multifocal scarring of the right kidney. No hydronephrosis in left kidney. Urinary bladder is intact. Prostate is mildly enlarged. Thickening noted of the distal stomach. Large and small bowel are normal in caliber and wall thickness. Normal appendix. No mesenteric contusion, free fluid, or free air. No abscess. The abdominal aorta is normal. No adenopathy. MUSCULOSKELETAL: No spine fracture or subluxation. Degenerative changes of the thoracic and lumbar spine. Spinal canal stenosis noted diffusely throughout the lumbar spine, worst at L4-L5 with AP canal diameter of 6 mm. No spinal lesions. No paraspinal hematoma. No sternal, rib, pelvic, or hip fractures. No dislocation. Subcutaneous soft tissues are normal. Impression 1. Large left pleural effusion with increased internal density. This could represent a large chronic pleural effusion (serous or transudative). Differential would include effusion with posttraumatic blood components, no extravasation or adjacent rib fractures noted. 2. No acute traumatic injury within the abdomen and pelvis. 3. Right perihilar and subpleural groundglass attenuation and nodularity in the right upper lobe, could represent edema, contusion from trauma, or infection. 4. Thickening of the distal stomach could be from underdistention or acute gastritis/peptic ulcer disease. RL: 7000 HEAD WO CONTRAST Narrative Patient name: PAOLA FORD : 1935 84 years EXAMINATION: CT HEAD WO CONTRAST Ordering Physician: RYAN SALINAS CLINICAL HISTORY: Head trauma, headache COMPARISON: None TECHNIQUE: Helical CT images of the brain were obtained without the administration of IV contrast. CT performed using ALARA (As Low As Reasonably Achievable). FINDINGS: No intraparenchymal or extra-axial hemorrhage identified. Remote infarct of the right greater than left parietal lobes. Chronic small vessels ischemic change. No midline shift, mass effect, or herniation. No hydrocephalus.. No osseous lesions or fractures. No tonsillar ectopia evident. Paranasal sinuses and mastoid air cell complexes are clear. Impression No acute intracranial abnormality. Remote infarct of the bilateral parietal lobes, right larger than left. RL: 7000 CERVICAL SPINE WO CONTRAST Narrative Patient name: PAOLA FORD : 1935 84 years EXAMINATION: CT CERVICAL SPINE WO CONTRAST Ordering Physician: RYAN SALINAS CLINICAL HISTORY: Neck pain after trauma COMPARISON: None TECHNIQUE: Helical CT images of the cervical spine were obtained without the administration of IV contrast. Coronal and sagittal reconstruction was performed. CT performed using ALARA (As Low As Reasonably Achievable). FINDINGS: Normal cervical curvature. No fracture or subluxation is identified. No osseous lesions identified. The prevertebral soft tissues are normal. Lateral masses are aligned. Multilevel disc height loss and osteophyte formation is present with spinal canal stenosis at C3-C4 (AP canal diameter of 8 mm), C5-C6 (AP canal there is a 2 mm), and C6-C7 (with AP canal diameter of 7 mm). Multilevel uncovertebral and facet hypertrophy is present with severe right neural foraminal narrowing at C2-C3, severe left and moderate right neural foraminal narrowing at C3-C4, severe bilateral narrowing at C4-C5, severe bilateral narrowing at C5-C6, and severe bilateral narrowing at C6-C7. The lung apices are clear. No neck mass or fluid collections. No inflammatory changes. Thyroid gland is normal. Impression No acute cervical spine abnormality. Multilevel spondylosis, as above. RL: 7000 abdomen pelvis with contrast Narrative Patient name: PAOLA FORD : 1935 84 years EXAMINATION: CT THORAX W CONTRAST, CT ABDOMEN PELVIS W CONTRAST Ordering Physician: RYAN SALINAS CLINICAL HISTORY: Chest and abdominal pain after trauma COMPARISON: None TECHNIQUE: Helical CT images of the chest, abdomen, and pelvis were performed from the thoracic inlet to the proximal femurs using 5 mm slice thickness after the administration of IV contrast. Initial dedicated imaging of the thoracic and lumbar spine were performed. Coronal and sagittal reconstruction was performed. Dose reduction technology was utilized. FINDINGS: CHEST: Thoracic aorta is normal in caliber without injury evident. Pulmonary arteries grossly normal. Normal cardiac chamber size without pericardial effusion. Diffuse coronary artery calcification. No mediastinal hematoma or adenopathy. Right thyroid nodule measuring 10 mm. Thoracic esophagus is normal.. There is a large left pleural effusion with increased internal density measuring approximately 20 Hounsfield units. There is adjacent consolidation in the left upper and lower lobes with scattered calcification within the collapsed parenchyma. No pneumothorax in the left lung. Peribronchial vascular groundglass attenuation in the right upper lobe with patchy groundglass nodularity in the subpleural right upper lobe. No right-sided effusion. Scattered right-sided atelectasis.. ABDOMEN/PELVIS: No discrete liver lesions or injury. No calcified gallstones. Spleen is intact. No pancreatic lesion or peripancreatic fluid. Indeterminate nodule in the right adrenal gland measures 14 mm and indeterminate nodule in the left adrenal gland measures 9 mm.. Multifocal scarring of the right kidney. No hydronephrosis in left kidney. Urinary bladder is intact. Prostate is mildly enlarged. Thickening noted of the distal stomach. Large and small bowel are normal in caliber and wall thickness. Normal appendix. No mesenteric contusion, free fluid, or free air. No abscess. The abdominal aorta is normal. No adenopathy. MUSCULOSKELETAL: No spine fracture or subluxation. Degenerative changes of the thoracic and lumbar spine. Spinal canal stenosis noted diffusely throughout the lumbar spine, worst at L4-L5 with AP canal diameter of 6 mm. No spinal lesions. No paraspinal hematoma. No sternal, rib, pelvic, or hip fractures. No dislocation. Subcutaneous soft tissues are normal. Impression 1. Large left pleural effusion with increased internal density. This could represent a large chronic pleural effusion (serous or transudative). Differential would include effusion with posttraumatic blood components, no extravasation or adjacent rib fractures noted. 2. No acute traumatic injury within the abdomen and pelvis. 3. Right perihilar and subpleural groundglass attenuation and nodularity in the right upper lobe, could represent edema, contusion from trauma, or infection. 4. Thickening of the distal stomach could be from underdistention or acute gastritis/peptic ulcer disease. RL: 7000 CHEST 1 VW Narrative HISTORY: S/P left thoracentesis FINDINGS: AP view of the chest large left pleural effusion. No pneumothorax. Right lung is clear. CONCLUSIONS: Large left-sided pleural effusion, essentially unchanged when compared with CT topogram image. ASSESSMENT/PLAN Paola Ford is a 84 year old male with PMH as listed above, admitted to the hospital with: #Fall/syncope Consult Dr Julian Admit Telemetry TSH, free T4, folate, iron panel, HgA1c, ordered Order carotid doppler Echo ordered Ct head No acute intracranial abnormality. Remote infarct of the bilateral parietal lobes, right larger than left. trend troponin rule out WA serial orthostatic Bps Hold Eliquis due to falls For head laceration with sutures in place patient will need to follow-up outpatient for suture removal in 10 days Keep wound clean and dry #Dysphasia likely due to confusion Consulted speech pending recommendation #Left pleural effusion per CT chest Left pleural effusion by IR completed 270 mL's of red colored fluid removed Samples sent to pathology pending results Patient is a poor historian Spoke to daughter who says that her son has cancer and he has had pleural effusions Right groundglass opacity found per CT Patient to continue Zithromax PO for 2 more doses, Cefdinir PO for 7 more days Patient was on these medications prior to admission will complete dose Unsure why taking #HTN Hydralazine 25 mg twice a day #IDDM A1c pending Lantus 8 units daily SSI, Accu-Cheks before meals and at bedtime #Dementia/ depression Namenda 10 mg daily Aricept 10 mg daily at bedtime Lexapro 20 mg daily #Seizures Trileptal 150 mg bid #BPH Flomax 0.4 mf qhs #Hypothyroidism Levothyroxine 50 g daily Prophylaxis: DVT- Eliquis on lhold Stress Ulcer: omeprazole } Disposition: Discharge back to [facility] when medically cleared [facility] was viewed during this stay TY Piedra Associated attestation - Axel Hdz MD - 04/10/2020 6:29 PM CDTI have independently seen and evaluated this patient. I agree with the note below including physicalexam and plan. In summary, patient is admitted for acute hypoxic respiratory failure 2/2 large L pleural effusion. Thoracentesis today, f/u fluid studies. Rest of plan per below. Venkat Davis RN - 04/10/2020 2:08 PM CDTI, Axel Hdz MD, after reviewing this case with the Order Administrator, I concur this case is appropriate for inpatient admission. The change to inpatient admission is based on the level of care this patient is receiving, medical necessity, risks associated and the expected duration of stay. The inpatient admission order has been entered. Gabriele Davis RN BSN Utilization Management P [phone] F [phone] Associated attestation - Axel Hdz MD - 04/10/2020 5:06 PM CDTattested Caro Alvarado LB - 04/09/2020 4:06 PM CDTSubjective Patient ID: Paola Ford is a 84 year old male. Care Management Social Functional Assessment Patient Name: Paola Ford Age: [age] year old Sex: male Previous admit date: N/A Current diagnosis and co-morbidities: LOC (loss of conciousness);Closed head injury Readmission Questions: Was patient discharged from any acute care hospital within the last 30 days: No Social Functional Assessment: Primary language spoken/preferred: Liberian Mental Status: Alert & Oriented to Person, Place Information given by: Other Name and phone number of person giving information: [facility] [phone] Patient's support system: Other Name and number of support system: [facility] [phone] and Isael Ojeda [phone] Primary Maintenance Construction Helper: Other Name and phone number of primary caregiver: [facility] [phone] MPOA: No Living Arrangement: [address] [address] () [phone] (F) [phone] Address of living arrangement : [address] [place] [id number] Persons living in home: Self;Other Names & numbers of persons living in home: LTC Barriers to returning home: None Baseline functional status- ambulation: Requires minimal to moderate assistance Functional status-baseline personal care: Requires minimal to moderate assistance Baseline functional status- driving: Dependent Baseline functional status- grocery shopping: Dependent Functional status-baseline housekeeping: Dependent Functional status-baseline meal prep: Dependent Current functional status same as prior: Yes Do you have a PCP?: Yes Name of PCP: [facility] Agency: No Provider Services: No DME Company: No Equipment: Bedside Commode;Shower Chair;Grab bars;Hospital Bed;Wheelchair: Manual;Walker Hemodialysis: No Community resources utilized: None Funding Resources: Medicare A & B;Medicaid HMO Prescription coverage plan: Medicaid-3 slots Pharmacy where meds are filled: Other Other pharmacy: [facility] Anticipated services prior to disharge: Continue Medical Eval Expected mode of discharge transportation: Ambulance Additional Recommendations for DC: Medical clearance Additional info required for discharge planning: Pending medical evaluation Recommended discharge plan: Return to facility SFA Complete: Social Functional Assessment complete: Yes Alcohol Use Screening (AUDIT-C) How often do you have a drink containing alcohol?: Never SCORE: 0 Did patient elect to have resources provided: No Role of Care Management explained. Any issues or concerns with obtaining/affording your medications at home: no. Are you or your support system able to moss picker medications at discharge: yes. Review of Systems Objective Physical Exam Assessment/Plan Return to residence at [facility] JORGE L Roman Associate Financial Advisor - Care Management [facility] [phone] [email or web address] documented in this encounter H&P Notes Vivi Ley FNP - 04/09/2020 5:53 PM CDT [facility] Hospitalist Admission H&P Date of Service: 04/09/2020 CHIEF COMPLAINT: Fall syncope HISTORY OF PRESENT ILLNESS Paola Ford is a 84 year old male with history of dementia, depression, hypertension, IDDM, hypothyroidism and seizures who presents with evaluation for fall. Per patient records patient was unconscious found with a forehead laceration. Patient is a poor historian unable to get review of system. Spoked to his daughter who is emergency contact she stated thatjessicae just found out that this was her dad 2 years ago and she doesn't have a lot of information abouthim. Upon assessment patient was alert speaking in appropriate he said the year was 2019 in [facility] was the president. PAST MEDICAL HISTORY Past Medical History: Diagnosis Date Chronic kidney disease COPD (chronic obstructive pulmonary disease) Depression Diabetes mellitus Hyperlipidemia Hypertension Seizures Stroke Thyroid disease PAST SURGICAL HISTORY History reviewed. No pertinent surgical history. ALLERGIES Allergies Allergen Reactions Hydrocodone-Acetaminophen Other - See comments Unknown reaction Codeine Other - See comments Unknown reaction Iodine And Iodide Containing Products Other - See comments Unknown reaction Tramadol-Acetaminophen Other - See comments Unknown reaction MEDICATIONS Current home medication list reviewed: Current Discharge Medication List STOP taking these medications apixaban (ELIQUIS) 2.5 mg tablet Comments: Reason for Stopping: atorvastatin 10 mg tablet Comments: Reason for Stopping: Cholecalciferol, Vitamin D3, (VITAMIN D3) 25 mcg (1,000 unit) capsule Comments: Reason for Stopping: donepeziL 10 mg tablet Comments: Reason for Stopping: escitalopram oxalate (LEXAPRO) 20 mg tablet Comments: Reason for Stopping: ferrous sulfate 325 mg (65 mg iron) EC tablet Comments: Reason for Stopping: furosemide (LASIX) 40 mg tablet Comments: Reason for Stopping: hydrALAZINE 25 mg tablet Comments: Reason for Stopping: insulin aspart (NOVOLOG FLEXPEN U-100 INSULIN SC) Comments: Reason for Stopping: insulin glargine (LANTUS U-100 INSULIN) 100 unit/mL injection Comments: Reason for Stopping: ipratropium-albuteroL 0.5 mg-3 mg(2.5 mg base)/3 mL nebulizer solution Comments: Reason for Stopping: lactulose 10 gram/15 mL (15 mL) Soln Comments: Reason for Stopping: levothyroxine 50 mcg tablet Comments: Reason for Stopping: liraglutide (VICTOZA 3-JOS) 0.6 mg/0.1 mL (18 mg/3 mL) injection Comments: Reason for Stopping: loratadine 10 mg tablet Comments: Reason for Stopping: magnesium oxide 400 mg magnesium Tab Comments: Reason for Stopping: medroxyPROGESTERone (PROVERA) 10 mg tablet Comments: Reason for Stopping: memantine 10 mg tablet Comments: Reason for Stopping: metFORMIN 500 mg tablet Comments: Reason for Stopping: omeprazole 20 mg TbLD Comments: Reason for Stopping: OXcarbazepine 150 mg tablet Comments: Reason for Stopping: tamsulosin (FLOMAX) 0.4 mg 24 hr capsule Comments: Reason for Stopping: umeclidinium (INCRUSE ELLIPTA) 62.5 mcg/actuation DsDv Comments: Reason for Stopping: vit C-E-zinc [id number]-[id number] ([facility]) 50 mg-15 unit- 4.5 mg-2.5 mg Chew Comments: Reason for Stopping: FAMILY HISTORY Family History Family history unknown: Yes Patient unable to contribute family history. SOCIAL HISTORY Social History Socioeconomic History Marital status: Single Spouse name: Not on file Number of children: Not on file Years of education: Not on file Highest education level: Not on file Occupational History Not on file Social Needs Financial resource strain: Not on file Food insecurity Worry: Not on file Inability: Not on file Transportation needs Medical: Not on file Non-medical: Not on file Tobacco Use Smoking status: Unknown If Ever Smoked Substance and Sexual Activity Alcohol use: Not on file Drug use: Not on file Sexual activity: Not on file Lifestyle Physical activity Days per week: Not on file Minutes per session: Not on file Stress: Not on file Relationships Social connections Talks on phone: Not on file Gets together: Not on file Attends gnosticism service: Not on file Active member of club or organization: Not on file Attends meetings of clubs or organizations: Not on file Relationship status: Not on file Intimate partner violence Fear of current or ex partner: Not on file Emotionally abused: Not on file Physically abused: Not on file Forced sexual activity: Not on file Other Topics Concern Not on file Social History Narrative Not on file REVIEW OF SYSTEMS Unable to obtain review of system patient confused PHYSICAL EXAMINATION BP (!) 140/72 | Pulse 90 | Temp 37 C (98.6 F) (Temporal Artery) | Resp 18 | Ht 1.727 m (5' 8") | Wt 82.8 kg (182 lb 8 oz) | SpO2 95% | BMI 27.75 kg/m General: No acute distress HEENT: Normal oral mucosa, forehead wound laceration with sutures in place Cardiovascular: RRR, strong symmetric radial pulses Lungs: CTAB Abdomen: Soft, NTND Musculoskeletal: Normal ROM, normal muscle mass Genitourinary: Normal Skin: No rash, lesions Neuro: AO Psych: Hallucinations LABS - reviewed pertinent labs as below: CBC BMP PT/INR WBC (10*3/L) Date Value 04/09/2020 7.10 NA (mmol/L) Date Value 04/09/2020 136 No results found for: PT RBC (10*6/L) Date Value 04/09/2020 3.08 (L) K (mmol/L) Date Value 04/09/2020 4.1 INR (no units) Date Value 04/09/2020 1.1 PLT (10*3/L) Date Value 04/09/2020 179 CALCIUM (mg/dL) Date Value 04/09/2020 8.5 (L) HGB (g/dL) Date Value 04/09/2020 9.4 (L) CL (mmol/L) Date Value 04/09/2020 98 aPTT HCT (%) Date Value 04/09/2020 29.1 (L) BUN (mg/dL) Date Value 04/09/2020 19 APTT Patient (Seconds) Date Value 04/09/2020 32 CREATININE (mg/dL) Date Value 04/09/2020 1.15 IMAGING - reviewed, pertinent results as below: Hospital Encounter on 04/09/20 CT thorax with contrast Narrative Patient name: PAOLA FORD : 1935 84 years EXAMINATION: CT THORAX W CONTRAST, CT ABDOMEN PELVIS W CONTRAST Ordering Physician: RYAN SALINAS CLINICAL HISTORY: Chest and abdominal pain after trauma COMPARISON: None TECHNIQUE: Helical CT images of the chest, abdomen, and pelvis were performed from the thoracic inlet to the proximal femurs using 5 mm slice thickness after the administration of IV contrast. Initial dedicated imaging of the thoracic and lumbar spine were performed. Coronal and sagittal reconstruction was performed. Dose reduction technology was utilized. FINDINGS: CHEST: Thoracic aorta is normal in caliber without injury evident. Pulmonary arteries grossly normal. Normal cardiac chamber size without pericardial effusion. Diffuse coronary artery calcification. No mediastinal hematoma or adenopathy. Right thyroid nodule measuring 10 mm. Thoracic esophagus is normal.. There is a large left pleural effusion with increased internal density measuring approximately 20 Hounsfield units. There is adjacent consolidation in the left upper and lower lobes with scattered calcification within the collapsed parenchyma. No pneumothorax in the left lung. Peribronchial vascular groundglass attenuation in the right upper lobe with patchy groundglass nodularity in the subpleural right upper lobe. No right-sided effusion. Scattered right-sided atelectasis.. ABDOMEN/PELVIS: No discrete liver lesions or injury. No calcified gallstones. Spleen is intact. No pancreatic lesion or peripancreatic fluid. Indeterminate nodule in the right adrenal gland measures 14 mm and indeterminate nodule in the left adrenal gland measures 9 mm.. Multifocal scarring of the right kidney. No hydronephrosis in left kidney. Urinary bladder is intact. Prostate is mildly enlarged. Thickening noted of the distal stomach. Large and small bowel are normal in caliber and wall thickness. Normal appendix. No mesenteric contusion, free fluid, or free air. No abscess. The abdominal aorta is normal. No adenopathy. MUSCULOSKELETAL: No spine fracture or subluxation. Degenerative changes of the thoracic and lumbar spine. Spinal canal stenosis noted diffusely throughout the lumbar spine, worst at L4-L5 with AP canal diameter of 6 mm. No spinal lesions. No paraspinal hematoma. No sternal, rib, pelvic, or hip fractures. No dislocation. Subcutaneous soft tissues are normal. Impression 1. Large left pleural effusion with increased internal density. This could represent a large chronic pleural effusion (serous or transudative). Differential would include effusion with posttraumatic blood components, no extravasation or adjacent rib fractures noted. 2. No acute traumatic injury within the abdomen and pelvis. 3. Right perihilar and subpleural groundglass attenuation and nodularity in the right upper lobe, could represent edema, contusion from trauma, or infection. 4. Thickening of the distal stomach could be from underdistention or acute gastritis/peptic ulcer disease. RL: 7000 HEAD WO CONTRAST Narrative Patient name: PAOLA FORD : 1935 84 years EXAMINATION: CT HEAD WO CONTRAST Ordering Physician: RYAN SALINAS CLINICAL HISTORY: Head trauma, headache COMPARISON: None TECHNIQUE: Helical CT images of the brain were obtained without the administration of IV contrast. CT performed using ALARA (As Low As Reasonably Achievable). FINDINGS: No intraparenchymal or extra-axial hemorrhage identified. Remote infarct of the right greater than left parietal lobes. Chronic small vessels ischemic change. No midline shift, mass effect, or herniation. No hydrocephalus.. No osseous lesions or fractures. No tonsillar ectopia evident. Paranasal sinuses and mastoid air cell complexes are clear. Impression No acute intracranial abnormality. Remote infarct of the bilateral parietal lobes, right larger than left. RL: 7000 CERVICAL SPINE WO CONTRAST Narrative Patient name: PAOLA FORD : 1935 84 years EXAMINATION: CT CERVICAL SPINE WO CONTRAST Ordering Physician: RYAN SALINAS CLINICAL HISTORY: Neck pain after trauma COMPARISON: None TECHNIQUE: Helical CT images of the cervical spine were obtained without the administration of IV contrast. Coronal and sagittal reconstruction was performed. CT performed using ALARA (As Low As Reasonably Achievable). FINDINGS: Normal cervical curvature. No fracture or subluxation is identified. No osseous lesions identified. The prevertebral soft tissues are normal. Lateral masses are aligned. Multilevel disc height loss and osteophyte formation is present with spinal canal stenosis at C3-C4 (AP canal diameter of 8 mm), C5-C6 (AP canal there is a 2 mm), and C6-C7 (with AP canal diameter of 7 mm). Multilevel uncovertebral and facet hypertrophy is present with severe right neural foraminal narrowing at C2-C3, severe left and moderate right neural foraminal narrowing at C3-C4, severe bilateral narrowing at C4-C5, severe bilateral narrowing at C5-C6, and severe bilateral narrowing at C6-C7. The lung apices are clear. No neck mass or fluid collections. No inflammatory changes. Thyroid gland is normal. Impression No acute cervical spine abnormality. Multilevel spondylosis, as above. RL: 7000 abdomen pelvis with contrast Narrative Patient name: PAOLA FORD : 1935 84 years EXAMINATION: CT THORAX W CONTRAST, CT ABDOMEN PELVIS W CONTRAST Ordering Physician: RYAN SALINAS CLINICAL HISTORY: Chest and abdominal pain after trauma COMPARISON: None TECHNIQUE: Helical CT images of the chest, abdomen, and pelvis were performed from the thoracic inlet to the proximal femurs using 5 mm slice thickness after the administration of IV contrast. Initial dedicated imaging of the thoracic and lumbar spine were performed. Coronal and sagittal reconstruction was performed. Dose reduction technology was utilized. FINDINGS: CHEST: Thoracic aorta is normal in caliber without injury evident. Pulmonary arteries grossly normal. Normal cardiac chamber size without pericardial effusion. Diffuse coronary artery calcification. No mediastinal hematoma or adenopathy. Right thyroid nodule measuring 10 mm. Thoracic esophagus is normal.. There is a large left pleural effusion with increased internal density measuring approximately 20 Hounsfield units. There is adjacent consolidation in the left upper and lower lobes with scattered calcification within the collapsed parenchyma. No pneumothorax in the left lung. Peribronchial vascular groundglass attenuation in the right upper lobe with patchy groundglass nodularity in the subpleural right upper lobe. No right-sided effusion. Scattered right-sided atelectasis.. ABDOMEN/PELVIS: No discrete liver lesions or injury. No calcified gallstones. Spleen is intact. No pancreatic lesion or peripancreatic fluid. Indeterminate nodule in the right adrenal gland measures 14 mm and indeterminate nodule in the left adrenal gland measures 9 mm.. Multifocal scarring of the right kidney. No hydronephrosis in left kidney. Urinary bladder is intact. Prostate is mildly enlarged. Thickening noted of the distal stomach. Large and small bowel are normal in caliber and wall thickness. Normal appendix. No mesenteric contusion, free fluid, or free air. No abscess. The abdominal aorta is normal. No adenopathy. MUSCULOSKELETAL: No spine fracture or subluxation. Degenerative changes of the thoracic and lumbar spine. Spinal canal stenosis noted diffusely throughout the lumbar spine, worst at L4-L5 with AP canal diameter of 6 mm. No spinal lesions. No paraspinal hematoma. No sternal, rib, pelvic, or hip fractures. No dislocation. Subcutaneous soft tissues are normal. Impression 1. Large left pleural effusion with increased internal density. This could represent a large chronic pleural effusion (serous or transudative). Differential would include effusion with posttraumatic blood components, no extravasation or adjacent rib fractures noted. 2. No acute traumatic injury within the abdomen and pelvis. 3. Right perihilar and subpleural groundglass attenuation and nodularity in the right upper lobe, could represent edema, contusion from trauma, or infection. 4. Thickening of the distal stomach could be from underdistention or acute gastritis/peptic ulcer disease. RL: 7000 SSMENT/PLAN Paola Ford 84-year-old white male admitted for: #Fall/syncope Consult Dr Julian Admit Telemetry TSH, free T4, folate, iron panel, HgA1c, ordered Order carotid doppler Echo ordered Ct head No acute intracranial abnormality. Remote infarct of the bilateral parietal lobes, right larger than left. trend troponin rule out WA serial orthostatic Bps Hold Eliquis due to falls For head laceration with sutures in place patient will need to follow-up outpatient for suture removal in 10 days Keep wound clean and dry #Left pleural effusion per CT chest Patient is a poor historian Spoke to daughter who says that her son has cancer and he has had pleural effusions IR for thoracentesis Right groundglass opacity found per CT Patient to continue Zithromax PO for 2 more doses, Cefdinir PO for 7 more days #HTN Hydralazine 25 mg twice a day #IDDM A1c pending Lantus 8 units daily SSI, Accu-Cheks before meals and at bedtime #Dementia/ depression Namenda 10 mg daily Aricept 10 mg daily at bedtime Lexapro 20 mg daily #Seizures Trileptal 150 mg bid #BPH Flomax 0.4 mf qhs #Hypothyroidism Levothyroxine 50 g daily Prophylaxis: DVT- Eliquis on lhold Stress Ulcer: omeprazole Advanced Care Planning (Z71.89) Above assessment and plan discussed at length with patient, patient expressed full understanding. Questions and concerned addressed, I spent 18 minutes discussing the advance care plan. Surrogate decision maker: Kimtianna Landers [phone] daughter Level of care expected after discharge: self back to [facility] Code status: Full dose Smoking Cessation: (Z71.6) Tobacco user?:Unknown Observation [facility] was viewed during this stay TY P[place] Associated attestation - Axel Hdz MD - 04/09/2020 6:45 PM CDTI have independently seen and evaluated this patient. I agree with the note below including physicalexam and plan. In summary, patient is admitted for fall, found to have large L pleural effusion. Plan for IR thoracentesis. Hold eliquis. Rest of plan per below. documented in this encounter Consult Notes Barbara Sheppard SLP - 04/11/2020 9:28 AM CDTAssociated Order(s): CONSULT SPEECH Speech-Language Pathology Clinical Swallow Evaluation 04/11/2020 Paola Ford : 1935 Age: [age] year old Sex: male Referring Physician: Vivi Ley FNP, Date of Referral: 04/10/2020 Reason for Referral: dysphagia and cognitive-linguistic Date of Admission/Onset: 04/09/2020 Time IN/OUT: SUBJECTIVE: Patient asleep, woke when ERP PM called name. ERP PM introduced herself, but patient stated that he could not hear. Patient responded occasionally to questions, though not always accurately. When ERP PM staed that she would reposition him, he said "No, I'm ok." However, when asked for his name, patient repeatedly said his birthday instead. Patient was unable to follow directions for oral motor exam, but did say when he was full. OBJECTIVE: is being seen for a clinical swallow evaluation. Paola Ford is a 84 year old male admitted for fall, syncope with PMH significant for dementia, HTN, COPD, CVA, seizures IDDM. Pertinent Imaging: Ct Abdomen Pelvis With Contrast Result Date: 04/09/2020 1. Large left pleural effusion with increased internal density. This could represent a large chronicpleural effusion (serous or transudative). Differential would include effusion with posttraumatic blood components, no extravasation or adjacent rib fractures noted. 2. No acute traumatic injury withinthe abdomen and pelvis. 3. Right perihilar and subpleural groundglass attenuation and nodularity in the right upper lobe, could represent edema, contusion from trauma, or infection. 4. Thickening of the distal stomach could be from underdistention or acute gastritis/peptic ulcer disease. RL: 7000 Ct Cervical Spine Wo Contrast Result Date: 04/09/2020 No acute cervical spine abnormality. Multilevel spondylosis, as above. RL: 7000 Ct Head Wo Contrast Result Date: 04/09/2020 No acute intracranial abnormality. Remote infarct of the bilateral parietal lobes, right larger thanleft. RL: 7000 Ct Thorax With Contrast Result Date: 04/09/2020 1. Large left pleural effusion with increased internal density. This could represent a large chronicpleural effusion (serous or transudative). Differential would include effusion with posttraumatic blood components, no extravasation or adjacent rib fractures noted. 2. No acute traumatic injury withinthe abdomen and pelvis. 3. Right perihilar and subpleural groundglass attenuation and nodularity in the right upper lobe, could represent edema, contusion from trauma, or infection. 4. Thickening of the distal stomach could be from underdistention or acute gastritis/peptic ulcer disease. RL: 7000 Ir Thoracentesis With Imaging Result Date: 04/10/2020 Successful ultrasound-guided thoracentesis with removal of 12 8 270 cc pleural effusion from the left chest. Previous ERP PM Services/Swallow History: None on file, patient unable to report Past Medical History: Diagnosis Date Chronic kidney disease COPD (chronic obstructive pulmonary disease) Depression Diabetes mellitus Hyperlipidemia Hypertension Seizures Stroke Thyroid disease History reviewed. No pertinent surgical history. General Behavior: Decreased alertness and Decreased ability to follow directions Hearing: Unclear - patient stated that he could not hear ERP PM, but occasionally answered questions Oral Mechanism: Structure: dentate, some missing teeth and moist oral mucosa Function: Unable to fully assess due to decreased ability to follow instructions. No overt facial droop/weakness, no apparent dysphonia, dysarthria, or apraxia Respiratory Status: room air Orientation/Cognition: - Patient oriented to: AAOx0 - Response type: verbal - If verbal, describe speech: clear - Follows 1-step commands: No CLINICAL SWALLOW EVALUATION Current Diet Texture/Means of Nutrition: Regular diet, thin liquids Swallows on command: No Handles Secretions: Yes Volitional Cough: No Spontaneous Cough: Yes PO trials were administered by ERP PM. Patient was provided with multiple bites/sips of thin liquids, nectar-thick liquids, puree and chewable solid consistencies with the following observations: Oral Stage: Anterior leakage of bolus (left or right) not observed Pocketing of bolus (left or right) not observed Subjectively Prolonged oral phase observed with masticated material Oral residue (diffuse) observed with masticated material Pharyngeal Stage: Subjectively reduced laryngeal elevation observed with thin liquid, nectar thick liquids, puree and masticated material Coughing or throat clearing observed with thin liquid, immeditate throat clear, delayed cough Change in voice quality not observed Multiple swallows subjectively not observed Respiratory sufficiency and coordination: increased work of breathing Report of globus sensation: No 3 oz water challenge: failed Patient/Family/Staff education: Provided verbally. Discussed findings of evaluation, recommendationsand ERP PM plan of care. Patient/Family goal: unknown ASSESSMENT/IMPRESSIONS: Paola Ford presents with suspected oropharyngeal dysphagia in the setting of dementia and AMS. Patient had adequate labial seal. He had subjectively prolonged oral stage with masticated material and requested water to help clear oral stasis with material. He had subjectively reduced laryngeal elevation with all material. Patient had immediate throat clear with thin liquids, as well as eventual delayed cough. He appeared to tolerate nectar-thick liquids, purees, and masticated materials (Note: aspiration cannot be ruled out nor confirmed without objective assessment/imaging.) Patient was unableto follow instruction for further evaluation of speech-language skills. He would benefit from continu ed speech services to re-assess dysphagia and cognitive-linguistic skills should AMS resolve. Prognosis is fair for safe po intake with adherence to texture modifications and adherence to swallow precautions due to above findings. RECOMMENDATIONS/GOALS: 1. Recommend patient be downgraded to a regular-textured diet with nectar-thick liquids and swallow precautions: nectar thick liquids and, sit fully upright/chair, small single sips/bites, crush pills and mix with pudding with MD approval and remain upright for 30 minutes after meals 2. Recommend free water protocol (small amounts of unthickened water/ice chips only) PRN for QOL andto encourage hydration, despite aspiration risks,with strict adherence to the following precautions: No unthickened water or ice chipswith meals Must be>30 minutes after eating/drinking anything else Oral hygiene/care must be completed prior to water/ice intake 3. Recommend ERP PM therapy 1-3x/wk for 15-45 min/session while in-house to address the following goals: Swallowing: - Patient will participate in on-going swallow re-evaluation at the bedside to determine readiness/safety for PO vs need/timing for objective swallow assessment: - Patient will tolerate the safest, least restricted po diet texture without overt s/sx of aspiration or other negative effects on medical condition: Barbara Sheppard MS, [facility] PM Speech-Language Pathologist Phone/Text # [phone] IETPChristian traore MD - 04/09/2020 10:00 PM CDT Associated Order(s): CONSULT CARDIOLOGY [facility] Cardiology Consult Note Patient: Paola Ford Date of : 1935 Date of service: 04/09/2020 Primary Care Physician: Sravanthi Mojica CHIEF COMPLAINT: loss of consciousness HISTORY OF PRESENT ILLNESS: Paola Ford is a 84 year old male presented to the ER for evaluation for fall. History from patient. Patient seen and examined in the room. Pertinent cardiac related history reviewed from chart Presented to the ER with evaluation for fall. Per patient records patient was unconscious found with a forehead laceration. Patient is a poor historian unable to get review of system. Noted to AMS. History of dementia, depression, hypertension, IDDM, hypothyroidism and seizures. Previous Cardiac Studies: IMAGING - I personally reviewed, pertinent results as below: ECG 03/2020 Sinus rhythm with occasional Premature ventricular beats Low voltage QRS Borderline ECG CT Chest Impression 1. Large left pleural effusion with increased internal density. This could represent a large chronic pleural effusion (serous or transudative). Differential would include effusion with posttraumatic blood components, no extravasation or adjacent rib fractures noted. 2. No acute traumatic injury within the abdomen and pelvis. 3. Right perihilar and subpleural groundglass attenuation and nodularity in the right upper lobe, could represent edema, contusion from trauma, or infection. 4. Thickening of the distal stomach could be from underdistention or acute gastritis/peptic ulcer disease. CT head Impression No acute intracranial abnormality. Remote infarct of the bilateral parietal lobes, right larger than left. PAST MEDICAL HISTORY Past Medical History: Diagnosis Date Chronic kidney disease COPD (chronic obstructive pulmonary disease) Depression Diabetes mellitus Hyperlipidemia Hypertension Seizures Stroke Thyroid disease History reviewed. No pertinent surgical history. Family History Family history unknown: Yes SOCIAL HISTORY Social History Socioeconomic History Marital status: Single Spouse name: Not on file Number of children: Not on file Years of education: Not on file Highest education level: Not on file Occupational History Not on file Social Needs Financial resource strain: Not on file Food insecurity Worry: Not on file Inability: Not on file Transportation needs Medical: Not on file Non-medical: Not on file Tobacco Use Smoking status: Unknown If Ever Smoked Smokeless tobacco: Never Used Substance and Sexual Activity Alcohol use: Not on file Drug use: Not on file Sexual activity: Not on file Lifestyle Physical activity Days per week: Not on file Minutes per session: Not on file Stress: Not on file Relationships Social connections Talks on phone: Not on file Gets together: Not on file Attends gnosticism service: Not on file Active member of club or organization: Not on file Attends meetings of clubs or organizations: Not on file Relationship status: Not on file Intimate partner violence Fear of current or ex partner: Not on file Emotionally abused: Not on file Physically abused: Not on file Forced sexual activity: Not on file Other Topics Concern Not on file Social History Narrative Patient [facility] ALLERGIES Allergies Allergen Reactions Hydrocodone-Acetaminophen Other - See comments Unknown reaction Codeine Other - See comments Unknown reaction Iodine And Iodide Containing Products Other - See comments Unknown reaction Tramadol-Acetaminophen Other - See comments Unknown reaction MEDICATIONS Current Discharge Medication List STOP taking these medications apixaban (ELIQUIS) 2.5 mg tablet Comments: Reason for Stopping: atorvastatin 10 mg tablet Comments: Reason for Stopping: Cholecalciferol, Vitamin D3, (VITAMIN D3) 25 mcg (1,000 unit) capsule Comments: Reason for Stopping: donepeziL 10 mg tablet Comments: Reason for Stopping: escitalopram oxalate (LEXAPRO) 20 mg tablet Comments: Reason for Stopping: ferrous sulfate 325 mg (65 mg iron) EC tablet Comments: Reason for Stopping: furosemide (LASIX) 40 mg tablet Comments: Reason for Stopping: hydrALAZINE 25 mg tablet Comments: Reason for Stopping: insulin aspart (NOVOLOG FLEXPEN U-100 INSULIN SC) Comments: Reason for Stopping: insulin glargine (LANTUS U-100 INSULIN) 100 unit/mL injection Comments: Reason for Stopping: ipratropium-albuteroL 0.5 mg-3 mg(2.5 mg base)/3 mL nebulizer solution Comments: Reason for Stopping: lactulose 10 gram/15 mL (15 mL) Soln Comments: Reason for Stopping: levothyroxine 50 mcg tablet Comments: Reason for Stopping: liraglutide (VICTOZA 3-JOS) 0.6 mg/0.1 mL (18 mg/3 mL) injection Comments: Reason for Stopping: loratadine 10 mg tablet Comments: Reason for Stopping: magnesium oxide 400 mg magnesium Tab Comments: Reason for Stopping: medroxyPROGESTERone (PROVERA) 10 mg tablet Comments: Reason for Stopping: memantine 10 mg tablet Comments: Reason for Stopping: metFORMIN 500 mg tablet Comments: Reason for Stopping: omeprazole 20 mg TbLD Comments: Reason for Stopping: OXcarbazepine 150 mg tablet Comments: Reason for Stopping: tamsulosin (FLOMAX) 0.4 mg 24 hr capsule Comments: Reason for Stopping: umeclidinium (INCRUSE ELLIPTA) 62.5 mcg/actuation DsDv Comments: Reason for Stopping: vit C-E-zinc [id number] ([facility]) 50 mg-15 unit- 4.5 mg-2.5 mg Chew Comments: Reason for Stopping: Current Facility-Administered Medications: acetaminophen (TYLENOL) tablet 650 mg, 650 mg, Oral, Q6HPRN, Vivi Ley FNP atorvastatin (LIPITOR) tablet 10 mg, 10 mg, Oral, QHS, Vivi Ley FNP, 10 mg at 04/09/202140 [START ON 04/10/2020] azithromycin (ZITHROMAX) tablet 250 mg, 250 mg, Oral, DAILY, Leonardo Ley FNP cefdinir (OMNICEF) capsule 300 mg, 300 mg, Oral, BID, Vivi Ley FNP, 300 mg at 04/09/202140 donepeziL (ARICEPT) tablet 10 mg, 10 mg, Oral, QHS, Vivi Ley FNP, 10 mg at 141 [START ON 04/10/2020] escitalopram oxalate (LEXAPRO) tablet 20 mg, 20 mg, Oral, DAILY, Vivi eLy FNP [START ON 04/10/2020] furosemide (LASIX) tablet 40 mg, 40 mg, Oral, DAILY, Vivi Ley FNP hydrALAZINE (APRESOLINE) tablet 25 mg, 25 mg, Oral, BID, Vivi Ley FNP, 25 mg at 04/09/202140 [START ON 04/10/2020] insulin glargine (LANTUS U-100) injection 8 Units, 8 Units, Subcutaneous, DAILY, Vivi Ley FNP [START ON 04/10/2020] lactulose (CEPHULAC) solution 15 mL, 15 mL, Oral, DAILY, Vivi Ley FNP [START ON 04/10/2020] levothyroxine (SYNTHROID) tablet 50 mcg, 50 mcg, Oral, QAM-0600, Vivi Ley FNP [START ON 04/10/2020] medroxyPROGESTERone (CYCRIN) tablet 10 mg, 10 mg, Oral, DAILY, Vivi Ley FNP [START ON 04/10/2020] memantine (NAMENDA) tablet 10 mg, 10 mg, Oral, DAILY, Vivi Ley FNP [START ON 04/10/2020] omeprazole (PRILOSEC) capsule 20 mg, 20 mg, Oral, DAILY, Vivi Ley FNP OXcarbazepine (TRILEPTAL) tablet 150 mg, 150 mg, Oral, BID, Vivi Ley FNP, 150 mg at04/09/202140 Sliding Scale Insulin - Aspart (NOVOLOG) + Fsbg Testing, , Subcutaneous, TID MEALS+HS, Vivi Ley FNP, Stopped at 04/09/202099 tamsulosin (FLOMAX) capsule 0.4 mg, 0.4 mg, Oral, QHS, Vivi Ley FNP, 0.4 mg at 04/09/202140 REVIEW OF SYSTEMS: Unable to obtain proper ROS due to reasons mentioned in HPI. PHYSICAL EXAMINATION: Vitals: 04/09/20 1431 04/09/20 1524 04/09/20 1920 04/09/202004 BP: (!) 156/69 (!) 140/72 (!) 150/84 Pulse: 90 88 88 Resp: Temp: 37 C (98.6 F) 36.1 C (97 F) TempSrc: Temporal Artery Temporal Artery SpO2: (!) 89% 95% 97% 97% Weight: 82.8 kg (182 lb 8 oz) Height: 1.727 m (5' 8") General: no apparent distress HEENT: normocephalic atraumatic Neck: supple, no lymphadenopathy, no bruits, no JVD Lungs: clear to auscultation bilaterally. No wheezes or rhonchi. No increased work of breathing. Cardio: Regular rate and rhythm, S1&S2 normal, no murmurs, rubs or gallops Abdomen: soft; non-tender; non-distended; normoactive bowel sounds. : not examined Rectal: not examined Extremities: no clubbing, cyanosis, or edema. Skin: no rashes, no visible lesions. Neuro: no gross focal deficits LABS - Reviewed pertinent labs as below: CBC BMP PT/INR WBC (10*3/L) Date Value 04/09/2020 7.10 NA (mmol/L) Date Value 04/09/2020 135 No results found for: PT PLT (10*3/L) Date Value 04/09/2020 179 K (mmol/L) Date Value 04/09/2020 5.1 (H) INR (no units) Date Value 04/09/2020 1.1 HGB (g/dL) Date Value 04/09/2020 9.4 (L) BUN (mg/dL) Date Value 04/09/2020 19 HCT (%) Date Value 04/09/2020 29.1 (L) CREATININE (mg/dL) Date Value 04/09/2020 0.91 LIPID PROFILE GLUCOSE (mg/dL) Date Value 04/09/2020 92 CHOL (mg/dL) Date Value 04/09/2020 96 (L) TSH LDL CHOL (mg/dL) Date Value 04/09/2020 25 TSH (mIU/L) Date Value 04/09/2020 4.56 CARDIAC ENZYMES HDL (mg/dL) Date Value 04/09/2020 26 (L) No results found for: CK TRIG (mg/dL) Date Value 04/09/2020 224 (H) LFTs No results found for: CKMB AST(SGOT) (U/L) Date Value 04/09/2020 16 TROPONIN I (ng/mL) Date Value 04/09/2020 0.010 ALTv (U/L) Date Value 04/09/2020 9 No results found for: BNP LDL CHOL (mg/dL) Date Value 04/09/2020 25 Recent Labs 04/09/20 1817 TROPNI 0.010 Recent Labs 04/09/20 1156 TRIG 224* LDL CHOL (mg/dL) Date Value 04/09/2020 25 NT-proBNP (pg/mL) Date Value 04/09/2020 1,500 (H) ASSESSMENT/PLAN Principal Problem: Disorientation Active Problems: LOC (loss of consciousness) Essential hypertension Dyslipidemia Elevated brain natriuretic peptide (BNP) level Stroke Fall/syncope Recommend tele monitoring, serial trop, Echo and carotid USG in AM. Acceptable to hold Eliquis (unsure why he is on Eliquis 2.5 mg BiD). AMS: as per primary team. Anemia: unspecified: work up as per primary team. Chronic diastolic HF/Elevated NT pro BNP: on Lasix 40 mg daily on hold now. HTN: Hydralazine 25 mg twice a day T2DM: as per primary team. Dyslipidemia: on lipitor 10 mg daily. History of CVA: restart ASA 81 mg daily. Thank you for allowing us to participate in the care of Paola Ford. If you have any questions or concerns please feel free to call our office at [phone]. I would be happy to be of further assistance for Paola Ford wellbeing. Justo Zamora MD [employer] Teacher, Division of Cardiology [facility] documented in this encounter ED Notes Ryan Salinas MD - 04/09/2020 11:40 AM CDT EMERGENCY DEPARTMENT ENCOUNTER [facility] Patient Name: Paola Ford Date of : 1935 84 year old Exam Room:10/10 Primary Care Physician: Sravanthi Mojica Pre- Hospital Patient Escorted by: Self [9] Mode of Arrival: EMS - [facility] [51] EMS Treatment Prior to ED Arrival: Chief Complaint Fall HPI History provided by: EMS personnel Trauma Mechanism of injury: fall Injury location: head/neck Injury location detail: head Incident location: care home Time since incident: 1 hour Arrived directly from scene: yes Fall: Fall occurred: unknown. Impact surface: hard surface. Point of impact: head Suspicion of alcohol use: no Suspicion of drug use: yes EMS/[employer] data: Bystander interventions: none Blood loss: minimal Responsiveness: alert Loss of consciousness: yes Amnesic to event: yes Airway interventions: none IV access: established Fluids administered: none Medications administered: none Immobilization: none Airway condition since incident: stable Breathing condition since incident: stable Circulation condition since incident: stable Current symptoms: Associated symptoms: Reports loss of consciousness. Denies abdominal pain, chest pain, headache, nausea and vomiting. Relevant PMH: Pharmacological risk factors: Anticoagulation therapy. Tetanus status: unknown The patient has been admitted to the hospital due to injury in the past year. The patient has not been treated and released from the ED due to injury in the past year. Past Medical History / Immunizations No past medical history on file. Tetanus received in last 5 years: Unknown Past Surgical History No past surgical history on file. Allergies No Known Allergies Social History Substance & Sexual Activity No substance use or sexual activity history on file. Review of Systems Review of Systems Constitutional: Negative. Negative for chills, fatigue, fever and unexpected weight change. HENT: Negative. Right forehead laceration Eyes: Negative. Negative for discharge and itching. Respiratory: Negative. Negative for cough, chest tightness, shortness of breath and wheezing. Cardiovascular: Negative. Negative for chest pain and palpitations. Gastrointestinal: Negative. Negative for abdominal distention, abdominal pain, nausea and vomiting. Genitourinary: Negative. Negative for dysuria, urgency, frequency and flank pain. Musculoskeletal: Negative. Skin: Negative. Negative for color change, pallor and wound. Neurological: Positive for loss of consciousness and syncope. Negative for dizziness, light-headedness and headaches. Psychiatric/Behavioral: Negative. Negative for agitation and behavioral problems. All other systems reviewed and are negative. Endocrine: Endocrine negative Physical Exam BP 128/61 | Pulse 99 | Temp 36 C (96.8 F) (Axillary) | Resp 17 | Ht 1.702 m (5' 7") | Wt 99.8 kg (220 lb) | SpO2 94% | BMI 34.46 kg/m Physical Exam Vitals signs reviewed. Constitutional: Appearance: He is well-developed. HENT: Head: Normocephalic and atraumatic. Comments: Right forehead laceration Nose: Nose normal. Eyes: Conjunctiva/sclera: Conjunctivae normal. Comments: Pinpoint bilaterally Neck: Musculoskeletal: Normal range of motion and neck supple. Trachea: No tracheal deviation. Cardiovascular: Rate and Rhythm: Normal rate and regular rhythm. Heart sounds: Normal heart sounds. No murmur. No friction rub. Pulmonary: Effort: Pulmonary effort is normal. No respiratory distress. Breath sounds: Normal breath sounds. No stridor. No wheezing or rales. Abdominal: General: Bowel sounds are normal. There is no distension. Palpations: Abdomen is soft. Tenderness: There is no abdominal tenderness. There is no guarding or rebound. Musculoskeletal: Normal range of motion. Skin: General: Skin is warm and dry. Neurological: Mental Status: He is alert and oriented to person, place, and time. Cranial Nerves: No cranial nerve deficit. Sensory: No sensory deficit. Labs Recent Results (from the past 24 hour(s)) POCT GLUCOSE (AUTOMATED) Collection Time: 04/09/20 11:43 AM Result Value Ref Range POCT GLU 106 70 - 110 mg/dL CBC with Differential Collection Time: 04/09/20 11:56 AM Result Value Ref Range WBC 7.10 4.20 - 10.70 10*3/L RBC 3.08 (L) 4.26 - 5.52 10*6/L HGB 9.4 (L) 12.2 - 16.4 g/dL HCT 29.1 (L) 38.4 - 49.3 % MCV 94.5 81.7 - 95.6 fL MCH 30.5 26.1 - 32.7 pg MCHC 32.3 31.2 - 35.0 g/dL RDW-SD 55.5 (H) 38.5 - 51.6 fL RDW-CV 16.3 (H) 12.1 - 15.4 % PLT 179 150 - 328 10*3/L MPV 8.7 (L) 9.8 - 13.0 fL NRBC/100 WBC 0.0 0.0 - 10.0 /100 WBCs NRBC x10^3 <0.01 10*3/L GRAN MAT (NEUT) % 69.5 % IMM GRAN % 0.40 % LYMPH % 17.5 % MONO % 5.5 % EOS % 6.8 % BASO % 0.3 % GRAN MAT x10^3(ANC) 4.94 1.99 - 6.95 10*3/uL IMM GRAN x10^3 0.03 0.00 - 0.06 10*3/uL LYMPH x10^3 1.24 1.09 - 3.23 10*3/uL MONO x10^3 0.39 0.36 - 1.02 10*3/uL EOS x10^3 0.48 0.06 - 0.53 10*3/uL BASO x10^3 <0.03 0.01 - 0.09 10*3/uL Basic Metabolic Panel (NA, K, CL, CO2, GLUCOSE, BUN, CREATININE, CA) Collection Time: 04/09/20 11:56 AM Result Value Ref Range NA 136 135 - 145 mmol/L K 4.1 3.5 - 5.0 mmol/L CL 98 98 - 108 mmol/L CO2 TOTAL 33 (H) 23 - 31 mmol/L AGAP 5 2 - 16 BUN 19 7 - 23 mg/dL GLUCOSE 105 70 - 110 mg/dL CREATININE 1.15 0.60 - 1.25 mg/dL CALCIUM 8.5 (L) 8.6 - 10.6 mg/dL eGFR Calculation (Non-) 60.4 mL/min/1.73m2 eGFR Calculation () 73.3 mL/min/1.73m2 Hepatic Function Panel (ALB, T.PRO, BILI T, BU/BC, ALT, AST, ALK PHOS) Collection Time: 04/09/20 11:56 AM Result Value Ref Range TOTAL BILI 0.2 0.1 - 1.1 mg/dL BILI UNCON 0.4 0.1 - 1.1 mg/dL BILI CONJ 0.0 0.0 - 0.3 mg/dL T PROTEIN 6.2 (L) 6.3 - 8.2 g/dL ALBUMIN 3.1 (L) 3.5 - 5.0 g/dL ALK PHOS 69 34 - 122 U/L ALTv 9 5 - 50 U/L AST(SGOT) 16 13 - 40 U/L Troponin I Collection Time: 04/09/20 11:56 AM Result Value Ref Range TROPONIN I 0.006 <=0.034 ng/mL aPTT Collection Time: 04/09/20 11:56 AM Result Value Ref Range APTT Patient 32 23 - 38 Seconds Prothrombin Time (PT) / INR Collection Time: 04/09/20 11:56 AM Result Value Ref Range PROTIME PATIENT 13.6 12.0 - 14.7 Seconds INR 1.1 N-TERMINAL PRO-BNP Collection Time: 04/09/20 11:56 AM Result Value Ref Range NT-proBNP 1,500 (H) <=450 pg/mL Imaging Hospital Encounter on 04/09/20 CT thorax with contrast Narrative Patient name: PAOLA FORD : 1935 84 years EXAMINATION: CT THORAX W CONTRAST, CT ABDOMEN PELVIS W CONTRAST Ordering Physician: RYAN SALINAS CLINICAL HISTORY: Chest and abdominal pain after trauma COMPARISON: None TECHNIQUE: Helical CT images of the chest, abdomen, and pelvis were performed from the thoracic inlet to the proximal femurs using 5 mm slice thickness after the administration of IV contrast. Initial dedicated imaging of the thoracic and lumbar spine were performed. Coronal and sagittal reconstruction was performed. Dose reduction technology was utilized. FINDINGS: CHEST: Thoracic aorta is normal in caliber without injury evident. Pulmonary arteries grossly normal. Normal cardiac chamber size without pericardial effusion. Diffuse coronary artery calcification. No mediastinal hematoma or adenopathy. Right thyroid nodule measuring 10 mm. Thoracic esophagus is normal.. There is a large left pleural effusion with increased internal density measuring approximately 20 Hounsfield units. There is adjacent consolidation in the left upper and lower lobes with scattered calcification within the collapsed parenchyma. No pneumothorax in the left lung. Peribronchial vascular groundglass attenuation in the right upper lobe with patchy groundglass nodularity in the subpleural right upper lobe. No right-sided effusion. Scattered right-sided atelectasis.. ABDOMEN/PELVIS: No discrete liver lesions or injury. No calcified gallstones. Spleen is intact. No pancreatic lesion or peripancreatic fluid. Indeterminate nodule in the right adrenal gland measures 14 mm and indeterminate nodule in the left adrenal gland measures 9 mm.. Multifocal scarring of the right kidney. No hydronephrosis in left kidney. Urinary bladder is intact. Prostate is mildly enlarged. Thickening noted of the distal stomach. Large and small bowel are normal in caliber and wall thickness. Normal appendix. No mesenteric contusion, free fluid, or free air. No abscess. The abdominal aorta is normal. No adenopathy. MUSCULOSKELETAL: No spine fracture or subluxation. Degenerative changes of the thoracic and lumbar spine. Spinal canal stenosis noted diffusely throughout the lumbar spine, worst at L4-L5 with AP canal diameter of 6 mm. No spinal lesions. No paraspinal hematoma. No sternal, rib, pelvic, or hip fractures. No dislocation. Subcutaneous soft tissues are normal. Impression 1. Large left pleural effusion with increased internal density. This could represent a large chronic pleural effusion (serous or transudative). Differential would include effusion with posttraumatic blood components, no extravasation or adjacent rib fractures noted. 2. No acute traumatic injury within the abdomen and pelvis. 3. Right perihilar and subpleural groundglass attenuation and nodularity in the right upper lobe, could represent edema, contusion from trauma, or infection. 4. Thickening of the distal stomach could be from underdistention or acute gastritis/peptic ulcer disease. RL: 7000 HEAD WO CONTRAST Narrative Patient name: PAOLA FORD : 1935 84 years EXAMINATION: CT HEAD WO CONTRAST Ordering Physician: RYAN SALINAS CLINICAL HISTORY: Head trauma, headache COMPARISON: None TECHNIQUE: Helical CT images of the brain were obtained without the administration of IV contrast. CT performed using ALARA (As Low As Reasonably Achievable). FINDINGS: No intraparenchymal or extra-axial hemorrhage identified. Remote infarct of the right greater than left parietal lobes. Chronic small vessels ischemic change. No midline shift, mass effect, or herniation. No hydrocephalus.. No osseous lesions or fractures. No tonsillar ectopia evident. Paranasal sinuses and mastoid air cell complexes are clear. Impression No acute intracranial abnormality. Remote infarct of the bilateral parietal lobes, right larger than left. RL: 7000 CERVICAL SPINE WO CONTRAST Narrative Patient name: PAOLA FORD : 1935 84 years EXAMINATION: CT CERVICAL SPINE WO CONTRAST Ordering Physician: RYAN SALINAS CLINICAL HISTORY: Neck pain after trauma COMPARISON: None TECHNIQUE: Helical CT images of the cervical spine were obtained without the administration of IV contrast. Coronal and sagittal reconstruction was performed. CT performed using ALARA (As Low As Reasonably Achievable). FINDINGS: Normal cervical curvature. No fracture or subluxation is identified. No osseous lesions identified. The prevertebral soft tissues are normal. Lateral masses are aligned. Multilevel disc height loss and osteophyte formation is present with spinal canal stenosis at C3-C4 (AP canal diameter of 8 mm), C5-C6 (AP canal there is a 2 mm), and C6-C7 (with AP canal diameter of 7 mm). Multilevel uncovertebral and facet hypertrophy is present with severe right neural foraminal narrowing at C2-C3, severe left and moderate right neural foraminal narrowing at C3-C4, severe bilateral narrowing at C4-C5, severe bilateral narrowing at C5-C6, and severe bilateral narrowing at C6-C7. The lung apices are clear. No neck mass or fluid collections. No inflammatory changes. Thyroid gland is normal. Impression No acute cervical spine abnormality. Multilevel spondylosis, as above. RL: 7000 abdomen pelvis with contrast Narrative Patient name: PAOLA FORD : 1935 84 years EXAMINATION: CT THORAX W CONTRAST, CT ABDOMEN PELVIS W CONTRAST Ordering Physician: RYAN SALINAS CLINICAL HISTORY: Chest and abdominal pain after trauma COMPARISON: None TECHNIQUE: Helical CT images of the chest, abdomen, and pelvis were performed from the thoracic inlet to the proximal femurs using 5 mm slice thickness after the administration of IV contrast. Initial dedicated imaging of the thoracic and lumbar spine were performed. Coronal and sagittal reconstruction was performed. Dose reduction technology was utilized. FINDINGS: CHEST: Thoracic aorta is normal in caliber without injury evident. Pulmonary arteries grossly normal. Normal cardiac chamber size without pericardial effusion. Diffuse coronary artery calcification. No mediastinal hematoma or adenopathy. Right thyroid nodule measuring 10 mm. Thoracic esophagus is normal.. There is a large left pleural effusion with increased internal density measuring approximately 20 Hounsfield units. There is adjacent consolidation in the left upper and lower lobes with scattered calcification within the collapsed parenchyma. No pneumothorax in the left lung. Peribronchial vascular groundglass attenuation in the right upper lobe with patchy groundglass nodularity in the subpleural right upper lobe. No right-sided effusion. Scattered right-sided atelectasis.. ABDOMEN/PELVIS: No discrete liver lesions or injury. No calcified gallstones. Spleen is intact. No pancreatic lesion or peripancreatic fluid. Indeterminate nodule in the right adrenal gland measures 14 mm and indeterminate nodule in the left adrenal gland measures 9 mm.. Multifocal scarring of the right kidney. No hydronephrosis in left kidney. Urinary bladder is intact. Prostate is mildly enlarged. Thickening noted of the distal stomach. Large and small bowel are normal in caliber and wall thickness. Normal appendix. No mesenteric contusion, free fluid, or free air. No abscess. The abdominal aorta is normal. No adenopathy. MUSCULOSKELETAL: No spine fracture or subluxation. Degenerative changes of the thoracic and lumbar spine. Spinal canal stenosis noted diffusely throughout the lumbar spine, worst at L4-L5 with AP canal diameter of 6 mm. No spinal lesions. No paraspinal hematoma. No sternal, rib, pelvic, or hip fractures. No dislocation. Subcutaneous soft tissues are normal. Impression 1. Large left pleural effusion with increased internal density. This could represent a large chronic pleural effusion (serous or transudative). Differential would include effusion with posttraumatic blood components, no extravasation or adjacent rib fractures noted. 2. No acute traumatic injury within the abdomen and pelvis. 3. Right perihilar and subpleural groundglass attenuation and nodularity in the right upper lobe, could represent edema, contusion from trauma, or infection. 4. Thickening of the distal stomach could be from underdistention or acute gastritis/peptic ulcer disease. RL: 7000 Orders and Treatments Orders Placed This Encounter Procedures Laceration Repair CT HEAD WO CONTRAST CT CERVICAL SPINE WO CONTRAST CT thorax with contrast CT abdomen pelvis with contrast Urinalysis CBC with Differential Basic Metabolic Panel (NA, K, CL, CO2, GLUCOSE, BUN, CREATININE, CA) Hepatic Function Panel (ALB, T.PRO, BILI T, BU/BC, ALT, AST, ALK PHOS) Troponin I aPTT Prothrombin Time (PT) / INR N-TERMINAL PRO-BNP POCT GLUCOSE (AUTOMATED) COVID-19 (ID NOW RAPID TESTING) O2 Per Protocol Consult Evaluation Orders Placed This Encounter Medications ondansetron (ZOFRAN (PF)) injection 4 mg naloxone (NARCAN) injection 1 mg tetanus-diphtheria toxoids (TENIVAC) 5-2 Lf unit/0.5 mL injection 0.5 mL iohexol (OMNIPAQUE 350 BULK-150 mL) injection 120 mL Procedures EKG Time 1152 Rate 93 [place] normal PVC's No acute ischemia QTc prolonged Abnormal EKG Notes & MDM Patient was evaluated for an emergency medical condition related to No chief complaint on file. . Differential diagnoses considered by presenting complaints but not limited to: Closed head injury Syncope Seizure Assessment: Laceration repaired by Vivi De La O. Please see her note. History, physical exam findings, results of visit, differential diagnosis, medication regimens and plan of future care have been considered. Additional MDM may be found in the ED course. Differential diagnosis considered and final disposition made based on information gathered during evaluation and may not be completely ruled out or specifically listed. Vital signs were rechecked before final disposition. Diagnosis ICD-10-CM ICD-9-CM 1. Fall, initial encounter W19.XXXA E888.9 2. Laceration of forehead, initial encounter S01.81XA 873.42 3. LOC (loss of consciousness) R40.20 780.09 4. Pleural effusion J90 511.9 5. Closed head injury, initial encounter S09.90XA 959.01 Disposition & Follow Up ED Disposition ED Disposition Condition Comment Admit - Observation Stable Is this patient COVID positive or a patient under investigation (PUI)?: No Treatment Team: [facility] [[id number]] Primary reason for admission: LOC (loss of consciousness) [382292] Secondary reason for admission: Closed head injury [321062] Secondary r shaye for admission: Pleural effusion [[id number]] Secondary reason for admission: Elevated brain natriuretic peptide (BNP) level [786861] Is (or was) this a planned re-admission?: No Dr. Hdz accepted at 1404 Patient's Medications No medications on file Ryan Salinas Jr., MD Clinical [employer] Teacher [facility] Emergency Department documented in this encounter Miscellaneous Notes Care Plan - Huong Mcmanus RN - 04/12/2020 8:00 AM CDT Problem: Bleeding, Risk of Goal: Absence of impaired coagulation signs and symptoms Outcome: Progressing as expected Problem: Respiratory Function - Impaired Goal: Adequate oxygenation Outcome: Progressing as expected are Plan - Luz English RN - 04/11/2020 8:40 PM CDT. are Plan - Huong Mcmanus RN - 04/11/2020 9:08 AM CDT Problem: Bleeding, Risk of Goal: Absence of impaired coagulation signs and symptoms Outcome: Progressing as expected Problem: Respiratory Function - Impaired Goal: Adequate oxygenation Outcome: Progressing as expected are Plan - Luz English RN - 04/11/2020 12:01 AM CDT. are Plan - Maryan Gibbs RN - 04/10/2020 11:08 AM CDT Problem: Bleeding, Risk of Goal: Absence of impaired coagulation signs and symptoms Outcome: Progressing as expected Problem: Respiratory Function - Impaired Goal: Adequate oxygenation Outcome: Progressing as expected Problem: Respiratory Function - Impaired Goal: Adequate oxygenation Outcome: Progressing as expected ursing Note - Nic Horton RN - 04/09/2020 8:46 PM CDTPatient is lethargic and AMS, unable to take PO meds, follow commands or provide urine specimen at this time. Care Plan - Nic Horton RN - 04/09/2020 8:38 PM CDT Problem: Bleeding, Risk of Goal: Absence of impaired coagulation signs and symptoms Outcome: Progressing as expected are Plan - Maryan Gibbs RN - 04/09/2020 4:44 PM CDT Problem: Bleeding, Risk of Goal: Absence of impaired coagulation signs and symptoms Outcome: Progressing as expected D Procedure Note - Vivi De La O PAC - 04/09/2020 1:51 PM CDTAssociated Order(s): Laceration RepairLaceration Repair Performed by: Vivi De La O PAC Authorized by: Vivi De La O PAC Consent: Consent obtained: patient was confused and unable to give consent. [place] protocol: Site/side marked: yes Immediately prior to procedure, a time out was called: yes Patient identity confirmed: Provided demographic data Anesthesia (see MAR for exact dosages): Anesthesia method: Local infiltration Local anesthetic: Lidocaine 1% w/o epi Laceration details: Location: Face Face location: L eyebrow Length (cm): 4.5 Repair type: Repair type: Intermediate Pre-procedure details: Preparation: Patient was prepped and draped in usual sterile fashion Exploration: Hemostasis achieved with: Direct pressure Wound exploration: wound explored through full range of motion and entire depth of wound probed and visualized Wound extent: no foreign bodies/material noted and no vascular damage noted Contaminated: no Treatment: Area cleansed with: Betadine and saline Amount of cleaning: Standard Irrigation solution: Sterile saline Irrigation method: Syringe Subcutaneous repair: Suture size: 2-0 Suture material: Vicryl Suture technique: Simple interrupted Number of sutures: 3 Skin repair: Repair method: Sutures Suture size: 4-0 Suture material: Prolene Suture technique: Simple interrupted Number of sutures: 6 Approximation: Approximation: Close Post-procedure details: Dressing: Bulky dressing Patient tolerance of procedure: Tolerated well, no immediate complications Associated attestation - Ryan Salinas MD - 04/10/2020 9:22 AM CDTOn the date of service, I reviewed the patients history, exam findings, diagnostic and any interventions or procedures in detail of the assigned advance practice provider and was available for consultation. yRan Salinas Jr., MD [facility] [employer] [facility] Emergency Department ED Nurse Note - Alan Rivas RN - 04/09/2020 12:24 PM CDTPatient is back to the unit D Nurse Note - Juli Rain RN - 04/09/2020 11:59 AM CDTPatient transported to CT scan with RN and trauma team. Continuous cardiac monitoring and serial vital signs monitored by RN. Juli Rain RN D Nurse Note - Juli Rain RN - 04/09/2020 11:40 AM CDTReport received from EMS. Patient a resident in [facility]. EMS reports that nurses found patient having fallen from a standing position by the bed. loss of consciousness reported but time is unknown. Patient with a laceration to the forehead with bandage intact. Bleeding appears to be controlled with bandage. Patient unable to follow commands. Baseline neuro status is unknown at this time. Trauma protocol initiated. Trauma team members at bedside, primary and secondary survey in progress. Pt placed on continuous cardiac monitoring, pulse oximetry, and serial vital signs. Juli Rain RN documented in this encounter Plan of Treatment Name Type Priority Associated Diagnoses Date/Ti me BODY FLUID LAB Routine 04/10/2020 12:1 0 PM CDT CULTURE(AEROBIC/ANAEROBIC) Health Maintenance Due Date Last Done Comments Depression Screening 1947 DTaP,Tdap,and Td Vaccines (1 - Tdap) 1953 04/09/2020 Zoster Recombinant Vaccine (SHINGRIX) (1 of 2) 1984 Medicare Wellness Visit 1999 PNEUMOCOCCAL VACCINES 65+ (1 of 1 - PPSV23) 1999 INFLUENZA VACCINE (#1) 2020 documented as of this encounter Procedures Procedure Name Priority Date/Time Associated Comments Diagnosis POCT GLUCOSE Routine 04/12/2020 4:28 Results for this (AUTOMATED) PM CDT procedure are i n the results section. POCT GLUCOSE Routine 04/12/2020 11:18 Results for this (AUTOMATED) AM CDT procedure are i n the results section. POCT GLUCOSE Routine 04/12/2020 7:40 Results for this (AUTOMATED) AM CDT procedure are i n the results section. N-TERMINAL PRO-BNP Add-on 04/12/2020 4:02 Resul ts for this AM CDT procedure are i n the results section. CBC WITH DIFF Routine 04/12/2020 4:02 Results fo r this AM CDT procedure are i n the results section. BASIC METABOLIC PANEL Routine 04/12/2020 4:02 Re sults for this (NA, K, CL, CO2, AM CDT procedure a re in GLUCOSE, BUN, the results CREATININE, CA) section. POCT GLUCOSE Routine 04/11/2020 7:53 Results for this (AUTOMATED) PM CDT procedure are i n the results section. POCT GLUCOSE Routine 04/11/2020 4:24 Results for this (AUTOMATED) PM CDT procedure are i n the results section. POCT GLUCOSE Routine 04/11/2020 11:21 Results for this (AUTOMATED) AM CDT procedure are i n the results section. CBC WITH DIFF Routine 04/11/2020 4:31 Results fo r this AM CDT procedure are i n the results section. BASIC METABOLIC PANEL Routine 04/11/2020 4:31 Re sults for this (NA, K, CL, CO2, AM CDT procedure a re in GLUCOSE, BUN, the results CREATININE, CA) section. LACTATE DEHYDROGENASE Routine 04/11/2020 4:31 Re sults for this AM CDT procedure are i n the results section. POCT GLUCOSE Routine 04/11/2020 3:29 Results for this (AUTOMATED) AM CDT procedure are i n the results section. POCT GLUCOSE Routine 04/10/2020 11:38 Results for this (AUTOMATED) PM CDT procedure are i n the results section. POCT GLUCOSE Routine 04/10/2020 5:38 Results for this (AUTOMATED) PM CDT procedure are i n the results section. POCT GLUCOSE Routine 04/10/2020 4:36 Results for this (AUTOMATED) PM CDT procedure are i n the results section. CAROTID DUPLEX Routine 04/10/2020 2:57 BILATERAL BY VASCULAR PM CDT LAB CYTO PLEURAL FLUID Routine 04/10/2020 2:55 Resul ts for this PM CDT procedure are i n the results section. ECHO ROUTINE W/DOPPLER Routine 04/10/2020 2:30 Laceration of COLOR PM CDT forehead, initial encounter Closed head injury, initial encounter IR THORACENTESIS WITH Routine 04/10/2020 12:52 Fall, initial R esults for this IMAGING PM CDT encounter procedure are in Pleural effusion the results section. XR CHEST 1 VW Routine 04/10/2020 12:29 Pleural effusion Result s for this PM CDT procedure are i n the results section. LDH TOTAL BODY FLUID Routine 04/10/2020 12:10 Res ults for this PM CDT procedure are i n the results section. BODY FLUID DIRECT Routine 04/10/2020 12:10 Result s for this COUNT PM CDT procedure are i n the results section. BODY FLUID MANUAL DIFF Routine 04/10/2020 12:10 R esults for this PM CDT procedure are i n the results section. BODY FLUID Routine 04/10/2020 12:10 CULTURE(AEROBIC/ANAERO PM CDT BIC) BODY FLUID DIRECT Routine 04/10/2020 12:10 Result s for this COUNT PM CDT procedure are i n the results section. LACTATE DEHYDROGENASE Routine 04/10/2020 12:10 Re sults for this PM CDT procedure are i n the results section. T.PROTEIN BODY FLUID Routine 04/10/2020 12:10 Res ults for this PM CDT procedure are i n the results section. GLUCOSE BODY FLUID Routine 04/10/2020 12:10 Resul ts for this PM CDT procedure are i n the results section. POCT GLUCOSE Routine 04/10/2020 11:46 Results for this (AUTOMATED) AM CDT procedure are i n the results section. URINALYSIS STAT 04/10/2020 6:46 Fall, initial Results fo r this AM CDT encounter procedure are i n the results section. CBC WITH DIFF Routine 04/10/2020 4:28 Results fo r this AM CDT procedure are i n the results section. BASIC METABOLIC PANEL Routine 04/10/2020 4:28 Re sults for this (NA, K, CL, CO2, AM CDT procedure a re in GLUCOSE, BUN, the results CREATININE, CA) section. FERRITIN SERUM Add-on 04/10/2020 4:28 Results f or this AM CDT procedure are i n the results section. POCT GLUCOSE Routine 04/09/2020 8:04 Results for this (AUTOMATED) PM CDT procedure are i n the results section. PROTHROMBIN TIME / INR Routine 04/09/2020 6:24 R esults for this PM CDT procedure are i n the results section. BASIC METABOLIC PANEL Routine 04/09/2020 6:24 Re sults for this (NA, K, CL, CO2, PM CDT procedure a re in GLUCOSE, BUN, the results CREATININE, CA) section. GLYCOSYLATED Routine 04/09/2020 6:17 Results for this HEMOGLOBIN (A1C) PM CDT procedure a re in the results section. IRON PANEL Routine 04/09/2020 6:17 Results for this PM CDT procedure are i n the results section. TROPONIN I Routine 04/09/2020 6:17 Results for this PM CDT procedure are i n the results section. FOLATE Routine 04/09/2020 6:17 Results for this PM CDT procedure are i n the results section. VITAMIN B12, LEVEL Add-on 04/09/2020 6:17 Resul ts for this PM CDT procedure are i n the results section. POCT GLUCOSE Routine 04/09/2020 4:50 Results for this (AUTOMATED) PM CDT procedure are i n the results section. COVID-19 (ID NOW RAPID STAT 04/09/2020 2:18 Fall, initial Results for this TESTING) PM CDT encounter procedure are in Laceration of the results forehead, initial section. encounter LOC (loss of consciousness) Pleural effusion MD LAYR CLOS WND Routine 04/09/2020 1:51 Results for this FACE,FACIAL 2.5-5 CM PM CDT procedu re are in the results section. CT THORAX W CONTRAST STAT 04/09/2020 12:34 Fall, initial Re sults for this PM CDT encounter procedure are in Laceration of the results forehead, initial section. encounter LOC (loss of consciousness) CT ABDOMEN PELVIS W STAT 04/09/2020 12:34 Fall, initial Res ults for this CONTRAST PM CDT encounter procedure are in Laceration of the results forehead, initial section. encounter LOC (loss of consciousness) CT HEAD WO CONTRAST STAT 04/09/2020 12:27 Fall, initial Res ults for this PM CDT encounter procedure are i n the results section. CT CERVICAL SPINE WO STAT 04/09/2020 12:27 Fall, initial Re sults for this CONTRAST PM CDT encounter procedure are i n the results section. N-TERMINAL PRO-BNP STAT 04/09/2020 11:56 Fall, initial Resu lts for this AM CDT encounter procedure are i n the results section. ACTIVATED PARTIAL STAT 04/09/2020 11:56 Fall, initial Resul ts for this THRMPLAS JAY AM CDT encounter procedure are i n the results section. PROTHROMBIN TIME / INR STAT 04/09/2020 11:56 Fall, initial Results for this AM CDT encounter procedure are i n the results section. CBC WITH DIFF STAT 04/09/2020 11:56 Fall, initial Results f or this AM CDT encounter procedure are i n the results section. LIPID PANEL Add-on 04/09/2020 11:56 Results for this (16393)(TOTAL AM CDT procedure are in CHOLESTEROL, the results TRIGLYCERIDES, HDL) section. BASIC METABOLIC PANEL STAT 04/09/2020 11:56 Fall, initial R esults for this (NA, K, CL, CO2, AM CDT encounter procedure a re in GLUCOSE, BUN, the results CREATININE, CA) section. HEPATIC FUNCTION PANEL STAT 04/09/2020 11:56 Fall, initial Results for this (38902) AM CDT encounter procedure are i n (ALB,T.PRO,BILI the results T,BU/BC,ALT,AST,ALK section. PHOS) THYROID STIMULATING Add-on 04/09/2020 11:56 Resu lts for this HORMONE AM CDT procedure are i n the results section. TROPONIN I STAT 04/09/2020 11:56 Fall, initial Results fo r this AM CDT encounter procedure are i n the results section. MAGNESIUM Add-on 04/09/2020 11:56 Results for this AM CDT procedure are i n the results section. EKG-12 LEAD Routine 04/09/2020 11:52 AM CDT EKG-12 LEAD STAT 04/09/2020 11:50 AM CDT POCT GLUCOSE Routine 04/09/2020 11:43 Results for this (AUTOMATED) AM CDT procedure are i n the results section. documented in this encounter Results POCT GLUCOSE (AUTOMATED) (04/12/2020 4:28 PM CDT) Pathologist Sig nature POCT GLU 167 (H) 70 - 110 mg/dL [facility] Specimen Blood Performing Organization Address [facility] Phone Number [facility] CLIA: [id number] [place] [address] POCT GLUCOSE (AUTOMATED) (04/12/2020 11:18 AM CDT) Pathologist Sig nature POCT GLU 128 (H) 70 - 110 mg/dL [facility] Specimen Blood Performing Organization Address [facility] [place] Phone Number [facility] CLIA: [id number] [place], [place] [phone] LABORATORY [address] POCT GLUCOSE (AUTOMATED) (04/12/2020 7:40 AM CDT) Pathologist Sig nature POCT GLU 132 (H) 70 - 110 mg/dL [facility] Specimen Blood Performing Organization Address [facility] [place] Phone Number [facility] CLIA: [id number] [place] [address] N-TERMINAL PRO-BNP (04/12/2020 4:02 AM CDT) Pathologist Sig nature NT-proBNP 962 (H) <=450 pg/mL [facility] Specimen Blood - ARM, LEFT Narrative Performed At Biotin has been reported to cause a negative [facility] bias, interpret results relative to patient's use of biotin. Performing Organization Address [facility] [place] Phone Number [facility] CLIA: [id number] [place] [address] Basic Metabolic Panel (NA, K, CL, CO2, GLUCOSE, BUN, CREATININE, CA) (04/12/2020 4:02 AM CDT) NA 136 135 - 145 [facility] mmol/L [facility] K 4.3 3.5 - 5.0 [facility] mmol/L [facility] CL 100 98 - 108 mmol/L [facility] CO2 TOTAL 30 23 - 31 mmol/L [facility] AGAP 6 2 - 16 [facility] BUN 29 (H) 7 - 23 mg/dL [facility] GLUCOSE 115 (H) 70 - 110 mg/dL [facility] CREATININE 1.36 (H) 0.60 - 1.25 [facility] mg/dL [facility] CALCIUM 8.7 8.6 - 10.6 [facility] mg/dL [facility] eGFR Calculation 49.8 mL/min/1.73m2 [facility] ([facility] Qatari) eGFR Calculation 60.4 mL/min/1.73m2 [facility] () [facility] Specimen Blood - ARM, LEFT Narrative Performed At [facility] Glomerular Filtration Rate (GFR) [facility] and Staging of Kidney Disease* + + +- + | GFR (mL/min/1.73 m2) | With Kidney Damage | Without Kidney Damage + + +- + | >90 | Stage one | Normal + + +- + | 60-89 | Stage two | Decreased GFR + + +- + | 30-59 | Stage three | Stage three + + +- + | 15-29 | Stage four | Stage four + + +- + | <15 (or dialysis) | Stage five | Stage five + + +- + *Each stage assumes the associated GFR level has been in effect for at least three months. Stages 1 to 5, with or without kidney disease, indicate chronic kidney disease. Notes: Determination of stages one and two (with eGFR >59mL/min/1.73 m2) requires estimation of kidney damage for at least three months as defined by structural or functional abnormalities of the kidney, manifested by either: Pathological abnormalities or Markers of kidney damage (including abnormalities in the composition of the blood or urine or abnormalities in imaging tests). Performing Organization Address City/State/Zipcode Phone Number [facility] CLIA: [id number] [place] [address] CBC with Differential (04/12/2020 4:02 AM CDT) [facility] nature WBC 5.66 4.20 - 10.70 [facility] 10*3/L HOSP[facility] RBC 2.77 (L) 4.26 - 5.52 [facility] 10*6/L [facility] HGB 8.5 (L) 12.2 - 16.4 [facility] g/dL [facility] HCT 27.4 (L) 38.4 - 49.3 % [facility] MCV 98.9 (H) 81.7 - 95.6 fL [facility] MCH 30.7 26.1 - 32.7 pg [facility] MCHC 31.0 (L) 31.2 - 35.0 [facility] g/dL [facility] RDW-SD 59.5 (H) 38.5 - 51.6 fL [facility] RDW-CV 16.5 (H) 12.1 - 15.4 % [facility] PLT 182 150 - 328 [facility] 10*3/L [facility] MPV 9.5 (L) 9.8 - 13.0 fL [facility] NRBC/100 WBC 0.0 0.0 - 10.0 /100 [facility] WBCs [facility] NRBC x10^3 <0.01 10*3/L [facility] GRAN MAT (NEUT) % 66.4 % [facility] IMM GRAN % 0.20 % [facility] LYMPH % 21.2 % [facility] MONO % 6.0 % [facility] EOS % 5.8 % [facility] BASO % 0.4 % [facility] GRAN MAT x10^3(ANC) 3.76 1.99 - 6.95 [facility] 10*3/uL [facility] IMM GRAN x10^3 <0.03 0.00 - 0.06 [facility] 10*3/uL HOSPITAL [facility] LYMPH x10^3 1.20 1.09 - 3.23 [facility] 10*3/uL [facility]ITAL [facility] MONO x10^3 0.34 (L) 0.36 - 1.02 [facility] 10*3/uL H[facility]PITAL [facility] EOS x10^3 0.33 0.06 - 0.53 [facility] 10*3/uL [facility] BASO x10^3 <0.03 0.01 - 0.09 [facility] 10*3/uL [facility] Specimen Blood - ARM, LEFT Performing Organization Address [facility] [place] Phone Number [facility] CLIA: [id number] [place], [place] [address] LABORATORY [address] POCT GLUCOSE (AUTOMATED) (04/11/2020 7:53 PM CDT) Pathologist Sig nature POCT GLU 171 (H) 70 - 110 mg/dL [facility] Specimen Blood Performing Organization Address [facility] [place] Phone Number [facility] CLIA: [id number] [place], [place] [id number] LABORATORY [address] POCT GLUCOSE (AUTOMATED) (04/11/2020 4:24 PM CDT) Pathologist Sig nature POCT GLU 151 (H) 70 - 110 mg/dL [facility] Specimen Blood Performing Organization Address [facility] [place] Phone Number [facility] CLIA: [id number] [place] [address] POCT GLUCOSE (AUTOMATED) (04/11/2020 11:21 AM CDT) Pathologist Sig nature POCT GLU 158 (H) 70 - 110 mg/dL [facility] Specimen Blood Performing Organization Address [facility] [place] Phone Number [facility] CLIA: [id number] [place] [phone] LABORATORY [address] LACTATE DEHYDROGENASE (04/11/2020 4:31 AM CDT) Pathologist Sig nature LDH 364 300 - 600 U/L [facility] Specimen Blood - ARM, LEFT Performing Organization Address [facility] [place] Phone Number [facility] CLIA: [id number] [place] [phone] LABORATORY [address] Basic Metabolic Panel (NA, K, CL, CO2, GLUCOSE, BUN, CREATININE, CA) (04/11/2020 4:31 AM CDT) NA 137 135 - 145 [facility] mmol/L [facility] K 4.3 3.5 - 5.0 [facility] mmol/L [facility] CL 100 98 - 108 mmol/L [facility] CO2 TOTAL 31 23 - 31 mmol/L [facility] AGAP 6 2 - 16 [facility] BUN 27 (H) 7 - 23 mg/dL [facility] [place] [place] GLUCOSE 106 70 - 110 mg/dL [facility] [place] [place] CREATININE 1.38 (H) 0.60 - 1.25 [facility] mg/dL [facility] CALCIUM 8.9 8.6 - 10.6 [facility] mg/dL [facility] eGFR Calculation 49.0 mL/min/1.73m2 [facility] ([facility] [place]) eGFR Calculation 59.4 mL/min/1.73m2 [facility] () [facility] Specimen Blood - ARM, LEFT Narrative Performed At [facility] Glomerular Filtration Rate (GFR) [facility] and Staging of Kidney Disease* + + +- + | GFR (mL/min/1.73 m2) | With Kidney Damage | Without Kidney Damage + + +- + | >90 | Stage one | Normal + + +- + | 60-89 | Stage two | Decreased GFR + + +- + | 30-59 | Stage three | Stage three + + +- + | 15-29 | Stage four | Stage four + + +- + | <15 (or dialysis) | Stage five | Stage five + + +- + *Each stage assumes the associated GFR level has been in effect for at least three months. Stages 1 to 5, with or without kidney disease, indicate chronic kidney disease. Notes: Determination of stages one and two (with eGFR >59mL/min/1.73 m2) requires estimation of kidney damage for at least three months as defined by structural or functional abnormalities of the kidney, manifested by either: Pathological abnormalities or Markers of kidney damage (including abnormalities in the composition of the blood or urine or abnormalities in imaging tests). Performing Organization Address City/State/Zipcode Phone Number [facility] CLIA: [id number] [place] [address] with Differential (04/11/2020 4:31 AM CDT) Pathologist Sig nature WBC 6.69 4.20 - 10.70 [facility] 10*3/L HOSPITAL LAB[facility]ORY RBC 2.96 (L) 4.26 - 5.52 [facility] 10*6/L [facility] HGB 9.1 (L) 12.2 - 16.4 [facility] g/dL [facility] HCT 28.4 (L) 38.4 - 49.3 % [facility] MCV 95.9 (H) 81.7 - 95.6 fL [facility] MCH 30.7 26.1 - 32.7 pg [facility] MCHC 32.0 31.2 - 35.0 [facility] g/dL [facility] RDW-SD 57.3 (H) 38.5 - 51.6 fL [facility] RDW-CV 16.4 (H) 12.1 - 15.4 % [facility] PLT 207 150 - 328 [facility] 10*3/L [facility] MPV 9.4 (L) 9.8 - 13.0 fL [facility] NRBC/100 WBC 0.0 0.0 - 10.0 /100 [facility] WBCs [facility] NRBC x10^3 <0.01 10*3/L [facility] GRAN MAT (NEUT) % 64.9 % [facility] IMM GRAN % 0.40 % [facility] LYMPH % 20.8 % [facility] MONO % 5.1 % [facility] EOS % 8.5 % [facility] BASO % 0.3 % [facility] GRAN MAT x10^3(ANC) 4.34 1.99 - 6.95 [facility] 10*3/uL [facility]PITAL [facility] IMM GRAN x10^3 0.03 0.00 - 0.06 [facility] 10*3/uL [facility] LYMPH x10^3 1.39 1.09 - 3.23 [facility] 10*3/uL [facility] MONO x10^3 0.34 (L) 0.36 - 1.02 [facility] 10*3/uL [facility]ITAL [facility] EOS x10^3 0.57 (H) 0.06 - 0.53 [facility] 10*3/uL [facility]ITAL [facility] BASO x10^3 <0.03 0.01 - 0.09 [facility] 10*3/uL [facility] Specimen Blood - ARM, LEFT Performing Organization Address [facility] [place] Phone Number [facility] CLIA: [id number] [place] [address] POCT GLUCOSE (AUTOMATED) (04/11/2020 3:29 AM CDT) Pathologist Sig nature POCT GLU 146 (H) 70 - 110 mg/dL [facility] Specimen Blood Performing Organization Address [facility] [place] Phone Number [facility] CLIA: [id number] [place] [address] POCT GLUCOSE (AUTOMATED) (04/10/2020 11:38 PM CDT) Pathologist Sig nature POCT GLU 149 (H) 70 - 110 mg/dL [facility] Specimen Blood Performing Organization Address [facility] [place] Phone Number [facility] CLIA: [id number] [place], [place] [address] LABORATORY [address] POCT GLUCOSE (AUTOMATED) (04/10/2020 5:38 PM CDT) Pathologist Sig nature POCT GLU 127 (H) 70 - 110 mg/dL [facility] Specimen Blood Performing Organization Address [facility] [place] Phone Number [facility] CLIA: [id number] [place], [place] [address] LABORATORY [address] POCT GLUCOSE (AUTOMATED) (04/10/2020 4:36 PM CDT) Pathologist Sig nature POCT GLU 67 (L) 70 - 110 mg/dL [facility] Specimen Blood Performing Organization Address [facility] [place] Phone Number [facility] CLIA: [id number] [place], [place] [phone] LABORATORY [address] CYTO PLEURAL FLUID (04/10/2020 2:55 PM CDT) Case Report Non-Gynecologic Cytology Case: [id number] [facility] Authorizing Provider: Axel Maurer MD Collected: 04/10/2020 1458 SERVICES Ordering Location: [facility] Medicine Surgery Unit Received: 04/10/2020 0504 Pathologist: Maida Henson MD Specimen: PLEURAL, LEFT , EFFUSION Final Diagnosis A1. PLEURA, LEFT; THORACENTESIS FLUID: [facility] Electronically - NEGATIVE FOR MALIGNANT CELLS (SEE COMMENT). SERVICES signed by Maida Henson MD o n I have personally reviewed a ll specimens/slides and agree with all statements made by residents, fellows or pathologist assistants whose name(s) may appear on this report. 04/12/2020 at 11:35 AM Final Diagnosis Smears show [facility] Comment peripheral blood SERVICES elements only. No definitive mesothelial cells seen. No malignant cells identified. Clinical Left pleural [facility] Information effusion, family hx SERVICES malignancy Gross Description A1. PLEURA, LEFT; THORACENTESIS FLUID [facility] Received fresh is 5 cc's of reddish horacio fluid SERVICES Prepared 2 slides (1 Papanic olaou cytospin and 1 Romanowsky cytospin preparation) Embedded Images [facility] SERVICES Specimen Fluid - PLEURAL, LEFT Performing Organization Address City/State/Zipcode Phone Number [facility] CLIA: [id number] [place] [address] [place] [address] THORACENTESIS WITH IMAGING (04/10/2020 12:52 PM CDT) Specimen Impressions Performed At Successful ultrasound-guided thoracentes is with removal of 12 PACS/VR/DOSE 8 270 cc pleural effusion from the lef t chest. Narrative Performed At This result has an attachment that is no t available. Study: Ultrasound guided left thoracentesis. PACS/VR/DOSE Technique: Informed consent was obtained from the guardian. Patient was placed in the upright position and under s onographic evaluation an appropriate site for access to the pleural effusion was obtained. The soft tissues overlying the pleural effusion was pr epped and draped in a sterile manner. Local anesthesia was administered wi th 1% lidocaine. Under ultrasound guidance catheter was introduced into the pleural effusion. Findings: This was rather difficult procedure because of inability of the patient to cooperate. I was able to remove 270 cc of red-colored fluid from left pleural cavity. Multiple samples obtained and sent to pathology [facility] for various tests requested by Dr. Hdz. Procedure Note [facility], Radiant Results Inft User - 2019 12:57 PM CDT Study: Ultrasound guided left thoracentesis. Technique: Informed consent was obtained from the carlitos mockian. Patient was placed in the upright positi on and under sonographic evaluation an appropriate site for access to the pl eural effusion was obtained. The soft tissues overlying the pleural e ffusion was prepped and draped in a sterile manner. Local anesthesia was ad ministered with 1% lidocaine. Under ultrasound guidance catheter was i ntroduced into the pleural effusion. Findings: This was rather difficult proc edure because of inability of the patient to cooperate. I was able to remove 270 cc of red-colo red fluid from left pleural cavity. Multiple samples obtained and sent to pa thology laboratory for various tests requested by Dr. Hdz. IMPRESSION Successful ultrasound-guided thoracentes is with removal of 12 8 270 cc pleural effusion from the left chest. Performing Organization Address City/[facility] Phone Number PACS/VR/DOSE XR CHEST 1 VW (04/10/2020 12:29 PM CDT) Specimen Narrative Performed At HISTORY: S/P left thoracentesis PACS/VR/DOSE FINDINGS: AP view of the chest large l eft pleural effusion. No pneumothorax. Right lung is clear. CONCLUSIONS: Large left-sided pleural effusion, essent ially unchanged when compared with CT topogram image. Procedure Note [facility], Radiant Results Inft User - 2019 12:33 PM CDT HISTORY: S/P left thoracentesis FINDINGS: AP view of the chest large le ft pleural effusion. No pneumothorax. Right lung is clear. CONCLUSIONS: Large left-sided pleural ef fusion, essentially unchanged when compared with CT topogram image. Performing Organization Address City/State/Zipcode Phone Number PACS/VR/DOSE BODY FLUID MANUAL DIFF (04/10/2020 12:10 PM CDT) Pathologist Sig nature #CELS CNTD [facility] SERVICES Specimen Fluid - PLEURAL, LEFT Narrative Performed At Less than 100 cells counted due to low WBC; Differenti al is [facility] SERVICES not reported in percent. 52 cells counted: 16 Neutro phils, 14 Lymphocytes, 2 Atypical Lymphocytes, 20 Macrophages . Performing Organization Address City/State/Zipcode Phone Number [facility] CLIA: [id number] [place] [address] [place] [address] LDH TOTAL BODY FLUID (04/10/2020 12:10 PM CDT) LDH BF 798 U/L [facility] SERVICES UNSPUN BODY FLUID Dark Treasure [facility] COLOR SERVICES UNSPUN BODY FLUID Cloudy [facility] CLARITY SERVICES SPUN BODY FLUID Dark Treasure [facility] COLOR SERVICES SPUN BODY FLUID Clear [facility] CLARITY SERVICES Sediment The sediment [facility] volume is <0.1 SERVICES mLs of the total fluid volume of 5mL and its color is red. Specimen Fluid - PLEURAL, LEFT Narrative Performed At Test developed and characteristics determined by [facility] SERVICES Laboratory Services. Performing Organization Address City/State/Zipcode Phone Number [facility] CLIA: [id number] [place] [address] [place] [address] BODY FLUID DIRECT COUNT (04/10/2020 12:10 PM CDT) Pathologist Sig nature BF COLOR Light Brown [facility] BF WBC Count 112 /L [facility] BF RBC Count 1,872Comment: /L [facility]ATORY present; RBC count may be affected. Specimen Fluid - PLEURAL, LEFT Narrative Performed At The reference range and other method performance [facility] specifications have not been established for this body fluid. The test results must be integrated into the clinical context for interpretation. Performing Organization Address City/State/Zipcode Phone Number [facility] CLIA: [id number] [place] [address] T.PROTEIN BODY FLUID (04/10/2020 12:10 PM CDT) T.PROT BF 3,100.0 mg/dL [facility] SERVICES UNSPUN BODY FLUID Dark Treasure [facility] COLOR SERVICES UNSPUN BODY FLUID Cloudy [facility] CLARITY SERVICES SPUN BODY FLUID Dark Treasure [facility] COLOR SERVICES SPUN BODY FLUID Clear [facility] CLARITY SERVICES Sediment The sediment [facility] volume is <0.1 SERVICES mLs of the total fluid volume of 5mL and its color is red. Specimen Fluid - PLEURAL, LEFT Narrative Performed At Test developed and characteristics determined by [facility] SERVICES Laboratory Services. Performing Organization Address City/State/Zipcode Phone Number [facility] CLIA: [id number] [place] [address] [place] [address] GLUCOSE BODY FLUID (04/10/2020 12:10 PM CDT) GLUCOSE BF 39 mg/dL [facility] SERVICES UNSPUN BODY FLUID Dark Treasure [facility] COLOR SERVICES UNSPUN BODY FLUID Cloudy [facility] CLARITY SERVICES SPUN BODY FLUID Dark Treasure [facility] COLOR SERVICES SPUN BODY FLUID Clear [facility] CLARITY SERVICES Sediment The sediment [facility] volume is <0.1 SERVICES mLs of the total fluid volume of 5mL and its color is red. Specimen Fluid - PLEURAL, LEFT Narrative Performed At Test developed and characteristics determined by [facility] SERVICES Laboratory Services. Performing Organization Address City/[facility] Phone Number [facility] CLIA: [id number] [place] [address] [place] [address] POCT GLUCOSE (AUTOMATED) (04/10/2020 11:46 AM CDT) Pathologist Sig nature POCT GLU 83 70 - 110 mg/dL [facility] Specimen Blood Performing Organization Address City/[facility]/Zipcode Phone Number [facility] CLIA: [id number] [place] [address] Urinalysis (04/10/2020 6:46 AM CDT) APPEARANCE Hazy (A) Clear [facility] COLOR Yellow Yellow [facility] PH 5.0 4.8 - 8.0 [facility] SP GRAVITY 1.045 (H) 1.003 - 1.030 [facility] GLU U QUAL Normal Normal [facility] BLOOD NegativeComment: Negative [facility] INTERFERENCE FROM HOSPITAL LABORATORY ASCORBIC ACID MAY CAUSE FALSE NEGATIVE RESULT KETONES 5 mg/dL (A) Negative [facility] PROTEIN Negative Negative [facility] UROBILIN Normal Normal [facility] BILIRUBIN Negative Negative [facility] NITRITE Negative Negative [facility] LEUK SOFIE Negative Negative [facility] RBC/HPF 2 0 - 3 HPF [facility] WBC/HPF 3 0 - 5 HPF [facility] BACTERIA Negative Negative [facility] MUCOUS Slight (A) Negative LPF [facility] AMORPHOUS Moderate (A) Rare HPF [facility] SQ EPITH <1 HPF [facility] Specimen Urine - URINE, CATHETERIZED Performing Organization Address [facility]/Zipcode Phone Number [facility] CLIA: [id number] [place] [address] LABORATORY [address] [facility] FERRITIN SERUM (04/10/2020 4:28 AM CDT) Pathologist Sig nature FERRITIN 114.0 18.0 - 464.0 ng/mL [facility] Specimen Blood - VENOUS Narrative Performed At [facility] has been reported to cause a negative [facility] bias, interpret results relative to patient's use of biotin. Performing Organization Address [facility]t Phone Number [facility] CLIA: [id number] [place] [address] LABORATORY [address] [facility] Basic Metabolic Panel (NA, K, CL, CO2, GLUCOSE, BUN, CREATININE, CA) (04/10/2020 4:28 AM CDT) Pathologist Sig nature NA 136 135 - 145 [facility] mmol/L [facility] K 4.1 3.5 - 5.0 [facility] mmol/L [facility] CL 98 98 - 108 mmol/L [facility] CO2 TOTAL 34 (H) 23 - 31 mmol/L [facility] AGAP 4 2 - 16 [facility] BUN 19 7 - 23 mg/dL [facility] GLUCOSE 69 (L) 70 - 110 mg/dL [facility] CREATININE 1.17 0.60 - 1.25 [facility] mg/dL [facility] CALCIUM 8.6 8.6 - 10.6 [facility] mg/dL [facility] eGFR Calculation 59.2 mL/min/1.73m2 [facility] (Non-) [facility] Y eGFR Calculation 71.8 mL/min/1.73m2 [facility] () [facility] Specimen Blood - VENOUS Narrative Performed At [facility] Glomerular Filtration Rate (GFR) JU ON [facility] and Staging of Kidney Disease* + + +- + | GFR (mL/min/1.73 m2) | With Kidney Damage | Without Kidney Damage + + +- + | >90 | Stage one | Normal + + +- + | 60-89 | Stage two | Decreased GFR + + +- + | 30-59 | Stage three | Stage three + + +- + | 15-29 | Stage four | Stage four + + +- + | <15 (or dialysis) | Stage five | Stage five + + +- + *Each stage assumes the associated GFR level has been in effect for at least three months. Stages 1 to 5, with or without kidney disease, indicate chronic kidney disease. Notes: Determination of stages one and two (with eGFR >59mL/min/1.73 m2) requires estimation of kidney damage for at least three months as defined by structural or functional abnormalities of the kidney, manifested by either: Pathological abnormalities or Markers of kidney damage (including abnormalities in the composition of the blood or urine or abnormalities in imaging tests). Performing Organization Address City/State/Zipcode Phone Number [facility] CLIA: [id number] [place] [address] CBC with Differential (04/10/2020 4:28 AM CDT) Pathologist Sig nature WBC 6.21 4.20 - 10.70 [facility] 10*3/L [facility] RBC 2.80 (L) 4.26 - 5.52 [facility] 10*6/L [facility] HGB 8.7 (L) 12.2 - 16.4 [facility] g/dL [facility] HCT 26.9 (L) 38.4 - 49.3 % [facility] MCV 96.1 (H) 81.7 - 95.6 fL [facility] MCH 31.1 26.1 - 32.7 pg [facility] MCHC 32.3 31.2 - 35.0 [facility] g/dL [facility] RDW-SD 57.8 (H) 38.5 - 51.6 fL [facility] RDW-CV 16.4 (H) 12.1 - 15.4 % [facility] PLT 175 150 - 328 [facility] 10*3/L [facility] MPV 9.2 (L) 9.8 - 13.0 fL [facility] NRBC/100 WBC 0.0 0.0 - 10.0 /100 [facility] WBCs [facility] NRBC x10^3 <0.01 10*3/L [facility] GRAN MAT (NEUT) % 62.1 % [facility] IMM GRAN % 0.30 % [facility] LYMPH % 21.9 % [facility] MONO % 5.6 % [facility] EOS % 9.8 % [facility] BASO % 0.3 % [facility] GRAN MAT x10^3(ANC) 3.85 1.99 - 6.95 [facility] 10*3/uL [facility] IMM GRAN x10^3 <0.03 0.00 - 0.06 [facility] 10*3/uL [facility] LYMPH x10^3 1.36 1.09 - 3.23 [facility] 10*3/uL [facility] MONO x10^3 0.35 (L) 0.36 - 1.02 [facility] 10*3/uL [facility] EOS x10^3 0.61 (H) 0.06 - 0.53 [facility] 10*3/uL [facility] BASO x10^3 <0.03 0.01 - 0.[address]3/uL [facility] Specimen Blood - VENOUS Performing Organization Address City/[facility]/Zipcode Phone Number [facility] CLIA: [id number] [place] [id number] LABORATORY [address] POCT GLUCOSE (AUTOMATED) (04/09/2020 8:04 PM CDT) Pathologist [facility] nature POCT GLU 94 70 - 110 mg/dL [facility] Specimen Blood Performing Organization Address City/[facility]/Zipcode Phone Number [facility] CLIA: [id number] [place], [place] [id number] LABORAT[address] PROTHROMBIN TIME / INR (04/09/2020 6:24 PM CDT) PROTIME PATIENT 13.8 12.0 - 14.7 [facility] LABORATORY INR 1.1Comment: Normal [facility] INR <1.1; [facility]farin HOSPITAL Therapeutic range LABORATORY 2.0 to 3.0 or 2.5 to 3.5, depending upon the indications. Specimen Blood - ARM, LEFT Performing Organization Address City/State/Zipcode Phone Number [facility] CLIA: [id number] [place] [address] BASIC METABOLIC PANEL (NA, K, CL, CO2, GLUCOSE, BUN, CREATININE, CA) (04/09/2020 6:24 PM CDT) [facility] NA 135 135 - 145 [facility] mmol/L [facility] K 5.1 (H) 3.5 - 5.0 [facility] mmol/L [facility] CL 99 98 - 108 mmol/L [facility] CO2 TOTAL 32 (H) 23 - 31 mmol/L [facility] AGAP 4 2 - 16 [facility] BUN 19 7 - 23 mg/dL [facility] GLUCOSE 92 70 - 110 mg/dL [facility] CREATININE 0.91 0.60 - 1.25 [facility] mg/dL [facility] CALCIUM 8.0 (L) 8.6 - 10.6 [facility] mg/dL [facility] eGFR Calculation 79.2 mL/min/1.73m2 [facility] ([facility] LAB[facility]ATORY [place]) eGFR Calculation 96.0 mL/min/1.73m2 [facility] () [facility] Specimen Blood - ARM, LEFT Narrative Performed At [facility] of Glomerular Filtration Rate (GFR) [facility] and Staging of Kidney Disease* + + +- + | GFR (mL/min/1.73 m2) | With Kidney Damage | Without Kidney Damage + + +- + | >90 | Stage one | Normal + + +- + | 60-89 | Stage two | Decreased GFR + + +- + | 30-59 | Stage three | Stage three + + +- + | 15-29 | Stage four | Stage four + + +- + | <15 (or dialysis) | Stage five | Stage five + + +- + *Each stage assumes the associated GFR level has been in effect for at least three months. Stages 1 to 5, with or without kidney disease, indicate chronic kidney disease. Notes: Determination of stages one and two (with eGFR >59mL/min/1.73 m2) requires estimation of kidney damage for at least three months as defined by structural or functional abnormalities of the kidney, manifested by either: Pathological abnormalities or Markers of kidney damage (including abnormalities in the composition of the blood or urine or abnormalities in imaging tests). Performing Organization Address [facility]/Zipcode Phone Number [facility] CLIA: [id number] [place] [address] LABORATORY [address] [facility] VITAMIN B12, LEVEL (04/09/2020 6:17 PM CDT) Pathologist Sig nature VIT B12 301 240 - 930 pg/mL [facility] Specimen Blood - ARM, LEFT Narrative Performed At Biotin has been reported to cause a positive bias, int erpret [facility] results relative to patient's use of biotin. Performing Organization Address City/[facility] Cent[facility]ode Phone Number [facility] CLIA: [id number] [place] [address] [address] [facility] IRON PANEL (04/09/2020 6:17 PM CDT) Pathologist Sig nature IRON 58Comment: Slight 50 - 160 ug/dL [facility]ATORY TIBC 230 (L) 250 - 410 ug/dL [facility] % FE SAT 25 20 - 50 % [facility] Specimen Blood - ARM, LEFT Performing Organization Address [facility] Phone Number [facility] CLIA: [id number] [place] [address] [place] [address] FOLATE (04/09/2020 6:17 PM CDT) FOLATE SER 9.5Comment: Biotin 3.0 - 20.0 [facility] has been reported ng/mL SERVICES to cause a positive bias, interpret results relative to patient's use of biotin. Specimen Blood - ARM, LEFT Performing Organization Address City/[facility] Cent[facility]ode Phone Number [facility] CLIA: [id number] [place] [address] [address] [facility] Troponin I (04/09/2020 6:17 PM CDT) Pathologist Sig nature TROPONIN I 0.010 <=0.034 ng/mL [facility] Specimen Blood - ARM, LEFT Narrative Performed At Equal or Less than 0.034 ng/ml---Normal [facility] Note: Cardiac troponin begins to rise 3-4 hours after the onset of ischemia. Repeat in 4-6 hours if the sample was drawn within 3-4 hours of the onset of the symptom and found normal. Between 0.035 and 0.120 ng/mL--- Borderline. Questionable myocardial injury or necros is Note: Serial measurement may be necessary to confirm or exclude the diagnosis of myocardial injury or necrosis; Clinical correlation (symptoms, EKGs, imaging studies, and others) required; Repeat in 4-6 hours if clinically indicated. Equal or Higher than 0.121 ng/mL---Abnormal. Myocardial Injury or Necrosis Likely Biotin has been reported to cause a negative bias, interpret results relative to patient's use of biotin. Performing Organization Address [facility] Center[facility]t Phone Number [facility] CLIA: [id number] [place] [address] [place] [address] GLYCOSYLATED HEMOGLOBIN (A1C) (04/09/2020 6:17 PM CDT) Pathologist [facility] nature HGB A1C 5.0 4.0 - 6.0 % [facility] Specimen Blood - ARM, LEFT Narrative Performed At %A1C (NGSP) Interpretation (ADA) [facility] 4.8-5.6 Normal or (Non-Diabetic Ra nge) 5.7-6.4 Increased Risk (Pre-Diabet ic) >6.5 Diabetes Indicated Performing Organization Address [facility] Phone Number [facility] CLIA: [id number] [place] [address] [place] [address] POCT GLUCOSE (AUTOMATED) (04/09/2020 4:50 PM CDT) Pathologist Sig nature POCT GLU 101 70 - 110 mg/dL [facility] Specimen Blood Performing Organization Address [facility] Phone Number [facility] CLIA: [id number] [place] [address] COVID-19 (ID NOW RAPID TESTING) (04/09/2020 2:18 PM CDT) SARS-CoV-2 Rapid ID Not Detected Not Detected [facility] Specimen Swab - NASOPHARYNGEAL SWAB Narrative Performed At [facility] NOW COVID-19 Assay is an isothermal nucleic [facility] acid amplification test intended for the qualitative detection of nucleic acid from SARS-CoV-2 viral RNA in nasopharyngeal (NIPPLE THREADER) specimens. It is used under Emergency Use Authorization (EUA) by FDA. The limit of detection (LOD) of the assay is 125 Genome Equivalents/mL. A positive result is indicative of the presence of SARS-CoV-2 RNA. Clinical correlation with patient history and other diagnostic information is necessary to determine patient infection status. A negative (Not Detected) result does not preclude SARS-CoV-2 infection. In patients with clinical symptoms and other tests that are consistent with SARS-CoV-2 infection, negative results should be treated as presumptive negative and a new specimen should be tested with alternative PCR molecular test. Invalid: Please collect a new specimen for repeat patient testing if clinically indicated. Performing Organization Address City/State/Zipcode Phone Number [facility] CLIA: [id number] [place] [address] Laceration Repair (04/09/2020 1:51 PM CDT) Narrative Performed At [facility] La [facility] 04/09/2020 1: 52 PM Laceration Repair Performed by: Vivi De La O PAC Authorized by: Vivi De La O PAC Consent: Consent obtained: patient was confuse d and unable to give consent. [facility]ant protocol: Site/side marked: yes Immediately prior to procedure, a jay benz out was called: yes Patient identity confirmed: Provide d demographic data Anesthesia (see MAR for exact dosages): Anesthesia method: Local infiltrati on Local anesthetic: Lidocaine 1% w/o epi Laceration details: Location: Face Face location: L eyebrow Length (cm): 4.5 Repair type: Repair type: Intermediate Pre-procedure details: Preparation: Patient was prepped and draped in us ual sterile fashion Exploration: Hemostasis achieved with: Direct pr essure Wound exploration: wound explored thr ough full range of motion and entire depth of wound probed and visuali zed Wound extent: no foreign bodies/material noted and no vascular damage noted Contaminated: no Treatment: Area cleansed with: Betadine and sa line Amount of cleaning: Standard Irrigation solution: Sterile saline Irrigation method: Syringe Subcutaneous repair: Suture size: 2-0 Suture material: Vicryl Suture technique: Simple interrupte d Number of sutures: 3 Skin repair: Repair method: Sutures Suture size: 4-0 Suture material: Prolene Suture technique: Simple interrupte d Number of sutures: 6 Approximation: Approximation: Close Post-procedure details: Dressing: Bulky dressing Patient tolerance of procedure: Bebeto erated well, no immediate complications CT abdomen pelvis with contrast (04/09/2020 12:34 PM CDT) Specimen Impressions Performed At PACS/VR/DOSE 1. Large left pleural effusion with increased internal density. This could represent a large chronic pleural effusi on (serous or transudative). Differential would include effusion with posttraumatic blood components, no extravasation or adjacent rib fractures noted. 2. No acute traumatic injury within the abdomen and pelvis. 3. Right perihilar and subpleural groundglass attenuat ion and nodularity in the right upper lobe, could represent ed baldo, contusion from trauma, or infection. 4. Thickening of the distal stomach could be from unde rdistention or acute gastritis/peptic ulcer disease. RL: 7000 1 :36 PM Narrative Performed At Patient name: PAOLA FORD PACS/VR/DOSE : 1935 84 years EXAMINATION: CT THORAX W CONTRAST, CT AB DOMEN PELVIS W CONTRAST Ordering Physician: RYAN SALINAS CLINICAL HISTORY: Chest and abdominal pain after trauma COMPARISON: None TECHNIQUE: Helical CT images of the chest, abdomen, and pelvis we re performed from the thoracic inlet to the proximal femurs using 5 mm slice thickness after the administration of IV contrast. Initial d edicated imaging of the thoracic and lumbar spine were performed. Coronal and sagittal reconstruction was performed. Dose reduction technology was utilized. FINDINGS: CHEST: Thoracic aorta is normal in calib er without injury evident. Pulmonary arteries grossly normal. Umm l cardiac chamber size without pericardial effusion. Diffuse coronary artery calcific ation. No mediastinal hematoma or adenopathy. Right thyroid no dule measuring 10 mm. Thoracic esophagus is normal.. There is a large left pleural effusion w ith increased internal density measuring approximately 20 Hounsfield un its. There is adjacent consolidation in the left upper and lowe r lobes with scattered calcification within the collapsed parenchyma. No pneu mothorax in the left lung. Peribronchial vascular groundglass attenuation in the right upper lobe with patchy groundglass nodularity in the subpleu ral right upper lobe. No right-sided effusion. Scattered right -sided atelectasis.. ABDOMEN/PELVIS: No discrete liver lesion s or injury. No calcified gallstones. Spleen is intact. No pancreatic lesion or peripancreatic fluid. Indeterminate nodule in the right adrena l gland measures 14 mm and indeterminate nodule in the left adrenal gland measure s 9 mm.. Multifocal scarring of the right kidney. No hydrone phrosis in left kidney. Urinary bladder is intact. Prostate is mildly en larged. Thickening noted of the distal stomach. Large and smal l bowel are normal in caliber and wall thickness. Normal appendix. No mesent bill contusion, free fluid, or free air. No abscess. The abdo madina aorta is normal. No adenopathy. MUSCULOSKELETAL: No spine fracture or subluxation. Deg enerative changes of the thoracic and lumbar spine. Spinal ca nal stenosis noted diffusely throughout the lumbar spine, worst at L4-L5 with AP ca nal diameter of 6 mm. No spinal lesions. No paraspinal hematoma. No sternal, rib, pelvic, or hip fractures. No dislocation. Subcutaneous soft tissues are normal. Procedure Note [facility], Radiant Results Inft User - 2019 1:38 PM CDT Patient name: PAOLA FORD : 1935 84 years EXAMINATION: CT THORAX W CONTRAST, CT AB DOMEN PELVIS W CONTRAST Ordering Physician: RYAN SALINAS CLINICAL HISTORY: Chest and abdominal pain after trauma COMPARISON: None TECHNIQUE: Helical CT images of the chest, abdomen, and pelvis were performed from the thoracic inlet to the proximal femurs us ing 5 mm slice thickness after the administration of IV contrast. Initial d edicated imaging of the thoracic and lumbar spine were performed. Coronal and sagittal reconstruction was performed. Dose reduction technology was utilized. FINDINGS: CHEST: Thoracic aorta is normal in calib er without injury evident. Pulmonary arteries grossly normal. Umm l cardiac chamber size without pericardial effusion. Diffuse coronary a rtery calcification. No mediastinal hematoma or adenopathy. Right thyroid no dule measuring 10 mm. Thoracic esophagus is normal.. There is a large left pleural effusion w ith increased internal density measuring approximately 20 Hounsfield un its. There is adjacent consolidation in the left upper and lowe r lobes with scattered calcification within the collapsed paren chyma. No pneumothorax in the left lung. Peribronchial vascular groundglass attenuation in the right upper lobe with patchy groundglass nodularity in the subpleural right upper lobe. No right-sided effusion. Scattered right -sided atelectasis.. ABDOMEN/PELVIS: No discrete liver lesion s or injury. No calcified gallstones. Spleen is intact. No pancrea tic lesion or peripancreatic fluid. Indeterminate nodule in the right adrena l gland measures 14 mm and indeterminate nodule in the left adrenal gland measures 9 mm.. Multifocal scarring of the right kidney. No hydrone phrosis in left kidney. Urinary bladder is intact. Prostate is mildly en larged. Thickening noted of the distal stomach. Large and small bowel are normal in caliber and wall thickness. Normal appen xiomara. No mesenteric contusion, free fluid, or free air. No abscess. The abdo madina aorta is normal. No adenopathy. MUSCULOSKELETAL: No spine fracture or chambers bluxation. Degenerative changes of the thoracic and lumbar spine. Spinal ca nal stenosis noted diffusely throughout the lumbar spine, worst at L4 -L5 with AP canal diameter of 6 mm. No spinal lesions. No paraspinal hematom a. No sternal, rib, pelvic, or hip fractures. No dislocation. Subcutaneous soft tissues are normal. IMPRESSION 1. Large left pleural effusion with incr eased internal density. This could represent a large chronic pleural effusi on (serous or transudative). Differential would include effusion with posttraumatic blood components, no extravasation or adjacent rib fractures noted. 2. No acute traumatic injury within the abdomen and pelvis. 3. Right perihilar and subpleural ground glass attenuation and nodularity in the right upper lobe, could represent ed baldo, contusion from trauma, or infection. 4. Thickening of the distal stomach coul d be from underdistention or acute gastritis/peptic ulcer disease. RL: 7000 Performing Organization Address City/State/Zipcode Phone Number PACS/VR/DOSE CT thorax with contrast (04/09/2020 12:34 PM CDT) Specimen Impressions Performed At PACS/VR/DOSE 1. Large left pleural effusion with increased internal density. This could represent a large chronic pleural effusi on (serous or transudative). Differential would include effusion with posttraumatic blood components, no extravasation or adjacent rib fractures noted. 2. No acute traumatic injury within the abdomen and pelvis. 3. Right perihilar and subpleural groundglass attenuat ion and nodularity in the right upper lobe, could represent ed baldo, contusion from trauma, or infection. 4. Thickening of the distal stomach could be from unde rdistention or acute gastritis/peptic ulcer disease. RL: 7000 1 :36 PM Narrative Performed At Patient name: PAOLA FORD PACS/VR/DOSE : 1935 84 years EXAMINATION: CT THORAX W CONTRAST, CT AB DOMEN PELVIS W CONTRAST Ordering Physician: RYAN SALINAS CLINICAL HISTORY: Chest and abdominal pain after trauma COMPARISON: None TECHNIQUE: Helical CT images of the chest, abdomen, and pelvis we re performed from the thoracic inlet to the proximal femurs using 5 mm slice thickness after the administration of IV contrast. Initial d edicated imaging of the thoracic and lumbar spine were performed. Coronal and sagittal reconstruction was performed. Dose reduction technology was utilized. FINDINGS: CHEST: Thoracic aorta is normal in calib er without injury evident. Pulmonary arteries grossly normal. Umm l cardiac chamber size without pericardial effusion. Diffuse coronary artery calcific ation. No mediastinal hematoma or adenopathy. Right thyroid no dule measuring 10 mm. Thoracic esophagus is normal.. There is a large left pleural effusion w ith increased internal density measuring approximately 20 Hounsfield un its. There is adjacent consolidation in the left upper and lowe r lobes with scattered calcification within the collapsed parenchyma. No pneu mothorax in the left lung. Peribronchial vascular groundglass attenuation in the right upper lobe with patchy groundglass nodularity in the subpleu ral right upper lobe. No right-sided effusion. Scattered right -sided atelectasis.. ABDOMEN/PELVIS: No discrete liver lesion s or injury. No calcified gallstones. Spleen is intact. No pancreatic lesion or peripancreatic fluid. Indeterminate nodule in the right adrena l gland measures 14 mm and indeterminate nodule in the left adrenal gland measure s 9 mm.. Multifocal scarring of the right kidney. No hydrone phrosis in left kidney. Urinary bladder is intact. Prostate is mildly en larged. Thickening noted of the distal stomach. Large and smal l bowel are normal in caliber and wall thickness. Normal appendix. No mesent bill contusion, free fluid, or free air. No abscess. The abdo madina aorta is normal. No adenopathy. MUSCULOSKELETAL: No spine fracture or subluxation. Deg enerative changes of the thoracic and lumbar spine. Spinal ca nal stenosis noted diffusely throughout the lumbar spine, worst at L4-L5 with AP ca nal diameter of 6 mm. No spinal lesions. No paraspinal hematoma. No sternal, rib, pelvic, or hip fractures. No dislocation. Subcutaneous soft tissues are normal. Procedure Note [facility], Radiant Results Inft User - 2019 1:38 PM CDT Patient name: PAOLA FORD : 1935 84 years EXAMINATION: CT THORAX W CONTRAST, CT AB DOMEN PELVIS W CONTRAST Ordering Physician: RYAN SALINAS CLINICAL HISTORY: Chest and abdominal pain after trauma COMPARISON: None TECHNIQUE: Helical CT images of the chest, abdomen, and pelvis were performed from the thoracic inlet to the proximal femurs us ing 5 mm slice thickness after the administration of IV contrast. Initial d edicated imaging of the thoracic and lumbar spine were performed. Coronal and sagittal reconstruction was performed. Dose reduction technology was utilized. FINDINGS: CHEST: Thoracic aorta is normal in calib er without injury evident. Pulmonary arteries grossly normal. Umm l cardiac chamber size without pericardial effusion. Diffuse coronary a rtery calcification. No mediastinal hematoma or adenopathy. Right thyroid no dule measuring 10 mm. Thoracic esophagus is normal.. There is a large left pleural effusion w ith increased internal density measuring approximately 20 Hounsfield un its. There is adjacent consolidation in the left upper and lowe r lobes with scattered calcification within the collapsed paren chyma. No pneumothorax in the left lung. Peribronchial vascular groundglass attenuation in the right upper lobe with patchy groundglass nodularity in the subpleural right upper lobe. No right-sided effusion. Scattered right -sided atelectasis.. ABDOMEN/PELVIS: No discrete liver lesion s or injury. No calcified gallstones. Spleen is intact. No pancrea tic lesion or peripancreatic fluid. Indeterminate nodule in the right adrena l gland measures 14 mm and indeterminate nodule in the left adrenal gland measures 9 mm.. Multifocal scarring of the right kidney. No hydrone phrosis in left kidney. Urinary bladder is intact. Prostate is mildly en larged. Thickening noted of the distal stomach. Large and small bowel are normal in caliber and wall thickness. Normal appen xiomara. No mesenteric contusion, free fluid, or free air. No abscess. The abdo madina aorta is normal. No adenopathy. MUSCULOSKELETAL: No spine fracture or chambers bluxation. Degenerative changes of the thoracic and lumbar spine. Spinal ca nal stenosis noted diffusely throughout the lumbar spine, worst at L4 -L5 with AP canal diameter of 6 mm. No spinal lesions. No paraspinal hematom a. No sternal, rib, pelvic, or hip fractures. No dislocation. Subcutaneous soft tissues are normal. IMPRESSION 1. Large left pleural effusion with incr eased internal density. This could represent a large chronic pleural effusi on (serous or transudative). Differential would include effusion with posttraumatic blood components, no extravasation or adjacent rib fractures noted. 2. No acute traumatic injury within the abdomen and pelvis. 3. Right perihilar and subpleural ground glass attenuation and nodularity in the right upper lobe, could represent ed baldo, contusion from trauma, or infection. 4. Thickening of the distal stomach coul d be from underdistention or acute gastritis/peptic ulcer disease. RL: 7000 Performing Organization Address City/State/Zipcode Phone Number PACS/VR/DOSE CT CERVICAL SPINE WO CONTRAST (04/09/2020 12:27 PM CDT) Specimen Impressions Performed At PACS/VR/DOSE No acute cervical spine abnormality. Multilevel spondylosis, as above. RL: 7000 1 :25 PM Narrative Performed At Patient name: PAOLA FORD PACS/VR/DOSE : 1935 84 years EXAMINATION: CT CERVICAL SPINE WO CONTRA ST Ordering Physician: RYAN SALINAS CLINICAL HISTORY: Neck pain after trauma COMPARISON: None TECHNIQUE: Helical CT images of the cervical spine were obtained without the administration of IV contrast. Coronal a nd sagittal reconstruction was performed. CT performed using ALARA (As Low As Reasonably Achievable). FINDINGS: Normal cervical curvature. No fracture o r subluxation is identified. No osseous lesions identified. The preverte bral soft tissues are normal. Lateral masses are aligned. Multilevel disc height loss and osteophyte formation i s present with spinal canal stenosis at C3-C4 (AP canal diameter of 8 mm), C 5-C6 (AP canal there is a 2 mm), and C6-C7 (with AP canal jerrica meter of 7 mm). Multilevel uncovertebral and facet hypertrophy is p resent with severe right neural foraminal narrowing at C2-C3, severe lef t and moderate right neural foraminal narrowing at C3-C4, severe bilateral narrowi ng at C4-C5, severe bilateral narrowing at C5-C6, and severe bilateral narrowing at C6-C7. The lung apices are clear. No neck mass or fluid collections. No inflammatory changes. Thyroid gland is n ormal. Procedure Note [facility], Radiant Results Inft User - 2019 1:26 PM CDT Patient name: PAOLA FORD : 1935 84 years EXAMINATION: CT CERVICAL SPINE WO CONTRA ST Ordering Physician: RYAN SALINAS CLINICAL HISTORY: Neck pain after trauma COMPARISON: None TECHNIQUE: Helical CT images of the cervical spine were obtained without the administration of IV contrast. Coronal a nd sagittal reconstruction was performed. CT performed using ALARA (As Low As Reasonably Achievable). FINDINGS: Normal cervical curvature. No fracture o r subluxation is identified. No osseous lesions identified. The preverte bral soft tissues are normal. Lateral masses are aligned. Multilevel disc height loss and osteophy te formation is present with spinal canal stenosis at C3-C4 (AP canal diamet er of 8 mm), C5-C6 (AP canal there is a 2 mm), and C6-C7 (with AP canal jerrica meter of 7 mm). Multilevel uncovertebral and facet hypertrophy is p resent with severe right neural foraminal narrowing at C2-C3, severe lef t and moderate right neural foraminal narrowing at C3-C4, severe yamile ateral narrowing at C4-C5, severe bilateral narrowing at C5-C6, and severe bilateral narrowing at C6-C7. The lung apices are clear. No neck mass or fluid collections. No inflammatory changes. Thyroid gland is n ormal. IMPRESSION No acute cervical spine abnormality. Multilevel spondylosis, as above. RL: 7000 Performing Organization Address City/State/Zipcode Phone Number PACS/VR/DOSE CT HEAD WO CONTRAST (04/09/2020 12:27 PM CDT) Specimen Impressions Performed At PACS/VR/DOSE No acute intracranial abnormality. Remote infarct of the bilateral parietal lobes, right larger than left. RL: 7000 1 :21 PM Narrative Performed At Patient name: PAOLA FORD PACS/VR/DOSE : 1935 84 years EXAMINATION: CT HEAD WO CONTRAST Ordering Physician: RYAN SALINAS CLINICAL HISTORY: Head trauma, headache COMPARISON: None TECHNIQUE: Helical CT images of the brain were obtained without t he administration of IV contrast. CT performed using ALARA (A s Low As Reasonably Achievable). FINDINGS: No intraparenchymal or extra-axial hemorrhage identifi ed. Remote infarct of the right greater than left parietal lobes. Chronic sm all vessels ischemic change. No midline shift, mass effect, o r herniation. No hydrocephalus.. No osseous lesions or fractures. No tons illar ectopia evident. Paranasal sinuses and mastoid air cell complexes a re clear. Procedure Note [facility], Radiant Results Inft User - 2019 1:22 PM CDT Patient name: PAOLA FORD : 1935 84 years EXAMINATION: CT HEAD WO CONTRAST Ordering Physician: RYAN SALINAS CLINICAL HISTORY: Head trauma, headache COMPARISON: None TECHNIQUE: Helical CT images of the brain were obta ined without the administration of IV contrast. CT performed using ALARA (A s Low As Reasonably Achievable). FINDINGS: No intraparenchymal or extra-axial hemor rhage identified. Remote infarct of the right greater than left parietal lob es. Chronic small vessels ischemic change. No midline shift, mass effect, o r herniation. No hydrocephalus.. No osseous lesions or fractures. No tons illar ectopia evident. Paranasal sinuses and mastoid air cell complexes a re clear. IMPRESSION No acute intracranial abnormality. Remote infarct of the bilateral parietal lobes, right larger than left. RL: 7000 Performing Organization Address City/State/Zipcode Phone Number PACS/VR/DOSE Thyroid Stimulating Hormone (TSH) (04/09/2020 11:56 AM CDT) [facility] TSH 4.56Comment: Biotin 0.45 - 4.70 [facility] has been reported mIU/L [facility] to cause a negative bias, interpret results relative to patient's use of biotin. Specimen Blood - VENOUS Performing Organization Address City/[facility]/Zipcode Phone Number [facility] CLIA: [id number] [place] [address] Lipid Panel (Total Cholesterol, Triglycerides, HDL) (04/09/2020 11:56 AM CDT) Pathologist Sig nature CHOL 96 (L) 120 - 200 mg/dL [facility] HDL 26 (L) >40 mg/dL [facility] HDLC RATIO 3.7 <=5.0 [facility] TRIG 224 (H) 30 - 170 mg/dL [facility] LDL CHOL 25 <=160 mg/dL [facility] VLDL 45 5 - 60 mg/dL [facility] Specimen Blood - VENOUS Performing Organization Address City/[facility] Cent[facility] Phone Number [facility] CLIA: [id number] [place] [address] [address] Magnesium Serum (04/09/2020 11:56 AM CDT) Pathologist Sig nature MAGNESIUM 1.7 1.7 - 2.4 mg/dL [facility] Specimen Blood - VENOUS Performing Organization Address City/[facility] Phone Number [facility] CLIA: [id number] [place] [address] N-TERMINAL PRO-BNP (04/09/2020 11:56 AM CDT) Pathologist Sig [facility] NT-proBNP 1,500 (H) <=450 pg/mL [facility] Specimen Blood - VENOUS Narrative Performed At [facility] has been reported to cause a negative [facility] bias, interpret results relative to patient's use of biotin. Performing Organization Address City/[facility] Phone Number [facility] CLIA: [id number] [place] [address] Prothrombin Time (PT) / INR (04/09/2020 11:56 AM CDT) PROTIME PATIENT 13.6 12.0 - 14.7 [facility] LABORATORY INR 1.1Comment: Normal [facility] INR <1.1; Warfarin [facility] Therapeutic range LABORATORY 2.0 to 3.0 or 2.5 to 3.5, depending upon the indications. Specimen Blood - VENOUS Performing Organization Address [facility] Centercode Phone Number [facility] CLIA: [id number] [place] [address] aPTT (04/09/2020 11:56 AM CDT) Pathologist Sig nature APTT Patient 32 23 - 38 Seconds [facility] Specimen Blood - VENOUS Narrative Performed At [facility] patient population mean normal value [facility] for aPTT is 30 seconds. Performing Organization Address [facility] Centercode Phone Number [facility] CLIA: [id number] [place] [address] Troponin I (04/09/2020 11:56 AM CDT) [facility] TROPONIN I 0.006 <=0.034 ng/mL [facility] Specimen Blood - VENOUS Narrative Performed At Equal or Less than 0.034 ng/ml---Normal [facility] Note: Cardiac troponin begins to rise 3-4 hours after the onset of ischemia. Repeat in 4-6 hours if the sample was drawn within 3-4 hours of the onset of the symptom and found normal. Between 0.035 and 0.120 ng/mL--- Borderline. Questionable myocardial injury or necros is Note: Serial measurement may be necessary to confirm or exclude the diagnosis of myocardial injury or necrosis; Clinical correlation (symptoms, EKGs, imaging studies, and others) required; Repeat in 4-6 hours if clinically indicated. Equal or Higher than 0.121 ng/mL---Abnormal. Myocardial Injury or Necrosis Likely Biotin has been reported to cause a negative bias, interpret results relative to patient's use of biotin. Performing Organization Address [facility] Centercode Phone Number [facility] CLIA: [id number] [place] [address] Hepatic Function Panel (ALB, T.PRO, BILI T, BU/BC, ALT, AST, ALK PHOS) (04/09/2020 11:56 AM CDT) Pathologist Sig [facility] TOTAL BILI 0.2 0.1 - 1.1 mg/dL [facility] BILI UNCON 0.4 0.1 - 1.1 mg/dL [facility] BILI CONJ 0.0 0.0 - 0.3 mg/dL [facility] T PROTEIN 6.2 (L) 6.3 - 8.2 g/dL [facility] ALBUMIN 3.1 (L) 3.5 - 5.0 g/dL [facility] ALK PHOS 69 34 - 122 U/L [facility] ALTv 9 5 - 50 U/L [facility] AST(SGOT) 16 13 - 40 U/L [facility] Specimen Blood - VENOUS Performing Organization Address City/State/Zipcode Phone Number [facility] CLIA: [id number] [place] [address] LABORATORY [address] Basic Metabolic Panel (NA, K, CL, CO2, GLUCOSE, BUN, CREATININE, CA) (04/09/2020 11:56 AM CDT) [facility] nature NA 136 135 - 145 [facility] mmol/L [facility] K 4.1 3.5 - 5.0 [facility] mmol/L [facility] CL 98 98 - 108 mmol/L [facility] CO2 TOTAL 33 (H) 23 - 31 mmol/L [facility] AGAP 5 2 - 16 [facility] BUN 19 7 - 23 mg/dL [facility] GLUCOSE 105 70 - 110 mg/dL [facility] CREATININE 1.15 0.60 - 1.25 [facility] mg/dL [facility] CALCIUM 8.5 (L) 8.6 - 10.6 [facility] mg/dL [facility] eGFR Calculation 60.4 mL/min/1.73m2 [facility] ([facility] Qatari) eGFR Calculation 73.3 mL/min/1.73m2 [facility] () [facility] Specimen Blood - VENOUS Narrative Performed At Association of Glomerular Filtration Rate (GFR) [facility] and Staging of Kidney Disease* + + +- + | GFR (mL/min/1.73 m2) | With Kidney Damage | Without Kidney Damage + + +- + | >90 | Stage one | Normal + + +- + | 60-89 | Stage two | Decreased GFR + + +- + | 30-59 | Stage three | Stage three + + +- + | 15-29 | Stage four | Stage four + + +- + | <15 (or dialysis) | Stage five | Stage five + + +- + *Each stage assumes the associated GFR level has been in effect for at least three months. Stages 1 to 5, with or without kidney disease, indicate chronic kidney disease. Notes: Determination of stages one and two (with eGFR >59mL/min/1.73 m2) requires estimation of kidney damage for at least three months as defined by structural or functional abnormalities of the kidney, manifested by either: Pathological abnormalities or Markers of kidney damage (including abnormalities in the composition of the blood or urine or abnormalities in imaging tests). Performing Organization Address City/State/Zipcode Phone Number [facility] CLIA: [id number] [place] [address] CBC with Differential (04/09/2020 11:56 AM CDT) Pathologist Sig nature WBC 7.10 4.20 - 10.70 [facility] 10*3/L [facility] RBC 3.08 (L) 4.26 - 5.52 [facility] 10*6/L [facility] HGB 9.4 (L) 12.2 - 16.4 [facility] g/dL [facility] HCT 29.1 (L) 38.4 - 49.3 % [facility] MCV 94.5 81.7 - 95.6 fL [facility] MCH 30.5 26.1 - 32.7 pg [facility] MCHC 32.3 31.2 - 35.0 [facility] g/dL [facility] RDW-SD 55.5 (H) 38.5 - 51.6 fL [facility] RDW-CV 16.3 (H) 12.1 - 15.4 % [facility] PLT 179 150 - 328 [facility] 10*3/L [facility] MPV 8.7 (L) 9.8 - 13.0 fL [facility] NRBC/100 WBC 0.0 0.0 - 10.0 /100 [facility] WBCs [facility] NRBC x10^3 <0.01 10*3/L [facility] GRAN MAT (NEUT) % 69.5 % [facility] IMM GRAN % 0.40 % [facility] LYMPH % 17.5 % [facility] MONO % 5.5 % [facility] EOS % 6.8 % [facility] BASO % 0.3 % [facility] GRAN MAT x10^3(ANC) 4.94 1.99 - 6.95 [facility] 10*3/uL HOSPITAL LAB[facility]ATORY IMM GRAN x10^3 0.03 0.00 - 0.06 [facility] 10*3/uL HOSPITAL LAB[facility]ORY LYMPH x10^3 1.24 1.09 - 3.23 [facility] 10*3/uL HOSPITAL LAB[facility] MONO x10^3 0.39 0.36 - 1.02 [facility] 103/uL [facility] EOS x10^3 0.48 0.06 - 0.[address]/uL [facility] BASO x10^3 <0.03 0.01 - 0.[address]/[facility] LABORATORY Specimen Blood - VENOUS Performing Organization Address City/[facility] Phone Number [facility] CLIA: [id number] [place] [address] POCT GLUCOSE (AUTOMATED) (04/09/2020 11:43 AM CDT) [facility] POCT GLU 106 70 - 110 mg/dL [facility] Specimen Blood Performing Organization Address [facility] Phone Number [facility] CLIA: [id number] [place] [address] documented in this encounter Visit Diagnoses Diagnosis Disorientation - Primary Other general symptoms Fall, initial encounter Laceration of forehead, initial encounte r LOC (loss of consciousness) Other alteration of consciousness Pleural effusion Unspecified pleural effusion Closed head injury, initial encounter Syncope, unspecified syncope type Essential hypertension Unspecified essential hypertension Dyslipidemia Other and unspecified hyperlipidemia Elevated brain natriuretic peptide (BNP) level Other nonspecific findings on examinatio n of blood Stroke Unspecified cerebral artery occlusion wi th cerebral infarction Carotid disease, bilateral Unspecified disorders of arteries and ar terioles Chronic combined systolic and diastolic congestive heart failure Chronic combined systolic and diastolic heart failure NSVT (nonsustained ventricular tachycard ia) Paroxysmal ventricular tachycardia documented in this encounter Administered Medications Medication Order MAR Action Action Date Dose Rate Site acetaminophen (TYLENOL) tablet Given 04/10/2020 5:31 AM CDT 650 mg 650 mg 650 mg, Oral, Q6HPRN, Starting Thu04/09/20 at 1734, Until Discontinued, Routine, Pain (scale 1-3) aspirin chewable tablet 81 mg Given 04/12/2020 7:59 AM CDT 81 mg 81 mg, Oral, DAILY, First dose on Thu04/11/20 at 0900, Until Discontinued, Routine Given 04/11/2020 9:08 AM CDT 81 mg atorvastatin (LIPITOR) tablet 10 mg Given 04/11/2020 7:59 PM CDT 10 mg 10 mg, Oral, QHS, First dose on Thu04/09/20 at 2100, Until Discontinued, Routine Given 04/10/2020 8:58 PM CDT 10 mg Given 04/09/2020 9:41 PM CDT 10 mg cefdinir (OMNICEF) capsule 300 mg Given 04/12/2020 7:59 AM CDT 300 mg 300 mg, Oral, BID, 8 doses, First dose on Thu04/09/20 at 2000, Last dose on Thu04/13/20 at 0800, SIRIA, Reason for Anti-Infective: Documented Infection, Documented Infection Site: Respiratory, Duration of Therapy: 7 days Given 04/11/2020 7:59 PM CDT 300 mg Given 04/11/2020 9:08 AM CDT 300 mg D5W-LR IV infusion 1,000 mL New Bag 04/12/2020 8:06 AM CDT 1,000 mL 50 mL/hr at 50 mL/hr, IV Infusion, CONTINUOUS, Starting Thu04/10/20 at 1745, Until Discontinued, Routine New Bag 04/10/2020 5:06 PM CDT 1,000 mL 50 mL/hr dextrose 50 % in water (D50W) injection 25 mL Given 04/10/2020 5:01 PM CDT 25 mL 25 mL, Slow IV Push, PRN, Starting Thu04/10/20 at 1645, Until Discontinued, SIRIA, Blood Glucose < or = 70 mg/dL and patient is unable to swallow or has mental status changes. donepeziL (ARICEPT) tablet 10 mg Given 04/11/2020 7:59 PM CDT 10 mg 10 mg, Oral, QHS, First dose on Thu04/09/20 at 2100, Until Discontinued, Routine Given 04/10/2020 8:58 PM CDT 10 mg Given 04/09/2020 9:41 PM CDT 10 mg escitalopram oxalate (LEXAPRO) tablet 20 mg Given 04/12/2020 7:59 AM CDT 20 mg 20 mg, Oral, DAILY, First dose on Thu04/10/20 at 0900, Until Discontinued, Routine Given 04/11/2020 9:08 AM CDT 20 mg Given 04/10/2020 8:56 AM CDT 20 mg glucagon (GLUCAGEN DIAGNOSTIC KIT) injec tion 1 mg 1 mg, Intramuscular, PRN, Starting Thu at 1645, Until Discontinued, SIRIA, Blood Glucose < or = 70 mg/dL and patient is unable to swallow or has mental changes. hydrALAZINE (APRESOLINE) tablet 25 mg Given 04/12/2020 7:59 AM CDT 25 mg 25 mg, Oral, BID, First dose on Thu04/09/20 at 2000, Until Discontinued, Routine Given 04/11/2020 7:59 PM CDT 25 mg Given 04/11/2020 9:07 AM CDT 25 mg insulin glargine (LANTUS U-100) Given 04/12/2020 7:59 AM CDT 8 Units Abdomen-SC injection 8 Units 8 Units, Subcutaneous, DAILY, First dose on Thu04/10/20 at 0900, Until Discontinued, Routine lactulose (CEPHULAC) solution 15 mL Given 04/12/2020 7:58 AM CDT 15 mL 15 mL, Oral, DAILY, First dose on Thu04/10/20 at 0900, Until Discontinued Given 04/11/2020 9:07 AM CDT 15 mL levothyroxine (SYNTHROID) tablet 50 mcg Given 04/12/2020 4:05 AM CDT 50 mcg 50 mcg, Oral, QAM-0600, First dose on Thu04/10/20 at 0600, Until Discontinued, Routine Given 04/11/2020 4:24 AM CDT 50 mcg Given 04/10/2020 5:31 AM CDT 50 mcg medroxyPROGESTERone (CYCRIN) tablet 10 m g Given 04/12/2020 7:59 AM CDT 10 mg 10 mg, Oral, DAILY, First dose on Thu04/10/20 at 0900, Until Discontinued, Routine Given 04/10/2020 1:03 PM CDT 10 mg memantine (NAMENDA) tablet 10 mg Given 04/12/2020 7:59 AM CDT 10 mg 10 mg, Oral, DAILY, First dose on Thu04/10/20 at 0900, Until Discontinued, Routine, membership assistant approving Restricted medication: MEGADC Given 04/11/2020 9:08 AM CDT 10 mg Given 04/10/2020 8:56 AM CDT 10 mg metoprolol succinate XL (TOPROL XL) tabl et 25 mg 25 mg, Oral, DAILY, First dose on Thu at 0900, Until Discontinued, Routine omeprazole (PRILOSEC) capsule 20 mg Given 04/12/2020 7:59 AM CDT 20 mg 20 mg, Oral, DAILY, First dose on Thu04/10/20 at 0900, Until Discontinued Given 04/11/2020 9:08 AM CDT 20 mg Given 04/10/2020 8:56 AM CDT 20 mg OXcarbazepine (TRILEPTAL) tablet 150 mg Given 04/12/2020 7:59 AM CDT 150 mg 150 mg, Oral, BID, First dose on Thu04/09/20 at 2000, Until Discontinued, Routine Given 04/11/2020 7:59 PM CDT 150 mg Given 04/11/2020 9:08 AM CDT 150 mg Sliding Scale Insulin - Aspart Given 04/12/2020 4:41 PM CDT 1 U nits Abdomen-SC (NOVOLOG) + Fsbg Testing Subcutaneous, TID MEALS+HS, First dose on Thu04/09/20 at 2100, Until Discontinued, Routine Given 04/11/2020 7:58 PM CDT 1 Units Abdo men-SC Given 04/11/2020 4:37 PM CDT 1 Units Left Upper Arm-SC tamsulosin (FLOMAX) capsule 0.4 mg Given 04/11/2020 7:59 PM CDT 0.4 mg 0.4 mg, Oral, QHS, First dose on Thu04/09/20 at 2100, Until Discontinued, Routine Given 04/10/2020 8:58 PM CDT 0.4 mg Given 04/09/2020 9:41 PM CDT 0.4 mg Medication Order MAR Action Action Date Dose Rate Site azithromycin (ZITHROMAX) tablet Given 04/11/2020 9:07 AM CDT 25 0 mg 250 mg 250 mg, Oral, DAILY, 2 doses, First dose on Thu04/10/20 at 0900, Last dose on Thu04/11/20 at 0900, SIRIA, Reason for Anti-Infective: Documented Infection, Documented Infection Site: Respiratory, Duration of Therapy: 7 days Given 04/10/2020 8:56 AM CDT 250 mg furosemide (LASIX) tablet 40 mg Given 04/10/2020 8:56 AM CDT 40 mg 40 mg, Oral, DAILY, First dose on Thu04/10/20 at 0900, Until Discontinued, Routine iohexol (OMNIPAQUE 350 BULK-150 mL) Given 04/09/2020 12:16 PM CD T 120 mL injection 120 mL 120 mL, Intravenous, ONCE, 1 dose, Thu04/09/20 at 1245, Routine metoprolol tartrate (LOPRESSOR) tablet 2 5 mg Given 04/12/2020 7:59 AM CDT 25 mg 25 mg, Oral, BID, First dose on Thu04/11/20 at 0845, Until Discontinued, Routine Given 04/11/2020 7:59 PM CDT 25 mg Given 04/11/2020 8:45 AM CDT 25 mg naloxone (NARCAN) injection 1 mg Given 04/09/2020 11:55 AM CDT 1 mg 1 mg, Slow IV Push, ONCE, 1 dose, Thu04/09/20 at 1300, STAT ondansetron (ZOFRAN (PF)) injection 4 mg Given 04/09/2020 11:53 AM CDT 4 mg 4 mg, Slow IV Push, ONCE, 1 dose, Thu04/09/20 at 1300, SIRIA sulfur hexafluoride microsphr (LUMASON) Given 04/10/2020 2:52 P M CDT 5 mL injection 5 mL 5 mL, Intravenous, ONCE, 1 dose, Thu04/10/20 at 1830, Routine, membership assistant approving Restricted medication: MICHAEL JULIAN tetanus-diphtheria toxoids Given 04/09/2020 1:19 PM 0.5 mL Right Deltoid-IM (TENIVAC) 5-2 Lf unit/0.5 mL CDT injection 0.5 mL 0.5 mL, Intramuscular, ONCE, 1 dose, Thu04/09/20 at 1300, Routine documented in this encounter Additional Health Concerns Infection Onset Date Last Indicated Resolved Time COVID-19 Rule Out 04/09/2020 04/09/2020 04/09/2020 2: 46 PM CDT documented as of this encounter Insurance Payer Benefit Plan / Subscriber ID Effective Phone Address T ype Group Dates MEDICARE MEDICARE PART [id number] 1999-Pre [phone] Medicare A & B sent [id number] AMANDA GANN [id number] JERALD MARQUES [id number] 2016-Pres [address] Medica id HEALTHCARE [place] [id number] MANAGED MEDICAID [place], [place] documented as of this encounter
[2020-04-26 21:02] LABS: Absolute Lymphocytes (CBC) 1.7 K/uL (0.7-4.9); Lymphocytes % 25.3 % (15.3-44.8); MPV 7.2 fL (7.6-11.3); RBC Red Blood Cell Count 3.25 M/uL (4.33-5.43)
[2020-04-26 21:05] LABS: Protime INR 1.09
[2020-04-26 21:21] LABS: ALT/SGPT 11 U/L (12-78); AST/SGOT 10 U/L (15-37); Albumin 2.6 g/dL (3.4-5.0); Alkaline Phosphatase 86 U/L (45-117); BUN Blood Urea Nitrogen 38 mg/dL (7-18); Bicarbonate 32 mmol/L (21-32); Bilirubin Direct < 0.1 mg/dL (0-0.2); Bilirubin Total 0.2 mg/dL (0.2-1.0); Glucose Level 135 mg/dL (74-106); Lipase 278 U/L (73-393); Magnesium 2.3 mg/dL (1.8-2.4); NT PRO-BNP 2426 pg/mL (<450); Sodium Level 141 mmol/L (136-145); Troponin (Emerg Dept Use Only) < 0.02 ng/mL (0.0-0.045)
[2020-04-26 21:27] LABS: Urine Blood NEGATIVE (NEG); Urine Glucose NEGATIVE (NEG); Urine Protein NEGATIVE (NEG); Urine Specific Gravity 1.015 (1.005-1.030)
--- NOTE | 2020-04-26 22:56 | ER ---
Nurse's Notes [facility] Name: Angel Ford Age: 85 yrs Sex: Male : 1935 Arrival Date: 04/26/2020 Time: 20:01 Bed 26 Private MD: Diagnosis: Pleural effusion in conditions classified elsewhere-large left;Atelectasis;Unspecified kidney failure-acute on chronic;Altered mental status, unspecified;Dementia in other diseases classified elsewhere Presentation: 04/26 20:08 Chief complaint: Patient states: NURSE OF [facility] TONED IN FOR PATIENT WITH rv ALTERED MENTAL STATUS. PATIENT WAS HERE COUPLE OF DAYS AGO, DIAGNOSED WITH PNEUMONIA AND UTI. BLOOD SUGAR IS 198. PATIENT WAS ACTING AGGRESSIVE AND TRIED TO HURT THE NURSE TAKING CARE OF HIM. Coronavirus screen: Client denies travel out of the [place] in the last 14 days. Ebola Screen: No symptoms or risks identified at this time. Initial Sepsis Screen: Does the patient meet any 2 criteria? No. Patient's initial sepsis screen is negative. Does the patient have a suspected source of infection? No. Patient's initial sepsis screen is negative. Risk Assessment: Do you want to hurt yourself or someone else? Unable to obtain. Onset of symptoms was April 26, 2020. 20:08 Method Of Arrival: EMS: [facility] rv 20:08 Acuity: JUSTICE 3 rv Triage Assessment: 20:17 General: Appears comfortable, Behavior is uncooperative. Pain: Unable to use pain rv scale. Patient is disoriented. EENT: No signs and/or symptoms were reported regarding the EENT system. Neuro: Level of Consciousness is awake, confused, Oriented to none. Cardiovascular: Patient's skin is warm and dry. Respiratory: Airway is patent Respiratory effort is even, unlabored. Derm: Skin is intact. Historical: - Allergies: 20:17 Iodine; rv 20:17 [place]; rv 20:17 tramadol; rv - PMHx: 20:17 Anemia; Back pain; BPH; CAD; constipation; COPD; CVA; Dementia; Depression; Diabetes - rv IDDM; DIZZINESS; DYSPHAGIA; dyspnea; GERD; HEART FAILURE; HTN; Hypercholesterolemia; Hypothyroidism; insomnia; ischemic heart disease; MUSCLE WEAKNESS; neuropathy; Obesity; Pneumonia; toxic liver disease; UTI; Vertigo; vitamin d deficiency; - Immunization history:: Adult Immunizations up to date. - Social history:: Smoking status: unknown. - Family history:: not pertinent. Screenin:18 Abuse screen: Denies threats or abuse. Denies injuries from another. Nutritional rv screening: No deficits noted. Tuberculosis screening: No symptoms or risk factors identified. Fall Risk None identified. Assessment: 22:27 Reassessment: No changes from previously documented assessment. patient is asleep. gcs rv 15. easy to wake up. Cardiovascular: Patient's skin is warm and dry. Rhythm is sinus rhythm. Respiratory: Airway is patent Respiratory effort is even, unlabored, Respiratory pattern is regular, Breath sounds are clear bilaterally. Vital Signs: 20:00 BP 107 / 48; Pulse 69; Resp 17; Pulse Ox 100% on 2 lpm NC; rv 20:08 BP 111 / 56; Pulse 65; Resp 18; Temp 98.2; Pulse Ox 99% ; Weight 81.65 kg; rv 20:30 BP 110 / 50; Pulse 67; Resp 15; Pulse Ox 100% on 2 lpm NC; rv 21:00 BP 109 / 49; Pulse 68; Resp 17; Pulse Ox 100% on 2 lpm NC; rv 22:15 BP 129 / 54; Pulse 69; Resp 19; Pulse Ox 100% on 2 lpm NC; rv 23:27 BP 124 / 93; Pulse 69; Resp 18; Pulse Ox 100% on R/A; rv ED Course: 20:01 Patient arrived in ED. cf2 20:08 Isai Patiño, RN is Primary Nurse. rv 20:15 Triage completed. rv 20:18 Arm band placed on right wrist. Patient placed in the treatment room, on a stretcher, rv Patient notified of wait time. 20:32 Elier Osborn MD is Attending Physician. [facility] 21:09 Patient has correct armband on for positive identification. secured entrance monitor on. Pulse rv ox on. NIBP on. 21:09 Initial lab(s) drawn, by me, sent to lab. EKG done, by ED staff, reviewed by Elier Osborn MD. Straight cath inserted, using sterile technique, 16 Fr. Specimen obtained. Returned horacio urine. Patient tolerated well. Inserted saline lock: 20 gauge in right wrist, using aseptic technique. Blood collected. 21:15 XRAY Chest (1 view) In Process Unspecified. EDMS 21:34 CT Head Brain wo Cont In Process Unspecified. EDMS 21:41 CT Chest Abdomen Pelvis W/O Contrast: no iv and no oral In Process Unspecified. EDLA 22:54 Theo Rayo DO is Hospitalizing Provider. [facility] 23:17 George Ochoa MD is Hospitalizing Provider. [facility] 04/27 02:00 No provider procedures requiring assistance completed. Patient admitted, IV remains in wh place. Administered Medications: 04/26 21:08 Drug: NS 0.9% 1000 ml Route: IV; Rate: 125 ml/hr; Site: right wrist; rv Outcome: 22:56 Decision to Hospitalize by Provider. [facility] 04/27 02:00 Admitted to ER Hold. Please see [facility] for further documentation. Condition: stable Instructed on the need for admit. 08:36 Patient left the ED. em1 Signatures: Dispatcher [employer] Elier Whatley MD MD cha Martinez, Eric em1 [place] Isai Patiño RN RN Darius Farfan cf2
--- NOTE | 2020-04-26 22:56 | EDPHYS ---
Physician Documentation [facility] Name: Angel Ford Age: 85 yrs Sex: Male : 1935 Arrival Date: 04/26/2020 Time: 20:01 Bed 26 Private MD: ED Physician Elier Osborn HPI: 04/26 21:14 This 85 yrs old Male presents to ER via EMS with complaints of Altered Mental kam Status. 21:14 The patient presents with confusion, decreased mental status. Onset: The kam symptoms/episode began/occurred 3 day(s) ago. Possible causes: unknown. Associated signs and symptoms: The patient has no apparent associated signs or symptoms. Current symptoms: In the emergency department the patient's symptoms are unchanged from the initial presentation. Patient's baseline: Neuro: alert but confused. Unable to obtain HPI due to baseline dementia. It is unknown whether or not the patient has had similar symptoms in the past. Historical: - Allergies: 20:17 Iodine; rv 20:17 [place]; rv 20:17 tramadol; rv - PMHx: 20:17 Anemia; Back pain; BPH; CAD; constipation; COPD; CVA; Dementia; Depression; Diabetes - rv IDDM; DIZZINESS; DYSPHAGIA; dyspnea; GERD; HEART FAILURE; HTN; Hypercholesterolemia; Hypothyroidism; insomnia; ischemic heart disease; MUSCLE WEAKNESS; neuropathy; Obesity; Pneumonia; toxic liver disease; UTI; Vertigo; vitamin d deficiency; - Immunization history:: Adult Immunizations up to date. - Social history:: Smoking status: unknown. - Family history:: not pertinent. ROS: 21:14 Constitutional: Negative for fever, chills, and weight loss, Eyes: Negative for injury, kam pain, redness, and discharge, ENT: Negative for injury, pain, and discharge, Neck: Negative for injury, pain, and swelling, Cardiovascular: Negative for chest pain, palpitations, and edema, Respiratory: Negative for shortness of breath, cough, wheezing, and pleuritic chest pain, Back: Negative for injury and pain, : Negative for injury, bleeding, discharge, and swelling, MS/Extremity: Negative for injury and deformity, Skin: Negative for injury, rash, and discoloration, Psych: Negative for depression, anxiety, suicide ideation, homicidal ideation, and hallucinations, Allergy/Immunology: Negative for hives, rash, and allergies, Endocrine: Negative for neck swelling, polydipsia, polyuria, polyphagia, and marked weight changes, Hematologic/Lymphatic: Negative for swollen nodes, abnormal bleeding, and unusual bruising. 21:14 Abdomen/GI: Positive for abdominal pain, abdominal distension. 21:14 Neuro: Positive for altered mental status, weakness. Exam: 21:14 Constitutional: This is a well developed, well nourished patient who is awake, alert, kam and in no acute distress. Head/Face: Normocephalic, atraumatic. Eyes: Pupils equal round and reactive to light, extra-ocular motions intact. Lids and lashes normal. Conjunctiva and sclera are non-icteric and not injected. Cornea within normal limits. Periorbital areas with no swelling, redness, or edema. ENT: Nares patent. No nasal discharge, no septal abnormalities noted. Tympanic membranes are normal and external auditory canals are clear. Oropharynx with no redness, swelling, or masses, exudates, or evidence of obstruction, uvula midline. Mucous membranes moist. Neck: Trachea midline, no thyromegaly or masses palpated, and no cervical lymphadenopathy. Supple, full range of motion without nuchal rigidity, or vertebral point tenderness. No Meningismus. Chest/axilla: Normal chest wall appearance and motion. Nontender with no deformity. No lesions are appreciated. Cardiovascular: Regular rate and rhythm with a normal S1 and S2. No gallops, murmurs, or rubs. Normal PMI, no JVD. No pulse deficits. Respiratory: Lungs have equal breath sounds bilaterally, clear to auscultation and percussion. No rales, rhonchi or wheezes noted. No increased work of breathing, no retractions or nasal flaring. Back: No spinal tenderness. No costovertebral tenderness. Full range of motion. Male : Normal genitalia with no discharge or lesions. Skin: Warm, dry with normal turgor. Normal color with no rashes, no lesions, and no evidence of cellulitis. MS/ Extremity: Pulses equal, no cyanosis. Neurovascular intact. Full, normal range of motion. Neuro: Awake and alert, GCS 15, oriented to person, place, time, and situation. Cranial nerves II-XII grossly intact. Motor strength 5/5 in all extremities. Sensory grossly intact. Cerebellar exam normal. Normal gait. Psych: Awake, alert, with orientation to person, place and time. Behavior, mood, and affect are within normal limits. 21:14 Abdomen/GI: Inspection: distension, Bowel sounds: normal, Palpation: mild abdominal tenderness, in all quadrants, Liver: no appreciated palpable abnormalities, Hernia: not appreciated. Vital Signs: 20:00 BP 107 / 48; Pulse 69; Resp 17; Pulse Ox 100% on 2 lpm NC; rv 20:08 BP 111 / 56; Pulse 65; Resp 18; Temp 98.2; Pulse Ox 99% ; Weight 81.65 kg; rv 20:30 BP 110 / 50; Pulse 67; Resp 15; Pulse Ox 100% on 2 lpm NC; rv 21:00 BP 109 / 49; Pulse 68; Resp 17; Pulse Ox 100% on 2 lpm NC; rv 22:15 BP 129 / 54; Pulse 69; Resp 19; Pulse Ox 100% on 2 lpm NC; rv 23:27 BP 124 / 93; Pulse 69; Resp 18; Pulse Ox 100% on R/A; rv MDM: 20:32 Patient medically screened. kam 21:18 Differential Diagnosis: CVA, electrolyte abnormality, hypoglycemia, intracranial bleed, kam pneumonia, sepsis, TIA, UTI, volume depletion. Data reviewed: vital signs, nurses notes, lab test result(s), EKG, radiologic studies, CT scan, plain films. Data interpreted: analyst sales: rate is 65 beats/min, rhythm is regular, Pulse oximetry: on room air is 99 %. Test interpretation: by ED physician or midlevel provider: ECG, plain radiologic studies. Counseling: I had a detailed discussion with the patient and/or guardian regarding: the historical points, exam findings, and any diagnostic results supporting the discharge/admit diagnosis, lab results, radiology results, the need for further work-up and treatment in the hospital. 04/26 20:19 Order name: Glucose, Ancillary Testing; Complete Time: 21:30 [facility] 04/26 20:33 Order name: Basic Metabolic Panel [facility] 04/26 20:33 Order name: CBC with Diff; Complete Time: 21:30 [facility] 04/26 20:33 Order name: LFT's; Complete Time: 21:30 [facility] 04/26 20:33 Order name: Magnesium; Complete Time: 21:30 [facility] 04/26 20:33 Order name: NT PRO-BNP; Complete Time: 21:30 [facility] 04/26 20:33 Order name: PT-INR; Complete Time: 21:30 [facility] 04/26 20:33 Order name: Troponin (emerg Dept Use Only); Complete Time: 21:30 [facility] 04/26 20:33 Order name: Lipase; Complete Time: 21:30 [facility] 04/26 20:33 Order name: Urine Culture [facility] 04/26 20:34 Order name: Basic Metabolic Panel; Complete Time: 21:30 [facility] 04/26 21:24 Order name: Urine Dipstick--Ancillary (enter results); Complete Time: 21:30 tt3 04/27 05:51 Order name: CBC with Automated Diff [facility] 04/27 06:39 Order name: Basic Metabolic Panel [facility] 04/26 20:33 Order name: XRAY Chest (1 view) [facility] 04/26 20:33 Order name: EKG; Complete Time: 20:34 [facility] 04/26 20:33 Order name: Cardiac monitoring; Complete Time: 21:08 [facility] 04/26 20:33 Order name: EKG - Nurse/Tech; Complete Time: 21:08 [facility] 04/26 20:33 Order name: IV Saline Lock; Complete Time: 21:08 [facility] 04/26 20:33 Order name: Labs collected and sent; Complete Time: 21:08 [facility] 04/26 20:33 Order name: O2 Per Protocol; Complete Time: 21:08 [facility] 04/26 20:33 Order name: O2 Sat Monitoring; Complete Time: 21:08 [facility] 04/26 20:33 Order name: CT Head Brain wo Cont [facility] 04/26 20:33 Order name: Urine Dipstick-Ancillary (obtain specimen); Complete Time: 21:09 [facility] 04/26 21:14 Order name: CT Chest Abdomen Pelvis W/O Contrast: no iv and no oral [facility] 04/27 06:39 Order name: Phosphorus [facility] 04/27 06:39 Order name: T4 Free [facility] 04/27 06:39 Order name: Thyroid Stimulating Hormone [facility] 04/27 08:14 Order name: CORONAVIRUS EDOH Administered Medications: 21:08 Drug: NS 0.9% 1000 ml Route: IV; Rate: 125 ml/hr; Site: right wrist; rv Disposition: 04/26/20 22:56 Hospitalization ordered by George Ochoa for Observation. Preliminary diagnosis are Pleural effusion in conditions classified elsewhere - large left, Atelectasis, Unspecified kidney failure - acute on chronic, Altered mental status, unspecified, Dementia in other diseases classified elsewhere. - Bed requested for Telemetry/MedSurg (observation). - Status is Observation. em1 - Condition is Stable. - Problem is new. - Symptoms have improved. Signatures: Dispatcher [employer] EDMS Elier Osborn MD MD cha Martinez, Eric em1 Buck Bunn, INTELLIGENCE AGENT-C INTELLIGENCE AGENT-Cla1 Holly Candelario, MARY RN tl1 Isai Patiño, MARY RN rv Corrections: (The following items were deleted from the chart) 22:57 22:56 Hospitalization Ordered by Theo Rayo DO for Observation. Preliminary [facility] diagnosis is Pleural effusion in conditions classified elsewhere - large left; Atelectasis; Unspecified kidney failure - acute on chronic. Bed requested for Telemetry/MedSurg (observation). Status is Observation. Condition is Stable. Problem is new. Symptoms have improved. [facility] : 22:57 04/26/2020 22:56 Hospitalization Ordered by Theo Rayo DO for Observation. [facility] Preliminary diagnosis is Pleural effusion in conditions classified elsewhere - large left; Atelectasis; Unspecified kidney failure - acute on chronic; Altered mental status, unspecified; Dementia in other diseases classified elsewhere. Bed requested for Telemetry/MedSurg (observation). Status is Observation. Condition is Stable. Problem is new. Symptoms have improved. [facility] 04/27 00:13 04/26 23:17 04/26/2020 22:56 Hospitalization Ordered by George Ochoa MD for tl1 Observation. Preliminary diagnosis is Pleural effusion in conditions classified elsewhere - large left; Atelectasis; Unspecified kidney failure - acute on chronic; Altered mental status, unspecified; Dementia in other diseases classified elsewhere. Bed requested for Telemetry/MedSurg (observation). Status is Observation. Condition is Stable. Problem is new. Symptoms have improved. [facility] 04/27 06:41 00:13 04/26/2020 22:56 Hospitalization Ordered by George Ochoa MD for Observation. tl1 Preliminary diagnosis is Pleural effusion in conditions classified elsewhere - large left; Atelectasis; Unspecified kidney failure - acute on chronic; Altered mental status, unspecified; Dementia in other diseases classified elsewhere. Bed requested for [facility] ER HOLD. Status is Observation. Condition is Stable. Problem is new. Symptoms have improved. tl1 08:36 06:41 04/26/2020 22:56 Hospitalization Ordered by George Ochoa MD for Observation. em1 Preliminary diagnosis is Pleural effusion in conditions classified elsewhere - large left; Atelectasis; Unspecified kidney failure - acute on chronic; Altered mental status, unspecified; Dementia in other diseases classified elsewhere. Bed requested for Telemetry/MedSurg (observation). Status is Observation. Condition is Stable. Problem is new. Symptoms have improved. tl1
--- NOTE | 2020-04-27 00:22 | P.HP ---
Certification for Inpatient Patient admitted to: Observation With expected LOS: <2 Midnights Patient will require the following post-hospital care: None Practitioner: I am a practitioner with admitting privileges, knowledge of patient current condition, hospital course, and medical plan of care. Services: Services provided to patient in accordance with Admission requirements found in Title 42 Section 412.3 of the Code of Federal Regulations <Buck Bunn - Last Filed: 04/27/20 00:16> Patient History Date of Service: 04/27/20 Primary Care Provider: detention physician Reason for admission: Altered mental status History of Present Illness: 85-year-old male with history of diabetes mellitus type 2-insulin dependent, hyperlipidemia, hypertension, hypothyroidism, CVA, CAD status post stents we, chronic diastolic congestive heart failure, BPH was transferred from [facility] to the emergency department for decrease in mentation. I called and spoke with his nurse relieving who reported that he usually will interact with staff and is alert enough to eat with thickened liquids intake medications but this evening he was not as awake or alert as normal to the point where she was not comfortable giving him his medications due to fear of aspiration. He was also reported that earlier in the day or possibly yesterday patient was aggressive with staff. Patient was evaluated in the emergency department and his workup was relatively benign. Patient does have chronic kidney disease with some acute component. ED provider wishes to admit patient for further evaluation and management. When I saw the patient in the emergency department he is laying in the s tretcher, eyes are open but was not responding significantly to verbal stimulus. When yelling patient would turn his head. According to [facility] staff this is a significant change from his baseline mental status. The patient be admitted under observation for further evaluation and management. Patient was treated for urinary tract infection and pneumonia approximately 1 month ago here, urinalysis negative, chest x-ray unremarkable. White blood cell count within normal limits. Will continue to monitor. - Past Medical/Surgical History Diabetic: Yes -: IDDM -: Hyperlipidemia -: HTN -: Hypothyroid -: CVA -: Bronchiolitis -: CAD -: COPD -: gerd -: heart failure -: BPH -: Dementia -: heart stent x2 -: Balloon angioplasty -: broke both arm when 4yrs old Psychosocial/ Personal History: Lives in [facility] - Family History Father -: Lung disease Notes: black lung Mother -: Cancer - Social History Smoking Status: Unknown if ever smoked Alcohol use: No CD- Drugs: No Caffeine use: Yes Place of Residence: Home <LindyBuck donovan - Last Filed: 04/27/20 00:16> Date of Service: 04/27/20 <George Ochoa - Last Filed: 04/27/20 21:48> Allergies acetaminophen [From [place]] Allergy (Verified 12/16/18 03:06) Rash hydrocodone [From [place]] Allergy (Verified 12/16/18 03:06) Rash iodine Allergy (Verified 12/16/18 03:09) Hives tramadol Allergy (Verified 12/06/18 23:20) Unknown Home Medications: Acetaminophen 650 mg PO Q6HP PRN 12/16/18 Apixaban [Eliquis *] 2.5 mg PO BID 12/16/18 Cholecalciferol (Vitamin D3) [Vitamin D3] 1,000 unit PO DAILY 12/16/18 Donepezil HCl 10 mg PO BEDTIME 12/16/18 Escitalopram [Lexapro*] 20 mg PO DAILY 12/16/18 Insulin Glargine Human [Lantus*] 8 unit SQ DAILY 12/16/18 Levothyroxine [Synthroid*] 50 mcg PO [id number] 12/16/18 Liraglutide [Victoza 2-Gab] 0.6 mg SQ DAILY 12/16/18 Magnesium Oxide [Mag 0X*] 400 mg PO DAILY 12/16/18 Medroxyprogesterone Acet [Provera] 10 mg PO DAILY 12/16/18 Memantine HCl [Namenda*] 10 mg PO DAILY 12/16/18 Nitroglycerin 0.4 mg SL SEECOM PRN 12/16/18 OXcarbazepine [Trileptal*] 150 mg PO BID 12/16/18 Tamsulosin [Flomax*] 0.4 mg PO BEDTIME 12/16/18 Furosemide [Lasix*] 40 mg PO DAILY #60 tab 12/22/18 Hydralazine [Apresoline*] 25 mg PO BID #60 tab 12/22/18 Atorvastatin Calcium [Lipitor*] 10 mg PO BEDTIME 04/04/20 Ferrous Sulfate [Ferrous Sulfate*] 325 mg PO DAILY 04/04/20 Insulin Aspart [Novolog] See Protocol SQ TID 04/04/20 Lactulose 15 ml PO BID 04/04/20 Loratadine [Claritin*] 10 mg PO DAILY 04/04/20 Metformin HCl [Glucophage*] 500 mg PO BIDWM 04/04/20 Omeprazole 20 mg PO DAILY 04/04/20 Umeclidinium [place] [Incruse Ellipta] 62.5 mcg IH DAILY 04/04/20 Vit A,C & E/Lutein/Minerals [Ocuvite Tablet] 1 tab PO BID 04/04/20 Ipratropium Neb [Atrovent*] 0.5 mg IH Q8HP 04/27/20 Metoprolol Succinate [Toprol Xl*] 25 mg PO DAILY 04/27/20 Review of Systems is unable to be obtained <Buck Bunn - Last Filed: 04/27/20 00:16> Physical Examination - Physical Exam General: Other (Obtunded, responsive to loud verbal stimulus) HEENT: Other (Mucous membranes dry) Neck: Supple Respiratory: Diminished (Bilaterally) Cardiovascular: No edema, Regular rate/rhythm, Normal S1 S2 Capillary refill: <2 Seconds Gastrointestinal: Normal bowel sounds, Soft and benign Musculoskeletal: No swelling, No contractures, No warmth Integumentary: No erythema, No warmth, No cyanosis Neurological: Other (Neurological exam significantly limited at this time, patient very lethargic, drowsy. Does respond minimally to voice and withdraw from pain.), Dementia - Studies Laboratory Data (last 24 hrs) 04/26/20 20:50: PT 12.8 H, INR 1.09 04/26/20 20:50: WBC 6.7, Hgb 10.1 L, Hct 30.0 L, Plt Count 232 04/26/20 20:50: Sodium 141, Potassium 4.0, BUN 38 H, Creatinine 1.77 H, Glucose 135 H, Magnesium 2.3, Total Bilirubin 0.2, AST 10 L, ALT 11 L, Alkaline Phosphatase 86, Lipase 278 <Buck Bunn - Last Filed: 04/27/20 00:16> Assessment and Plan - Plan Assessment Altered mental status complicated by underlying dementia: Blood cultures obtained, will provide patient with gentle hydration as mucous membranes are dry. Could be worsening dementia or delirium. Speech therapy eval, physical therapy eval. Apparently there is some discussion about patient being hospice appropriate, agree if this is patient's baseline mental status. Will have administrator social welfare consult. Continue patient's Eliquis for DVT prophylaxis. Diabetes mellitus type 2-insulin dependent Chronic diastolic congestive heart failure CKD stage 3 Coronary artery disease History of CVA Hypothyroidism Hypertension COPD GERD Plan Altered mental status complicated by underlying dementia: Blood cultures obtained, will provide patient with gentle hydration as mucous membranes are dry. Could be worsening dementia or delirium. Speech therapy eval, physical therapy eval. Apparently there is some discussion about patient being hospice appropriate, agree if this is patient's baseline mental status. Will have administrator social welfare consult. Continue patient's Eliquis for DVT prophylaxis. Diabetes mellitus type 2-insulin dependent: A.c. HS Accu-Cheks scale insulin therapy. Continue patient's Lantus 8 units subcutaneous daily. Chronic diastolic congestive heart failure: Continue home medications, last echocardiogram 2019 shows ejection fraction 60%. CKD stage 3: Mild bump and GFR and creatinine. Continue gentle hydration, patient does appear dry. Coronary artery disease: Obtain and continue home medications History of CVA: Obtain and continue home medications Hypothyroidism:Obtain and continue home medications Hypertension:Obtain and continue home medications COPD:Obtain and continue home medications GERD:Obtain and continue home medications Discharge Plan: Residential Plan to discharge in: 24 Hours - Advance Directives Does patient have a Living Will: Yes Does patient have a Durable POA for Healthcare: No - Code Status/Comfort Care Code Status Assessed: Yes (DNR) Critical Care: No Time Spent Managing Pts Care (In Minutes): 55 <Buck Bunn - Last Filed: 04/27/20 00:16> Physician Review Additional Text: Plan of care reviewed and discussed with Buck Bunn, and I agree with the management plan as noted above. In addition, I spoke with nursing staff and clinical data management director at [facility], they reported patient was recently being more aggressive and refusing several of his medications prior to his lethargy. Patient's clinical status was reviewed with patient's next of kin - his daughter. Patient was minimally responsive - only waking temporarily to painful stimuli. Imaging and initial labwork were negative for acute / reversible causes. Patient's daughter opted to proceed with hospice. Patient was discharged back to [facility] for hospice care. <George Ochoa - Last Filed: 04/27/20 21:48>
[2020-04-27] MEDS: NA CHLORIDE 0.9% 1,000 ML IV SCH ×2 (03:37→16:57)
[2020-04-27] MEDS ORDERED: GLUCAGON 1 MG/VIAL IM PRN (03:37)
[2020-04-27] MEDS ORDERED: LORazepam 2 MG/ML VIAL IV PRN (03:37)
[2020-04-27] MEDS ORDERED: ACETAMINOPHEN 500 MG TAB PO PRN (03:37)
[2020-04-27] MEDS ORDERED: D50W 25 GM/50 ML SYRINGE/VIAL IV PRN (03:37)
[2020-04-27] MEDS ORDERED: ONDANSETRON 4 MG/2 ML VIAL IV PRN (03:37)
[2020-04-27 03:50] VITALS: BMI 25.8
[2020-04-27 05:46] LABS: Absolute Lymphocytes (CBC) 1.9 K/uL (0.7-4.9); Basophils % 0.5 % (0-1.3); Hematocrit 30.2 % (39.6-49.0); Lymphocytes % 30.1 % (15.3-44.8); MPV 7.3 fL (7.6-11.3); RBC Red Blood Cell Count 3.24 M/uL (4.33-5.43)
[2020-04-27 06:14] LABS: Phosphorus 3.4 mg/dL (2.5-4.9); Potassium 3.7 mmol/L (3.5-5.1)
[2020-04-27 06:38] LABS: Thyroid Stimulating Hormone 4.36 uIU/mL (0.360-3.740)
[2020-04-27] MEDS ORDERED: KCL 20 MEQ/100 mL IVPB 20 MEQ/100 ML BAG IV SCH (07:00)
[2020-04-27] MEDS: INSULIN -REGULAR HUMAN 50 UNIT/0.5 ML ML SQ SCH ×3 (07:30→16:30)
--- NOTE | 2020-04-27 08:57 | RAD REPORT ---
EXAM DESCRIPTION: RADChest Single View04/26/2020 9:15 pm CLINICAL HISTORY: Cough COMPARISON: March 2020 FINDINGS: The opacification of the left hemithorax persists with volume loss. This represents a comb ination of pleural effusion, atelectasis and possibly pneumonia/mass. Right lung appears clear of acute infiltrate. Heart is normal size
[2020-04-27] MEDS ORDERED: APIXABAN 2.5 MG TABLET PO SCH (09:00)
--- NOTE | 2020-04-27 11:24 | RAD REPORT ---
EXAM DESCRIPTION: CT - Head Brain Wo Cont - 04/27/2020 7:02 am CLINICAL HISTORY Dizziness;Declining state COMPARISON: 04/03/2020 TECHNIQUE: Axial CT of the head obtained from the skull apex to the skull base without contrast. FINDINGS: No acute intracranial hemorrhage identified. No mass, mass effect, shift of the midline, a bnormal extra-axial fluid collection or CT evidence of acute ischemic change identified. The ventricu lar system and sulcal spaces are mildly enlarged compatible with mild cerebral atrophy. Scattered a reas of hypodensity throughout the supratentorial white matter are nonspecific and may be related to chronic small vessel ischemic change. Focal region of encephalomalacia in the right parietal lobe com patible with remote infarction. The visualized paranasal sinuses and the mastoids are clear. No skull fracture identified. Visualiz ed orbits and globes are unremarkable. Atherosclerotic calcification of the intracranial internal car otid arteries. IMPRESSION: 1. No acute intracranial abnormality by CT criteria. This exam was performed according to our departmental dose-optimization program, which includes autom ated exposure control, adjustment of the mA and/or kV according to patient size and/or use of iterati ve reconstruction technique. Electronically signed by: Rubens Barbosa 04/26/2020 10:02 PM CDT Due to temporary technical issues with the PACS/Fluency reporting system, reports are being signed by the in house radiologist without review as a courtesy to ensure prompt reporting. The interpreting r adiologist is fully responsible for the content of the report.
--- NOTE | 2020-04-27 12:11 | RAD REPORT ---
EXAM DESCRIPTION: CT - Chest Abd Pelvis Wo Con - 04/27/2020 7:01 am CLINICAL HISTORY: Copd; abdominal distention COMPARISON: 04/03/2020 TECHNIQUE: CT of the chest, abdomen and pelvis performed without IV contrast. Suboptimal evaluation of the soft tissues, solid organs, and vasculature due to lack of IV contrast. FINDINGS: Chest: Thyroid: No abnormalities of the visualized thyroid. Great Vessels: Great vessels have normal anatomic configuration. Thoracic Aorta: Atherosclerotic calcification of the thoracic aorta. Pulmonary arteries: The main pulmonary artery is not dilated. Heart: Coronary artery atherosclerosis. No cardiomegaly or significant pericardial effusion. Lymph Nodes: No enlarged mediastinal lymph nodes identified. Esophagus: No abnormalities of the esophagus identified Other: No additional findings. Lungs: No compressive atelectasis of the left lung again identified. Bilateral calcified granulomas. Minimal right basilar dependent atelectasis. Mild motion artifact. Pleura: Stable large left pleural effusion. No pneumothorax. Trachea/Airways: No acute abnormalities of the trachea. Abdomen: Liver: The liver has normal size and density. Gallbladder: No calcified gallstones. Spleen, Pancreas, and Adrenal Glands: The spleen, pancreas, and left adrenal gland are unremarkable . Stable 2.0 cm lipid rich adrenal adenoma. Kidneys: No hydronephrosis or obstructing ureteral calculus. Vasculature: Aortoiliac atherosclerosis. IVC is unremarkable. Stomach: The stomach and duodenum have normal course. Other: No free intraperitoneal air. No free fluid or lymphadenopathy. Pelvis: Bladder: Urinary bladder is unremarkable. Bowel: No dilated loops of large or small bowel. Scattered diverticula of the colon. No pericolic i nflammatory change. Appendix: Normal appendix. Pelvis: Enlarged prostate. Bones: Multilevel endplate spondylosis, facet arthropathy, degenerative disc height narrowing through out the visualized spine. Osteophytic change of the hips. IMPRESSION: 1. Redemonstrated large left pleural effusion with compressive atelectasis of the left l erika. No significant interval change in configuration. 2. No acute findings in the abdomen or pelvis. 3. Coronary artery atherosclerosis. 4. Diverticulosis without evidence of acute diverticulitis. This exam was performed according to our departmental dose-optimization program, which includes autom ated exposure control, adjustment of the mA and/or kV according to patient size and/or use of iterati ve reconstruction technique. Electronically signed by: Rubens Barbosa 04/26/2020 10:14 PM CDT Due to temporary technical issues with the PACS/Fluency reporting system, reports are being signed by the in house radiologist without review as a courtesy to ensure prompt reporting. The interpreting r adiologist is fully responsible for the content of the report.
[2020-04-27 15:06] VITALS: O2SAT 99
[2020-04-27 17:44] VITALS: BP 136/61; TEMP 97.3
[2020-04-27] MEDS ORDERED: INSULIN GLARGINE 100 UNITS/ML SQ SCH (21:00)
== END 2020-04-27 18:09 | disposition hospice, inpatient (51) ==
LOC: ER 20:00 → ERHOLD 23:51 → 2ND 04-27 07:51
PROVIDERS: ADMIT Hospitalist; ATTEND Hospitalist
DX: R41.82 Altered mental status, unspecified (principal); F03.90 Unspecified dementia, unspecified severity, without behavioral disturbance, psychotic disturbance, mood disturbance, and anxiety; E11.22 Type 2 diabetes mellitus with diabetic chronic kidney disease; I13.0 Hypertensive heart and chronic kidney disease with heart failure and stage 1 through stage 4 chronic kidney disease, or unspecified chronic kidney disease; N18.30 Chronic kidney disease, stage 3 unspecified; I50.32 Chronic diastolic (congestive) heart failure; N17.9 Acute kidney failure, unspecified; D63.1 Anemia in chronic kidney disease; I25.10 Atherosclerotic heart disease of native coronary artery without angina pectoris; E03.9 Hypothyroidism, unspecified; J44.9 Chronic obstructive pulmonary disease, unspecified; E78.5 Hyperlipidemia, unspecified; K21.9 Gastro-esophageal reflux disease without esophagitis; E78.00 Pure hypercholesterolemia, unspecified; N40.0 Benign prostatic hyperplasia without lower urinary tract symptoms; F32.9 Major depressive disorder, single episode, unspecified; M54.9 Dorsalgia, unspecified; R13.10 Dysphagia, unspecified; G47.00 Insomnia, unspecified; G62.9 Polyneuropathy, unspecified; E66.9 Obesity, unspecified; Z68.25 Body mass index [BMI] 25.0-25.9, adult; E55.9 Vitamin D deficiency, unspecified; K71.9 Toxic liver disease, unspecified; N39.0 Urinary tract infection, site not specified; R42 Dizziness and giddiness; M62.81 Muscle weakness (generalized); K59.00 Constipation, unspecified; Z86.73 Personal history of transient ischemic attack (TIA), and cerebral infarction without residual deficits; Z95.5 Presence of coronary angioplasty implant and graft; Z87.01 Personal history of pneumonia (recurrent); Z79.4 Long term (current) use of insulin; Z88.8 Allergy status to other drugs, medicaments and biological substances; Z88.6 Allergy status to analgesic agent; Z66 Do not resuscitate; Z20.828 Contact with and (suspected) exposure to other viral communicable diseases; Z80.9 Family history of malignant neoplasm, unspecified; Z83.6 Family history of other diseases of the respiratory system
CPT/HCPCS: 93005; 87040 ×2; 87088; 85025 ×2; 87086; 80048 ×2; 36415; 83735; 84100; 85610; 82947 ×4; 80076; 84443; 81003; 84484; 84439; 83690; 83880; 70450; 71250; 74176; 71045; 51702; 99285; U0003; J3480; G0378 ×2; J7030